=== PATIENT | male | born 1945 | race Caucasian/White ===

== ENCOUNTER 2016-08-06 14:37 | Inpatient (IN) | payer MEDICARE, OTHER ==
[2016-08-06 15:09] VITALS: BMI 25.7
--- NOTE | 2016-08-06 16:59 | PDOC ---
History of Present Illness - General History Source: Patient, Old Records Exam Limitations: No Limitations - History of Present Illness Initial Comments: 08/06/16 17:00 The patient is a 70 year old male, with a significant past medical history of CHF, atrial fibrillation, CAD, HTN, HLD, diabetes, small bowel obstruction and liver CA with implanted seeds for radiation, who presents to the emergency department with generalized weakness, loss of appetite and dizziness for the past 2 days. He states that he usually has a very good appetite but has not been eating well lately. He notes that lately his glucose level has been elevated. The patient denies chest pain, shortness of breath and headache. Denies fever, chills, nausea, vomit, diarrhea and constipation. Denies dysuria, frequency, urgency and hematuria. Allergies: None Past surgical history: CABG x3, aortic valve replacement Social history: No alcohol, tobacco or drug use reported PMD - Dr. Lindsay Pastor <Augustus Werner - Last Filed: 08/06/16 20:29> - General History Source: Patient, Old Records Exam Limitations: No Limitations <Yung Clark - Last Filed: 08/06/16 20:44> - General Chief Complaint: Loss of Appetite Stated Complaint: LOSS OF APPETITE, DIZZINESS Time Seen by Provider: 08/06/16 16:19 Past History <Augustus Werner - Last Filed: 08/06/16 20:29> - Past Medical History Anemia: No Asthma: No Cancer: No Cardiac Disorders: Yes (CHF, atrial fibrillation, CAD) CVA: No COPD: No CHF: Yes Dementia: No Diabetes: Yes GI Disorders: No Disorders: No HTN: Yes Hypercholesterolemia: Yes Liver Disease: No Suicide Attempt (Hx): No Seizures: No Thyroid Disease: No - Surgical History Abdominal Surgery: Yes Cardiac Surgery: Yes (CABG x3, aortic valve replacement) - Immunization History Immunization Up to Date: Yes - Psycho/Social/Smoking Cessation Hx Anxiety: No Suicidal Ideation: No Smoking Status: Yes Smoking History: Never smoked Have you smoked in the past 12 months: No Number of Cigarettes Smoked Daily: 0 If you are a former smoker, when did you quit?: 2001 Information on smoking cessation initiated: No Hx Alcohol Use: No Drug/Substance Use Hx: No Substance Use Type: None Hx Substance Use Treatment: No <Yung Clark - Last Filed: 08/06/16 20:44> - Past Medical History Allergies/Adverse Reactions: Allergies Allergy/AdvReac Type Severity Reaction Status Date / Time No Known Drug Allergies Allergy Verified 08/06/16 15:03 Home Medications: Ambulatory Orders Furosemide [Lasix -] 40 mg PO DAILY 08/06/16 Insulin (Levemir) [Levemir Flexpen -] 0 units SQ BID 08/06/16 Losartan Potassium 25 mg PO DAILY 08/06/16 Mirtazapine 15 mg PO DAILY 08/06/16 Pravastatin Sodium 10 mg PO DAILY 08/06/16 Spironolactone 100 mg PO DAILY 08/06/16 Review of Systems - Review of Systems Able to Perform ROS?: Yes Comments:: 08/06/16 17:00 GENERAL/CONSTITUTIONAL: +Generalized weakness, loss of appetite. No fever or chills. HEAD, EYES, EARS, NOSE AND THROAT: No change in vision. No ear pain or discharge. No sore throat. CARDIOVASCULAR: No chest pain or shortness of breath RESPIRATORY: No cough, wheezing, or hemoptysis. GASTROINTESTINAL: No nausea, vomiting, diarrhea or constipation. GENITOURINARY: No dysuria, frequency, or change in urination. MUSCULOSKELETAL: No joint or muscle swelling or pain. No neck or back pain. SKIN: No rash NEUROLOGIC: +Dizziness. No headache, loss of consciousness, or change in strength/sensation. ENDOCRINE: No increased thirst. No abnormal weight change HEMATOLOGIC/LYMPHATIC: No anemia, easy bleeding, or history of blood clots. ALLERGIC/IMMUNOLOGIC: No hives or skin allergy. <Augustus Werner - Last Filed: 08/06/16 20:29> *Physical Exam - Vital Signs Last Vital Signs Temp Pulse Resp BP Pulse Ox 98.2 F 81 20 149/69 99 08/06/16 15:03 08/06/16 15:03 08/06/16 15:03 08/06/16 15:03 08/06/16 15:03 - Physical Exam Comments: 08/06/16 17:01 GENERAL: +Cachectic. Awake, alert, and fully oriented, in no acute distress HEAD: No signs of trauma, normocephalic, atraumatic EYES: PERRLA, EOMI, sclera anicteric, conjunctiva clear ENT: Auricles normal inspection, hearing grossly normal, nares patent, oropharynx clear without exudates. Moist mucosa NECK: Normal ROM, supple, no lymphadenopathy, JVD, or masses LUNGS: No distress, speaks full sentences, clear to auscultation bilaterally HEART: +Systolic murmur. Regular rate and rhythm, normal S1 and S2, no rubs or gallops, peripheral pulses normal and equal bilaterally. ABDOMEN: Soft, nontender, normoactive bowel sounds. No guarding, no rebound. No masses EXTREMITIES: Normal inspection, Normal range of motion, no edema. No clubbing or cyanosis. NEUROLOGICAL: Cranial nerves II through XII grossly intact. Normal speech, normal gait, no focal sensorimotor deficits SKIN: Warm, Dry, normal turgor, no rashes or lesions noted. <Augustus Werner - Last Filed: 08/06/16 20:29> - Vital Signs Last Vital Signs Temp Pulse Resp BP Pulse Ox 98.2 F 81 20 149/69 99 08/06/16 15:03 08/06/16 15:03 08/06/16 15:03 08/06/16 15:03 08/06/16 15:03 <Yung Clark - Last Filed: 08/06/16 20:44> Heart Score/ECG Review #1 ECG reviewed & interpreted by me at: 17:00 08/06/16 17:06 NSR 68 with 1st degree AV block, incomplete LBBB, +LVH, QTC 440 msec, no std/paty <Yung Clark - Last Filed: 08/06/16 20:44> ED Treatment Course - LABORATORY CBC & Chemistry Diagram: 08/06/16 17:20 08/06/16 18:01 <Augustus Werner - Last Filed: 08/06/16 20:29> - LABORATORY CBC & Chemistry Diagram: 08/06/16 17:20 08/06/16 18:01 - RADIOLOGY Radiology Studies Ordered: Category Date Time Status CHEST X-RAY PORTABLE* [RAD] Stat Radiology 08/06/16 16:36 Ordered <Yung Clark - Last Filed: 08/06/16 20:44> Medical Decision Making - Medical Decision Making 08/06/16 20:29 Dr. Pastor was called regarding the patient at 8:00pm and 8:26pm Dr. Pastor was consulted regarding the patient at 8:29pm [phone] <Augustus Werner - Last Filed: 08/06/16 20:29> - Medical Decision Making 08/06/16 16:56 A portion of this note was written by my scribe, under my supervision. Vital Signs Temp Pulse Resp BP Pulse Ox 98.2 F 81 20 149/69 99 08/06/16 15:03 08/06/16 15:03 08/06/16 15:03 08/06/16 15:03 08/06/16 15:03 70 year old male with past medical history of HTN, DM, HLD, CHF, atrial fibrillation, distant liver cancer p/w loss of appetite and weakness. The patient reports in the last two days of feeling generally weak. States that he has lost his appetite but unsure why. Denies recent illnesses, fevers, chills, cough, vomiting, diarrhea. Does report that his sugars lately have been very high, sometimes over 400 despite reportedly adherent to his insulin. Noted polyuria. Denies dysuria. States that he feels like feinting because he feels so weak. The differential is broad and includes DKA, hyperglycemia, occult infection ie. UTI, occult PNA, cardiac, metabolic disarray. Will obtain labs, UA, chest xray, ECG, and reassess. 08/06/16 20:32 CBC, BMP 08/06/16 17:20 08/06/16 18:01 CMP Sodium 134 mmol/L (136-145) L 08/06/16 18:01 Potassium 6.9 mmol/L (3.5-5.1) H* D 08/06/16 18:01 Chloride 104 mmol/L (98-107) 08/06/16 18:01 Carbon Dioxide 19 mmol/L (21-32) L D 08/06/16 18:01 Anion Gap 11 (8-16) 08/06/16 18:01 BUN 72 mg/dL (7-18) H D 08/06/16 18:01 Creatinine 3.8 mg/dL (0.7-1.3) H D 08/06/16 18:01 Creat Clearance w eGFR 15.87 (>60) 08/06/16 18:01 Random Glucose 240 mg/dL (74-106) H D 08/06/16 18:01 Calcium 8.5 mg/dL (8.5-10.1) 08/06/16 18:01 Phosphorus 4.7 mg/dL (2.5-4.9) 08/06/16 18:01 Magnesium 2.1 mg/dL (1.8-2.4) 08/06/16 18:01 Total Bilirubin 1.3 mg/dL (0.2-1.0) H 08/06/16 18:01 AST 19 U/L (15-37) D 08/06/16 18:01 ALT 33 U/L (12-78) D 08/06/16 18:01 Alkaline Phosphatase 141 U/L (45-117) H D 08/06/16 18:01 Creatine Kinase 62 IU/L (39-308) 08/06/16 18:01 Troponin I 0.02 ng/ml (0.00-0.05) 08/06/16 18:01 Total Protein 7.5 g/dl (6.4-8.2) 08/06/16 18:01 Albumin 3.4 g/dl (3.4-5.0) 08/06/16 18:01 Urine Test Results Urine Color Ltyellow 08/06/16 17:50 Urine Appearance Clear 08/06/16 17:50 Urine pH 5.0 (5.0-8.0) 08/06/16 17:50 Ur Specific [place] 1.012 (1.001-1.035) 08/06/16 17:50 Urine Protein 1+ (NEGATIVE) H 08/06/16 17:50 Urine Glucose (UA) Negative (NEGATIVE) 08/06/16 17:50 Urine Ketones Negative (NEGATIVE) 08/06/16 17:50 Urine Blood Negative (NEGATIVE) 08/06/16 17:50 Urine Nitrite Negative (NEGATIVE) 08/06/16 17:50 Urine Bilirubin Negative (NEGATIVE) 08/06/16 17:50 Ur Leukocyte Esterase Negative (NEGATIVE) 08/06/16 17:50 Urine RBC 1 /hpf (0-3) 08/06/16 17:50 Urine WBC <1 /hpf (3-5) 08/06/16 17:50 Ur Epithelial Cells Rare /hpf (FEW) 08/06/16 17:50 Labs reviewed. Patient has acute renal failure with a resultant hyperkalemia. Patient shows no hyperkalemic changes on EKG. Will admit the patient to the hospital. Case discussed with Dr. Pastor who accepts the patient to the hospital. Case discussed in detail with admitting physician including history, physical exam and ancillary studies. Admitting physician has assumed care for the patient, will follow all pending diagnostics and will complete the evaluation and treatment. <Yung Clark - Last Filed: 08/06/16 20:44> *DC/Admit/Observation/Transfer - Attestations Scribe Attestion: 08/06/16 17:01 Documentation prepared by Augustus Werner, acting as medical records field technician for Yung Clark MD <Augustus Werner - Last Filed: 08/06/16 20:29> - Discharge Dispostion Admit: Yes <Yung Clark - Last Filed: 08/06/16 20:44> Diagnosis at time of Disposition: Hyperkalemia Acute renal failure Qualifiers: Acute renal failure type: unspecified Qualified Code(s): N17.9 - Acute kidney failure, unspecified - Discharge Dispostion Condition at time of disposition: Stable - Referrals Referrals: Reyna Love MD [Primary Care Provider] -
[2016-08-06 17:30] LABS: BASOPHIL 0.6 % (0-2.0); EOSINOPHIL 1.5 % (0-4.5); MCH 32.4 pg (25.7-33.7); MCHC 34.3 g/dl (32.0-35.9); MEAN CELL VOLUME 94.6 fl (80-96); NEUTROPHILS 65.6 % (42.8-82.8); RDW 14.5 % (11.9-15.9); WHITE BLOOD COUNT 4.5 K/mm3 (4.0-10.0)
[2016-08-06 18:04] LABS: URINE APPEARANCE CLEAR; URINE BILIRUBIN NEGATIVE (NEGATIVE); URINE BLOOD NEGATIVE (NEGATIVE); URINE COLOR LTYELLOW; URINE GLUCOSE (UA) NEGATIVE (NEGATIVE); URINE KETONE NEGATIVE (NEGATIVE); URINE LEUK ESTERASE NEGATIVE (NEGATIVE); URINE NITRITE NEGATIVE (NEGATIVE); URINE UROBILINOGEN NEGATIVE E.U./dl (0.2-1.0)
[2016-08-06 18:24] LABS: URINE PROTEIN 1+ (NEGATIVE)
[2016-08-06 18:38] LABS: PLATELET COUNT 76 K/MM3 (134-434); PLATELET ESTIMATE DECREASED (NORMAL)
[2016-08-06 18:53] LABS: ALBUMIN 3.4 g/dl (3.4-5.0); BILIRUBIN,TOTAL 1.3 mg/dL (0.2-1.0); CALCIUM 8.5 mg/dL (8.5-10.1); COCKROFT - GAULT 19.3; CREATININE 3.8 mg/dL (0.7-1.3); MAGNESIUM 2.1 mg/dL (1.8-2.4); PHOSPHOROUS 4.7 mg/dL (2.5-4.9); TOT PROT 7.5 g/dl (6.4-8.2)
[2016-08-06 18:56] LABS: TROPONIN I 0.02 ng/ml (0.00-0.05)
[2016-08-06 19:09] LABS: URINE RBC 1 /hpf (0-3); URINE WBC <1 /hpf (3-5)
[2016-08-06 19:22] LABS: INR 1.13 (0.82-1.09); PROTHROMBIN TIME (PATIENT) 12.5 SEC (9.98-11.88)
[2016-08-06 19:25] LABS: ACTIVATED PTT 30.9 SECONDS (26.9-34.4)
[2016-08-06] MEDS ORDERED: SODIUM BICARBONATE 8.4% 50 MEQ/50 ML DISP.SYRIN IVPUSH ONE (19:58)
[2016-08-06] MEDS ORDERED: DEXTROSE 50%-WATER 50 ML VIAL IVPUSH ONE (19:58)
[2016-08-06] MEDS ORDERED: SODIUM POLYSTYRENE SULFONATE 15 GM/60 ML BOTTLE PO ONE (19:58)
[2016-08-06] MEDS ORDERED: INSULIN REGULAR HUMAN 100 UNITS/ML *VIAL IVPUSH ONE (19:58)
[2016-08-06] MEDS ORDERED: ALBUTEROL SO4 0.083% IH SOL 2.5 MG/3 ML VIAL.NEB. NEB ONE ×2 (19:58→20:39)
[2016-08-06] MEDS ORDERED: SODIUM BICARBONATE 8.4% - 50 ML ONE (20:40)
[2016-08-06] MEDS ORDERED: SODIUM POLYSTYRENE SULFONATE 15 GM/60 ML BOTTLE ONE (20:40)
[2016-08-06] MEDS ORDERED: DEXTROSE 50%-WATER 50 ML DISP.SYRIN ONE (20:40)
[2016-08-06] MEDS ORDERED: INSULIN REGULAR HUMAN 100 UNITS/ML *VIAL ONE (20:42)
[2016-08-07 06:29] LABS: BASOPHIL 0.8 % (0-2.0); EOSINOPHIL 1.3 % (0-4.5); MCH 33.2 pg (25.7-33.7); MEAN CELL VOLUME 94.9 fl (80-96); MEAN PLT VOLUME 9.5 fl (7.5-11.1); NEUTROPHILS 62.7 % (42.8-82.8); PLATELET COUNT 53 K/MM3 (134-434); RDW 14.8 % (11.9-15.9)
[2016-08-07] MEDS ORDERED: INSULIN DETEMIR 100 UNITS/ML MDV SQ SCH (07:00)
[2016-08-07 07:09] LABS: CHOLESTEROL 109 mg/dL (50-200); LDL CHOLESTEROL (ONLY SJRH) 50 mg/dL (5-100)
[2016-08-07 07:10] LABS: ALBUMIN 3.2 g/dl (3.4-5.0); COCKROFT - GAULT 18.8; CREATININE 3.9 mg/dL (0.7-1.3); TROPONIN I 0.03 ng/ml (0.00-0.05)
[2016-08-07] MEDS ORDERED: INSULIN DETEMIR 100 UNITS/ML MDV SQ ONE ×3 (08:39→14:42)
[2016-08-07] MEDS ORDERED: INSULIN REGULAR HUMAN 100 UNITS/ML *VIAL ONE (09:11)
[2016-08-07] MEDS: INSULIN SLIDING SCALE (NOVOLOG) 1 VIAL SQ SCH ×3 (09:13→17:04)
[2016-08-07] MEDS ORDERED: PATIENT'S OWN MEDICATION (NON-FORMULARY) (Pravastatin Sodium [Pravastatin Sodium] 10 MG) PO SCH (10:00)
[2016-08-07] MEDS ORDERED: MIRTAZAPINE 15 MG TABLET (FP) PO SCH (10:00)
[2016-08-07 10:52] LABS: TROPONIN I 0.03 ng/ml (0.00-0.05)
--- NOTE | 2016-08-07 11:11 | HP ---
Admitting History and Physical - Primary Care Physician PCP: Reyna Love - Admission History of Present Illness: -ER HISTORY History of Present Illness Initial Comments: 08/06/16 17:00 The patient is a 70 year old male, with a significant past medical history of CHF, atrial fibrillation, CAD, HTN, HLD, diabetes, small bowel obstruction and liver CA with implanted seeds for radiation, who presents to the emergency department with generalized weakness, loss of appetite and dizziness for the past 2 days. He states that he usually has a very good appetite but has not been eating well lately. He notes that lately his glucose level has been elevated. The patient denies chest pain, shortness of breath and headache. Denies fever, chills, nausea, vomit, diarrhea and constipation. Denies dysuria, frequency, urgency and hematuria. Allergies: None Past surgical history: CABG x3, aortic valve replacement Social history: No alcohol, tobacco or drug use reported PMD - Dr. Lindsay Pastor Pt examined by me in ER he feels tired , no chest pain or SOB no diarrhea has low appetite History Source: Patient Limitations to Obtaining History: No Limitations - Past Medical History Cardiovascular: Yes: AFIB, Aortic Stenosis, CHF Hepatobiliary: Yes: Cirrhosis Endocrine: Yes: Diabetes Mellitus - Past Surgical History Past Surgical History: Yes: Valve Replacement - Smoking History Smoking history: Never smoked Have you smoked in the past 12 months: No Aproximately how many cigarettes per day: 0 If you are a former smoker, when did you quit?: 2001 - Alcohol/Substance Use Hx Alcohol Use: No Home Medications - Allergies Allergies/Adverse Reactions: Allergies Allergy/AdvReac Type Severity Reaction Status Date / Time No Known Drug Allergies Allergy Verified 08/06/16 15:03 - Home Medications Home Medications: Ambulatory Orders Mirtazapine 15 mg PO DAILY 08/06/16 Pravastatin Sodium 10 mg PO DAILY 08/06/16 Insulin (Levemir) [Levemir Flexpen -] 20 units SQ BID #1 amp 08/11/16 Insulin Sliding Scale [Novolog Vial Sliding Scale -] 1 vial SQ TIDAC #1 amp Review of Systems - Review of Systems Constitutional: reports: Loss of Appetite, Weakness. denies: Chills, Fever Cardiovascular: denies: Chest Pain, Palpitations, Shortness of Breath Respiratory: denies: Cough, SOB Gastrointestinal: denies: Abdominal Pain, Diarrhea Physical Examination Vital Signs: Vital Signs Temperature 98.0 F 08/07/16 06:49 Pulse Rate 76 08/07/16 08:06 Respiratory Rate 18 08/07/16 08:06 Blood Pressure 153/81 08/07/16 08:06 O2 Sat by Pulse Oximetry (%) 100 08/07/16 08:06 Constitutional: Yes: No Distress, Calm Cardiovascular: Yes: Regular Rate and Rhythm Respiratory: Yes: Diminished Gastrointestinal: Yes: Normal Bowel Sounds, Soft, Abdomen, Obese. No: Distention, Tenderness Edema: No Psychiatric: Yes: Alert, Oriented Labs: CBC, BMP 08/07/16 06:12 08/07/16 06:12 Imaging - Results Chest X-ray: Image Reviewed (no congestion , infiltrate) EKG: Image Reviewed Problem List - Problems (1) Atrial fibrillation Assessment/Plan: not on anticoagulation or ASA due to thrombocytopenia, pt has h/o cirrhosis due to previous alcohol use Code(s): I48.91 - UNSPECIFIED ATRIAL FIBRILLATION Qualifiers: Atrial fibrillation type: paroxysmal Qualified Code(s): I48.0 - Paroxysmal atrial fibrillation (2) Thrombocytopenia Assessment/Plan: not evidence of bleeding Code(s): D69.6 - THROMBOCYTOPENIA, UNSPECIFIED (3) Acute renal failure Assessment/Plan: dehydrated dc Lasix for now, spironolactone and Losartan Kayexalate given repeat BMP received iv fluids in ER check renal sono Renal consult Code(s): N17.9 - ACUTE KIDNEY FAILURE, UNSPECIFIED Qualifiers: Acute renal failure type: unspecified Qualified Code(s): N17.9 - Acute kidney failure, unspecified (4) Hyperglycemia Assessment/Plan: check BGM monitor blood sugars Code(s): R73.9 - HYPERGLYCEMIA, UNSPECIFIED (5) Dehydration Assessment/Plan: likely due to meds gentle fluids , pt not in volume overload he is over -diuresed DVT prophylaxis- SCD Code(s): E86.0 - DEHYDRATION
--- NOTE | 2016-08-07 11:19 | EKG ---
Test Reason : Blood Pressure : / mmHG Vent. Rate : 068 BPM Atrial Rate : 068 BPM P-R Int : 242 ms QRS Dur : 110 ms QT Int : 414 ms P-R-T Axes : 062 -01 078 degrees QTc Int : 440 ms SINUS RHYTHM WITH 1ST DEGREE A-V BLOCK INCOMPLETE LEFT BUNDLE BRANCH BLOCK MINIMAL VOLTAGE CRITERIA FOR LVH, MAY BE NORMAL VARIANT BORDERLINE ECG WHEN COMPARED WITH ECG OF 10-AUG-2015 14:01, AL INTERVAL HAS INCREASED INCOMPLETE LEFT BUNDLE BRANCH BLOCK IS NOW PRESENT Confirmed by POLO JOSEPH MD ([id number]) on 08/07/2016 11:19:11 AM Referred By: Confirmed By:POLO JOSEPH MD
--- NOTE | 2016-08-07 11:21 | CON.CARD ---
Cardiology Consult (text) - Consultation Consultation Note: cc: weakness, fatigue hpi: 70 m hx cad s/p cabg x3 2004, bio avr, ascending aorta repair, htn, hld, dm, aflutter, dchf, ex etoh abuse, HCC s/p seeds at [facility] 07/2015, cirrhosis with thrombocytopenia and esoph varices, here with weakness, fatigue. Pt had been feeling well until about 2-3 days ago when he began to have generalized weakness, fatigue, dec appetite. No cp, sob, palps, dizzy, loc, pnd, orthopnea , le edema. In ER found to have DEJUAN. Sees me for cardiology. pmh: per hpi psh: cabg, avr social: ex tob, ex etoh fam: no premature cad or scd ros: per hpi; no nvd, fever, cough, nasal congestion, muscle pains, fritz, vision changes, no hematuria/dysuria, no gib meds: Home Medications Medication Instructions Recorded Furosemide [Lasix -] 40 mg PO DAILY 08/06/16 Insulin (Levemir) [Levemir Flexpen 0 units SQ BID 08/06/16 -] Losartan Potassium 25 mg PO DAILY 08/06/16 Mirtazapine 15 mg PO DAILY 08/06/16 Pravastatin Sodium 10 mg PO DAILY 08/06/16 Spironolactone 100 mg PO DAILY 08/06/16 pe: Vital Signs Period Temp Pulse Resp BP Sys/Sheldon Pulse Ox Last 24 Hr 98.0 F-98.2 F 76-81 16-20 128-153/52-81 99-100 nad no jvd rrr s1s2 no mrg cta bl nl eff aaox3 no le e/c/c abd nt nd pos bs no jaundice diaphoresis pos dp pt no carotid bruit Laboratory Last Values WBC 3.0 K/mm3 (4.0-10.0) L D 08/07/16 06:12 RBC 3.48 M/mm3 (4.00-5.60) L 08/07/16 06:12 Hgb 11.5 GM/dL (11.7-16.9) L 08/07/16 06:12 Hct 33.0 % (35.4-49) L 08/07/16 06:12 MCV 94.9 fl (80-96) 08/07/16 06:12 MCHC 35.0 g/dl (32.0-35.9) 08/07/16 06:12 RDW 14.8 % (11.9-15.9) 08/07/16 06:12 Plt Count 53 K/MM3 (134-434) L D 08/07/16 06:12 MPV 9.5 fl (7.5-11.1) D 08/07/16 06:12 Neutrophils % 62.7 % (42.8-82.8) 08/07/16 06:12 Lymphocytes % 20.4 % (8-40) 08/07/16 06:12 Monocytes % 14.8 % (3.8-10.2) H 08/07/16 06:12 Eosinophils % 1.3 % (0-4.5) 08/07/16 06:12 Basophils % 0.8 % (0-2.0) 08/07/16 06:12 Platelet Estimate Decreased (NORMAL) 08/06/16 17:20 INR 1.13 (0.82-1.09) D 08/06/16 17:20 PTT (Actin FS) 30.9 SECONDS (26.9-34.4) 08/06/16 17:20 Sodium 136 mmol/L (136-145) 08/07/16 06:12 Potassium 4.9 mmol/L (3.5-5.1) D 08/07/16 06:12 Chloride 105 mmol/L (98-107) 08/07/16 06:12 Carbon Dioxide 20 mmol/L (21-32) L 08/07/16 06:12 Anion Gap 11 (8-16) 08/07/16 06:12 BUN 77 mg/dL (7-18) H 08/07/16 06:12 Creatinine 3.9 mg/dL (0.7-1.3) H 08/07/16 06:12 Creat Clearance w eGFR 15.41 (>60) 08/07/16 06:12 Random Glucose 506 mg/dL (74-106) H* D 08/07/16 06:12 Calcium 8.0 mg/dL (8.5-10.1) L 08/07/16 06:12 Phosphorus 4.7 mg/dL (2.5-4.9) 08/06/16 18:01 Magnesium 2.1 mg/dL (1.8-2.4) 08/06/16 18:01 Total Bilirubin 1.0 mg/dL (0.2-1.0) D 08/07/16 06:12 AST 17 U/L (15-37) 08/07/16 06:12 ALT 33 U/L (12-78) 08/07/16 06:12 Alkaline Phosphatase 137 U/L (45-117) H 08/07/16 06:12 Creatine Kinase 68 IU/L (39-308) 08/07/16 10:16 Troponin I 0.03 ng/ml (0.00-0.05) 08/07/16 10:16 Total Protein 7.0 g/dl (6.4-8.2) 08/07/16 06:12 Albumin 3.2 g/dl (3.4-5.0) L 08/07/16 06:12 Triglycerides 85 mg/dL (35-160) D 08/07/16 06:12 Cholesterol 109 mg/dL (50-200) 08/07/16 06:12 Total LDL Cholesterol 50 mg/dL (5-100) 08/07/16 06:12 HDL Cholesterol 47 mg/dL (40-60) 08/07/16 06:12 Urine Color Ltyellow 08/06/16 17:50 Urine Appearance Clear 08/06/16 17:50 Urine pH 5.0 (5.0-8.0) 08/06/16 17:50 Ur Specific [place] 1.012 (1.001-1.035) 08/06/16 17:50 Urine Protein 1+ (NEGATIVE) H 08/06/16 17:50 Urine Glucose (UA) Negative (NEGATIVE) 08/06/16 17:50 Urine Ketones Negative (NEGATIVE) 08/06/16 17:50 Urine Blood Negative (NEGATIVE) 08/06/16 17:50 Urine Nitrite Negative (NEGATIVE) 08/06/16 17:50 Urine Bilirubin Negative (NEGATIVE) 08/06/16 17:50 Urine Urobilinogen Negative E.U./dl (0.2-1.0) 08/06/16 17:50 Ur Leukocyte Esterase Negative (NEGATIVE) 08/06/16 17:50 Urine RBC 1 /hpf (0-3) 08/06/16 17:50 Urine WBC <1 /hpf (3-5) 08/06/16 17:50 Ur Epithelial Cells Rare /hpf (FEW) 08/06/16 17:50 Acetone, Qual Cancelled 08/06/16 17:20 echo 09/2014: nl lv/rv, mild merrill, mild mr/tr, bio avr with nl fcn, mild ar, rvsp 30-40 mibi 06/2013: nl mpi pvr 06/2013: normal cxr: clear lungs ecg 08/06/16: sr, first degree avb, nl qtc, no ischemic changes a/p: 70 m hx cad s/p cabg x3 2004, bio avr, ascending aorta repair, htn, hld, dm, aflutter, dchf, ex etoh abuse, HCC s/p seeds at [facility] 07/2015, cirrhosis with thrombocytopenia and esoph varices, here with weakness, fatigue. dejuan: -unclear etiology -renal consult pending -hold home lasix for now cad, cabg: -stable, no angina, nl lvef -no ischemia on prior mibi -no signs acs, ce's neg x3 -cont home statin, bb -not on asa 2/2 thrombocytopenia bio avr: -stable, nl fcn on prior echo -routine outpt monitoring ascending aorta repair: -stable, cont bb, statin, bp control htn: -cont home bb hld: -cont statin dchf: -no signs vol overload -can hold home lasix 40 qd given dejuan aflutter: -in sr, cont bb -no ac/asa 2/2 thrombocytopenia and esoph varices
[2016-08-07] MEDS ORDERED: Insulin (LOG) Aspart 100 UNITS/ML VIAL SQ ONE (12:20)
--- NOTE | 2016-08-07 15:53 | CONSULT ---
Consult Consult Specialty:: Nephrology Reason for Consultation:: DEJUAN - History of Present Illness Chief Complaint: weakness and fatigue History of Present Illness: Pt is a 70 year old male with pmhx of CHF, a-fib, HTN, CAD, DM, SBO, and liver CA who presents to the ER with weakness and loss of appetite. He was found to be hyperglycemic. He was also found to be in acute renal failure and I was called to evaluate him. He denies dysuria or hematuria. He also denies history of CKD. He does not use NSAIDs. He is now awake and alert. He has appetite and is able to give history. - History Source History Provided By: Patient - Past Medical History Cardio/Vascular: Yes: AFIB, Aortic Stenosis, CHF Hepatobiliary: Yes: Cirrhosis Endocrine: Yes: Diabetes Mellitus - Past Surgical History Past Surgical History: Yes: Valve Replacement - Alcohol/Substance Use Hx Alcohol Use: No - Smoking History Smoking history: Never smoked Have you smoked in the past 12 months: No Aproximately how many cigarettes per day: 0 If you are a former smoker, when did you quit?: 2001 - Social History Usual Living Arrangement: With Spouse Home Medications - Allergies Allergies/Adverse Reactions: Allergies Allergy/AdvReac Type Severity Reaction Status Date / Time No Known Drug Allergies Allergy Verified 08/06/16 15:03 - Home Medications Home Medications: Ambulatory Orders Furosemide [Lasix -] 40 mg PO DAILY 08/06/16 Insulin (Levemir) [Levemir Flexpen -] 40 units SQ HS 08/06/16 Losartan Potassium 25 mg PO DAILY 08/06/16 Mirtazapine 15 mg PO DAILY 08/06/16 Pravastatin Sodium 10 mg PO DAILY 08/06/16 Spironolactone 100 mg PO DAILY 08/06/16 Family Disease History - Family Disease History Family History: Denies Review of Systems - Review of Systems Constitutional: reports: Malaise Eyes: reports: No Symptoms HENT: reports: No Symptoms Neck: reports: No Symptoms Cardiovascular: reports: No Symptoms Respiratory: reports: No Symptoms Gastrointestinal: reports: No Symptoms Genitourinary: reports: No Symptoms Musculoskeletal: reports: No Symptoms Integumentary: reports: No Symptoms Neurological: reports: No Symptoms Endocrine: reports: No Symptoms Hematology/Lymphatic: reports: No Symptoms Psychiatric: reports: No Symptoms Physical Exam Vital Signs: Vital Signs Temperature 98.6 F 08/07/16 13:13 Pulse Rate 94 H 08/07/16 13:13 Respiratory Rate 18 08/07/16 13:13 Blood Pressure 131/62 08/07/16 13:13 O2 Sat by Pulse Oximetry (%) 100 08/07/16 13:13 Constitutional: Yes: Calm Eyes: Yes: Conjunctiva Clear HENT: Yes: Atraumatic Cardiovascular: Yes: S1, S2 Respiratory: Yes: CTA Bilaterally Gastrointestinal: Yes: Soft Renal/: Yes: WNL Musculoskeletal: Yes: WNL Edema: No Integumentary: Yes: Venous Stasis Changes Neurological: Yes: Oriented Psychiatric: Yes: Oriented Labs: CBC, BMP 08/07/16 06:12 08/07/16 06:12 Laboratory Tests 09/24/14 09/25/14 09/30/14 05:40 21:05 06:00 WBC Hgb Plt Count INR PTT (Actin FS) Sodium Potassium Chloride Carbon Dioxide Anion Gap BUN Creatinine 1.2 1.4 H 0.9 Hemoglobin A1c % Urine Color Urine Appearance Urine pH Ur Specific [place] Urine Protein Urine Glucose (UA) Urine Ketones Urine Blood Urine Nitrite Urine Bilirubin Urine Urobilinogen Ur Leukocyte Esterase 05/23/15 08/10/15 08/06/16 09:15 14:29 17:20 WBC 4.5 Hgb 11.9 Plt Count 76 L D INR PTT (Actin FS) Sodium Potassium Chloride Carbon Dioxide Anion Gap BUN Creatinine 1.4 H 1.4 H Hemoglobin A1c % Urine Color Urine Appearance Urine pH Ur Specific [place] Urine Protein Urine Glucose (UA) Urine Ketones Urine Blood Urine Nitrite Urine Bilirubin Urine Urobilinogen Ur Leukocyte Esterase 08/06/16 08/06/16 08/06/16 17:20 17:50 18:01 WBC Hgb Plt Count INR 1.13 D PTT (Actin FS) 30.9 Sodium 134 L Potassium 6.9 H* D Chloride 104 Carbon Dioxide 19 L D Anion Gap 11 BUN 72 H D Creatinine 3.8 H D Hemoglobin A1c % Urine Color Ltyellow Urine Appearance Clear Urine pH 5.0 Ur Specific [place] 1.012 Urine Protein 1+ H Urine Glucose (UA) Negative Urine Ketones Negative Urine Blood Negative Urine Nitrite Negative Urine Bilirubin Negative Urine Urobilinogen Negative Ur Leukocyte Esterase Negative 08/07/16 08/07/16 08/07/16 06:12 06:12 06:12 WBC 3.0 L D Hgb 11.5 L Plt Count 53 L D INR PTT (Actin FS) Sodium 136 Potassium 4.9 D Chloride 105 Carbon Dioxide 20 L Anion Gap 11 BUN 77 H Creatinine 3.9 H Hemoglobin A1c % 11.2 H D Urine Color Urine Appearance Urine pH Ur Specific [place] Urine Protein Urine Glucose (UA) Urine Ketones Urine Blood Urine Nitrite Urine Bilirubin Urine Urobilinogen Ur Leukocyte Esterase Imaging - Results Chest X-ray: Report Reviewed Ultrasound: Report Reviewed (bilateral cysts) Problem List - Problems (1) Acute renal failure Code(s): N17.9 - ACUTE KIDNEY FAILURE, UNSPECIFIED Qualifiers: Acute renal failure type: unspecified Qualified Code(s): N17.9 - Acute kidney failure, unspecified (2) Atrial fibrillation Code(s): I48.91 - UNSPECIFIED ATRIAL FIBRILLATION (3) CHF (congestive heart failure) Code(s): I50.9 - HEART FAILURE, UNSPECIFIED (4) Diabetes 1.5, managed as type 2 Code(s): E13.9 - OTHER SPECIFIED DIABETES MELLITUS WITHOUT COMPLICATIONS (5) Hyperkalemia Code(s): E87.5 - HYPERKALEMIA (6) Hypertension Code(s): I10 - ESSENTIAL (PRIMARY) HYPERTENSION (7) Thrombocytopenia Code(s): D69.6 - THROMBOCYTOPENIA, UNSPECIFIED Assessment/Plan Current Medications Generic Name Dose Route Start Last Admin Trade Name Radha PRN Reason Stop Dose Admin Insulin Aspart 1 vial 08/07/16 07:00 08/07/16 17:04 Novolog Vial Sliding Scale - SQ Not Given TIDAC [facility] Protocol Insulin Detemir 40 units 08/08/16 07:00 Levemir Vial SQ DAILY@0700 [facility] Mirtazapine 15 mg 08/07/16 10:00 08/07/16 10:59 Remeron - PO 15 mg DAILY [facility] Administration Non-Formulary Medication 10 mg 08/07/16 10:00 Pravastatin Sodium [Pravastatin Sodium] PO DAILY [facility] Pneumococcal 13-Valent Conj Vacc 0.5 ml 08/07/16 13:26 Prevnar 13 Syringe - IM 08/07/16 13:27 .ONCE ONE Selected Entries 08/07/16 08/07/16 06:49 13:13 Blood Pressure 131/62 Blood Pressure 128/52 [Left] Impression 1. DEJUAN 2. hyperkalemia 3. DM uncontrolled 4. a-fib 5. HTN 6. liver ca 7. chol 8. CHF 9. hx alcohol abuse Plan - hold diuretics, pt was on lasix and spironolactone - hold losartan for now - repeat labs in am - renal ultrasound reviewed - will give a small volume of fluid - monitor bp - will follow Dr Dee
[2016-08-07] MEDS ORDERED: SODIUM CHLORIDE 1,000 ML IV SCH (17:30)
[2016-08-08] MEDS: INSULIN SLIDING SCALE (NOVOLOG) 1 VIAL SQ SCH ×3 (06:36→17:09)
[2016-08-08] MEDS: INSULIN DETEMIR 100 UNITS/ML MDV SQ SCH (06:36)
[2016-08-08] MEDS ORDERED: INSULIN DETEMIR 100 UNITS/ML MDV SQ SCH (07:00)
[2016-08-08 08:19] LABS: BASOPHIL 0.9 % (0-2.0); EOSINOPHIL 3.6 % (0-4.5); MEAN PLT VOLUME 9.5 fl (7.5-11.1); NEUTROPHILS 58.2 % (42.8-82.8); PLATELET COUNT 51 K/MM3 (134-434); RDW 14.7 % (11.9-15.9); WHITE BLOOD COUNT 4.5 K/mm3 (4.0-10.0)
[2016-08-08 08:48] LABS: ALBUMIN 3.3 g/dl (3.4-5.0); BILIRUBIN,TOTAL 1.1 mg/dL (0.2-1.0); CALCIUM 8.3 mg/dL (8.5-10.1); COCKROFT - GAULT 22.98; CREATININE 3.1 mg/dL (0.7-1.3); TOT PROT 7.1 g/dl (6.4-8.2)
--- NOTE | 2016-08-08 09:03 | PN ---
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 (short form) - Note 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: SUBJECTIVE: Patient seen and examined. Chart reviewed. Feels better. Still weak. Passing urine. Denies pain. OBJECTIVE: Vital Signs 08/08/16 08/08/16 06:00 08:42 Temperature 98.2 F 98.2 F Pulse Rate 86 73 Respiratory 20 18 Rate Blood Pressure 109/59 146/67 Intake & Output 08/07/16 08/08/16 08/08/16 23:59 07:59 15:59 Intake Total 504 Output Total 300 Balance -300 504 Weight 72.257 kg Intake: IV 504 Normal Saline - 1,000 ml 504 @ 42 mls/hr IV ASDIR [facility] Rx#:[id number] Output: Emesis 300 Other: Voiding Method Toilet Weight Measurement Method Built in [facility] Active Medications Insulin Aspart (Novolog Vial Sliding Scale -) 1 vial SQ TIDAC [facility] PRN Reason: Protocol Last Admin: 08/08/16 06:36 Dose: Not Given Insulin Detemir (Levemir Vial) 40 units SQ DAILY@0700 [facility] Last Admin: 08/08/16 06:36 Dose: 40 units Mirtazapine (Remeron -) 15 mg PO DAILY [facility] Last Admin: 08/08/16 09:23 Dose: 15 mg Non-Formulary Medication (Pravastatin Sodium [Pravastatin Sodium]) 10 mg PO DAILY [facility] Pneumococcal 13-Valent Conj Vacc (Prevnar 13 Syringe -) 0.5 ml IM .ONCE ONE Stop: 08/08/16 11:01 CBC, BMP 08/08/16 06:30 08/08/16 06:30 Laboratory Results - last 24 hr 08/07/16 08/07/16 08/07/16 06:12 10:16 12:08 WBC RBC Hgb Hct MCV MCHC RDW Plt Count MPV Neutrophils % Lymphocytes % Monocytes % Eosinophils % Basophils % Sodium Potassium Chloride Carbon Dioxide Anion Gap BUN Creatinine Creat Clearance w eGFR POC Glucometer > 400 Random Glucose Hemoglobin A1c % 11.2 H D Calcium Total Bilirubin AST ALT Alkaline Phosphatase Creatine Kinase 68 Troponin I 0.03 Total Protein Albumin 08/07/16 08/08/16 08/08/16 17:00 06:30 06:30 WBC 4.5 D RBC 3.67 L Hgb 12.1 Hct 34.5 L MCV 94.0 MCHC 35.0 RDW 14.7 Plt Count 51 L MPV 9.5 Neutrophils % 58.2 Lymphocytes % 23.1 Monocytes % 14.2 H Eosinophils % 3.6 D Basophils % 0.9 Sodium 140 Potassium 4.4 Chloride 109 H Carbon Dioxide 20 L Anion Gap 11 BUN 77 H Creatinine 3.1 H D Creat Clearance w eGFR 20.08 POC Glucometer [id number] Random Glucose 122 H D Hemoglobin A1c % Calcium 8.3 L Total Bilirubin 1.1 H AST 25 D ALT 35 Alkaline Phosphatase 140 H Creatine Kinase Troponin I Total Protein 7.1 Albumin 3.3 L 08/08/16 06:34 WBC RBC Hgb Hct MCV MCHC RDW Plt Count MPV Neutrophils % Lymphocytes % Monocytes % Eosinophils % Basophils % Sodium Potassium Chloride Carbon Dioxide Anion Gap BUN Creatinine Creat Clearance w eGFR POC Glucometer 110 Random Glucose Hemoglobin A1c % Calcium Total Bilirubin AST ALT Alkaline Phosphatase Creatine Kinase Troponin I Total Protein Albumin PHYSICAL EXAMINATION: Constitutional: Yes: Calm/ Comfortable. Cardiovascular: Yes: S1, S2 Regular Respiratory: Yes: CTA Bilaterally Gastrointestinal: Yes: Soft/ Non-tender. Edema: No Neurological: Yes: Alert and awake. Problem List - Problems (1) Acute renal failure Code(s): N17.9 - ACUTE KIDNEY FAILURE, UNSPECIFIED Qualifiers: Acute renal failure type: unspecified Qualified Code(s): N17.9 - Acute kidney failure, unspecified (2) Atrial fibrillation Code(s): I48.91 - UNSPECIFIED ATRIAL FIBRILLATION (3) CHF (congestive heart failure) Code(s): I50.9 - HEART FAILURE, UNSPECIFIED (4) Diabetes 1.5, managed as type 2 Code(s): E13.9 - OTHER SPECIFIED DIABETES MELLITUS WITHOUT COMPLICATIONS (5) Hyperkalemia Code(s): E87.5 - HYPERKALEMIA (6) Hypertension Code(s): I10 - ESSENTIAL (PRIMARY) HYPERTENSION (7) Thrombocytopenia Code(s): D69.6 - THROMBOCYTOPENIA, UNSPECIFIED ASSESSMENT & PLAN: - Clinically better. - Monitor blood sugars/electrolytes. - Diuretics on hold. - Will start on mild hydration. - Follow up electrolytes. - Ambulate. - Will follow. Documentation prepared by Emili Hernandez, acting as a medical staffing coordinator for Reyna Love MD.
[2016-08-08] MEDS: MIRTAZAPINE 15 MG TABLET (FP) PO SCH (09:23)
[2016-08-08] MEDS ORDERED: SODIUM CHLORIDE 1,000 ML IV SCH (10:15)
[2016-08-08] MEDS ORDERED: PNEUMOC 13-VAL CONJ-DIP CRM/PF 0.5 ML DISP.SYRIN IM ONE (11:00)
[2016-08-08] MEDS ORDERED: INSULIN (NOVOLOG) ASPART 100 UNITS/ML 10ML VIAL ONE (11:28)
--- NOTE | 2016-08-08 16:26 | PN ---
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, Physician History of Present Illness: Pt seen and examined at bedside. He is awake and alert. He feels well. - Current Medication List Current Medications: Active Medications Sodium Chloride (Normal Saline -) 1,000 mls @ 75 mls/hr IV ASDIR [facility] Last Admin: 08/08/16 10:41 Dose: 75 mls/hr Insulin Aspart (Novolog Vial Sliding Scale -) 1 vial SQ TIDAC [facility] PRN Reason: Protocol Last Admin: 08/08/16 11:32 Dose: 4 units Insulin Detemir (Levemir Vial) 40 units SQ DAILY@0700 [facility] Last Admin: 08/08/16 06:36 Dose: 40 units Mirtazapine (Remeron -) 15 mg PO DAILY [facility] Last Admin: 08/08/16 09:23 Dose: 15 mg Non-Formulary Medication (Pravastatin Sodium [Pravastatin Sodium]) 10 mg PO HS [facility] - Objective Vital Signs: Vital Signs Temperature 98.3 F 08/08/16 14:52 Pulse Rate 80 08/08/16 14:52 Respiratory Rate 18 08/08/16 14:52 Blood Pressure 168/72 08/08/16 14:52 O2 Sat by Pulse Oximetry (%) 97 08/08/16 09:00 Constitutional: Yes: Calm Eyes: Yes: Conjunctiva Clear HENT: Yes: Atraumatic Cardiovascular: Yes: S1, S2 Respiratory: Yes: CTA Bilaterally Gastrointestinal: Yes: Normal Bowel Sounds, Soft Genitourinary: Yes: WNL Extremities: Yes: WNL Edema: No Neurological: Yes: Oriented Psychiatric: Yes: Oriented Labs: CBC, BMP 08/08/16 06:30 08/08/16 06:30 INR, PTT INR 1.13 (0.82-1.09) D 08/06/16 17:20 - ....Imaging Ultrasound: Report Reviewed Problem List - Problems (1) Acute renal failure Code(s): N17.9 - ACUTE KIDNEY FAILURE, UNSPECIFIED Qualifiers: Acute renal failure type: unspecified Qualified Code(s): N17.9 - Acute kidney failure, unspecified (2) Atrial fibrillation Code(s): I48.91 - UNSPECIFIED ATRIAL FIBRILLATION (3) CHF (congestive heart failure) Code(s): I50.9 - HEART FAILURE, UNSPECIFIED (4) Diabetes 1.5, managed as type 2 Code(s): E13.9 - OTHER SPECIFIED DIABETES MELLITUS WITHOUT COMPLICATIONS (5) Hyperkalemia Code(s): E87.5 - HYPERKALEMIA (6) Hypertension Code(s): I10 - ESSENTIAL (PRIMARY) HYPERTENSION (7) Thrombocytopenia Code(s): D69.6 - THROMBOCYTOPENIA, UNSPECIFIED Assessment/Plan Current Medications Generic Name Dose Route Start Last Admin Trade Name Freq PRN Reason Stop Dose Admin Sodium Chloride 1,000 mls @ 75 mls/hr 08/08/16 10:15 08/08/16 10:41 Normal Saline - IV 75 mls/hr ASDIR [facility] Administration Insulin Aspart 1 vial 08/08/16 07:00 08/08/16 11:32 Novolog Vial Sliding Scale - SQ 4 units TIDAC [facility] Administration Protocol Insulin Detemir 40 units 08/08/16 07:00 08/08/16 06:36 Levemir Vial SQ 40 units DAILY@0700 [facility] Administration Mirtazapine 15 mg 08/08/16 10:00 08/08/16 09:23 Remeron - PO 15 mg DAILY [facility] Administration Non-Formulary Medication 10 mg 08/08/16 22:00 Pravastatin Sodium [Pravastatin Sodium] PO HS [facility] Impression 1. DEJUAN 2. hyperkalemia 3. DM uncontrolled 4. a-fib 5. HTN 6. liver ca 7. chol 8. CHF 9. hx alcohol abuse Plan - renal function is improving - will decrease rate of fluid and change to 1/2 - repeat labs in am - will need better glucose control - monitor bp - will follow Dr Dee
[2016-08-08] MEDS ORDERED: SODIUM CHLORIDE 0.45% 1,000 ML IV SCH (16:30)
[2016-08-08] MEDS: PATIENT'S OWN MEDICATION (NON-FORMULARY) (Pravastatin Sodium [Pravastatin Sodium] 10 MG) PO SCH (21:38)
[2016-08-09] MEDS: INSULIN DETEMIR 100 UNITS/ML MDV SQ SCH (07:02)
[2016-08-09] MEDS: INSULIN SLIDING SCALE (NOVOLOG) 1 VIAL SQ SCH ×3 (07:03→17:06)
[2016-08-09 08:06] LABS: CALCIUM 7.7 mg/dL (8.5-10.1)
[2016-08-09 08:07] LABS: COCKROFT - GAULT 26.53; CREATININE 2.7 mg/dL (0.7-1.3)
[2016-08-09] MEDS: MIRTAZAPINE 15 MG TABLET (FP) PO SCH (10:15)
--- NOTE | 2016-08-09 11:49 | PN ---
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 (short form) - Note 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: comfortable no distress afebrile passing urine bun/ cr better Vital Signs Temp 97.7 F 08/09/16 06:00 Pulse 69 08/09/16 06:00 Resp 20 08/09/16 06:00 BP 142/58 08/09/16 06:00 Pulse Ox 97 08/08/16 21:00 Intake & Output 08/08/16 08/08/16 08/09/16 11:59 23:59 11:59 Intake Total 904 900 Output Total 200 Balance 904 700 Weight 159 lb 4.8 oz 160 lb 3.2 oz Intake: IV 504 600 Normal Saline - 1,000 ml 504 @ 42 mls/hr IV ASDIR [facility] Rx#:[id number] Normal Saline - 1,000 ml 600 @ 75 mls/hr IV ASDIR [facility] Rx#:[id number] Oral 400 300 Output: Urine 200 Levine 200 Other: Voiding Method Toilet Toilet # Unmeasured Voids Levine 2 1 1 Bowel Movement Yes Weight Measurement Method Built in [facility] Active Medications Sodium Chloride (1/2 Normal Saline) 1,000 mls @ 42 mls/hr IV ASDIR [facility] Last Admin: 08/08/16 17:08 Dose: 42 mls/hr Insulin Aspart (Novolog Vial Sliding Scale -) 1 vial SQ TIDAC [facility] PRN Reason: Protocol Last Admin: 08/09/16 07:03 Dose: Not Given Insulin Detemir (Levemir Vial) 40 units SQ DAILY@0700 [facility] Last Admin: 08/09/16 07:02 Dose: 40 units Mirtazapine (Remeron -) 15 mg PO DAILY [facility] Last Admin: 08/09/16 10:15 Dose: 15 mg Non-Formulary Medication (Pravastatin Sodium [Pravastatin Sodium]) 10 mg PO HS [facility] Last Admin: 08/08/16 21:38 Dose: 10 mg CBC, BMP 08/08/16 06:30 08/09/16 06:00 PHYSICAL EXAMINATION: Constitutional: Yes: Calm/ Comfortable. Cardiovascular: Yes: S1, S2 Regular Respiratory: Yes: CTA Bilaterally Gastrointestinal: Yes: Soft/ Non-tender. Edema: No Neurological: Yes: Alert and awake. Problem List - Problems (1) Acute renal failure Code(s): N17.9 - ACUTE KIDNEY FAILURE, UNSPECIFIED Qualifiers: Acute renal failure type: unspecified Qualified Code(s): N17.9 - Acute kidney failure, unspecified (2) Atrial fibrillation Code(s): I48.91 - UNSPECIFIED ATRIAL FIBRILLATION (3) CHF (congestive heart failure) Code(s): I50.9 - HEART FAILURE, UNSPECIFIED (4) Diabetes 1.5, managed as type 2 Code(s): E13.9 - OTHER SPECIFIED DIABETES MELLITUS WITHOUT COMPLICATIONS (5) Hyperkalemia Code(s): E87.5 - HYPERKALEMIA (6) Hypertension Code(s): I10 - ESSENTIAL (PRIMARY) HYPERTENSION (7) Thrombocytopenia Code(s): D69.6 - THROMBOCYTOPENIA, UNSPECIFIED ASSESSMENT & PLAN: - Clinically better. - Monitor blood sugars/electrolytes. - Diuretics on hold. - mild hydration. - Follow up electrolytes. - Ambulate. - Will follow.
[2016-08-09] MEDS ORDERED: SODIUM CHLORIDE 0.45% 1,000 ML IV SCH (18:25)
--- NOTE | 2016-08-09 18:25 | PN ---
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, Physician History of Present Illness: Pt seen and examined at bedside. He is awake and alert. He denies shortness of breath or edema. - Current Medication List Current Medications: Active Medications Sodium Chloride (1/2 Normal Saline) 1,000 mls @ 42 mls/hr IV ASDIR [facility] Last Admin: 08/08/16 17:08 Dose: 42 mls/hr Insulin Aspart (Novolog Vial Sliding Scale -) 1 vial SQ TIDAC [facility] PRN Reason: Protocol Last Admin: 08/09/16 17:06 Dose: 2 units Insulin Detemir (Levemir Vial) 40 units SQ DAILY@0700 [facility] Last Admin: 08/09/16 07:02 Dose: 40 units Mirtazapine (Remeron -) 15 mg PO DAILY [facility] Last Admin: 08/09/16 10:15 Dose: 15 mg Non-Formulary Medication (Pravastatin Sodium [Pravastatin Sodium]) 10 mg PO HS [facility] Last Admin: 08/08/16 21:38 Dose: 10 mg - Objective Vital Signs: Vital Signs Temperature 98.4 F 08/09/16 17:25 Pulse Rate 66 08/09/16 17:25 Respiratory Rate 20 08/09/16 17:25 Blood Pressure 135/59 08/09/16 17:25 O2 Sat by Pulse Oximetry (%) 97 08/09/16 09:00 Constitutional: Yes: Calm Eyes: Yes: Conjunctiva Clear HENT: Yes: Atraumatic Neck: Yes: Supple Cardiovascular: Yes: S1, S2 Respiratory: Yes: CTA Bilaterally Genitourinary: Yes: WNL Musculoskeletal: Yes: WNL Neurological: Yes: Oriented Psychiatric: Yes: Oriented Labs: CBC, BMP 08/08/16 06:30 08/09/16 06:00 INR, PTT INR 1.13 (0.82-1.09) D 08/06/16 17:20 Problem List - Problems (1) Acute renal failure Code(s): N17.9 - ACUTE KIDNEY FAILURE, UNSPECIFIED Qualifiers: Acute renal failure type: unspecified Qualified Code(s): N17.9 - Acute kidney failure, unspecified (2) Atrial fibrillation Code(s): I48.91 - UNSPECIFIED ATRIAL FIBRILLATION (3) CHF (congestive heart failure) Code(s): I50.9 - HEART FAILURE, UNSPECIFIED (4) Diabetes 1.5, managed as type 2 Code(s): E13.9 - OTHER SPECIFIED DIABETES MELLITUS WITHOUT COMPLICATIONS (5) Hyperkalemia Code(s): E87.5 - HYPERKALEMIA (6) Hypertension Code(s): I10 - ESSENTIAL (PRIMARY) HYPERTENSION (7) Thrombocytopenia Code(s): D69.6 - THROMBOCYTOPENIA, UNSPECIFIED Assessment/Plan Current Medications Generic Name Dose Route Start Last Admin Trade Name Freq PRN Reason Stop Dose Admin Sodium Chloride 1,000 mls @ 42 mls/hr 08/08/16 16:30 08/08/16 17:08 1/2 Normal Saline IV 42 mls/hr ASDIR [facility] Administration Insulin Aspart 1 vial 08/08/16 07:00 08/09/16 17:06 Novolog Vial Sliding Scale - SQ 2 units TIDAC [facility] Administration Protocol Insulin Detemir 40 units 08/08/16 07:00 08/09/16 07:02 Levemir Vial SQ 40 units DAILY@0700 [facility] Administration Mirtazapine 15 mg 08/08/16 10:00 08/09/16 10:15 Remeron - PO 15 mg DAILY [facility] Administration Non-Formulary Medication 10 mg 08/08/16 22:00 08/08/16 21:38 Pravastatin Sodium [Pravastatin Sodium] PO 10 mg HS [facility] Administration Impression 1. DEJUAN 2. hyperkalemia 3. DM uncontrolled 4. a-fib 5. HTN 6. liver ca 7. chol 8. CHF 9. hx alcohol abuse Plan - renal function continues to improve - cont gentle hydration, will decrease rate - diuretics on hold for now - monitor glucose - plan discussed with pt and his family at length - will follow Dr Dee
[2016-08-09] MEDS: PATIENT'S OWN MEDICATION (NON-FORMULARY) (Pravastatin Sodium [Pravastatin Sodium] 10 MG) PO SCH (21:20)
[2016-08-10] MEDS: INSULIN SLIDING SCALE (NOVOLOG) 1 VIAL SQ SCH ×3 (06:06→16:54)
[2016-08-10] MEDS: INSULIN DETEMIR 100 UNITS/ML MDV SQ SCH (06:23)
[2016-08-10 07:52] LABS: CALCIUM 7.8 mg/dL (8.5-10.1); COCKROFT - GAULT 31.15; CREATININE 2.3 mg/dL (0.7-1.3)
[2016-08-10] MEDS: MIRTAZAPINE 15 MG TABLET (FP) PO SCH (10:19)
--- NOTE | 2016-08-10 12:06 | PN ---
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 (short form) - Note 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: Pt feels better no complains denies pain afebrile Vital Signs Temp 98.4 F 08/09/16 17:25 Pulse 66 08/09/16 17:25 Resp 20 08/09/16 17:25 BP 135/59 08/09/16 17:25 Pulse Ox 97 08/09/16 21:00 Intake & Output 08/09/16 08/10/16 08/10/16 23:59 11:59 23:59 Intake Total 2800 420 Output Total 1100 Balance 1700 420 Intake: IV 600 420 Normal Saline - 1,000 ml 600 @ 75 mls/hr IV ASDIR [facility] Rx#:[id number] 1/2 Normal Saline 1,000 420 ml @ 35 mls/hr IV ASDIR [facility] Rx#:[id number] IVPB 0 Oral 2200 Output: Urine 800 Levine 500 Void 300 Emesis 300 Other: Voiding Method Toilet Toilet # Unmeasured Voids Levine 1 Void 1 Bowel Movement Yes Active Medications Sodium Chloride (1/2 Normal Saline) 1,000 mls @ 35 mls/hr IV ASDIR [facility] Last Admin: 08/09/16 21:24 Dose: 35 mls/hr Insulin Aspart (Novolog Vial Sliding Scale -) 1 vial SQ TIDAC [facility] PRN Reason: Protocol Last Admin: 08/10/16 06:06 Dose: Not Given Insulin Detemir (Levemir Vial) 40 units SQ DAILY@0700 [facility] Last Admin: 08/10/16 06:23 Dose: 40 units Mirtazapine (Remeron -) 15 mg PO DAILY [facility] Last Admin: 08/10/16 10:19 Dose: 15 mg Non-Formulary Medication (Pravastatin Sodium [Pravastatin Sodium]) 10 mg PO HS [facility] Last Admin: 08/09/16 21:20 Dose: 10 mg CBC, BMP 08/08/16 06:30 08/10/16 06:00 PHYSICAL EXAMINATION: Constitutional: Yes: Calm/ Comfortable. Cardiovascular: Yes: S1, S2 Regular Respiratory: Yes: CTA Bilaterally Gastrointestinal: Yes: Soft/ Non-tender. Edema: No Neurological: Yes: Alert and awake. Problem List - Problems (1) Acute renal failure Code(s): N17.9 - ACUTE KIDNEY FAILURE, UNSPECIFIED Qualifiers: Acute renal failure type: unspecified Qualified Code(s): N17.9 - Acute kidney failure, unspecified (2) Atrial fibrillation Code(s): I48.91 - UNSPECIFIED ATRIAL FIBRILLATION (3) CHF (congestive heart failure) Code(s): I50.9 - HEART FAILURE, UNSPECIFIED (4) Diabetes 1.5, managed as type 2 Code(s): E13.9 - OTHER SPECIFIED DIABETES MELLITUS WITHOUT COMPLICATIONS (5) Hyperkalemia Code(s): E87.5 - HYPERKALEMIA (6) Hypertension Code(s): I10 - ESSENTIAL (PRIMARY) HYPERTENSION (7) Thrombocytopenia Code(s): D69.6 - THROMBOCYTOPENIA, UNSPECIFIED ASSESSMENT & PLAN: - Clinically better. - cr better - Monitor blood sugars/electrolytes. - Diuretics on hold. - mild hydration. - Follow up electrolytes. - Ambulate. - Will follow. - Anticipate d/c tomorrow if continue to improve
--- NOTE | 2016-08-10 14:55 | PN ---
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, Physician History of Present Illness: Pt seen and examined at bedside. He is awake and alert. He denies shortness of breath. - Current Medication List Current Medications: Active Medications Sodium Chloride (1/2 Normal Saline) 1,000 mls @ 35 mls/hr IV ASDIR [facility] Last Admin: 08/09/16 21:24 Dose: 35 mls/hr Insulin Aspart (Novolog Vial Sliding Scale -) 1 vial SQ TIDAC [facility] PRN Reason: Protocol Last Admin: 08/10/16 12:01 Dose: 6 units Insulin Detemir (Levemir Vial) 40 units SQ DAILY@0700 [facility] Last Admin: 08/10/16 06:23 Dose: 40 units Mirtazapine (Remeron -) 15 mg PO DAILY [facility] Last Admin: 08/10/16 10:19 Dose: 15 mg Non-Formulary Medication (Pravastatin Sodium [Pravastatin Sodium]) 10 mg PO HS [facility] Last Admin: 08/09/16 21:20 Dose: 10 mg - Objective Vital Signs: Vital Signs Temperature 97.8 F 08/10/16 09:00 Pulse Rate 68 08/10/16 09:00 Respiratory Rate 20 08/10/16 09:00 Blood Pressure 139/70 08/10/16 09:00 O2 Sat by Pulse Oximetry (%) 97 08/10/16 09:00 Constitutional: Yes: Calm Eyes: Yes: Conjunctiva Clear HENT: Yes: Atraumatic Neck: Yes: Supple Cardiovascular: Yes: S1, S2 Respiratory: Yes: CTA Bilaterally Gastrointestinal: Yes: Normal Bowel Sounds, Soft Genitourinary: Yes: WNL Musculoskeletal: Yes: WNL Extremities: Yes: WNL Edema: No Neurological: Yes: Oriented Psychiatric: Yes: Oriented Labs: CBC, BMP 08/08/16 06:30 08/10/16 06:00 INR, PTT INR 1.13 (0.82-1.09) D 08/06/16 17:20 Problem List - Problems (1) Acute renal failure Code(s): N17.9 - ACUTE KIDNEY FAILURE, UNSPECIFIED Qualifiers: Acute renal failure type: unspecified Qualified Code(s): N17.9 - Acute kidney failure, unspecified (2) Atrial fibrillation Code(s): I48.91 - UNSPECIFIED ATRIAL FIBRILLATION (3) CHF (congestive heart failure) Code(s): I50.9 - HEART FAILURE, UNSPECIFIED (4) Diabetes 1.5, managed as type 2 Code(s): E13.9 - OTHER SPECIFIED DIABETES MELLITUS WITHOUT COMPLICATIONS (5) Hyperkalemia Code(s): E87.5 - HYPERKALEMIA (6) Hypertension Code(s): I10 - ESSENTIAL (PRIMARY) HYPERTENSION (7) Thrombocytopenia Code(s): D69.6 - THROMBOCYTOPENIA, UNSPECIFIED Assessment/Plan Current Medications Generic Name Dose Route Start Last Admin Trade Name Radha PRN Reason Stop Dose Admin Sodium Chloride 1,000 mls @ 35 mls/hr 08/09/16 18:25 08/09/16 21:24 1/2 Normal Saline IV 35 mls/hr ASDIR [facility]ETH Administration Insulin Aspart 1 vial 08/08/16 07:00 08/10/16 12:01 Novolog Vial Sliding Scale - SQ 6 units TIDAC [facility] Administration Protocol Insulin Detemir 40 units 08/08/16 07:00 08/10/16 06:23 Levemir Vial SQ 40 units DAILY@0700 [facility] Administration Mirtazapine 15 mg 08/08/16 10:00 08/10/16 10:19 Remeron - PO 15 mg DAILY [facility] Administration Non-Formulary Medication 10 mg 08/08/16 22:00 08/09/16 21:20 Pravastatin Sodium [Pravastatin Sodium] PO 10 mg HS [facility] Administration Impression 1. DEJUAN 2. hyperkalemia 3. DM uncontrolled 4. a-fib 5. HTN 6. liver ca 7. chol 8. CHF 9. hx alcohol abuse Plan - renal function improving - will stop fluids - encourage PO intake - keep diuretics on hold for now - monitor glucose - will follow Dr Dee
--- NOTE | 2016-08-10 18:28 | PN ---
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 (short form) - Note 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: cc: weakness, fatigue S: denies cp, sob, palps, dizziness. ambulating Current Medications Insulin Aspart (Novolog Vial Sliding Scale -) 1 vial SQ TIDAC [facility] PRN Reason: Protocol Last Admin: 08/10/16 16:54 Dose: Not Given Insulin Detemir (Levemir Vial) 40 units SQ DAILY@0700 [facility] Last Admin: 08/10/16 06:23 Dose: 40 units Mirtazapine (Remeron -) 15 mg PO DAILY [facility] Last Admin: 08/10/16 10:19 Dose: 15 mg Non-Formulary Medication (Pravastatin Sodium [Pravastatin Sodium]) 10 mg PO HS [facility] Last Admin: 08/09/16 21:20 Dose: 10 mg Vital Signs - 24 hr 08/09/16 08/10/16 08/10/16 21:00 09:00 15:05 Temperature 97.8 F 97.8 F Pulse Rate 68 72 Respiratory 20 18 Rate Blood Pressure 139/70 O2 Sat by Pulse 97 97 Oximetry (%) 08/10/16 18:00 Temperature 98.5 F Pulse Rate 69 Respiratory 18 Rate Blood Pressure 150/73 O2 Sat by Pulse Oximetry (%) Intake & Output 08/08/16 08/09/16 08/10/16 08/11/16 07:59 07:59 07:59 07:59 Intake Total 504 1300 3220 900 Output Total 625 710 6273 Balance 204 1100 2120 900 Weight 159 lb 4.8 oz 160 lb 3.2 oz nad no jvd rrr s1s2 no mrg cta bl nl eff aaox3 no le e/c/c abd nt nd pos bs no jaundice diaphoresis pos dp pt no carotid bruit CBC, BMP 08/08/16 06:30 08/10/16 06:00 echo 09/2014: nl lv/rv, mild merrill, mild mr/tr, bio avr with nl fcn, mild ar, rvsp 30-40 mibi 06/2013: nl mpi pvr 06/2013: normal cxr: clear lungs ecg 08/06/16: sr, first degree avb, nl qtc, no ischemic changes a/p: 70 m hx cad s/p cabg x3 2004, bio avr, ascending aorta repair, htn, hld, dm, aflutter, dchf, ex etoh abuse, HCC s/p seeds at [facility] 07/2015, cirrhosis with thrombocytopenia and esoph varices, here with weakness, fatigue. cameron: -improving with ivf -renal consult following -hold home lasix for now cad, cabg: -stable, no angina, nl lvef -no ischemia on prior mibi -no signs acs, ce's neg x3 -cont home statin, resume home bb -not on asa 2/2 thrombocytopenia bio avr: -stable, nl fcn on prior echo -routine outpt monitoring ascending aorta repair: -stable, resume home bb, con't statin, bp control htn: -stable off meds. can resume home bb hld: -cont statin dchf: -no signs vol overload -continue to hold home lasix 40 qd given cameron. renal function improving aflutter: -in sr, currently hr controlled off bb. can resume. -no ac/asa 2/2 thrombocytopenia and esoph varices
[2016-08-10] MEDS ORDERED: PT OWN MED DRAWER 7, Y5N ONE (20:09)
[2016-08-10] MEDS: PATIENT'S OWN MEDICATION (NON-FORMULARY) (Pravastatin Sodium [Pravastatin Sodium] 10 MG) PO SCH (21:22)
[2016-08-11] MEDS: INSULIN DETEMIR 100 UNITS/ML MDV SQ SCH (06:16)
[2016-08-11] MEDS: INSULIN SLIDING SCALE (NOVOLOG) 1 VIAL SQ SCH (06:19)
[2016-08-11] MEDS ORDERED: PT OWN MED DRAWER 7, Y5N ONE (06:21)
[2016-08-11 08:10] LABS: CALCIUM 8.6 mg/dL (8.5-10.1); COCKROFT - GAULT 29.85; CREATININE 2.4 mg/dL (0.7-1.3)
--- NOTE | 2016-08-11 08:38 | DS ---
Physical Examination Vital Signs: Vital Signs Temperature 97.7 F 08/11/16 06:40 Pulse Rate 68 08/11/16 06:40 Respiratory Rate 18 08/11/16 06:40 Blood Pressure 145/84 08/11/16 06:40 O2 Sat by Pulse Oximetry (%) 97 08/10/16 21:00 Labs: CBC, BMP 08/08/16 06:30 08/11/16 06:25 <Reyna Love - Last Filed: 08/11/16 08:38> Vital Signs: Vital Signs Temperature 97.7 F 08/11/16 06:40 Pulse Rate 68 08/11/16 06:40 Respiratory Rate 18 08/11/16 06:40 Blood Pressure 145/84 08/11/16 06:40 O2 Sat by Pulse Oximetry (%) 97 08/10/16 21:00 Findings/Remarks: Feels well. No complaints. Wants to go home. Constitutional: Yes: No Distress, Calm Eyes: Yes: Conjunctiva Clear HENT: Yes: WNL Neck: Yes: Supple Cardiovascular: Yes: Regular Rate and Rhythm Respiratory: Yes: CTA Bilaterally Gastrointestinal: Yes: Soft Edema: No Neurological: Yes: Alert Labs: CBC, BMP 08/08/16 06:30 08/11/16 06:25 <Rosalie Green - Last Filed: 08/11/16 10:03> Discharge Summary Reason For Visit: ACUTE RENAL FAILURE,HYPERKALEMIA Current Active Problems Acute renal failure (Acute) Atrial fibrillation (Acute) Bronchitis (Acute) CHF (congestive heart failure) (Acute) Diabetes 1.5, managed as type 2 (Acute) Hyperkalemia (Acute) Hypertension (Acute) Thrombocytopenia (Acute) - Home Medications Comprehensive Discharge Medication List: Ambulatory Orders Mirtazapine 15 mg PO DAILY 08/06/16 Pravastatin Sodium 10 mg PO DAILY 08/06/16 Insulin (Levemir) [Levemir Flexpen -] 20 units SQ BID #1 amp 08/11/16 Insulin Sliding Scale [Novolog Vial Sliding Scale -] 1 vial SQ TIDAC #1 amp <Reyna Love - Last Filed: 08/11/16 08:38> Current Active Problems Acute renal failure (Acute) Atrial fibrillation (Acute) Bronchitis (Acute) CHF (congestive heart failure) (Acute) Diabetes 1.5, managed as type 2 (Acute) Hyperkalemia (Acute) Hypertension (Acute) Thrombocytopenia (Acute) Hospital Course: Patient admitted for generalized weakness. Workup revealed acute on chronic renal insufficiency. Diuretics were held. Given IVF. Renal followed. Creatinine now stabilized to 2.4. Patient eating and drinking well. Will d/c home today. Will hold diuretics. Advised to drink lots of fluids. Follow up in office later this week on . Patient in agreement. Medications reconciled. D/c plan discussed with nursing staff also D/C Time: 35 minutes Documentation prepared by Rosalie Green, acting as a medical attendant for Reyna Love MD. - Home Medications Comprehensive Discharge Medication List: Ambulatory Orders Mirtazapine 15 mg PO DAILY 08/06/16 Pravastatin Sodium 10 mg PO DAILY 08/06/16 Insulin (Levemir) [Levemir Flexpen -] 20 units SQ BID #1 amp 08/11/16 Insulin Sliding Scale [Novolog Vial Sliding Scale -] 1 vial SQ TIDAC #1 amp <Rosalie Green - Last Filed: 08/11/16 10:03> - Instructions Diet, Activity, Other Instructions: follow up with MD as advised Referrals: Landry Dee MD [Staff Physician] - Reyna Love MD [Primary Care Provider] -
[2016-08-11 17:46] VITALS: BP 178/70; PULSE 79; TEMP 97.8
[2016-08-11] MEDS ORDERED: MIRTAZAPINE 15 MG TABLET (FP) PO SCH (22:00)
== END 2016-08-11 10:28 | disposition home or self-care (01) | DRG 683 ==
LOC: JER 14:37 → JERBED 20:43 → J8W 08-07 19:21
PROVIDERS: ADMIT Internal Medicine; ATTEND Internal Medicine
DX: N17.9 Acute kidney failure, unspecified (principal); I48.92 Unspecified atrial flutter; E87.5 Hyperkalemia; I48.91 Unspecified atrial fibrillation; D69.6 Thrombocytopenia, unspecified; I25.119 Atherosclerotic heart disease of native coronary artery with unspecified angina pectoris; Z95.1 Presence of aortocoronary bypass graft; E78.5 Hyperlipidemia, unspecified; E11.65 Type 2 diabetes mellitus with hyperglycemia; I11.0 Hypertensive heart disease with heart failure; I50.9 Heart failure, unspecified
CPT/HCPCS: 36415; 71020-TC; 76775-TC; 80048; 80053; 80061; 81003; 81015; 82550; 83036; 83721; 83735; 84100; 84484; 85025; 85610; 85730; 87086; 90670; 93005; 93010; 99284-25

== ENCOUNTER 2016-12-04 22:10 | Emergency (ER) | payer MEDICARE ==
[2016-12-04 22:23] VITALS: BP 188/76; PULSE 70; TEMP 97.9; BMI 27.9
--- NOTE | 2016-12-04 22:51 | PDOC ---
History of Present Illness - General History Source: Patient Exam Limitations: No Limitations - History of Present Illness Initial Comments: The patient is a 71 yo M with a past medical history of HTN, HLD, CHF who presents with R sided rib pain since 12:30 pm. The patient states he got on the bus while bus was still moving and hit his side against the railing. The patient states he went to sleep and woke back up around 4pm and took percocet 5mg with no relief. The patients reports the pain is non radiating, constant and worse with deep inspiration and lying on either side. The patient endorses mild improvement of his pain when he remains still. He denies nausea, vomiting and diarrhea. He denies chest pain, lightheadedness, or palpitations. <Payton Main - Last Filed: 12/04/16 22:59> - General History Source: Patient <ChinoAugustus coles - Last Filed: 12/05/16 00:39> - General Chief Complaint: Pain Stated Complaint: PAIN, ACUTE Time Seen by Provider: 12/04/16 22:38 Past History <Payton Main - Last Filed: 12/04/16 22:59> - Past Medical History Anemia: No Asthma: No Cancer: No Cardiac Disorders: Yes (CHF, atrial fibrillation, CAD) CVA: No COPD: No CHF: Yes Dementia: No Diabetes: Yes (iddm) GI Disorders: Yes (Liver CA) Disorders: No HTN: Yes Hypercholesterolemia: Yes Liver Disease: No Suicide Attempt (Hx): No Seizures: No Thyroid Disease: No - Surgical History Abdominal Surgery: Yes Cardiac Surgery: Yes (CABG x3, aortic valve replacement) - Immunization History Immunization Up to Date: Yes - Psycho/Social/Smoking Cessation Hx Anxiety: No Suicidal Ideation: No Smoking Status: Yes Smoking History: Former smoker Have you smoked in the past 12 months: No Number of Cigarettes Smoked Daily: 0 If you are a former smoker, when did you quit?: 2004 Information on smoking cessation initiated: No Hx Alcohol Use: No Drug/Substance Use Hx: No Substance Use Type: None Hx Substance Use Treatment: No <Augustus Sun - Last Filed: 12/05/16 00:39> - Past Medical History Allergies/Adverse Reactions: Allergies Allergy/AdvReac Type Severity Reaction Status Date / Time No Known Drug Allergies Allergy Verified 12/04/16 22:19 Home Medications: Ambulatory Orders Mirtazapine 15 mg PO DAILY 08/06/16 Pravastatin Sodium 10 mg PO DAILY 08/06/16 Insulin (Levemir) [Levemir Flexpen -] 20 units SQ BID #1 amp 08/11/16 Insulin Sliding Scale [Novolog Vial Sliding Scale -] 1 vial SQ TIDAC #1 amp Furosemide [Lasix -] 40 mg PO DAILY 10/24/16 Metoprolol Tartrate 25 mg PO BID 10/24/16 Tamsulosin HCl 0.4 mg PO DAILY 10/24/16 Review of Systems - Review of Systems Able to Perform ROS?: Yes Comments:: CONSTITUTIONAL: Absent: fever, chills, diaphoresis, generalized weakness, malaise, loss of appetite HEENT: Absent: rhinorrhea, nasal congestion, throat pain, throat swelling, difficulty swallowing, mouth swelling, ear pain, eye pain, visual Changes CARDIOVASCULAR: Absent: chest pain, syncope, palpitations, irregular heart rate, lightheadedness , peripheral edema RESPIRATORY: Absent: cough, shortness of breath, dyspnea with exertion, orthopnea, wheezing, stridor, hemoptysis GASTROINTESTINAL: Absent: abdominal pain, abdominal distension, nausea, vomiting, diarrhea, constipation, melena, hematochezia GENITOURINARY: Absent: dysuria, frequency, urgency, hesitancy, hematuria, flank pain, genital pain MUSCULOSKELETAL: +R rib pain Absent: joint swelling SKIN: Absent: rash, itching, pallor NEUROLOGIC: Absent: headache, focal weakness or paresthesias, dizziness, unsteady gait, seizure, mental status changes, bladder or bowel incontinence PSYCHIATRIC: Absent: anxiety, depression, suicidal or homicidal ideation, hallucinations. <Payton Main - Last Filed: 12/04/16 22:59> *Physical Exam - Vital Signs Last Vital Signs Temp Pulse Resp BP Pulse Ox 97.9 F 70 20 188/76 98 12/04/16 22:19 12/04/16 22:19 12/04/16 22:19 12/04/16 22:19 12/04/16 22:19 - Physical Exam Comments: GENERAL: Well developed, well nourished. Awake and alert. No acute distress. HEENT: Normocephalic, atraumatic. PERRLA, EOMI. No conjunctival pallor. Sclera are non- icteric. Moist mucous membranes. Oropharynx is clear. NECK: Supple. Full ROM. No JVD. Carotid pulses 2+ and symmetric, without bruits. No thyromegaly. No lymphadenopathy. CARDIOVASCULAR: Regular rate and rhythm. No murmurs, rubs, or gallops. Distal pulses are 2+ and symmetric. PULMONARY: No evidence of respiratory distress. Lungs clear to auscultation bilaterally. No wheezing, rales or rhonchi. ABDOMINAL: Soft. Non-tender. Non-distended. No rebound or guarding. No organomegaly. Normoactive bowel sounds. MUSCULOSKELETAL Normal range of motion at all joints. No bony deformities or tenderness. No CVA tenderness. tender in posterior ribs posterior 9,10,11 with very faint crackles EXTREMITIES: No cyanosis. No clubbing. No edema. No calf tenderness. SKIN: Warm and dry. Normal capillary refill. No rashes. No jaundice. NEUROLOGICAL: No gross focal neurological deficits. PSYCHIATRIC: Cooperative. Good eye contact. Appropriate mood and affect. <Payton Main - Last Filed: 12/04/16 22:59> - Vital Signs Last Vital Signs Temp Pulse Resp BP Pulse Ox 97.9 F 70 20 188/76 98 12/04/16 22:19 12/04/16 22:19 12/04/16 22:19 12/04/16 22:19 12/04/16 22:19 <Augustus Sun - Last Filed: 12/05/16 00:39> Medical Decision Making - Medical Decision Making 12/05/16 00:15 Dr. Sun: The scribe's documentation has been prepared under my direction and personally reviewed by me in its entirery. I confirm that the note above accurately reflects all work, treatment, procedures, and medical decision making performed by me. <Augustus Sun - Last Filed: 12/05/16 00:39> *DC/Admit/Observation/Transfer - Attestations Scribe Attestion: Documentation prepared by Payton Main, acting as medical assisting program director for Augustus Sun MD/. <Payton Main - Last Filed: 12/04/16 22:59> - Discharge Dispostion Admit: No <Augustus Sun - Last Filed: 12/05/16 00:39> Diagnosis at time of Disposition: Rib pain on right side - Discharge Dispostion Disposition: HOME Condition at time of disposition: Stable - Referrals Referrals: Rene Esqueda MD [Staff Physician] - - Patient Instructions Printed Discharge Instructions: DI for Rib Contusion Additional Instructions: take your medication that you have at home as directed. Apply ice for 2 days. heat for the following 3 days.
[2016-12-04] MEDS ORDERED: IBUPROFEN 400 MG TABLET (FP) PO ONE (22:55)
[2016-12-04] MEDS ORDERED: IBUPROFEN 600 MG TABLET (FP) PO ONE (23:10)
== END 2016-12-05 00:40 | disposition home or self-care (01) ==
LOC: JER 22:10
DX: R07.81 Pleurodynia (principal); I10 Essential (primary) hypertension; E78.5 Hyperlipidemia, unspecified; I50.9 Heart failure, unspecified; E11.9 Type 2 diabetes mellitus without complications; Z85.05 Personal history of malignant neoplasm of liver; Z87.891 Personal history of nicotine dependence; Z95.1 Presence of aortocoronary bypass graft; W22.01XA Walked into wall, initial encounter; Y93.89 Activity, other specified; Y92.811 Bus as the place of occurrence of the external cause
CPT/HCPCS: 71250-TC; 99281-25

== ENCOUNTER 2017-01-08 18:53 | Inpatient (IN) | payer MEDICARE, OTHER ==
--- NOTE | 2017-01-08 19:58 | PDOC ---
Attending Attestation - Resident Resident Name: Zulma Antunez - ED Attending Attestation I have performed the following: I have examined & evaluated the patient, The case was reviewed & discussed with the resident, I agree w/resident's findings & plan, Exceptions are as noted - HPI HPI: 01/08/17 19:56 Left Leg Swelling - hx of CHF, orthopnea - Physicial Exam PE: 01/08/17 19:56 Hypertensive, Right sided rales, JVD, Murmurs present-pitting edema to knee - Medical Decision Making 01/08/17 19:[address] Zulma Antunez's assessment and plan <Jeremie Pisano - Last Filed: 01/08/17 19:56> Heart Score/ECG Review - ECG Impressions Comment:: 01/08/17 22:21 Sinus rhythm with 1st degree AV block @70bpm Left ventricular hypertrophy with repolarization abnormality No changes from 10/24/2016 <Ludivina Pickering - Last Filed: 01/08/17 22:23>
[2017-01-08] MEDS ORDERED: ASPIRIN 81 MG CHEWABLE TABLETS PO ONE (20:04)
[2017-01-08] MEDS ORDERED: METOLAZONE 10 MG TABLET PO ONE (20:04)
[2017-01-08] MEDS ORDERED: FUROSEMIDE 40 MG/4 ML INJECTABLE VIAL IVPUSH ONE (20:04)
--- NOTE | 2017-01-08 20:11 | PDOC ---
History of Present Illness - General Chief Complaint: Pain, Acute Stated Complaint: LEG PAIN Time Seen by Provider: 01/08/17 19:29 History Source: Patient Exam Limitations: No Limitations - History of Present Illness Initial Comments: This is a 71 yom with h/o CHF, CAD (CABG in 2004), EtOH cirrhosis, IDDM, and HTN who p/w bilateral leg swelling (R>L) and shortness of breath worsening over the past 3 days. He has cramps in both legs up to 8/10 which are relieved by oxycodone, which he takes for chronic pain. He has been admitted for similar symptoms in the past about two years ago, but at that time he had equal swelling in both legs. He additionally notes awakening at night gasping for air , sleeping on 3 pillows, and coughing with foamy spit but no blood. He recalls occasional episodes of sharp chest pain but this is no different from his baseline. He has gained about 15 lbs so far this year. He denies any recent fever, chills, nausea, or vomiting. He has been taking a water pill and took an extra one today without relief. Past History - Past Medical History Allergies/Adverse Reactions: Allergies Allergy/AdvReac Type Severity Reaction Status Date / Time No Known Drug Allergies Allergy Verified 12/04/16 22:19 Home Medications: Ambulatory Orders Pravastatin Sodium 10 mg PO DAILY 08/06/16 Insulin (Levemir) [Levemir Flexpen -] 20 units SQ BID #1 amp 08/11/16 Insulin Sliding Scale [Novolog Vial Sliding Scale -] 1 vial SQ TIDAC #1 amp Furosemide [Lasix -] 40 mg PO DAILY 10/24/16 Metoprolol Tartrate 25 mg PO BID 10/24/16 Tamsulosin HCl 0.4 mg PO DAILY 10/24/16 Anemia: No Asthma: No Cancer: No Cardiac Disorders: Yes (CHF, atrial fibrillation, CAD) CVA: No COPD: No CHF: Yes Dementia: No Diabetes: Yes (iddm) GI Disorders: Yes (Liver CA) Disorders: No HTN: Yes Hypercholesterolemia: Yes Liver Disease: No Suicide Attempt (Hx): No Seizures: No Thyroid Disease: No - Surgical History Abdominal Surgery: Yes Cardiac Surgery: Yes (CABG x3, aortic valve replacement) - Immunization History Immunization Up to Date: Yes - Psycho/Social/Smoking Cessation Hx Anxiety: No Suicidal Ideation: No Smoking Status: Yes Smoking History: Never smoked Have you smoked in the past 12 months: No Number of Cigarettes Smoked Daily: 0 If you are a former smoker, when did you quit?: 2004 Information on smoking cessation initiated: No Hx Alcohol Use: No Drug/Substance Use Hx: No Substance Use Type: None Hx Substance Use Treatment: No Review of Systems - Review of Systems Able to Perform ROS?: Yes Constitutional: No: Chills, Fever, Unexplained wgt Loss HEENTM: No: Nose Congestion, Throat Pain Respiratory: No: Cough, Shortness of Breath Cardiac (ROS): Yes: Chest Pain, Edema. No: Palpitations ABD/GI: No: Constipated, Diarrhea, Nausea, Vomiting : No: Burning, Dysuria Musculoskeletal: Yes: Other (leg swelling). No: Back Pain, Neck Pain Integumentary: Yes: Other (blisters on leg). No: Bruising, Rash Neurological: No: Headache, Numbness, Tingling, Weakness, Dizziness Endocrine: Yes: Unexplained Weight Gain. No: Unexplained Weight Loss *Physical Exam - Vital Signs Last Vital Signs Temp Pulse Resp BP Pulse Ox 97.9 F 77 16 180/76 95 01/08/17 18:57 01/08/17 18:57 01/08/17 18:57 01/08/17 18:57 01/08/17 18:57 - Physical Exam General Appearance: Yes: Nourished, Appropriately Dressed. No: Apparent Distress HEENT: positive: EOMI, Normal Voice, Hearing Grossly Normal. negative: Scleral Icterus (R), Scleral Icterus (L), Nasal Congestion Neck: positive: Trachea midline, Supple. negative: Tender, Rigid Respiratory/Chest: positive: Lungs Clear, Normal Breath Sounds, Accessory Muscle Use, Rales (right-sided). negative: Respiratory Distress, Rhonchi, Stridor, Wheezing Cardiovascular: positive: Regular Rhythm, Regular Rate, Edema (3+ pitting edema RLE with few unruptured blisters, 2+ pitting edema LLE, no erythema or significant warmth), JVD, Murmur (3/6 systolic murmur with 2/6 early diastolic decrescendo murmur) Gastrointestinal/Abdominal: positive: Normal Bowel Sounds, Soft, Protuberent. negative: Tender, Organomegaly, Pulsatile Mass, Guarding Musculoskeletal: positive: Normal Inspection. negative: Decreased Range of Motion, Vertebral Tenderness Extremity: positive: Normal Capillary Refill, Normal Range of Motion. negative : Tender, Cyanosis Integumentary: positive: Normal Color, Dry, Warm, Swelling (as noted on cardiac exam). negative: Erythema, Rash, Bruising Neurologic: positive: grocery carrier II-XII NML intact (grossly), Fully Oriented, Alert, Normal Mood/Affect, Normal Response, Motor Strength 5/5 Heart Score/ECG Review - History History: Slightly suspicious - Electrocardiogram EKG: Non specific repolarization disturbance - Age Age: >/= 65 - Risk Factors Risk Factors Heart Score: Yes Hx Hypertension, Yes Hx Diabetes Based on the list above the patient has:: 1-2 risk factors - Troponin Troponin: </= normal limit - Score Heart Score - Total: 4 #1 ECG reviewed & interpreted by me at: 21:40 NSR, rate of 70, with LVH and 1st degree AV block similar to prior study. ED Treatment Course - LABORATORY CBC & Chemistry Diagram: 01/08/17 20:48 01/08/17 20:48 - RADIOLOGY Radiology Studies Ordered: CXR with pulmonary vascular congestion, boot-shaped cardiac silhouette, tortuous aorta, per my preliminary interpretation. Medical Decision Making - Medical Decision Making 71 yom with h/o CHF, CAD, CABG, IDDM p/w R>L leg swelling, PND, SOB, couple episodes of CP. On exam R>L pitting edema with blisters, right-sided rales, accessory muscle use. He is placed on NC 2 LPM and head of bed up. DDX: CHF exacerbation, DVT, cellulitis. Ordered is cardiac order set, CXR, Doppler RLE, 01/08/17 22:12 BNP is 2846 (Pt has had >4000 in the past but this is still high for him). CK-MB also elevated >5. BUN/Cr is 30/1.5 which is improved from his prior labs here at [facility]. Mg is 1.7 and he is given 800 mg Mg ox. PCP Lindsay Pastor is contacted and she agrees with plan for admission. Pt is admitted to IP Med/Surg. *DC/Admit/Observation/Transfer Diagnosis at time of Disposition: CHF exacerbation Qualifiers: Congestive heart failure type: unspecified congestive heart failure type Qualified Code(s): I50.9 - Heart failure, unspecified - Discharge Dispostion Condition at time of disposition: Guarded Admit: Yes
[2017-01-08 20:57] LABS: BASOPHIL 0.7 % (0-2.0); EOSINOPHIL 2.8 % (0-4.5); MCH 31.8 pg (25.7-33.7); MCHC 34.3 g/dl (32.0-35.9); MEAN CELL VOLUME 92.8 fl (80-96); MEAN PLT VOLUME 9.6 fl (7.5-11.1); NEUTROPHILS 65.3 % (42.8-82.8); PLATELET COUNT 67 K/MM3 (134-434); RDW 15.3 % (11.9-15.9); WHITE BLOOD COUNT 4.2 K/mm3 (4.0-10.0)
[2017-01-08 21:06] LABS: VENOUS BLOOD GAS HCO3 22.7 meq/L (19-25); VENOUS PH 7.34 (7.32-7.42)
[2017-01-08] MEDS ORDERED: ASPIRIN 81 MG CHEWABLE TABLETS ONE (21:09)
[2017-01-08] MEDS ORDERED: FUROSEMIDE 40 MG/4 ML INJECTABLE VIAL ONE (21:09)
[2017-01-08 21:10] LABS: INR 1.25 (0.82-1.09); PROTHROMBIN TIME (PATIENT) 13.8 SEC (9.98-11.88)
[2017-01-08 21:28] LABS: ALBUMIN 2.7 g/dl (3.4-5.0); ANION GAP 6 (8-16); BILIRUBIN,TOTAL 1.2 mg/dL (0.2-1.0); CALCIUM 8.3 mg/dL (8.5-10.1); CO2 27 mmol/L (21-32); CREATININE 1.5 mg/dL (0.7-1.3); GLUCOSE,RANDOM 232 mg/dL (74-106); MAGNESIUM 1.7 mg/dL (1.8-2.4); SGOT/AST 32 U/L (15-37); SGPT/ALT 26 U/L (12-78); TOT PROT 6.6 g/dl (6.4-8.2)
[2017-01-08 21:30] LABS: ALK PHOS 212 U/L (45-117); CPK 185 IU/L (39-308); TROPONIN I 0.04 ng/ml (0.00-0.05)
[2017-01-08] MEDS ORDERED: MAGNESIUM OXIDE 400 MG TABLET (FP) PO ONE (22:17)
[2017-01-08] MEDS ORDERED: MAGNESIUM OXIDE 400 MG TABLET (FP) ONE (23:09)
[2017-01-09 00:01] LABS: TROPONIN I 0.04 ng/ml (0.00-0.05)
[2017-01-09 02:03] VITALS: BMI 28.9
[2017-01-09] MEDS: INSULIN SLIDING SCALE (NOVOLOG) 1 VIAL SQ SCH ×3 (06:53→17:34)
[2017-01-09 08:05] LABS: BASOPHIL 0.8 % (0-2.0); EOSINOPHIL 3.8 % (0-4.5); MCH 31.4 pg (25.7-33.7); MCHC 34.2 g/dl (32.0-35.9); MEAN PLT VOLUME 8.9 fl (7.5-11.1); NEUTROPHILS 64.8 % (42.8-82.8); PLATELET COUNT 58 K/MM3 (134-434); RDW 15.2 % (11.9-15.9); WHITE BLOOD COUNT 3.7 K/mm3 (4.0-10.0)
[2017-01-09 08:43] LABS: CPK 120 IU/L (39-308); TROPONIN I 0.05 ng/ml (0.00-0.05)
[2017-01-09 09:01] LABS: ALBUMIN 2.5 g/dl (3.4-5.0); ANION GAP 11 (8-16); BILIRUBIN,TOTAL 1.3 mg/dL (0.2-1.0); CALCIUM 8.2 mg/dL (8.5-10.1); CO2 27 mmol/L (21-32); CREATININE 1.3 mg/dL (0.7-1.3); GLUCOSE,RANDOM 82 mg/dL (74-106); SGOT/AST 16 U/L (15-37); SGPT/ALT 24 U/L (12-78); TOT PROT 5.8 g/dl (6.4-8.2)
[2017-01-09 09:03] LABS: ALK PHOS 154 U/L (45-117)
[2017-01-09] MEDS ORDERED: PT OWN MED DRAWER 7, Y5N ONE (09:38)
--- NOTE | 2017-01-09 09:41 | EKG ---
Test Reason : Blood Pressure : / mmHG Vent. Rate : 070 BPM Atrial Rate : 070 BPM P-R Int : 000 ms QRS Dur : 112 ms QT Int : 408 ms P-R-T Axes : 000 -28 154 degrees QTc Int : 440 ms POOR DATA QUALITY, INTERPRETATION MAY BE ADVERSELY AFFECTED SINUS RHYTHM WITH 1ST DEGREE A-V BLOCK LEFT VENTRICULAR HYPERTROPHY WITH REPOLARIZATION ABNORMALITY LATERAL INFARCT , AGE UNDETERMINED ABNORMAL ECG Confirmed by TERESA LOPEZ MD ([id number]) on 01/09/2017 9:40:36 AM Referred By: Confirmed By:TERESA LOPEZ MD
[2017-01-09] MEDS: TAMSULOSIN HCL 0.4 MG CAP.ER.24H (FP) PO SCH (09:48)
[2017-01-09] MEDS: FUROSEMIDE 40 MG/4 ML INJECTABLE VIAL IVPB SCH ×2 (09:48→10:30)
[2017-01-09] MEDS: METOPROLOL TARTRATE 25 MG TABLET (FP) PO SCH ×2 (09:48→21:43)
[2017-01-09] MEDS: INSULIN DETEMIR 100 UNITS/ML MDV SQ SCH ×2 (09:51→17:33)
[2017-01-09] MEDS ORDERED: FUROSEMIDE 40 MG/4 ML INJECTABLE VIAL IVPUSH SCH (10:07)
--- NOTE | 2017-01-09 10:51 | CON.CARD ---
Cardiology Consult (text) - Consultation Consultation Note: cc: sob, le edema hpi: 71 m hx cad s/p cabg x3 2004, bio avr, ascending aorta repair, htn, hld, dm, aflutter, dchf, ex etoh abuse, HCC s/p seeds [place] [facility] 07/2015, cirrhosis with thrombocytopenia and esoph varices, here with sob, le edema. For past weeks has noticed increased le edema and ma. Tried taking lasix 80 qd instead of usual 40 qd past few days but no improvement so came to ER. Sees me for cardiology but not always reliable with f/u. pmh: per hpi psh: cabg, avr social: ex tob, ex etoh fam: no premature cad or scd ros: per hpi; no nvd, fever, cough, nasal congestion, muscle pains, fritz, vision changes, no hematuria/dysuria, no gib meds: Home Medications Medication Instructions Recorded Pravastatin Sodium 10 mg PO DAILY 08/06/16 Insulin (Levemir) [Levemir Flexpen 20 units SQ BID #1 amp 08/11/16 -] Insulin Sliding Scale [Novolog 1 vial SQ TIDAC #1 amp 08/11/16 Vial Sliding Scale -] Furosemide [Lasix -] 40 mg PO DAILY 10/24/16 Metoprolol Tartrate 25 mg PO BID 10/24/16 Tamsulosin HCl 0.4 mg PO DAILY 10/24/16 pe: Vital Signs Period Temp Pulse Resp BP Sys/Sheldon Pulse Ox Last 24 Hr 97.7 F-98 F 66-77 16-18 152-180/63-76 95-97 nad no jvd rrr s1s2 no mrg cta bl nl eff aaox3 2+ le edema bl, no c/c abd nt nd pos bs no jaundice diaphoresis pos dp pt no carotid bruit Laboratory Last Values WBC 3.7 K/mm3 (4.0-10.0) L 01/09/17 07:35 RBC 2.98 M/mm3 (4.00-5.60) L 01/09/17 07:35 Hgb 9.4 GM/dL (11.7-16.9) L 01/09/17 07:35 Hct 27.4 % (35.4-49) L 01/09/17 07:35 MCV 92.0 fl (80-96) 01/09/17 07:35 MCH 31.4 pg (25.7-33.7) 01/09/17 07:35 MCHC 34.2 g/dl (32.0-35.9) 01/09/17 07:35 RDW 15.2 % (11.9-15.9) 01/09/17 07:35 Plt Count 58 K/MM3 (134-434) L 01/09/17 07:35 MPV 8.9 fl (7.5-11.1) 01/09/17 07:35 Neutrophils % 64.8 % (42.8-82.8) 01/09/17 07:35 Lymphocytes % 17.6 % (8-40) 01/09/17 07:35 Monocytes % 13.0 % (3.8-10.2) H 01/09/17 07:35 Eosinophils % 3.8 % (0-4.5) 01/09/17 07:35 Basophils % 0.8 % (0-2.0) 01/09/17 07:35 PT with INR 13.80 SEC (9.98-11.88) H 01/08/17 20:48 INR 1.25 (0.82-1.09) H 01/08/17 20:48 VBG pH 7.34 (7.32-7.42) 01/08/17 21:05 POC VBG pCO2 43.0 mmHg (38-52) 01/08/17 21:05 POC VBG pO2 40.4 mmHg (28-48) 01/08/17 21:05 Mixed VBG HCO3 22.7 meq/L (19-25) 01/08/17 21:05 Sodium 143 mmol/L (136-145) 01/09/17 07:35 Potassium 3.4 mmol/L (3.5-5.1) L 01/09/17 07:35 Chloride 105 mmol/L (98-107) 01/09/17 07:35 Carbon Dioxide 27 mmol/L (21-32) 01/09/17 07:35 Anion Gap 11 (8-16) 01/09/17 07:35 BUN 29 mg/dL (7-18) H 01/09/17 07:35 Creatinine 1.3 mg/dL (0.7-1.3) 01/09/17 07:35 Creat Clearance w eGFR 54.57 (>60) 01/09/17 07:35 POC Glucometer 177 UNITS (()) 01/09/17 09:50 Random Glucose 82 mg/dL (74-106) D 01/09/17 07:35 Calcium 8.2 mg/dL (8.5-10.1) L 01/09/17 07:35 Magnesium 1.7 mg/dL (1.8-2.4) L 01/08/17 20:48 Total Bilirubin 1.3 mg/dL (0.2-1.0) H 01/09/17 07:35 AST 16 U/L (15-37) D 01/09/17 07:35 ALT 24 U/L (12-78) 01/09/17 07:35 Alkaline Phosphatase 154 U/L (45-117) H D 01/09/17 07:35 Creatine Kinase 120 IU/L (39-308) 01/09/17 07:35 Creatine Kinase Index 2.7 % (0.0-5.0) 01/08/17 23:30 CK-MB (CK-2) 5.723 ng/mL (0.5-3.6) H 01/08/17 23:30 Troponin I 0.05 ng/ml (0.00-0.05) 01/09/17 07:35 B-Natriuretic Peptide 2845.88 pg/ml (5-125) H 01/08/17 20:48 Total Protein 5.8 g/dl (6.4-8.2) L 01/09/17 07:35 Albumin 2.5 g/dl (3.4-5.0) L 01/09/17 07:35 echo 09/2014: nl lv/rv, mild merrill, mild mr/tr, bio avr with nl fcn, mild ar, rvsp 30-40 mibi 06/2013: nl mpi pvr 06/2013: normal cxr: clear lungs ecg 01/08/17: sr, first degree avb, nl qtc, no ischemic changes a/p: 71 m hx cad s/p cabg x3 2004, bio avr, ascending aorta repair, htn, hld, dm, aflutter, dchf, ex etoh abuse, HCC s/p seeds at [facility] 07/2015, cirrhosis with thrombocytopenia and esoph varices, here with sob, le edema. acute diastolic chf: -here with vol overload, significant le edema -cont with iv lasix, daily wts, daily chem7 -will check updated echo -was on lasix 40 qd at home, will need higher dose upon dc cad, cabg: -stable, no angina, nl lvef -no ischemia on prior mibi -no signs acs, ce's neg x3 -cont home statin, bb -not on asa 2/2 thrombocytopenia bio avr: -stable, nl fcn on prior echo -routine outpt monitoring ascending aorta repair: -stable, cont bb, statin, bp control htn: -cont home bb hld: -cont statin aflutter: -in sr, cont bb -no ac/asa 2/2 thrombocytopenia and esoph varices
[2017-01-09 11:44] LABS: TROPONIN I 0.04 ng/ml (0.00-0.05)
--- NOTE | 2017-01-09 12:36 | HP ---
Admitting History and Physical - Primary Care Physician PCP: Reyna Love - Admission Chief Complaint: sob History of Present Illness: Pt 71 m with hx of cad s/p cabg x3 2004, bio avr, ascending aorta repair, htn , hld, dm, aflutter, d chf, ex etoh abuse, HCC s/p seeds at [facility] 07/2015, cirrhosis with thrombocytopenia ,esoph varices and left inguinal hernia- came to er and admitted for sob/ chf exac Pt was feeling sob for few days Tried taking lasix 80 qd instead of usual 40 qd past few days but no improvement so came to ER pt admitted given i/v lasix. chart reviewed. pt seen/ examined today. sitting in chair. feels better. History Source: Patient Limitations to Obtaining History: No Limitations - Past Medical History Cardiovascular: Yes: AFIB, Aortic Stenosis, CHF Hepatobiliary: Yes: Cirrhosis Endocrine: Yes: Diabetes Mellitus - Past Surgical History Past Surgical History: Yes: Valve Replacement - Smoking History Smoking history: Never smoked Have you smoked in the past 12 months: No Aproximately how many cigarettes per day: 0 If you are a former smoker, when did you quit?: 2004 - Alcohol/Substance Use Hx Alcohol Use: No Home Medications - Allergies Allergies/Adverse Reactions: Allergies Allergy/AdvReac Type Severity Reaction Status Date / Time No Known Drug Allergies Allergy Verified 12/04/16 22:19 - Home Medications Home Medications: Ambulatory Orders Pravastatin Sodium 10 mg PO DAILY 08/06/16 Insulin (Levemir) [Levemir Flexpen -] 20 units SQ BID #1 amp 08/11/16 Insulin Sliding Scale [Novolog Vial Sliding Scale -] 1 vial SQ TIDAC #1 amp Furosemide [Lasix -] 40 mg PO DAILY 10/24/16 Metoprolol Tartrate 25 mg PO BID 10/24/16 Tamsulosin HCl 0.4 mg PO DAILY 10/24/16 Review of Systems - Review of Systems Constitutional: reports: Weakness Eyes: reports: No Symptoms Neck: reports: No Symptoms Cardiovascular: reports: Chest Pain, Shortness of Breath Respiratory: reports: SOB Gastrointestinal: reports: No Symptoms Genitourinary: reports: No Symptoms Musculoskeletal: reports: No Symptoms Neurological: reports: No Symptoms Endocrine: reports: No Symptoms Hematology/Lymphatic: reports: No Symptoms Psychiatric: reports: No Symptoms Physical Examination Vital Signs: Vital Signs Temperature 98 F 01/09/17 09:58 Pulse Rate 70 01/09/17 09:58 Respiratory Rate 18 01/09/17 09:58 Blood Pressure 152/63 01/09/17 09:58 O2 Sat by Pulse Oximetry (%) 97 01/09/17 01:50 Constitutional: Yes: No Distress, Calm Eyes: Yes: Conjunctiva Clear Neck: Yes: Supple, Trachea Midline Cardiovascular: Yes: Pulse Irregular Respiratory: Yes: Diminished Gastrointestinal: Yes: Soft, Distention Edema: Yes Edema: LLE: 2+, RLE: 2+ Neurological: Yes: Alert Labs: CBC, BMP 01/09/17 07:35 01/09/17 08:20 Imaging - Results Chest X-ray: Report Reviewed Ultrasound: Report Reviewed Problem List - Problems (1) Atrial fibrillation Code(s): I48.91 - UNSPECIFIED ATRIAL FIBRILLATION Qualifiers: Atrial fibrillation type: paroxysmal Qualified Code(s): I48.0 - Paroxysmal atrial fibrillation (2) CHF exacerbation Code(s): I50.9 - HEART FAILURE, UNSPECIFIED Qualifiers: Congestive heart failure type: unspecified congestive heart failure type Qualified Code(s): I50.9 - Heart failure, unspecified (3) Diabetes 1.5, managed as type 2 Code(s): E13.9 - OTHER SPECIFIED DIABETES MELLITUS WITHOUT COMPLICATIONS (4) Thrombocytopenia Code(s): D69.6 - THROMBOCYTOPENIA, UNSPECIFIED Assessment/Plan Clinically stable meds reviewed. continue present care. monitor bgm. cardiology consult noted / appreciated. u/s -ve for dvt. monitor weight ltyes will follow discussed with nursing staff. time spend 40 min in examining/ documenting and coordating care.
[2017-01-09] MEDS ORDERED: INSULIN (NOVOLOG) ASPART 100 UNITS/ML 10ML VIAL ONE (17:30)
[2017-01-09 19:34] LABS: TROPONIN I 0.03 ng/ml (0.00-0.05)
[2017-01-10] MEDS ORDERED: INSULIN (NOVOLOG) ASPART 100 UNITS/ML 10ML VIAL ONE ×2 (06:31→11:11)
[2017-01-10] MEDS: FUROSEMIDE 40 MG/4 ML INJECTABLE VIAL IVPUSH SCH ×2 (06:44→13:47)
[2017-01-10] MEDS: INSULIN SLIDING SCALE (NOVOLOG) 1 VIAL SQ SCH ×3 (06:44→17:01)
--- NOTE | 2017-01-10 08:46 | PN ---
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, Physician Chief Complaint: chf History of Present Illness: activity fatigue/sob only slightly better ditto for leg swelling no cp, palpitations ex-cigs - Current Medication List Current Medications: Active Medications Furosemide (Lasix Injection -) 40 mg IVPUSH BID@0600,1400 [facility] Last Admin: 01/10/17 06:44 Dose: 40 mg Insulin Aspart (Novolog Vial Sliding Scale -) 1 vial SQ TIDAC [facility] PRN Reason: Protocol Last Admin: 01/10/17 06:44 Dose: Not Given Insulin Detemir (Levemir Vial) 20 units SQ BIDI [facility] Last Admin: 01/09/17 17:33 Dose: 20 units Metoprolol Tartrate (Lopressor -) 25 mg PO BID [facility] Last Admin: 01/09/17 21:43 Dose: 25 mg Non-Formulary Medication (Pravastatin Sodium [Pravastatin Sodium]) 10 mg PO DAILY [facility] Tamsulosin HCl (Flomax -) 0.4 mg PO DAILY@0830 [facility] Last Admin: 01/09/17 09:48 Dose: 0.4 mg - Objective Vital Signs: Vital Signs Temperature 97.4 F L 01/10/17 06:00 Pulse Rate 63 01/10/17 06:00 Respiratory Rate 18 01/10/17 06:00 Blood Pressure 140/86 01/10/17 06:00 O2 Sat by Pulse Oximetry (%) 95 01/09/17 21:00 Constitutional: Yes: No Distress, Calm Eyes: No: Sclera Icterus HENT: No: Nasal Congestion Cardiovascular: Yes: Regular Rate and Rhythm, S1, S2, Other (PMI non diplaced). No: Gallop, Murmur Respiratory: Yes: CTA Bilaterally, Diminished (bases). No: Accessory Muscle Use , Rales, Wheezes Gastrointestinal: Yes: Normal Bowel Sounds, Soft. No: Tenderness Musculoskeletal: Yes: Other (No kyphosis) Extremities: No: Cold Edema: Yes (2+ ankles, 1+ pretib) Integumentary: No: Jaundice Neurological: Yes: Alert, Oriented (x3) Psychiatric: No: Agitated Labs: CBC, BMP 01/09/17 07:35 01/09/17 08:20 INR, PTT INR 1.25 (0.82-1.09) H 01/08/17 20:48 Assessment/Plan Echo 01/09/17: nl LVSF, mild LVH. mild-mod RV dilation, borderline RVSF. mod LAE. mod AI, mild-mod TR. RVSP 30-40 MIBI 2013: nl mpi cxr: clear lungs ecg 01/08/17: sr, first degree avb, nl qtc, no ischemic changes a/p: 71 m hx cad s/p cabg x3 2004, bio avr, ascending aorta repair, htn, hld, dm, aflutter, dchf, ex etoh abuse, HCC s/p seeds at [facility] 07/2015, cirrhosis with thrombocytopenia and esoph varices, here with sob, le edema. acute HFpEF, RV cardiomyopathy, ? pulm HTN: -RV dilated with preserved fxn on echo, est'd RVSP 30-40 ? underestimated--? more severe pulm HTN (2/2 portal HTN?) -here with vol overload, significant le edema, BNP 2800 -no baseline target wt/dry wt available--will check office records -01/10: wt down 179 to 172 -cont with lasix 40 iv bid, monitor wt and BMP trend -will check updated echo -was on lasix 40 qd at home, will need higher dose upon dc -serial echo monitoring in office for pulm pressure and RV fxn (pt advised important to f/u and verbalizes understanding) CKD: -? baseline creatinine: was 1.6 here in 10/11, was 3.9-->down to 2.4 in 08/11 -currently stable near 1.6 -observe trend with diuresis here cad, cabg: -stable, no angina, nl lvef -no ischemia on prior mibi -no signs acs, ce's neg x3 -cont home statin, bb -not on asa 2/2 thrombocytopenia s/p bio-avr: -moderate AI on current echo (was mild in 2014) -routine outpt monitoring with serial echoes with dr jeffrey (importance of f/u reinforced with pt) s/p ascending aorta repair: -stable, cont bb, statin, bp control -no root or ascending aorta dilation noted on echo htn: -bp controlled -cont home bb hld: -cont statin per prior outpt treatment plan -close monitoring of hepatic function per pmd/cardio/GI as outpt aflutter: -in sr, cont bb -no ac/asa 2/2 thrombocytopenia and esoph varices--per prior outpt tx plan pancytopenia: -? cirrhosis -per pmd
[2017-01-10] MEDS: METOPROLOL TARTRATE 25 MG TABLET (FP) PO SCH ×2 (09:21→21:18)
[2017-01-10] MEDS: INSULIN DETEMIR 100 UNITS/ML MDV SQ SCH ×2 (09:21→17:01)
[2017-01-10] MEDS: TAMSULOSIN HCL 0.4 MG CAP.ER.24H (FP) PO SCH (09:21)
--- NOTE | 2017-01-10 11:04 | PN ---
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 (short form) - Note 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: pt feels better. decreased sob. denies pain. decreased leg swelling passing urine losing weight. Vital Signs Temp 98.8 F 01/10/17 09:00 Pulse 63 01/10/17 09:00 Resp 18 01/10/17 09:00 BP 142/61 01/10/17 09:00 Pulse Ox 98 01/10/17 09:00 Intake & Output 01/09/17 01/09/17 01/10/17 11:59 23:59 11:59 Intake Total 50 190 240 Output Total 200 1050 850 Balance -150 -860 -610 Weight 179 lb 1 oz 172 lb 1 oz Intake: IV 10 SL #22 RH 01/08 10 Oral 50 180 240 Output: Urine 200 1050 850 Void 200 1050 850 Other: Voiding Method Toilet Urinal Urinal Bowel Movement No: 01/08 Height 5 ft 6 in Body Mass Index (BMI) 28.9 Weight Measurement Method Standing Scale Standing Scale Active Medications Furosemide (Lasix Injection -) 40 mg IVPUSH BID@0600,1400 [facility] Last Admin: 01/10/17 06:44 Dose: 40 mg Insulin Aspart (Novolog Vial Sliding Scale -) 1 vial SQ TIDAC [facility] PRN Reason: Protocol Last Admin: 01/10/17 06:44 Dose: Not Given Insulin Detemir (Levemir Vial) 20 units SQ BIDI [facility] Last Admin: 01/10/17 09:21 Dose: 20 units Metoprolol Tartrate (Lopressor -) 25 mg PO BID [facility] Last Admin: 01/10/17 09:21 Dose: 25 mg Non-Formulary Medication (Pravastatin Sodium [Pravastatin Sodium]) 10 mg PO DAILY [facility] Tamsulosin HCl (Flomax -) 0.4 mg PO DAILY@0830 [facility] Last Admin: 01/10/17 09:21 Dose: 0.4 mg CBC, BMP 01/09/17 07:35 01/09/17 08:20 Physical Examination Constitutional: Yes: No Distress, Calm/ comfortable Eyes: Yes: Conjunctiva Clear Neck: Yes: Supple, Trachea Midline Cardiovascular: Yes: Pulse Irregular Respiratory: Yes: Diminished Gastrointestinal: Yes: Soft, Distention Edema: Yes Edema: decreased Neurological: Yes: Alert Imaging - Results Chest X-ray: Report Reviewed Ultrasound: Report Reviewed Problem List - Problems (1) Atrial fibrillation Code(s): I48.91 - UNSPECIFIED ATRIAL FIBRILLATION Qualifiers: Atrial fibrillation type: paroxysmal Qualified Code(s): I48.0 - Paroxysmal atrial fibrillation (2) CHF exacerbation Code(s): I50.9 - HEART FAILURE, UNSPECIFIED Qualifiers: Congestive heart failure type: unspecified congestive heart failure type Qualified Code(s): I50.9 - Heart failure, unspecified (3) Diabetes 1.5, managed as type 2 Code(s): E13.9 - OTHER SPECIFIED DIABETES MELLITUS WITHOUT COMPLICATIONS (4) Thrombocytopenia Code(s): D69.6 - THROMBOCYTOPENIA, UNSPECIFIED Assessment/Plan Clinically better meds reviewed. continue present care. monitor bgm.-- better discussed with nursing staff. will follow Problem List - Problems (1) Atrial fibrillation Code(s): I48.91 - UNSPECIFIED ATRIAL FIBRILLATION Qualifiers: Atrial fibrillation type: paroxysmal Qualified Code(s): I48.0 - Paroxysmal atrial fibrillation (2) CHF exacerbation Code(s): I50.9 - HEART FAILURE, UNSPECIFIED Qualifiers: Congestive heart failure type: unspecified congestive heart failure type Qualified Code(s): I50.9 - Heart failure, unspecified (3) Diabetes 1.5, managed as type 2 Code(s): E13.9 - OTHER SPECIFIED DIABETES MELLITUS WITHOUT COMPLICATIONS (4) Thrombocytopenia Code(s): D69.6 - THROMBOCYTOPENIA, UNSPECIFIED
[2017-01-10 11:13] LABS: EOSINOPHIL 3.4 % (0-4.5); MCH 31.7 pg (25.7-33.7); MCHC 34.1 g/dl (32.0-35.9); MEAN CELL VOLUME 93.1 fl (80-96); MEAN PLT VOLUME 8.7 fl (7.5-11.1); NEUTROPHILS 67.6 % (42.8-82.8); PLATELET COUNT 67 K/MM3 (134-434); RDW 15.4 % (11.9-15.9); WHITE BLOOD COUNT 3.8 K/mm3 (4.0-10.0)
[2017-01-10 11:50] LABS: ANION GAP 6 (8-16); CALCIUM 8.9 mg/dL (8.5-10.1); CO2 32 mmol/L (21-32); CREATININE 1.6 mg/dL (0.7-1.3); GLUCOSE,RANDOM 179 mg/dL (74-106)
[2017-01-10 12:15] LABS: ALBUMIN 2.8 g/dl (3.4-5.0); BILIRUBIN,TOTAL 1.1 mg/dL (0.2-1.0); SGOT/AST 32 U/L (15-37); TOT PROT 6.7 g/dl (6.4-8.2)
[2017-01-10 12:17] LABS: ALK PHOS 184 U/L (45-117); SGPT/ALT 30 U/L (12-78)
[2017-01-11] MEDS: INSULIN DETEMIR 100 UNITS/ML MDV SQ SCH ×2 (06:02→17:24)
[2017-01-11] MEDS: INSULIN SLIDING SCALE (NOVOLOG) 1 VIAL SQ SCH ×3 (06:02→17:25)
[2017-01-11] MEDS: FUROSEMIDE 40 MG/4 ML INJECTABLE VIAL IVPUSH SCH ×2 (06:02→14:24)
[2017-01-11] MEDS ORDERED: INSULIN (NOVOLOG) ASPART 100 UNITS/ML 10ML VIAL ONE ×2 (06:26→11:43)
[2017-01-11 07:05] LABS: BASOPHIL 0.8 % (0-2.0); EOSINOPHIL 3.7 % (0-4.5); MCH 31.7 pg (25.7-33.7); MCHC 34.1 g/dl (32.0-35.9); MEAN CELL VOLUME 92.9 fl (80-96); MEAN PLT VOLUME 9.5 fl (7.5-11.1); NEUTROPHILS 65.9 % (42.8-82.8); PLATELET COUNT 64 K/MM3 (134-434); RDW 15.4 % (11.9-15.9); WHITE BLOOD COUNT 4.1 K/mm3 (4.0-10.0)
[2017-01-11 07:33] LABS: ALBUMIN 2.7 g/dl (3.4-5.0); BILIRUBIN,TOTAL 1.1 mg/dL (0.2-1.0); SGOT/AST 27 U/L (15-37); SGPT/ALT 27 U/L (12-78); TOT PROT 6.5 g/dl (6.4-8.2)
[2017-01-11 07:34] LABS: ALK PHOS 173 U/L (45-117)
[2017-01-11] MEDS: TAMSULOSIN HCL 0.4 MG CAP.ER.24H (FP) PO SCH (08:22)
[2017-01-11] MEDS: METOPROLOL TARTRATE 25 MG TABLET (FP) PO SCH ×2 (09:12→22:05)
--- NOTE | 2017-01-11 09:50 | PN ---
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, Physician Chief Complaint: chf History of Present Illness: still feels fatigued and mildly breathless when turning over in bed--not his baseline leg swelling improved no cp, palpit - Current Medication List Current Medications: Active Medications Furosemide (Lasix Injection -) 40 mg IVPUSH BID@0600,1400 [facility] Last Admin: 01/11/17 06:02 Dose: 40 mg Insulin Aspart (Novolog Vial Sliding Scale -) 1 vial SQ TIDAC [facility] PRN Reason: Protocol Last Admin: 01/11/17 06:02 Dose: Not Given Insulin Detemir (Levemir Vial) 20 units SQ BIDI [facility] Last Admin: 01/11/17 06:02 Dose: Not Given Metoprolol Tartrate (Lopressor -) 25 mg PO BID [facility] Last Admin: 01/11/17 09:12 Dose: 25 mg Non-Formulary Medication (Pravastatin Sodium [Pravastatin Sodium]) 10 mg PO DAILY [facility] Tamsulosin HCl (Flomax -) 0.4 mg PO DAILY@0830 [facility] Last Admin: 01/11/17 08:22 Dose: 0.4 mg - Objective Vital Signs: Vital Signs Temperature 98.1 F 01/11/17 09:00 Pulse Rate 60 01/11/17 09:00 Respiratory Rate 20 01/11/17 09:00 Blood Pressure 145/66 01/11/17 09:00 O2 Sat by Pulse Oximetry (%) 95 01/10/17 21:00 Constitutional: Yes: Well Nourished, No Distress, Calm Cardiovascular: Yes: Pulse Irregular, JVD (to jaw), Murmur (diast decr murmur c/ w AI RUSB to LLSB), S1, S2. No: Gallop Extremities: No: Cold Edema: Yes (1+ pretib/ankle) Neurological: Yes: Alert, Oriented Psychiatric: No: Agitated Labs: CBC, BMP 01/11/17 06:45 INR, PTT INR 1.25 (0.82-1.09) H 01/08/17 20:48 Assessment/Plan Echo 01/09/17: nl LVSF, mild LVH. mild-mod RV dilation, borderline RVSF. mod LAE. mod AI, mild-mod TR. RVSP 30-40 MIBI 2013: nl mpi cxr: clear lungs ecg 01/08/17: sr, first degree avb, nl qtc, no ischemic changes a/p: 71 m hx cad s/p cabg x3 2004, bio avr, ascending aorta repair, htn, hld, dm, aflutter, dchf, ex etoh abuse, HCC s/p seeds at [facility] 07/2015, cirrhosis with thrombocytopenia and esoph varices, here with sob, le edema. acute HFpEF, RV cardiomyopathy, ? pulm HTN: -RV dilated with preserved fxn on echo, est'd RVSP 30-40 ? underestimated--? more severe pulm HTN (2/2 portal HTN?) -here with vol overload, significant le edema, BNP 2800 -no baseline target wt/dry wt available--will check office records -01/10: wt down 179 to 172 -01/11: wt 168 lbs, remains sob with massive JVD. bun/creat pending--f/u today's labs. cont lasix 40 iv bid (clearly remains volume overloaded) -was on lasix 40 po qd at home, will need higher dose upon dc -serial echo monitoring in office for pulm pressure and RV fxn (pt advised important to f/u and verbalizes understanding) CKD: -? baseline creatinine: was 1.6 here in 10/11, was 3.9-->down to 2.4 in 08/11 -currently stable near 1.6 -observe trend with diuresis here cad, cabg: -stable, no angina, nl lvef -no ischemia on prior mibi -no signs acs, ce's neg x3 -cont home statin, bb -not on asa 2/2 thrombocytopenia s/p bio-avr: -moderate AI on current echo (was mild in 2014) -routine outpt monitoring with serial echoes with dr jeffrey (importance of f/u reinforced with pt) s/p ascending aorta repair: -stable, cont bb, statin, bp control -no root or ascending aorta dilation noted on echo htn: -bp controlled -cont home bb hld: -cont statin per prior outpt treatment plan -close monitoring of hepatic function per pmd/cardio/GI as outpt aflutter: -in sr, cont bb -no ac/asa 2/2 thrombocytopenia and esoph varices--per prior outpt tx plan pancytopenia: -? cirrhosis -per pmd
[2017-01-11 11:36] LABS: GLUCOSE,RANDOM 116 mg/dl (74-106)
[2017-01-11 11:37] LABS: ANION GAP 7 (8-16); CALCIUM 8.4 mg/dl (8.4-10.2); CO2 31 mmol/L (22-28); CREATININE 1.8 mg/dl (0.6-1.3)
--- NOTE | 2017-01-11 12:10 | PN ---
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 (short form) - Note 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: Pt feels much better cardiology follow up noted. denies pain breathing much better. Vital Signs Temp 98.1 F 01/11/17 09:00 Pulse 60 01/11/17 09:00 Resp 20 01/11/17 09:00 BP 145/66 01/11/17 09:00 Pulse Ox 95 01/10/17 21:00 Intake & Output 01/10/17 01/11/17 01/11/17 23:59 11:59 23:59 Intake Total 480 Output Total 500 200 Balance -20 -200 Weight 168 lb Intake: Oral 480 Output: Urine 500 200 Void 500 200 Other: Voiding Method Urinal Toilet Weight Measurement Method Standing Scale Active Medications Furosemide (Lasix Injection -) 40 mg IVPUSH BID@0600,1400 [facility] Last Admin: 01/11/17 06:02 Dose: 40 mg Insulin Aspart (Novolog Vial Sliding Scale -) 1 vial SQ TIDAC [facility] PRN Reason: Protocol Last Admin: 01/11/17 11:56 Dose: 6 units Insulin Detemir (Levemir Vial) 20 units SQ BIDI [facility] Last Admin: 01/11/17 06:02 Dose: Not Given Metoprolol Tartrate (Lopressor -) 25 mg PO BID [facility] Last Admin: 01/11/17 09:12 Dose: 25 mg Non-Formulary Medication (Pravastatin Sodium [Pravastatin Sodium]) 10 mg PO DAILY [facility] Tamsulosin HCl (Flomax -) 0.4 mg PO DAILY@0830 [facility] Last Admin: 01/11/17 08:22 Dose: 0.4 mg CBC, BMP 01/11/17 06:45 01/11/17 06:45 Physical Examination Constitutional: Yes: No Distress, Comfortable. Eyes: Yes: Conjunctiva Clear Neck: Yes: Supple, Trachea Midline Cardiovascular: Yes: Pulse Irregular Respiratory: Yes: Diminished Gastrointestinal: Yes: Soft, Distention Edema: Yes Edema: decreased Neurological: Yes: Alert Imaging - Results Chest X-ray: Report Reviewed Ultrasound: Report Reviewed Assessment/Plan Clinically better meds reviewed. continue present care. continue lasix - at present dose per cardiology recommendation. monitor renal function closely discussed with nursing staff. will follow. Problem List - Problems (1) Atrial fibrillation Code(s): I48.91 - UNSPECIFIED ATRIAL FIBRILLATION Qualifiers: Atrial fibrillation type: paroxysmal Qualified Code(s): I48.0 - Paroxysmal atrial fibrillation (2) CHF exacerbation Code(s): I50.9 - HEART FAILURE, UNSPECIFIED Qualifiers: Congestive heart failure type: unspecified congestive heart failure type Qualified Code(s): I50.9 - Heart failure, unspecified (3) Diabetes 1.5, managed as type 2 Code(s): E13.9 - OTHER SPECIFIED DIABETES MELLITUS WITHOUT COMPLICATIONS (4) Thrombocytopenia Code(s): D69.6 - THROMBOCYTOPENIA, UNSPECIFIED
[2017-01-11] MEDS ORDERED: PT OWN MED DRAWER 7, Y5N ONE (14:42)
[2017-01-12] MEDS: FUROSEMIDE 40 MG/4 ML INJECTABLE VIAL IVPUSH SCH ×2 (06:30→13:30)
[2017-01-12] MEDS: INSULIN SLIDING SCALE (NOVOLOG) 1 VIAL SQ SCH ×3 (06:32→17:00)
[2017-01-12] MEDS: INSULIN DETEMIR 100 UNITS/ML MDV SQ SCH ×2 (06:48→16:59)
[2017-01-12] MEDS: TAMSULOSIN HCL 0.4 MG CAP.ER.24H (FP) PO SCH (08:27)
[2017-01-12 09:11] LABS: ANION GAP 7 (8-16); CALCIUM 8.2 mg/dL (8.5-10.1); CO2 28 mmol/L (21-32); CREATININE 1.6 mg/dL (0.7-1.3); GLUCOSE,RANDOM 121 mg/dL (74-106)
[2017-01-12] MEDS: METOPROLOL TARTRATE 25 MG TABLET (FP) PO SCH ×2 (09:13→21:48)
[2017-01-12] MEDS: PATIENT'S OWN MEDICATION (NON-FORMULARY) (Pravastatin Sodium [Pravastatin Sodium] 10 MG) PO SCH (09:14)
--- NOTE | 2017-01-12 09:31 | PN ---
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 (short form) - Note 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: Pt feels good. no complains denies cp/sob. Vital Signs Temp 98.1 F 01/12/17 08:30 Pulse 65 01/12/17 09:16 Resp 18 01/12/17 09:16 BP 112/88 01/12/17 09:16 Pulse Ox 94 L 01/11/17 21:00 Intake & Output 01/11/17 01/11/17 01/12/17 11:59 23:59 11:59 Intake Total 590 120 Output Total 200 1100 500 Balance -200 -510 -380 Weight 168 lb 165 lb 7 oz Intake: Oral 590 120 Output: Urine 200 1100 500 Void 200 1100 500 Other: Voiding Method Toilet Toilet Toilet # Unmeasured Voids Void 2 Bowel Movement Yes # Bowel Movements 1 Weight Measurement Method Standing Scale Standing Scale CBC, BMP 01/11/17 06:45 01/12/17 07:30 Active Medications Furosemide (Lasix Injection -) 40 mg IVPUSH BID@0600,1400 [facility] Last Admin: 01/12/17 06:30 Dose: 40 mg Insulin Aspart (Novolog Vial Sliding Scale -) 1 vial SQ TIDAC [facility] PRN Reason: Protocol Last Admin: 01/12/17 06:32 Dose: Not Given Insulin Detemir (Levemir Vial) 20 units SQ BIDI [facility] Last Admin: 01/12/17 06:48 Dose: 20 units Metoprolol Tartrate (Lopressor -) 25 mg PO BID [facility] Last Admin: 01/12/17 09:13 Dose: 25 mg Non-Formulary Medication (Pravastatin Sodium [Pravastatin Sodium]) 10 mg PO DAILY [facility] Last Admin: 01/12/17 09:14 Dose: 10 mg Tamsulosin HCl (Flomax -) 0.4 mg PO DAILY@0830 [facility] Last Admin: 01/12/17 08:27 Dose: 0.4 mg Physical Examination Constitutional: Yes: No Distress, Comfortable. Eyes: Yes: Conjunctiva Clear Neck: Yes: Supple, Trachea Midline Cardiovascular: Yes: Pulse Irregular Respiratory: Yes: Diminished at bases Gastrointestinal: Yes: Soft, Distention-- Groin-- Left inguinal hernia. Edema: Yes-- trace Neurological: Yes: Alert Imaging - Results Chest X-ray: Report Reviewed Ultrasound: Report Reviewed Assessment/Plan Clinically much betterbetter meds reviewed. continue present care. continue lasix - decrease to once daily ? cardiology to follow monitor renal function closely discussed with nursing staff. will follow. Problem List - Problems (1) Atrial fibrillation Code(s): I48.91 - UNSPECIFIED ATRIAL FIBRILLATION Qualifiers: Atrial fibrillation type: paroxysmal Qualified Code(s): I48.0 - Paroxysmal atrial fibrillation (2) CHF exacerbation Code(s): I50.9 - HEART FAILURE, UNSPECIFIED Qualifiers: Congestive heart failure type: unspecified congestive heart failure type Qualified Code(s): I50.9 - Heart failure, unspecified (3) Diabetes 1.5, managed as type 2 Code(s): E13.9 - OTHER SPECIFIED DIABETES MELLITUS WITHOUT COMPLICATIONS (4) Thrombocytopenia Code(s): D69.6 - THROMBOCYTOPENIA, UNSPECIFIED
--- NOTE | 2017-01-12 10:01 | PN ---
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, Physician Chief Complaint: sob History of Present Illness: one episode mild sob and fatigue rolling over in bed last night but much improved vs prior. leg swelling nearly resolved no cp, palpitations - Current Medication List Current Medications: Active Medications Furosemide (Lasix Injection -) 40 mg IVPUSH BID@0600,1400 [facility] Last Admin: 01/12/17 06:30 Dose: 40 mg Insulin Aspart (Novolog Vial Sliding Scale -) 1 vial SQ TIDAC [facility] PRN Reason: Protocol Last Admin: 01/12/17 06:32 Dose: Not Given Insulin Detemir (Levemir Vial) 20 units SQ BIDI [facility] Last Admin: 01/12/17 06:48 Dose: 20 units Metoprolol Tartrate (Lopressor -) 25 mg PO BID [facility] Last Admin: 01/12/17 09:13 Dose: 25 mg Non-Formulary Medication (Pravastatin Sodium [Pravastatin Sodium]) 10 mg PO DAILY [facility] Last Admin: 01/12/17 09:14 Dose: 10 mg Tamsulosin HCl (Flomax -) 0.4 mg PO DAILY@0830 [facility] Last Admin: 01/12/17 08:27 Dose: 0.4 mg - Objective Vital Signs: Vital Signs Temperature 98.1 F 01/12/17 08:30 Pulse Rate 65 01/12/17 09:16 Respiratory Rate 18 01/12/17 09:16 Blood Pressure 112/88 01/12/17 09:16 O2 Sat by Pulse Oximetry (%) 94 L 01/11/17 21:00 Constitutional: Yes: Well Nourished, No Distress, Calm Cardiovascular: Yes: Regular Rate and Rhythm, S1, S2. No: JVD (in chair), Gallop, Murmur Respiratory: Yes: Regular, CTA Bilaterally, Diminished (bases). No: Accessory Muscle Use, Rales, Wheezes Extremities: No: Cold Edema: No Neurological: Yes: Alert, Oriented Psychiatric: No: Agitated Labs: CBC, BMP 01/11/17 06:45 01/12/17 07:30 INR, PTT INR 1.25 (0.82-1.09) H 01/08/17 20:48 Assessment/Plan Echo 01/09/17: nl LVSF, mild LVH. mild-mod RV dilation, borderline RVSF. mod LAE. mod AI, mild-mod TR. RVSP 30-40 MIBI 2014: nl mpi cxr: clear lungs ecg 01/08/17: sr, first degree avb, nl qtc, no ischemic changes a/p: 71 m hx cad s/p cabg x3 2004, bio avr, ascending aorta repair, htn, hld, dm, aflutter, dchf, ex etoh abuse, HCC s/p seeds at [facility] 07/2015, cirrhosis with thrombocytopenia and esoph varices, here with sob, le edema. acute HFpEF, RV cardiomyopathy, ? pulm HTN: -RV dilated with preserved fxn on echo, est'd RVSP 30-40 ? underestimated--? more severe pulm HTN (2/2 portal HTN?) -here with vol overload, significant le edema, BNP 2800 -no baseline target wt/dry wt available--will check office records -01/10: wt down 179 to 172 -01/11: wt 168 lbs, remains sob with massive JVD. bun/creat pending--f/u today's labs. cont lasix 40 iv bid (clearly remains volume overloaded) -01/12: wt 165, bun rising slightly, creat stable. same lasix today, reassess in am based on sx's, wt, labs--? transition to po tomorrow or next day -was on lasix 40 po qd at home. given significant right sided failure syndrome here, would consider changing to torsemide po regimen at home. -serial echo monitoring in office for pulm pressure and RV fxn (pt advised important to f/u and verbalizes understanding) CKD: -? baseline creatinine: was 1.6 here in 10/11, was 3.9-->down to 2.4 in 08/11 -currently stable near 1.6 -observe trend with diuresis here cad, cabg: -stable, no angina, nl lvef -no ischemia on prior mibi -no signs acs, ce's neg x3 -cont home statin, bb -not on asa 2/2 thrombocytopenia s/p bio-avr: -moderate AI on current echo (was mild in 2014) -routine outpt monitoring with serial echoes with dr jeffrey (importance of f/u reinforced with pt) s/p ascending aorta repair: -stable, cont bb, statin, bp control -no root or ascending aorta dilation noted on echo htn: -bp controlled -cont home bb hld: -cont statin per prior outpt treatment plan -close monitoring of hepatic function per pmd/cardio/GI as outpt aflutter: -in sr, cont bb -no ac/asa 2/2 thrombocytopenia and esoph varices--per prior outpt tx plan pancytopenia: -? cirrhosis -per pmd
[2017-01-13] MEDS: INSULIN DETEMIR 100 UNITS/ML MDV SQ SCH (06:27)
[2017-01-13] MEDS: FUROSEMIDE 40 MG/4 ML INJECTABLE VIAL IVPUSH SCH ×2 (06:27→13:57)
[2017-01-13] MEDS: INSULIN SLIDING SCALE (NOVOLOG) 1 VIAL SQ SCH ×2 (06:36→11:37)
[2017-01-13] MEDS: TAMSULOSIN HCL 0.4 MG CAP.ER.24H (FP) PO SCH (08:43)
[2017-01-13] MEDS: PATIENT'S OWN MEDICATION (NON-FORMULARY) (Pravastatin Sodium [Pravastatin Sodium] 10 MG) PO SCH (10:48)
--- NOTE | 2017-01-13 10:48 | PN ---
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, Physician Chief Complaint: see dc summary - Current Medication List Current Medications: Active Medications Furosemide (Lasix Injection -) 40 mg IVPUSH BID@0600,1400 [facility] Last Admin: 01/13/17 06:27 Dose: 40 mg Insulin Aspart (Novolog Vial Sliding Scale -) 1 vial SQ TIDAC [facility] PRN Reason: Protocol Last Admin: 01/13/17 06:36 Dose: Not Given Insulin Detemir (Levemir Vial) 20 units SQ BIDI [facility] Last Admin: 01/13/17 06:27 Dose: 20 units Metoprolol Tartrate (Lopressor -) 25 mg PO BID [facility] Last Admin: 01/12/17 21:48 Dose: 25 mg Non-Formulary Medication (Pravastatin Sodium [Pravastatin Sodium]) 10 mg PO DAILY [facility] Last Admin: 01/12/17 09:14 Dose: 10 mg Tamsulosin HCl (Flomax -) 0.4 mg PO DAILY@0830 [facility] Last Admin: 01/13/17 08:43 Dose: 0.4 mg - Objective Vital Signs: Vital Signs Temperature 97.5 F L 01/13/17 08:50 Pulse Rate 60 01/13/17 08:50 Respiratory Rate 18 01/13/17 08:50 Blood Pressure 128/52 01/13/17 08:50 O2 Sat by Pulse Oximetry (%) 99 01/12/17 21:00 Labs: CBC, BMP 01/11/17 06:45 INR, PTT INR 1.25 (0.82-1.09) H 01/08/17 20:48
[2017-01-13 10:58] LABS: ANION GAP 9 (8-16); CALCIUM 8.5 mg/dL (8.5-10.1); CO2 28 mmol/L (21-32); CREATININE 1.6 mg/dL (0.7-1.3); GLUCOSE,RANDOM 109 mg/dL (74-106)
[2017-01-13] MEDS: METOPROLOL TARTRATE 25 MG TABLET (FP) PO SCH (11:05)
--- NOTE | 2017-01-13 11:05 | DS ---
Physical Examination Vital Signs: Vital Signs Temperature 97.5 F L 01/13/17 08:50 Pulse Rate 66 01/13/17 10:57 Respiratory Rate 18 01/13/17 10:57 Blood Pressure 145/61 01/13/17 10:57 O2 Sat by Pulse Oximetry (%) 99 01/12/17 21:00 Constitutional: Yes: No Distress, Calm Cardiovascular: Yes: Regular Rate and Rhythm Respiratory: Yes: CTA Bilaterally Gastrointestinal: Yes: Normal Bowel Sounds, Hemorrhoids. No: Distention, Tenderness Edema: Yes Edema: LLE: Trace, RLE: Trace Labs: CBC, BMP 01/11/17 06:45 01/13/17 08:00 Discharge Summary Reason For Visit: ACUTE ON CHRONIC CONGESTIVE HEART FAILURE Current Active Problems Atrial fibrillation (Acute) Bronchitis (Acute) CHF (congestive heart failure) (Acute) CHF exacerbation (Acute) Diabetes 1.5, managed as type 2 (Acute) Hypertension (Acute) Thrombocytopenia (Acute) Hospital Course: Admitted for decompensated heart failure tried increasing Lasix PO at home without improvement and was admitted here for iv Lasix Seen by Cardiology has lost significant amount of weight pt better able to sleep better now states that his leg edema has improved Pt is stable for dc home Condition: Improved - Instructions Referrals: Phil Osborne MD [Staff Physician] - Disposition: HOME - Home Medications Comprehensive Discharge Medication List: Ambulatory Orders Pravastatin Sodium 10 mg PO DAILY 08/06/16 Insulin (Levemir) [Levemir Flexpen -] 20 units SQ BID #1 amp 08/11/16 Insulin Sliding Scale [Novolog Vial Sliding Scale -] 1 vial SQ TIDAC #1 amp Furosemide [Lasix -] 40 mg PO DAILY 10/24/16 Metoprolol Tartrate 25 mg PO BID 10/24/16 Tamsulosin HCl 0.4 mg PO DAILY 10/24/16
--- NOTE | 2017-01-13 11:19 | PN ---
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 (short form) - Note 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: Chief Complaint: sob History of Present Illness: S: feels back to baseline Current Medications Furosemide (Lasix Injection -) 40 mg IVPUSH BID@0600,1400 [facility] Last Admin: 01/13/17 06:27 Dose: 40 mg Insulin Aspart (Novolog Vial Sliding Scale -) 1 vial SQ TIDAC [facility] PRN Reason: Protocol Last Admin: 01/13/17 06:36 Dose: Not Given Insulin Detemir (Levemir Vial) 20 units SQ BIDI [facility] Last Admin: 01/13/17 06:27 Dose: 20 units Metoprolol Tartrate (Lopressor -) 25 mg PO BID [facility] Last Admin: 01/13/17 11:05 Dose: 25 mg Non-Formulary Medication (Pravastatin Sodium [Pravastatin Sodium]) 10 mg PO DAILY [facility] Last Admin: 01/13/17 10:48 Dose: 10 mg Tamsulosin HCl (Flomax -) 0.4 mg PO DAILY@0830 [facility] Last Admin: 01/13/17 08:43 Dose: 0.4 mg Vital Signs - 24 hr 01/12/17 01/12/17 01/12/17 18:00 21:00 22:00 Temperature 97.8 F 98.7 F Pulse Rate 67 64 Respiratory 18 18 Rate Blood Pressure 161/57 132/58 O2 Sat by Pulse 99 Oximetry (%) 01/13/17 01/13/17 01/13/17 06:00 08:50 10:57 Temperature 97.9 F 97.5 F L Pulse Rate 66 60 66 Respiratory 18 18 18 Rate Blood Pressure 140/60 128/52 145/61 O2 Sat by Pulse Oximetry (%) Intake & Output 01/11/17 01/12/17 01/13/17 01/14/17 07:59 07:59 07:59 07:59 Intake Total 720 710 120 Output Total 1100 1600 Balance -380 -890 120 Weight 168 lb 165 lb 7 oz 165 lb 2 oz Constitutional: Yes: Well Nourished, No Distress, Calm Cardiovascular: Yes: Regular Rate and Rhythm, S1, S2. No: JVD (in chair), Gallop, Murmur Respiratory: Yes: Regular, CTA Bilaterally, Diminished (bases). No: Accessory Muscle Use, Rales, Wheezes Extremities: No: Cold Edema: No Neurological: Yes: Alert, Oriented Psychiatric: No: Agitated Labs: CBC, BMP 01/11/17 06:45 01/13/17 08:00 Assessment/Plan Echo 01/09/17: nl LVSF, mild LVH. mild-mod RV dilation, borderline RVSF. mod LAE. mod AI, mild-mod TR. RVSP 30-40 MIBI 2013: nl mpi cxr: clear lungs ecg 01/08/17: sr, first degree avb, nl qtc, no ischemic changes a/p: 71 m hx cad s/p cabg x3 2004, bio avr, ascending aorta repair, htn, hld, dm, aflutter, dchf, ex etoh abuse, HCC s/p seeds at [facility] 07/2015, cirrhosis with thrombocytopenia and esoph varices, here with sob, le edema. acute HFpEF, RV cardiomyopathy, ? pulm HTN: -RV dilated with preserved fxn on echo, est'd RVSP 30-40 ? underestimated--? more severe pulm HTN (2/2 portal HTN?) -here with vol overload, significant le edema, BNP 2800 -no baseline target wt/dry wt available--will check office records -01/10: wt down 179 to 172 -01/11: wt 168 lbs, remains sob with massive JVD. bun/creat pending--f/u today's labs. cont lasix 40 iv bid (clearly remains volume overloaded) -01/12: wt 165, bun rising slightly, creat stable. same lasix today, reassess in am based on sx's, wt, labs--? transition to po tomorrow or next day -was on lasix 40 po qd at home. given significant right sided failure syndrome here, would consider changing to torsemide po regimen at home. - 01/13: patient has plan for discharge. sob, le edema resolved. Recommend d/c home on torsemide 60 mg daily, but will need close cardiology follow up for adjustment of this regimen (significantly higher than prior outpatient regimen of lasix 40 mg daily). Patient counseled to call cardiology office if he has ongoing weight loss on this regimen. -serial echo monitoring in office for pulm pressure and RV fxn (pt advised important to f/u and verbalizes understanding) CKD: -? baseline creatinine: was 1.6 here in 10/11, was 3.9-->down to 2.4 in 08/11 -currently stable near 1.6 -stable with diuresis here cad, cabg: -stable, no angina, nl lvef -no ischemia on prior mibi -no signs acs, ce's neg x3 -cont home statin, bb -not on asa 2/2 thrombocytopenia s/p bio-avr: -moderate AI on current echo (was mild in 2014) -routine outpt monitoring with serial echoes with dr jeffrey (importance of f/u reinforced with pt) s/p ascending aorta repair: -stable, cont bb, statin, bp control -no root or ascending aorta dilation noted on echo htn: -bp controlled -cont home bb hld: -cont statin per prior outpt treatment plan -close monitoring of hepatic function per pmd/cardio/GI as outpt aflutter: -in sr, cont bb -no ac/asa 2/2 thrombocytopenia and esoph varices--per prior outpt tx plan pancytopenia: -? cirrhosis -per pmd
[2017-01-13] MEDS ORDERED: POTASSIUM CHLORIDE TABS 20 MEQ TABLET.ER (FP) PO ONE (11:20)
[2017-01-13 14:06] VITALS: BP 125/50; PULSE 59; TEMP 98.3
== END 2017-01-13 14:07 | disposition home or self-care (01) | DRG 291 ==
LOC: JER 18:53 → JERBED 23:05 → J5S 01-09 01:17
PROVIDERS: ADMIT Internal Medicine; ATTEND Internal Medicine
DX: I13.0 Hypertensive heart and chronic kidney disease with heart failure and stage 1 through stage 4 chronic kidney disease, or unspecified chronic kidney disease (principal); I50.33 Acute on chronic diastolic (congestive) heart failure; I48.92 Unspecified atrial flutter; D61.818 Other pancytopenia; Z95.1 Presence of aortocoronary bypass graft; K70.30 Alcoholic cirrhosis of liver without ascites; F10.10 Alcohol abuse, uncomplicated; I25.10 Atherosclerotic heart disease of native coronary artery without angina pectoris; Z79.4 Long term (current) use of insulin; G89.29 Other chronic pain; Z95.2 Presence of prosthetic heart valve; E78.5 Hyperlipidemia, unspecified; D69.6 Thrombocytopenia, unspecified; K40.90 Unilateral inguinal hernia, without obstruction or gangrene, not specified as recurrent; I48.0 Paroxysmal atrial fibrillation; I42.9 Cardiomyopathy, unspecified; I27.2 Other secondary pulmonary hypertension; E11.22 Type 2 diabetes mellitus with diabetic chronic kidney disease; N18.9 Chronic kidney disease, unspecified
CPT/HCPCS: 36415; 71020-TC; 80048; 80053; 82553; 82803; 83735; 83880; 84484; 85025; 85610; 93005; 93010; 93306-TC; 93971-TC; 99285-25

== ENCOUNTER 2017-10-19 00:45 | Emergency (ER) | payer MEDICARE ==
[2017-10-19 01:33] VITALS: BP 144/53; PULSE 68; TEMP 98.6; BMI 27.8
[2017-10-19 02:14] LABS: BASO % 1.3 % (0-2.0); EOS % 2.2 % (0-4.5); HEMATOCRIT 30.3 % (35.4-49); HEMOGLOBIN 10.2 GM/dL (11.7-16.9); LYMPH % 11.7 % (8-40); MCH 31.4 pg (25.7-33.7); MCHC 33.8 g/dl (32.0-35.9); MEAN CELL VOLUME 93.1 fl (80-96); MONO % 10.2 % (3.8-10.2); NEUT % 74.6 % (42.8-82.8); RBC 3.26 M/mm3 (4.00-5.60); RDW 14.9 % (11.9-15.9); WHITE BLOOD COUNT 5.8 K/mm3 (4.0-10.0)
[2017-10-19 02:40] LABS: ALBUMIN 2.4 g/dl (3.4-5.0); ANION GAP 9 (8-16); BLOOD UREA NITROGEN 45 mg/dL (7-18); CALCIUM 7.8 mg/dL (8.5-10.1); CHLORIDE 99 mmol/L (98-107); CO2 30 mmol/L (21-32); CREATININE 1.8 mg/dL (0.7-1.3); SGOT/AST 21 U/L (15-37); SGPT/ALT 23 U/L (12-78); SODIUM 138 mmol/L (136-145); TOT PROT 6.9 g/dl (6.4-8.2)
[2017-10-19 02:42] LABS: ALK PHOS 161 U/L (45-117); N-TERMINAL BNP 4930.89 pg/ml (5-125)
[2017-10-19 02:45] LABS: GLUCOSE,RANDOM 306 mg/dL (74-106)
[2017-10-19 02:47] LABS: MEAN PLT VOLUME 9.5 fl (7.5-11.1); PLATELET COUNT 91 K/MM3 (134-434)
--- NOTE | 2017-10-19 03:43 | PDOC ---
History of Present Illness - General Chief Complaint: Edema Stated Complaint: UNABLE TO SLEEP [id number] Time Seen by Provider: 10/19/17 01:19 - History of Present Illness Initial Comments: 10/19/17 03:32 Patient is a 71-year-old male with history of diabetes, hypertension, CAD, CABG here with multiple complaints, 1) insomnia, 2) cough, 3) right leg swelling. Patient is a poor historian every quesstion asked about history he states "its in the computer, they got my records here" States he is unable to sleep because when he lays flat he has coughing productive of yellow seputum. Patient was admitted 08/04/17 for some of the same complaints. [place]anda was treated for pneumonia but he is not taking the meds because it make him go to the bathroom too much. Also, c/o right leg swelling which has been chronic since 1 year after the surgery after the CABG because the veins in that leg was grafted for his CABG States she is on Lasix for the swelling and took Lasix 60mg but without relief. PMD: Dr. Lindsay Wood PMHX: as above PSOCHX: Smoker. 10 years ago 1.5 PPD, negative EtOH negative drugs ALL: NKDA GENERAL/CONSTITUTIONAL: [No fever or chills. No weakness. No weight change.] HEAD, EYES, EARS, NOSE AND THROAT: [No change in vision. No ear pain or discharge. No sore throat.] CARDIOVASCULAR: [No chest pain or shortness of breath.] RESPIRATORY: (+) cough, (-) wheezing, or hemoptysis.] GASTROINTESTINAL: [No nausea, vomiting, diarrhea or constipation. No rectal bleeding.] GENITOURINARY: [No dysuria, frequency, or change in urination.] MUSCULOSKELETAL: [No joint or muscle swelling or pain. No neck or back pain.] SKIN AND BREASTS: [No rash or easy bruising.] NEUROLOGIC: [No headache, vertigo, loss of consciousness, or loss of sensation.] PSYCHIATRIC: [No depression or anxiety.] ENDOCRINE: [No increased thirst. No abnormal weight change.] HEMATOLOGIC/LYMPHATIC: [No anemia, easy bleeding, or history of blood clots.] ALLERGIC/IMMUNOLOGIC: [No hives or skin allergy. No latex allergy.] GENERAL: [The patient is awake, alert, and fully oriented, in no acute distress. ] HEAD: [Normal with no signs of trauma.] EYES: [Pupils equal, round and reactive to light, extraocular movements intact, sclera anicteric, conjunctiva clear.] ENT: [Ears normal, nares patent, oropharynx clear without exudates. Moist mucous membranes.] NECK: [Normal range of motion, supple without lymphadenopathy, JVD, or masses.] LUNGS: [Breath sounds equal, crackles to auscultation bilaterally. No wheezes, ] HEART: [Regular rate and rhythm, normal S1 and S2 with murmur, rub.] ABDOMEN: [Soft, nontender, normoactive bowel sounds. No guarding, no rebound. No masses.] EXTREMITIES: [Normal range of motion, (+) edema b/l lower ext R>L. No clubbing or cyanosis. No cords, erythema, mild tenderness to right lower ext] NEUROLOGICAL: [Cranial nerves II through XII grossly intact. Normal speech, normal gait.] PSYCH: [Normal mood, normal affect.] SKIN: [Warm, Dry, normal turgor, no rashes or lesions noted.] Past History - Past Medical History Allergies/Adverse Reactions: Allergies Allergy/AdvReac Type Severity Reaction Status Date / Time No Known Drug Allergies Allergy Verified 10/19/17 01:33 Home Medications: Ambulatory Orders Pravastatin Sodium 10 mg PO DAILY 08/06/16 Metoprolol Tartrate 25 mg PO BID 10/24/16 Tamsulosin HCl 0.4 mg PO DAILY 10/24/16 Insulin (Levemir) [Levemir Flexpen -] 10 units SQ BID #1 amp 04/02/17 Potassium Chloride [K-Dur -] 20 meq PO DAILY 30 Days #30 tablet.er 04/02/17 Insulin (Novolog) [Novolog -] 0 units SQ AC PRN 08/03/17 Lactulose (Oral Use) [Cephulac -] 20 gm PO Q6HPO #90 udc 08/06/17 Torsemide [Demadex -] 60 mg PO BID #60 tab 08/06/17 oxyCODONE HCL [Roxicodone -] 5 mg PO Q6H PRN #20 tablet MDD 4 08/06/17 Anemia: No Asthma: No Cancer: Yes (LIVER CA) Cardiac Disorders: Yes (CHF, atrial fibrillation, CAD) CVA: No COPD: No CHF: Yes Dementia: No Diabetes: Yes GI Disorders: Yes Disorders: No HTN: Yes Hypercholesterolemia: Yes Liver Disease: Yes (LIVER CANCER, ETOH CIRRHOSIS) Seizures: No Thyroid Disease: No - Surgical History Abdominal Surgery: Yes Appendectomy: No Cardiac Surgery: Yes (CABG x3-2005, aortic valve replacement) Cholecystectomy: No Lung Surgery: No Neurologic Surgery: No Orthopedic Surgery: No - Immunization History Immunization Up to Date: Yes - Suicide/Smoking/Psychosocial Hx Smoking Status: Yes Smoking History: Former smoker Have you smoked in the past 12 months: No Number of Cigarettes Smoked Daily: 0 If you are a former smoker, when did you quit?: 2004 Information on smoking cessation initiated: No Hx Alcohol Use: No Drug/Substance Use Hx: No Substance Use Type: None Hx Substance Use Treatment: No *Physical Exam - Vital Signs Last Vital Signs Temp Pulse Resp BP Pulse Ox 98.6 F 68 18 144/53 95 10/19/17 01:32 10/19/17 01:32 10/19/17 01:32 10/19/17 01:32 10/19/17 01:32 ED Treatment Course - LABORATORY CBC & Chemistry Diagram: 10/19/17 01:55 10/19/17 01:55 - ADDITIONAL ORDERS Additional order review: Laboratory Results 10/19/17 10/19/17 01:55 01:55 Sodium 138 Potassium 4.0 Chloride 99 Carbon Dioxide 30 Anion Gap 9 BUN 45 H Creatinine 1.8 H Creat Clearance w eGFR 37.49 Random Glucose 306 H* D Calcium 7.8 L Total Bilirubin 1.0 AST 21 D ALT 23 Alkaline Phosphatase 161 H Creatine Kinase 100 Troponin I 0.03 D B-Natriuretic Peptide 4930.89 H Total Protein 6.9 Albumin 2.4 L 10/19/17 01:55 RBC 3.26 L MCV 93.1 MCHC 33.8 RDW 14.9 MPV 9.5 Neutrophils % 74.6 Lymphocytes % 11.7 D Monocytes % 10.2 Eosinophils % 2.2 Basophils % 1.3 - RADIOLOGY Radiology Studies Ordered: Category Date Time Status CHEST PA & LAT [RAD] Stat Radiology 10/19/17 01:57 Ordered Medical Decision Making - Medical Decision Making 10/19/17 03:32 Patient is a 71-year-old male with history of diabetes, hypertension, CAD, CABG here with multiple complaints, 1) insomnia, 2) cough, 3) right leg swelling. will get labs include bnp, trop cxr, labs reviewed noted bnp Laboratory Tests 10/19/17 10/19/17 10/19/17 01:55 01:55 01:55 Hgb 10.2 L Hct 30.3 L Plt Count 91 L D Sodium 138 Potassium 4.0 Chloride 99 Carbon Dioxide 30 Anion Gap 9 BUN 45 H Creatinine 1.8 H Random Glucose 306 H* D Alkaline Phosphatase 161 H Troponin I 0.03 D B-Natriuretic Peptide 4930.89 H Patient is refusing to stay for additional workup, chest x-ray and disposition. He wants to sign out AGAINST MEDICAL ADVICE. Patient is alert and oriented 3 and understands the risks of his actions. *DC/Admit/Observation/Transfer Diagnosis at time of Disposition: Edema, Left against medical advice - Discharge Dispostion Disposition: AGAINST MEDICAL ADVICE Condition at time of disposition: Good - Referrals Referrals: Reyna Love MD [Primary Care Provider] - - Patient Instructions Additional Instructions: Your Discharge Instructions: You must call primary care physician within 24 hours to arrange follow-up. Return to the Emergency Department with any new, persistent or worsening symptoms, for fever, chills, SOB, dizziness or any other concerning changes that may occur. - Post Discharge Activity
== END 2017-10-19 04:39 | disposition left against medical advice (07) ==
LOC: JER 00:45
DX: R60.0 Localized edema (principal); I25.810 Atherosclerosis of coronary artery bypass graft(s) without angina pectoris; I11.0 Hypertensive heart disease with heart failure; Z95.1 Presence of aortocoronary bypass graft; Z87.891 Personal history of nicotine dependence; I48.91 Unspecified atrial fibrillation; E11.9 Type 2 diabetes mellitus without complications; Z95.2 Presence of prosthetic heart valve; C22.9 Malignant neoplasm of liver, not specified as primary or secondary; F10.10 Alcohol abuse, uncomplicated; K70.30 Alcoholic cirrhosis of liver without ascites
CPT/HCPCS: 36415; 80053; 82550; 83880; 84484; 85025; 99283-25

== ENCOUNTER 2017-11-18 09:29 | Inpatient (IN) | payer MEDICARE ==
--- NOTE | 2017-11-18 10:10 | PDOC ---
History of Present Illness <Opal Nesbitt - Last Filed: 11/18/17 11:55> - History of Present Illness Initial Comments: 11/18/17 10:32 "The patient is a 71 year old male with significant past medical history of DM, CHF, A fib, CAD, liver cancer, EtOH cirrhosis, hypertension, hypercholesterolemia, who presents to the emergency department today complaining of 4 days of orthopnea and bilateral lower extremity edema. The patient states that he has not had full nights sleep in 4 days because when he lies down he gets a shortness of breath. He denies any SOB sitting upright. Denies JARA. Pt also notes that both legs have gotten more swollen. He typically has a more edematous RLE but states that both have increased in size. He notes that Dr. King told him to double-up on his water pills when he gets these symptoms, so yesterday he took 6 pills. Pt denies CP. Denies F/C. Denies recent travel/immobilization. Allergies: NKDA Surgical history: abdominal surgery, CABGx3 stents (2004), aortic valve replacement Social history: Former tobacco use, quit 2004. PCP: Dr. Wood/Dr. 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 King " <Tomi Vyas - Last Filed: 11/18/17 11:58> - General Chief Complaint: Edema Stated Complaint: SWOLLEN LEGS Time Seen by Provider: 11/18/17 09:38 Past History <Opal Nesbitt - Last Filed: 11/18/17 11:55> - Past Medical History Anemia: No Asthma: No Cancer: Yes (LIVER CA) Cardiac Disorders: Yes (CHF, atrial fibrillation, CAD) CVA: No COPD: No CHF: Yes Dementia: No Diabetes: Yes GI Disorders: Yes Disorders: No HTN: Yes Hypercholesterolemia: Yes Liver Disease: Yes (LIVER CANCER, ETOH CIRRHOSIS) Seizures: No Thyroid Disease: No - Surgical History Abdominal Surgery: Yes Appendectomy: No Cardiac Surgery: Yes (CABG x3-2004, aortic valve replacement) Cholecystectomy: No Lung Surgery: No Neurologic Surgery: No Orthopedic Surgery: No - Immunization History Immunization Up to Date: Yes - Suicide/Smoking/Psychosocial Hx Smoking Status: Yes Smoking History: Former smoker Have you smoked in the past 12 months: No Number of Cigarettes Smoked Daily: 0 If you are a former smoker, when did you quit?: 2004 Information on smoking cessation initiated: No Hx Alcohol Use: No Drug/Substance Use Hx: No Substance Use Type: None Hx Substance Use Treatment: No <Tomi Vyas - Last Filed: 11/18/17 11:58> - Past Medical History Allergies/Adverse Reactions: Allergies Allergy/AdvReac Type Severity Reaction Status Date / Time No Known Drug Allergies Allergy Verified 11/18/17 09:31 Home Medications: Ambulatory Orders Pravastatin Sodium 10 mg PO DAILY 08/06/16 Metoprolol Tartrate 25 mg PO BID 10/24/16 Tamsulosin HCl 0.4 mg PO DAILY 10/24/16 Insulin (Levemir) [Levemir Flexpen -] 10 units SQ BID #1 amp 04/02/17 Potassium Chloride [K-Dur -] 20 meq PO DAILY 30 Days #30 tablet.er 04/02/17 Insulin (Novolog) [Novolog -] 0 units SQ AC PRN 08/03/17 Lactulose (Oral Use) [Cephulac -] 20 gm PO Q6HPO #90 udc 08/06/17 Torsemide [Demadex -] 60 mg PO BID #60 tab 08/06/17 oxyCODONE HCL [Roxicodone -] 5 mg PO Q6H PRN #20 tablet MDD 4 08/06/17 Review of Systems - Review of Systems Comments:: 11/18/17 10:39 "GENERAL/CONSTITUTIONAL: No fever or chills. No weakness. HEAD, EYES, EARS, NOSE AND THROAT: No change in vision. No ear pain or discharge. No sore throat. CARDIOVASCULAR: (+) orthopnea. No chest pain. RESPIRATORY: No cough, wheezing, or hemoptysis. GASTROINTESTINAL: No vomiting, diarrhea or constipation. GENITOURINARY: No dysuria, frequency, or change in urination. MUSCULOSKELETAL: (+)BLE swelling. No other joint or muscle pain. No neck or back pain. SKIN: No rash NEUROLOGIC: No headache, vertigo, loss of consciousness, or change in strength/ sensation. ENDOCRINE: No increased thirst. No abnormal weight change. HEMATOLOGIC/LYMPHATIC: No anemia, easy bleeding, or history of blood clots. ALLERGIC/IMMUNOLOGIC: No hives or skin allergy. " <Tomi Vyas - Last Filed: 11/18/17 11:58> *Physical Exam - Vital Signs Last Vital Signs Temp Pulse Resp BP Pulse Ox 97.8 F 57 L 18 142/69 97 11/18/17 09:31 11/18/17 10:19 11/18/17 09:31 11/18/17 09:31 11/18/17 10:19 <Becky Nesbittyn - Last Filed: 11/18/17 11:55> - Vital Signs Last Vital Signs Temp Pulse Resp BP Pulse Ox 97.8 F 60 18 142/69 100 11/18/17 09:31 11/18/17 09:31 11/18/17 09:31 11/18/17 09:31 11/18/17 09:31 - Physical Exam Comments: 11/18/17 10:39 "GENERAL: Awake, alert, and fully oriented, in no acute distress. HEAD: No signs of trauma EYES: PERRLA, EOMI, sclera anicteric, conjunctiva clear ENT: Auricles normal inspection, hearing grossly normal, nares patent, oropharynx clear without exudates. Moist mucosa NECK: Nontender, no stepoffs, Normal ROM, supple, no lymphadenopathy, JVD, or masses LUNGS: (+) bibasilar rales, No wheezes. HEART: Regular rate and rhythm, normal S1 and S2, no murmurs, rubs or gallops ABDOMEN: Soft, nontender, normoactive bowel sounds. No guarding, no rebound. No masses EXTREMITIES: (+) 2+ PE BLE R>L. Normal range of motion. No clubbing or cyanosis. No cords, erythema, or tenderness NEUROLOGICAL: Cranial nerves II through XII intact. 5/5 strength and sensation in all extremities, Normal speech, normal cerebellar function SKIN: Warm, Dry, normal turgor, no rashes or lesions noted. " <Ou,Tomi - Last Filed: 11/18/17 11:58> Heart Score/ECG Review - ECG Impressions Comment:: 11/18/17 10:10 NSR, no PAULINE/STDs, TWI in I and aVL, axis wnl, DE prolongation <Ou,Tomi - Last Filed: 11/18/17 11:58> ED Treatment Course - LABORATORY CBC & Chemistry Diagram: 11/18/17 10:34 11/18/17 10:34 - RADIOLOGY Radiograph Interpretation: 11/18/17 10:40 Chest X-Ray reviewed by Dr. Vyas and over-read by Radiology. Impression: Cardiomegaly No evidence of active pulmonary disease. No pleural effusion, or pneumothorax is seen. <Opal Nesbitt - Last Filed: 11/18/17 11:55> - LABORATORY CBC & Chemistry Diagram: 11/18/17 10:34 11/18/17 10:34 - RADIOLOGY Radiology Studies Ordered: Category Date Time Status CHEST X-RAY PORTABLE* [RAD] Stat Radiology 11/18/17 10:02 Ordered <Tomi Vyas - Last Filed: 11/18/17 11:58> Medical Decision Making - Medical Decision Making 11/18/17 11:43 Dr. Mace's paged at 11:42 am. 11/18/17 11:55 Discussed patient's admission with Dr. Mace's at 11:54 am. <Opal Nesbitt - Last Filed: 11/18/17 11:55> - Medical Decision Making 11/18/17 10:05 71 M presenting with BLE swelling and orthopnea. Exam notable for BLE edema and rales, concerning for CHF exacerbation. Pt with asymmetric BLE swelling, R>L, but this is chronic. Pt has had previous doppler negative for DVT. - Labs, trop, BNP - CXR - IV lasix 11/18/17 11:57 Labs unremarkable, CXR clear However, pt clinically has signs of volume overload Lasix 40mg IV ordered Pt admitted to Dr. Wood <Tomi Vyas - Kevin Filed: 11/18/17 11:58> *DC/Admit/Observation/Transfer - Attestations Scribe Attestion: 11/18/17 10:41 Documentation prepared by Opal Nesbitt, acting as rn medical inpatient services for Tomi Vyas MD. <Opal Nesbitt - Last Filed: 11/18/17 11:55> - Discharge Dispostion Decision to Admit order: Yes - Attestations Physician Attestion: 11/18/17 11:58 I, Dr. Tomi Vyas MD, attest that this document has been prepared under my direction and personally reviewed by me in its entirety. I further attest, that it accurately reflects all work, treatment, procedures and medical decision -making performed by me. <Ou,Tomi - Last Filed: 11/18/17 11:58> Diagnosis at time of Disposition: CHF exacerbation Qualifiers: Qualified Code(s): I50.9 - Heart failure, unspecified - Referrals Referrals: Lindsay Wood MD [Primary Care Provider] - - Patient Instructions - Post Discharge Activity
[2017-11-18 10:48] LABS: EOS % 2.9 % (0-4.5); HEMATOCRIT 32.2 % (35.4-49); LYMPH % 14.3 % (8-40); MCH 32.2 pg (25.7-33.7); MCHC 34.1 g/dl (32.0-35.9); MEAN CELL VOLUME 94.4 fl (80-96); MEAN PLT VOLUME 9.7 fl (7.5-11.1); MONO % 10.2 % (3.8-10.2); NEUT % 71.6 % (42.8-82.8); PLATELET COUNT 56 K/MM3 (134-434); RBC 3.41 M/mm3 (4.00-5.60); RDW 15.5 % (11.9-15.9); WHITE BLOOD COUNT 3.8 K/mm3 (4.0-10.0)
[2017-11-18 11:07] LABS: ANION GAP 8 (8-16); BILIRUBIN,TOTAL 1.6 mg/dL (0.2-1.0); BLOOD UREA NITROGEN 51 mg/dL (7-18); CALCIUM 8.3 mg/dL (8.5-10.1); CHLORIDE 104 mmol/L (98-107); CO2 28 mmol/L (21-32); GLUCOSE,RANDOM 170 mg/dL (74-106); POTASSIUM 4.5 mmol/L (3.5-5.1); SGOT/AST 28 U/L (15-37); SGPT/ALT 28 U/L (12-78); SODIUM 140 mmol/L (136-145); TOT PROT 7.3 g/dl (6.4-8.2)
[2017-11-18 11:10] LABS: ALK PHOS 153 U/L (45-117); N-TERMINAL BNP 2673.66 pg/ml (5-125)
[2017-11-18] MEDS ORDERED: FUROSEMIDE 40 MG/4 ML INJECTABLE VIAL IVPUSH ONE (11:23)
--- NOTE | 2017-11-18 11:40 | EKG ---
Test Reason : Blood Pressure : / mmHG Vent. Rate : 058 BPM Atrial Rate : 058 BPM P-R Int : 000 ms QRS Dur : 110 ms QT Int : 470 ms P-R-T Axes : 048 -19 101 degrees QTc Int : 461 ms SINUS BRADYCARDIA WITH 1ST DEGREE A-V BLOCK INCOMPLETE LEFT BUNDLE BRANCH BLOCK MINIMAL VOLTAGE CRITERIA FOR LVH, MAY BE NORMAL VARIANT ABNORMAL QRS-T ANGLE, CONSIDER PRIMARY T WAVE ABNORMALITY ABNORMAL ECG WHEN COMPARED WITH ECG OF 02-AUG-2017 05:05, NO SIGNIFICANT CHANGE WAS FOUND Confirmed by BRIA CERVANTES, RAZIA ([id number]) on 11/18/2017 11:39:59 AM Referred By: Confirmed By:RAZIA FRASER MD
[2017-11-18] MEDS ORDERED: oxyCODONE HCL 5 MG TABLET PO PRN (11:55)
[2017-11-18] MEDS ORDERED: FUROSEMIDE 40 MG/4 ML INJECTABLE VIAL ONE (11:55)
--- NOTE | 2017-11-18 11:55 | HP ---
Admitting History and Physical - Primary Care Physician PCP: Reyna Love - Admission Chief Complaint: SOB History of Present Illness: - History of Present Illness Initial Comments: 11/18/17 10:32 "The patient is a 71 year old male with significant past medical history of DM, CHF, A fib, CAD, liver cancer, EtOH cirrhosis, hypertension, hypercholesterolemia, who presents to the emergency department today complaining of 4 days of orthopnea and bilateral lower extremity edema. The patient states that he has not had full nights sleep in 4 days because when he lies down he gets a shortness of breath. He denies any SOB sitting upright. Denies JARA. Pt also notes that both legs have gotten more swollen. He typically has a more edematous RLE but states that both have increased in size. He notes that Dr. King told him to double-up on his water pills when he gets these symptoms, so yesterday he took 6 pills. Pt denies CP. Denies F/C. Denies recent travel/immobilization. Allergies: NKDA Surgical history: abdominal surgery, CABGx3 stents (2004), aortic valve replacement Social history: Former tobacco use, quit 2004. PCP: Dr. Wood/Dr. Love Marketing Recruiter: Dr. King Pt seen by me in ER- States he has been taking Torsemide daily as prescribed by Marketing Recruiter. But has been getting progressively SOB with lower extremities edema. He admits to not taking lactulose as his sugars become high. H e received Lasix in the ER- states he feels slightly better Denies chest pain Has SOB on exertion History Source: Patient Limitations to Obtaining History: No Limitations - Past Medical History Cardiovascular: Yes: AFIB, Aortic Stenosis, CHF Hepatobiliary: Yes: Cirrhosis Endocrine: Yes: Diabetes Mellitus - Past Surgical History Past Surgical History: Yes: Valve Replacement - Smoking History Smoking history: Former smoker Have you smoked in the past 12 months: No Aproximately how many cigarettes per day: 0 If you are a former smoker, when did you quit?: 2004 - Alcohol/Substance Use Hx Alcohol Use: No Home Medications - Allergies Allergies/Adverse Reactions: Allergies Allergy/AdvReac Type Severity Reaction Status Date / Time No Known Drug Allergies Allergy Verified 11/18/17 09:31 - Home Medications Home Medications: Ambulatory Orders Pravastatin Sodium 10 mg PO DAILY 08/06/16 Metoprolol Tartrate 25 mg PO BID 10/24/16 Tamsulosin HCl 0.4 mg PO DAILY 10/24/16 Insulin (Levemir) [Levemir Flexpen -] 10 units SQ BID #1 amp 04/02/17 Potassium Chloride [K-Dur -] 20 meq PO DAILY 30 Days #30 tablet.er 04/02/17 Insulin (Novolog) [Novolog -] 0 units SQ AC PRN 08/03/17 Lactulose (Oral Use) [Cephulac -] 20 gm PO Q6HPO #90 udc 08/06/17 Torsemide [Demadex -] 60 mg PO BID #60 tab 08/06/17 oxyCODONE HCL [Roxicodone -] 5 mg PO Q6H PRN #20 tablet MDD 4 08/06/17 Review of Systems - Review of Systems Constitutional: reports: Weakness. denies: Chills, Fever, Loss of Appetite Cardiovascular: reports: Edema, Shortness of Breath. denies: Chest Pain, Palpitations Respiratory: reports: Exercise Intolerance, SOB on Exertion Physical Examination Vital Signs: Vital Signs Temperature 97.8 F 11/18/17 09:31 Pulse Rate 57 L 11/18/17 10:19 Respiratory Rate 18 11/18/17 09:31 Blood Pressure 142/69 11/18/17 09:31 O2 Sat by Pulse Oximetry (%) 97 11/18/17 10:19 Constitutional: Yes: No Distress Cardiovascular: Yes: Regular Rate and Rhythm Respiratory: Yes: Diminished Gastrointestinal: Yes: Normal Bowel Sounds, Soft, Abdomen, Obese. No: Tenderness Edema: Yes Edema: LLE: 2+, RLE: 2+ Psychiatric: Yes: Alert, Oriented Labs: CBC, BMP 11/18/17 10:34 11/18/17 10:34 Imaging - Results Chest X-ray: Image Reviewed (congestive changes) EKG: Image Reviewed (Incomplete LBBB) Problem List - Problems (1) Pancytopenia Code(s): D61.818 - OTHER PANCYTOPENIA (2) CHF exacerbation Code(s): I50.9 - HEART FAILURE, UNSPECIFIED Qualifiers: Qualified Code(s): I50.9 - Heart failure, unspecified (3) Acute on chronic kidney failure Code(s): N17.9 - ACUTE KIDNEY FAILURE, UNSPECIFIED; N18.9 - CHRONIC KIDNEY DISEASE, UNSPECIFIED (4) Diabetes 1.5, managed as type 2 Code(s): E13.9 - OTHER SPECIFIED DIABETES MELLITUS WITHOUT COMPLICATIONS Assessment/Plan PLAN Lasix daily monitor renal function Cardiology eval check I and O daily weights Lactulose as ordered monitor blood sugars Not on AC due to thrombocytopenia
[2017-11-18] MEDS: LACTULOSE 20 GM/30 ML UDC (FOR ORAL USE ONLY) PO SCH ×3 (12:08→23:39)
--- NOTE | 2017-11-18 15:57 | CON.CARD ---
Cardiology Consult (text) - Consultation Consultation Note: Chief Complaint: cp History of Present Illness: 71 M presented with sob. Past 5 days with sob, ma, orthopnea, le edema. No cp , palps dizzy loc. PMH: afib HFpEF/RV chf CKD cirrhosis CAD bioAVR and prior asc aorta repair - Past Medical History Cardio/Vascular: Yes: AFIB, Aortic Stenosis, CHF Hepatobiliary: Yes: Cirrhosis Endocrine: Yes: Diabetes Mellitus - Past Surgical History Past Surgical History: Yes: Valve Replacement - Alcohol/Substance Use Hx Alcohol Use: No - Smoking History Smoking history: Never smoked Have you smoked in the past 12 months: No Aproximately how many cigarettes per day: 0 If you are a former smoker, when did you quit?: 2004 - Social History Usual Living Arrangement: With Spouse Home Medications - Allergies Allergies/Adverse Reactions: Allergies Allergy/AdvReac Type Severity Reaction Status Date / Time No Known Drug Allergies Allergy Verified 11/18/17 09:31 Home Medications Medication Instructions Recorded Pravastatin Sodium 10 mg PO DAILY 08/06/16 Metoprolol Tartrate 25 mg PO BID 10/24/16 Tamsulosin HCl 0.4 mg PO DAILY 10/24/16 Insulin (Levemir) [Levemir Flexpen 10 units SQ BID #1 amp 04/02/17 -] Potassium Chloride [K-Dur -] 20 meq PO DAILY 30 Days #30 04/02/17 tablet.er Insulin (Novolog) [Novolog -] 0 units SQ AC PRN 08/03/17 Lactulose (Oral Use) [Cephulac -] 20 gm PO Q6HPO #90 udc 08/06/17 Torsemide [Demadex -] 60 mg PO BID #60 tab 08/06/17 oxyCODONE HCL [Roxicodone -] 5 mg PO Q6H PRN #20 tablet MDD 4 08/06/17 Review of Systems - Review of Systems Constitutional: denies: Chills, Fever Eyes: denies: Eye Pain HENT: denies: Nasal Congestion Neck: denies: Stiffness Cardiovascular: denies: Palpitations Gastrointestinal: denies: Diarrhea, Rectal Bleeding Genitourinary: denies: Burning, Hematuria Musculoskeletal: denies: Muscle Pain Integumentary: denies: Rash Neurological: denies: Numbness, Seizure, Syncope Endocrine: denies: Excessive Sweating Hematology/Lymphatic: denies: Excessive Bleeding Vital Signs: Vital Signs Period Temp Pulse Resp BP Sys/Sheldon Pulse Ox Last 24 Hr 97.8 F-97.8 F 56-60 12-18 142-148/52-69 97-100 Constitutional: Yes: Well Nourished, No Distress Eyes: No: Sclera Icterus HENT: No: Nasal Congestion Neck: No: Decreased ROM Respiratory: Yes: CTA Bilaterally. No: Accessory Muscle Use, Rales, Wheezes Gastrointestinal: Yes: Normal Bowel Sounds. No: Distention, Hepatomegaly, Palpable Mass, Tenderness Cardiovascular: Yes: Regular Rate and Rhythm JVD: Yes Carotid Bruit: No PMI: Non-Displaced Heart Sounds: Yes: S1, S2. No: Gallop Murmur: No: Systolic Murmur, Diastolic Murmur Musculoskeletal: Yes: Other (No kyphosis) Extremities: No: Cold, Cyanosis Edema: + le edema bl Peripheral Pulses: 2+ Left Carotid, 2+ Right Carotid, 2+ Left Doralis Pedis, 2+ Right Dorsalis Pedis Integumentary: No: Jaundice Neurological: Yes: Alert, Oriented (x3) Psychiatric: No: Agitated - Other Data Labs, Other Data: Laboratory Last Values WBC 3.8 K/mm3 (4.0-10.0) L 11/18/17 10:34 RBC 3.41 M/mm3 (4.00-5.60) L 11/18/17 10:34 Hgb 11.0 GM/dL (11.7-16.9) L 11/18/17 10:34 Hct 32.2 % (35.4-49) L 11/18/17 10:34 MCV 94.4 fl (80-96) 11/18/17 10:34 MCH 32.2 pg (25.7-33.7) 11/18/17 10:34 MCHC 34.1 g/dl (32.0-35.9) 11/18/17 10:34 RDW 15.5 % (11.9-15.9) 11/18/17 10:34 Plt Count 56 K/MM3 (134-434) L D 11/18/17 10:34 MPV 9.7 fl (7.5-11.1) 11/18/17 10:34 Absolute Neuts (auto) 2.7 # 11/18/17 10:34 Neutrophils % 71.6 % (42.8-82.8) 11/18/17 10:34 Lymphocytes % 14.3 % (8-40) D 11/18/17 10:34 Monocytes % 10.2 % (3.8-10.2) 11/18/17 10:34 Eosinophils % 2.9 % (0-4.5) 11/18/17 10:34 Basophils % 1.0 % (0-2.0) 11/18/17 10:34 Nucleated RBC % 0 % (0-0) 11/18/17 10:34 Sodium 140 mmol/L (136-145) 11/18/17 10:34 Potassium 4.5 mmol/L (3.5-5.1) 11/18/17 10:34 Chloride 104 mmol/L (98-107) 11/18/17 10:34 Carbon Dioxide 28 mmol/L (21-32) 11/18/17 10:34 Anion Gap 8 (8-16) 11/18/17 10:34 BUN 51 mg/dL (7-18) H 11/18/17 10:34 Creatinine 2.0 mg/dL (0.7-1.3) H 11/18/17 10:34 Creat Clearance w eGFR 33.20 (>60) 11/18/17 10:34 Random Glucose 170 mg/dL (74-106) H D 11/18/17 10:34 Calcium 8.3 mg/dL (8.5-10.1) L 11/18/17 10:34 Total Bilirubin 1.6 mg/dL (0.2-1.0) H 11/18/17 10:34 AST 28 U/L (15-37) D 11/18/17 10:34 ALT 28 U/L (12-78) D 11/18/17 10:34 Alkaline Phosphatase 153 U/L (45-117) H 11/18/17 10:34 Ammonia 65.2 umol/L (11-32) H 11/18/17 10:34 Creatine Kinase 178 IU/L (39-308) 11/18/17 10:34 Creatine Kinase Index 4.8 % (0.0-5.0) 11/18/17 10:34 CK-MB (CK-2) 8.61 ng/mL (0.5-3.6) H 11/18/17 10:34 Troponin I 0.03 ng/ml (0.00-0.05) 11/18/17 10:34 B-Natriuretic Peptide 2673.66 pg/ml (5-125) H 11/18/17 10:34 Total Protein 7.3 g/dl (6.4-8.2) 11/18/17 10:34 Albumin 3.0 g/dl (3.4-5.0) L 11/18/17 10:34 Echo 01/11: nl LVSF, mild LVH. mild-mod RV dilation, borderline RVSF. mod LAE. mod AI, mild-mod TR. RVSP 30-40 MIBI 2013: nl mpi ECG: SR, nl intervals, LVH with repol abn,--no sig change vs prior CXR: clear lungs Assessment/Plan acute HFpEF, RV cardiomyopathy: -04/12 chf admit: treated with lasix 40 iv bid, wt down 178 to 170 on discharge. sent home on torsemide 60 bid -was 169 lbs at [facility] visit 07/14/17, with no chf or LE edema--torsemide dose continued -presently with chf sxs and vol overload -cont with lasix, will change to 40 iv bid. daily wts, chem7 -no signs acs cad,h/o CABG: -stable, no angina, no signs acs -cont home statin, bb -not on asa 2/2 thrombocytopenia carotid athero: -reported PSV in both carotid systems are not concerning for high-grade plaque -pt asymptomatic -outpt f/u -cv sec prevention meds as doing for CAD history CKD: -baseline creat 1.4-1.8 -renal fxn stable here s/p bio-avr: -moderate AI on recent echo (was mild in 2014) -no diast murmur, no wide pulse pressure--doubt contributing to chf. 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
[2017-11-18 16:27] VITALS: BMI 25.7
[2017-11-18] MEDS: INSULIN (LEVEMIR) 100 UNITS/ML UNITS SQ SCH (16:52)
[2017-11-18] MEDS: INSULIN SLIDING SCALE (NOVOLOG) 1 VIAL SQ SCH (16:53)
[2017-11-18] MEDS: ATORVASTATIN CA 10 MG TABLET (FP) PO SCH (21:01)
[2017-11-18] MEDS: METOPROLOL TARTRATE 25 MG TABLET (FP) PO SCH (21:01)
[2017-11-19] MEDS: FUROSEMIDE 40 MG/4 ML INJECTABLE VIAL IVPUSH SCH ×2 (06:10→13:20)
[2017-11-19] MEDS: LACTULOSE 20 GM/30 ML UDC (FOR ORAL USE ONLY) PO SCH ×3 (06:10→17:16)
[2017-11-19] MEDS: INSULIN SLIDING SCALE (NOVOLOG) 1 VIAL SQ SCH ×3 (06:28→17:16)
[2017-11-19] MEDS: INSULIN (LEVEMIR) 100 UNITS/ML UNITS SQ SCH ×2 (06:36→17:16)
[2017-11-19 07:57] LABS: BASO % 0.8 % (0-2.0); EOS % 4.5 % (0-4.5); HEMATOCRIT 30.3 % (35.4-49); HEMOGLOBIN 10.5 GM/dL (11.7-16.9); LYMPH % 18.3 % (8-40); MCH 32.6 pg (25.7-33.7); MCHC 34.7 g/dl (32.0-35.9); MEAN CELL VOLUME 94.1 fl (80-96); MEAN PLT VOLUME 9.5 fl (7.5-11.1); MONO % 11.8 % (3.8-10.2); NEUT % 64.6 % (42.8-82.8); PLATELET COUNT 48 K/MM3 (134-434); RBC 3.23 M/mm3 (4.00-5.60); RDW 15.5 % (11.9-15.9); WHITE BLOOD COUNT 4.1 K/mm3 (4.0-10.0)
[2017-11-19] MEDS: TAMSULOSIN HCL 0.4 MG CAP.ER.24H (FP) PO SCH (08:05)
[2017-11-19 08:34] LABS: CHLORIDE 109 mmol/L (98-107); SODIUM 144 mmol/L (136-145)
[2017-11-19 08:44] LABS: ALBUMIN 2.5 g/dl (3.4-5.0); ALK PHOS 123 U/L (45-117); ANION GAP 9 (8-16); BILIRUBIN,TOTAL 1.3 mg/dL (0.2-1.0); BLOOD UREA NITROGEN 51 mg/dL (7-18); CALCIUM 8.2 mg/dL (8.5-10.1); CO2 26 mmol/L (21-32); CREATININE 1.7 mg/dL (0.7-1.3); GLUCOSE,RANDOM 121 mg/dL (74-106); SGPT/ALT 23 U/L (12-78); TOT PROT 6.3 g/dl (6.4-8.2)
[2017-11-19 08:49] LABS: POTASSIUM 4.1 mmol/L (3.5-5.1); SGOT/AST 29 U/L (15-37)
[2017-11-19] MEDS ORDERED: FUROSEMIDE 40 MG/4 ML INJECTABLE VIAL IVPUSH SCH (10:00)
[2017-11-19] MEDS: POTASSIUM CHLORIDE TABS 20 MEQ TABLET.ER (FP) PO SCH (10:30)
[2017-11-19] MEDS: METOPROLOL TARTRATE 25 MG TABLET (FP) PO SCH ×2 (10:30→21:35)
[2017-11-19] MEDS ORDERED: INSULIN (NOVOLOG) ASPART 100 UNITS/ML 10ML VIAL ONE (11:41)
--- NOTE | 2017-11-19 11:42 | PN ---
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, Physician Chief Complaint: Feeling better denies SOB no discomfort - Current Medication List Current Medications: Active Medications Atorvastatin Calcium (Lipitor -) 10 mg PO HS [facility] Last Admin: 11/18/17 21:01 Dose: 10 mg Furosemide (Lasix Injection -) 40 mg IVPUSH BID@0600,1400 [facility] Last Admin: 11/19/17 06:10 Dose: 40 mg Insulin Aspart (Novolog Vial Sliding Scale -) 1 vial SQ TIDAC [facility]; Protocol Last Admin: 11/19/17 06:28 Dose: Not Given Insulin Detemir (Levemir Vial) 10 units SQ BIDI [facility] Last Admin: 11/19/17 06:36 Dose: 10 units Lactulose (Cephulac (Oral Use)) 20 gm PO Q6HPO [facility] Last Admin: 11/19/17 06:10 Dose: 20 gm Metoprolol Tartrate (Lopressor -) 25 mg PO BID [facility] Last Admin: 11/19/17 10:30 Dose: 25 mg Oxycodone HCl (Roxicodone -) 5 mg PO Q6H PRN PRN Reason: PAIN LEVEL 6-10 Potassium Chloride (K-Dur -) 20 meq PO DAILY [facility] Last Admin: 11/19/17 10:30 Dose: 20 meq Tamsulosin HCl (Flomax -) 0.4 mg PO DAILY@0830 [facility] Last Admin: 11/19/17 08:05 Dose: 0.4 mg - Objective Vital Signs: Vital Signs Temperature 98.5 F 11/19/17 08:54 Pulse Rate 62 11/19/17 08:54 Respiratory Rate 18 11/19/17 08:54 Blood Pressure 139/59 11/19/17 08:54 O2 Sat by Pulse Oximetry (%) 97 11/18/17 10:19 Constitutional: Yes: No Distress, Calm Cardiovascular: Yes: Regular Rate and Rhythm Respiratory: Yes: Diminished Gastrointestinal: Yes: Normal Bowel Sounds, Soft, Abdomen, Obese. No: Tenderness Edema: Yes Edema: LLE: 2+, RLE: 2+ Labs: CBC, BMP 11/19/17 07:30 11/19/17 07:30 Problem List - Problems (1) Pancytopenia Code(s): D61.818 - OTHER PANCYTOPENIA (2) CHF exacerbation Code(s): I50.9 - HEART FAILURE, UNSPECIFIED Qualifiers: Qualified Code(s): I50.9 - Heart failure, unspecified (3) Acute on chronic kidney failure Code(s): N17.9 - ACUTE KIDNEY FAILURE, UNSPECIFIED; N18.9 - CHRONIC KIDNEY DISEASE, UNSPECIFIED (4) Diabetes 1.5, managed as type 2 Code(s): E13.9 - OTHER SPECIFIED DIABETES MELLITUS WITHOUT COMPLICATIONS Assessment/Plan PLAN Lasix BID Cardiology eval appreciated Renal function better check I and O daily weights Lactulose as ordered monitor blood sugars Not on AC due to thrombocytopenia
--- NOTE | 2017-11-19 13:26 | PN ---
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 (short form) - Note 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: s: No cp, palps dizzy loc. sob is much better, can walk to bathroom without symptoms, and edema improving with lasix Current Medications Generic Name Dose Route Start Last Admin Trade Name Javonq PRN Reason Stop Dose Admin Atorvastatin Calcium 10 mg 11/18/17 22:00 11/18/17 21:01 Lipitor - PO 10 mg HS ELIZABETH Administration Furosemide 40 mg 11/19/17 06:00 11/19/17 13:20 Lasix Injection - IVPUSH 40 mg BID@0600,1400 ELIZABETH Administration Insulin Aspart 1 vial 11/18/17 16:30 11/19/17 11:58 Novolog Vial Sliding Scale - SQ 2 units TIDAC ELIZABETH Administration Protocol Insulin Detemir 10 units 11/18/17 16:30 11/19/17 06:36 Levemir Vial SQ 10 units BIDI ELIZABETH Administration Lactulose 20 gm 11/18/17 12:00 11/19/17 11:58 Cephulac (Oral Use) PO 20 gm Q6HPO ELIZABETH Administration Metoprolol Tartrate 25 mg 11/18/17 22:00 11/19/17 10:30 Lopressor - PO 25 mg BID ELIZABETH Administration Oxycodone HCl 5 mg 11/18/17 11:55 Roxicodone - PO Q6H PRN PAIN LEVEL 6-10 Potassium Chloride 20 meq 11/19/17 10:00 11/19/17 10:30 K-Dur - PO 20 meq DAILY ELIZABETH Administration Tamsulosin HCl 0.4 mg 11/19/17 08:30 11/19/17 08:05 Flomax - PO 0.4 mg DAILY@0830 ELIZABETH Administration Vital Signs Period Temp Pulse Resp BP Sys/Sheldon Pulse Ox Last 24 Hr 97.7 F-98.7 F 52-88 17-20 126-144/59-72 Constitutional: Yes: Well Nourished, No Distress Eyes: No: Sclera Icterus HENT: No: Nasal Congestion Neck: No: Decreased ROM Respiratory: Yes: CTA Bilaterally. No: Accessory Muscle Use, Rales, Wheezes Gastrointestinal: Yes: Normal Bowel Sounds. No: Distention, Hepatomegaly, Palpable Mass, Tenderness Cardiovascular: Yes: Regular Rate and Rhythm JVD: Yes Carotid Bruit: No PMI: Non-Displaced Heart Sounds: Yes: S1, S2. No: Gallop Murmur: No: Systolic Murmur, Diastolic Murmur Musculoskeletal: Yes: Other (No kyphosis) Extremities: No: Cold, Cyanosis Edema: + le edema bl Peripheral Pulses: 2+ Left Carotid, 2+ Right Carotid, 2+ Left Doralis Pedis, 2+ Right Dorsalis Pedis Integumentary: No: Jaundice Neurological: Yes: Alert, Oriented (x3) Psychiatric: No: Agitated Echo 01/11: nl LVSF, mild LVH. mild-mod RV dilation, borderline RVSF. mod LAE. mod AI, mild-mod TR. RVSP 30-40 MIBI 2013: nl mpi ECG: SR, nl intervals, LVH with repol abn,--no sig change vs prior CXR: clear lungs Assessment/Plan acute HFpEF, RV cardiomyopathy: -04/12 chf admit: treated with lasix 40 iv bid, wt down 178 to 170 on discharge. sent home on torsemide 60 bid -was 169 lbs at [facility] visit 07/14/17, with no chf or LE edema--torsemide dose continued -presently with chf sxs and vol overload -cont with lasix, daily wts, chem7 -no signs acs - 11/18 received IV lasix 40 mg x2, Cr improving - 11/19 continue IV lasix 40 mg BID cad,h/o CABG: -stable, no angina, no signs acs -cont home statin, bb -not on asa 2/2 thrombocytopenia carotid athero: -reported PSV in both carotid systems are not concerning for high-grade plaque -pt asymptomatic -outpt f/u -cv sec prevention meds as doing for CAD history CKD: -baseline creat 1.4-1.8 -renal fxn stable here s/p bio-avr: -moderate AI on recent echo (was mild in 2014) -no diast murmur, no wide pulse pressure--doubt contributing to chf. 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
[2017-11-19] MEDS ORDERED: BENZOCAINE 28 GM HEMORRHOIDAL OINTMENT PR PRN (20:16)
[2017-11-19] MEDS ORDERED: WITCH HAZEL 50% (TUCKS) 40 PAD/JAR PAD TP PRN (20:17)
[2017-11-19] MEDS: ATORVASTATIN CA 10 MG TABLET (FP) PO SCH (21:35)
[2017-11-20] MEDS: LACTULOSE 20 GM/30 ML UDC (FOR ORAL USE ONLY) PO SCH ×4 (00:10→17:34)
[2017-11-20] MEDS: FUROSEMIDE 40 MG/4 ML INJECTABLE VIAL IVPUSH SCH ×2 (05:38→14:01)
[2017-11-20] MEDS: INSULIN SLIDING SCALE (NOVOLOG) 1 VIAL SQ SCH ×3 (06:37→16:47)
[2017-11-20] MEDS: INSULIN (LEVEMIR) 100 UNITS/ML UNITS SQ SCH ×2 (06:38→16:48)
[2017-11-20] MEDS: TAMSULOSIN HCL 0.4 MG CAP.ER.24H (FP) PO SCH (08:20)
[2017-11-20] MEDS ORDERED: PT OWN MED DRAWER 7, Y5N ONE (09:17)
[2017-11-20] MEDS: METOPROLOL TARTRATE 25 MG TABLET (FP) PO SCH ×2 (09:23→22:13)
[2017-11-20] MEDS: POTASSIUM CHLORIDE TABS 20 MEQ TABLET.ER (FP) PO SCH (09:23)
--- NOTE | 2017-11-20 09:54 | PN ---
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, Physician Chief Complaint: SOB is less feeling better - Current Medication List Current Medications: Active Medications Atorvastatin Calcium (Lipitor -) 10 mg PO HS [facility] Last Admin: 11/19/17 21:35 Dose: 10 mg Benzocaine (Americaine Ointment -) 1 applic [place] PRN PRN PRN Reason: hemmoroids Last Admin: 11/19/17 22:14 Dose: 1 applic Furosemide (Lasix Injection -) 40 mg IVPUSH BID@0600,1400 [facility] Last Admin: 11/20/17 05:38 Dose: 40 mg Insulin Aspart (Novolog Vial Sliding Scale -) 1 vial SQ TIDAC [facility]; Protocol Last Admin: 11/20/17 06:37 Dose: Not Given Insulin Detemir (Levemir Vial) 10 units SQ BIDI [facility] Last Admin: 11/20/17 06:38 Dose: 10 units Lactulose (Cephulac (Oral Use)) 20 gm PO Q6HPO [facility] Last Admin: 11/20/17 05:38 Dose: 20 gm Metoprolol Tartrate (Lopressor -) 25 mg PO BID [facility] Last Admin: 11/20/17 09:23 Dose: 25 mg Oxycodone HCl (Roxicodone -) 5 mg PO Q6H PRN PRN Reason: PAIN LEVEL 6-10 Potassium Chloride (K-Dur -) 20 meq PO DAILY [facility] Last Admin: 11/20/17 09:23 Dose: 20 meq Tamsulosin HCl (Flomax -) 0.4 mg PO DAILY@0830 [facility] Last Admin: 11/20/17 08:20 Dose: 0.4 mg Witch Leigh Ann/Glycerin (Tucks Pads -) 1 pad TP PRN PRN PRN Reason: hemmroids - Objective Vital Signs: Vital Signs Temperature 98.3 F 11/20/17 06:49 Pulse Rate 60 11/20/17 06:49 Respiratory Rate 19 11/20/17 06:49 Blood Pressure 126/60 11/20/17 06:49 O2 Sat by Pulse Oximetry (%) 97 11/18/17 10:19 Constitutional: Yes: No Distress Cardiovascular: Yes: Regular Rate and Rhythm Respiratory: Yes: Diminished Gastrointestinal: Yes: Normal Bowel Sounds, Soft. No: Tenderness Edema: Yes (decreased) Labs: CBC, BMP 11/19/17 07:30 11/19/17 07:30 Problem List - Problems (1) Pancytopenia Code(s): D61.818 - OTHER PANCYTOPENIA (2) CHF exacerbation Code(s): I50.9 - HEART FAILURE, UNSPECIFIED (3) Acute on chronic kidney failure Code(s): N17.9 - ACUTE KIDNEY FAILURE, UNSPECIFIED; N18.9 - CHRONIC KIDNEY DISEASE, UNSPECIFIED (4) Diabetes 1.5, managed as type 2 Code(s): E13.9 - OTHER SPECIFIED DIABETES MELLITUS WITHOUT COMPLICATIONS Assessment/Plan PLAN Lasix BID Cardiology eval appreciated Renal function better check I and O daily weights Lactulose as ordered monitor blood sugars Not on AC due to thrombocytopenia
--- NOTE | 2017-11-20 10:06 | PN ---
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, Physician Chief Complaint: SOB is less - Current Medication List Current Medications: Active Medications Atorvastatin Calcium (Lipitor -) 10 mg PO HS [facility] Last Admin: 11/19/17 21:35 Dose: 10 mg Benzocaine (Americaine Ointment -) 1 applic [place] PRN PRN PRN Reason: hemmoroids Last Admin: 11/19/17 22:14 Dose: 1 applic Furosemide (Lasix Injection -) 40 mg IVPUSH BID@0600,1400 [facility] Last Admin: 11/20/17 05:38 Dose: 40 mg Insulin Aspart (Novolog Vial Sliding Scale -) 1 vial SQ TIDAC [facility]; Protocol Last Admin: 11/20/17 06:37 Dose: Not Given Insulin Detemir (Levemir Vial) 10 units SQ BIDI [facility] Last Admin: 11/20/17 06:38 Dose: 10 units Lactulose (Cephulac (Oral Use)) 20 gm PO Q6HPO [facility] Last Admin: 11/20/17 05:38 Dose: 20 gm Metoprolol Tartrate (Lopressor -) 25 mg PO BID [facility] Last Admin: 11/20/17 09:23 Dose: 25 mg Oxycodone HCl (Roxicodone -) 5 mg PO Q6H PRN PRN Reason: PAIN LEVEL 6-10 Potassium Chloride (K-Dur -) 20 meq PO DAILY [facility] Last Admin: 11/20/17 09:23 Dose: 20 meq Tamsulosin HCl (Flomax -) 0.4 mg PO DAILY@0830 [facility] Last Admin: 11/20/17 08:20 Dose: 0.4 mg Witch Leigh Ann/Glycerin (Tucks Pads -) 1 pad TP PRN PRN PRN Reason: hemmroids - Objective Vital Signs: Vital Signs Temperature 98.3 F 11/20/17 06:49 Pulse Rate 60 11/20/17 06:49 Respiratory Rate 19 11/20/17 06:49 Blood Pressure 126/60 11/20/17 06:49 O2 Sat by Pulse Oximetry (%) 97 11/18/17 10:19 Constitutional: Yes: No Distress Cardiovascular: Yes: Regular Rate and Rhythm Respiratory: Yes: Diminished Gastrointestinal: Yes: Normal Bowel Sounds, Soft. No: Tenderness Edema: Yes (decreased) Labs: CBC, BMP 11/19/17 07:30 11/19/17 07:30 Problem List - Problems (1) Pancytopenia Code(s): D61.818 - OTHER PANCYTOPENIA (2) CHF exacerbation Code(s): I50.9 - HEART FAILURE, UNSPECIFIED (3) Acute on chronic kidney failure Code(s): N17.9 - ACUTE KIDNEY FAILURE, UNSPECIFIED; N18.9 - CHRONIC KIDNEY DISEASE, UNSPECIFIED (4) Diabetes 1.5, managed as type 2 Code(s): E13.9 - OTHER SPECIFIED DIABETES MELLITUS WITHOUT COMPLICATIONS Assessment/Plan PLAN Lasix BID Cardiology eval appreciated Renal function better check I and O daily weights Lactulose as ordered monitor blood sugars Not on AC due to thrombocytopenia
--- NOTE | 2017-11-20 13:40 | PN ---
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 (short form) - Note 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: s: No cp, palps dizzy loc. sob is much better, can walk to bathroom without symptoms, and edema improving with lasix Current Medications Generic Name Dose Route Start Last Admin Trade Name Freq PRN Reason Stop Dose Admin Atorvastatin Calcium 10 mg 11/18/17 22:00 11/19/17 21:35 Lipitor - PO 10 mg HS ELIZABETH Administration Benzocaine 1 applic 11/19/17 20:16 11/19/17 22:14 Americaine Ointment - [place] 1 applic PRN PRN Administration hemmoroids Furosemide 40 mg 11/19/17 06:00 11/20/17 05:38 Lasix Injection - IVPUSH 40 mg BID@0600,1400 ELIZABETH Administration Insulin Aspart 1 vial 11/18/17 16:30 11/20/17 11:26 Novolog Vial Sliding Scale - SQ 8 units TIDAC ELIZABETH Administration Protocol Insulin Detemir 10 units 11/18/17 16:30 11/20/17 06:38 Levemir Vial SQ 10 units BIDI ELIZABETH Administration Lactulose 20 gm 11/18/17 12:00 11/20/17 11:26 Cephulac (Oral Use) PO 20 gm Q6HPO ELIZABETH Administration Metoprolol Tartrate 25 mg 11/18/17 22:00 11/20/17 09:23 Lopressor - PO 25 mg BID ELIZABETH Administration Oxycodone HCl 5 mg 11/18/17 11:55 Roxicodone - PO Q6H PRN PAIN LEVEL 6-10 Potassium Chloride 20 meq 11/19/17 10:00 11/20/17 09:23 K-Dur - PO 20 meq DAILY ELIZABETH Administration Tamsulosin HCl 0.4 mg 11/19/17 08:30 11/20/17 08:20 Flomax - PO 0.4 mg DAILY@0830 ELIZABETH Administration Witch Leigh Ann/Glycerin 1 pad 11/19/17 20:17 Tucks Pads - TP PRN PRN hemmroids Vital Signs Period Temp Pulse Resp BP Sys/Sheldon Pulse Ox Last 24 Hr 98.2 F-98.7 F 60-63 19-20 126-145/50-60 Constitutional: Yes: Well Nourished, No Distress Eyes: No: Sclera Icterus HENT: No: Nasal Congestion Neck: No: Decreased ROM Respiratory: Yes: CTA Bilaterally. No: Accessory Muscle Use, Rales, Wheezes Gastrointestinal: Yes: Normal Bowel Sounds. No: Distention, Hepatomegaly, Palpable Mass, Tenderness Cardiovascular: Yes: Regular Rate and Rhythm JVD: Yes Carotid Bruit: No PMI: Non-Displaced Heart Sounds: Yes: S1, S2. No: Gallop Murmur: No: Systolic Murmur, Diastolic Murmur Musculoskeletal: Yes: Other (No kyphosis) Extremities: No: Cold, Cyanosis Edema: + le edema bl Peripheral Pulses: 2+ Left Carotid, 2+ Right Carotid, 2+ Left Doralis Pedis, 2+ Right Dorsalis Pedis Integumentary: No: Jaundice Neurological: Yes: Alert, Oriented (x3) Psychiatric: No: Agitated Echo 01/11: nl LVSF, mild LVH. mild-mod RV dilation, borderline RVSF. mod LAE. mod AI, mild-mod TR. RVSP 30-40 MIBI 2013: nl mpi ECG: SR, nl intervals, LVH with repol abn,--no sig change vs prior CXR: clear lungs Assessment/Plan acute HFpEF, RV cardiomyopathy: -04/12 chf admit: treated with lasix 40 iv bid, wt down 178 to 170 on discharge. sent home on torsemide 60 bid -was 169 lbs at [place] [facility] visit 07/14/17, with no chf or LE edema--torsemide dose continued -presently with chf sxs and vol overload -cont with lasix, daily wts, chem7 -no signs acs - 11/18 received IV lasix 40 mg x2, Cr improving - 11/19, continue IV lasix 40 mg BID, Cr ordered for AM labs cad,h/o CABG: -stable, no angina, no signs acs -cont home statin, bb -not on asa 2/2 thrombocytopenia carotid athero: -reported PSV in both carotid systems are not concerning for high-grade plaque -pt asymptomatic -outpt f/u -cv sec prevention meds as doing for CAD history CKD: -baseline creat 1.4-1.8 -renal fxn stable here s/p bio-avr: -moderate AI on recent echo (was mild in 2014) -no diast murmur, no wide pulse pressure--doubt contributing to chf. 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
[2017-11-20] MEDS: ATORVASTATIN CA 10 MG TABLET (FP) PO SCH (22:13)
[2017-11-21] MEDS: LACTULOSE 20 GM/30 ML UDC (FOR ORAL USE ONLY) PO SCH ×4 (01:00→18:01)
[2017-11-21] MEDS: INSULIN SLIDING SCALE (NOVOLOG) 1 VIAL SQ SCH ×3 (06:13→16:25)
[2017-11-21] MEDS: FUROSEMIDE 40 MG/4 ML INJECTABLE VIAL IVPUSH SCH ×2 (06:13→13:08)
[2017-11-21] MEDS: INSULIN (LEVEMIR) 100 UNITS/ML UNITS SQ SCH ×2 (06:15→16:29)
[2017-11-21 07:44] LABS: HEMATOCRIT 29.7 % (35.4-49); HEMOGLOBIN 10.4 GM/dL (11.7-16.9); MCH 32.9 pg (25.7-33.7); MCHC 35.2 g/dl (32.0-35.9); MEAN CELL VOLUME 93.5 fl (80-96); MEAN PLT VOLUME 9.7 fl (7.5-11.1); PLATELET COUNT 48 K/MM3 (134-434); RBC 3.17 M/mm3 (4.00-5.60); RDW 15.3 % (11.9-15.9); WHITE BLOOD COUNT 4.6 K/mm3 (4.0-10.0)
[2017-11-21 08:03] LABS: ANION GAP 7 (8-16); BLOOD UREA NITROGEN 58 mg/dL (7-18); CALCIUM 8.2 mg/dL (8.5-10.1); CHLORIDE 107 mmol/L (98-107); CO2 27 mmol/L (21-32); CREATININE 1.8 mg/dL (0.7-1.3); GLUCOSE,RANDOM 128 mg/dL (74-106); POTASSIUM 4.3 mmol/L (3.5-5.1); SODIUM 141 mmol/L (136-145)
[2017-11-21] MEDS: POTASSIUM CHLORIDE TABS 20 MEQ TABLET.ER (FP) PO SCH (09:02)
[2017-11-21] MEDS: METOPROLOL TARTRATE 25 MG TABLET (FP) PO SCH ×2 (09:02→21:04)
[2017-11-21] MEDS: TAMSULOSIN HCL 0.4 MG CAP.ER.24H (FP) PO SCH (09:02)
--- NOTE | 2017-11-21 09:48 | PN ---
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 (short form) - Note 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: s: No cp, palps dizzy loc. feeling better. edema improving. Current Medications Generic Name Dose Route Start Last Admin Trade Name Freq PRN Reason Stop Dose Admin Atorvastatin Calcium 10 mg 11/18/17 22:00 11/20/17 22:13 Lipitor - PO 10 mg HS ELIZABETH Administration Benzocaine 1 applic 11/19/17 20:16 11/19/17 22:14 Americaine Ointment - NM 1 applic PRN PRN Administration hemmoroids Furosemide 40 mg 11/19/17 06:00 11/21/17 06:13 Lasix Injection - IVPUSH 40 mg BID@0600,1400 ELIZABETH Administration Insulin Aspart 1 vial 11/18/17 16:30 11/21/17 06:13 Novolog Vial Sliding Scale - SQ Not Given TIDAC [facility] Protocol Insulin Detemir 10 units 11/18/17 16:30 11/21/17 06:15 Levemir Vial SQ 10 units BIDI ELIZABETH Administration Lactulose 20 gm 11/18/17 12:00 11/21/17 06:13 Cephulac (Oral Use) PO 20 gm Q6HPO ELIZABETH Administration Metoprolol Tartrate 25 mg 11/18/17 22:00 11/21/17 09:02 Lopressor - PO 25 mg BID ELIZABETH Administration Oxycodone HCl 5 mg 11/18/17 11:55 Roxicodone - PO Q6H PRN PAIN LEVEL 6-10 Potassium Chloride 20 meq 11/19/17 10:00 11/21/17 09:02 K-Dur - PO 20 meq DAILY ELIZABETH Administration Tamsulosin HCl 0.4 mg 11/19/17 08:30 11/21/17 09:02 Flomax - PO 0.4 mg DAILY@0830 ELIZABETH Administration Witch Leigh Ann/Glycerin 1 pad 11/19/17 20:17 Tucks Pads - TP PRN PRN hemmroids Vital Signs Period Temp Pulse Resp BP Sys/Sheldon Pulse Ox Last 24 Hr 98.0 F-98.6 F 56-80 18-20 128-138/50-70 Constitutional: Yes: Well Nourished, No Distress Eyes: No: Sclera Icterus HENT: No: Nasal Congestion Neck: No: Decreased ROM Respiratory: Yes: CTA Bilaterally. No: Accessory Muscle Use, Rales, Wheezes Gastrointestinal: Yes: Normal Bowel Sounds. No: Distention, Hepatomegaly, Palpable Mass, Tenderness Cardiovascular: Yes: Regular Rate and Rhythm JVD: Yes Carotid Bruit: No PMI: Non-Displaced Heart Sounds: Yes: S1, S2. No: Gallop Murmur: No: Systolic Murmur, Diastolic Murmur Musculoskeletal: Yes: Other (No kyphosis) Extremities: No: Cold, Cyanosis Edema: + le edema bl Peripheral Pulses: 2+ Left Carotid, 2+ Right Carotid, 2+ Left Doralis Pedis, 2+ Right Dorsalis Pedis Integumentary: No: Jaundice Neurological: Yes: Alert, Oriented (x3) Psychiatric: No: Agitated Echo 01/11: nl LVSF, mild LVH. mild-mod RV dilation, borderline RVSF. mod LAE. mod AI, mild-mod TR. RVSP 30-40 MIBI 2013: nl mpi ECG: SR, nl intervals, LVH with repol abn,--no sig change vs prior CXR: clear lungs Assessment/Plan acute HFpEF, RV cardiomyopathy: -04/12 chf admit: treated with lasix 40 iv bid, wt down 178 to 170 on discharge. sent home on torsemide 60 bid -was 169 lbs at [facility] visit 07/14/17, with no chf or LE edema--torsemide dose continued -presently with chf sxs and vol overload -cont with lasix, daily wts, chem7 -no signs acs - 11/18 received IV lasix 40 mg x2, Cr improving - 11/19, continue IV lasix 40 mg BID - 11/21 Cr increased 1.8, still with edema, continue IV lasix 40 mg BID reassess in AM cad,h/o CABG: -stable, no angina, no signs acs -cont home statin, bb -not on asa 2/2 thrombocytopenia carotid athero: -reported PSV in both carotid systems are not concerning for high-grade plaque -pt asymptomatic -outpt f/u -cv sec prevention meds as doing for CAD history CKD: -baseline creat 1.4-1.8 -renal fxn stable here s/p bio-avr: -moderate AI on recent echo (was mild in 2014) -no diast murmur, no wide pulse pressure--doubt contributing to chf. 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
--- NOTE | 2017-11-21 11:18 | PN ---
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, Physician Chief Complaint: patient sitting up in bed, he feels well - Current Medication List Current Medications: Active Medications Atorvastatin Calcium (Lipitor -) 10 mg PO HS [facility] Last Admin: 11/20/17 22:13 Dose: 10 mg Benzocaine (Americaine Ointment -) 1 applic [place] PRN PRN PRN Reason: hemmoroids Last Admin: 11/19/17 22:14 Dose: 1 applic Furosemide (Lasix Injection -) 40 mg IVPUSH BID@0600,1400 [facility] Last Admin: 11/21/17 06:13 Dose: 40 mg Insulin Aspart (Novolog Vial Sliding Scale -) 1 vial SQ TIDAC [facility]; Protocol Last Admin: 11/21/17 06:13 Dose: Not Given Insulin Detemir (Levemir Vial) 10 units SQ BIDI [facility] Last Admin: 11/21/17 06:15 Dose: 10 units Lactulose (Cephulac (Oral Use)) 20 gm PO Q6HPO [facility] Last Admin: 11/21/17 06:13 Dose: 20 gm Metoprolol Tartrate (Lopressor -) 25 mg PO BID [facility] Last Admin: 11/21/17 09:02 Dose: 25 mg Oxycodone HCl (Roxicodone -) 5 mg PO Q6H PRN PRN Reason: PAIN LEVEL 6-10 Potassium Chloride (K-Dur -) 20 meq PO DAILY [facility] Last Admin: 11/21/17 09:02 Dose: 20 meq Tamsulosin HCl (Flomax -) 0.4 mg PO DAILY@0830 [facility] Last Admin: 11/21/17 09:02 Dose: 0.4 mg Witch Leigh Ann/Glycerin (Tucks Pads -) 1 pad TP PRN PRN PRN Reason: hemmroids - Objective Vital Signs: Vital Signs Temperature 98.6 F 11/21/17 08:10 Pulse Rate 60 11/21/17 08:10 Respiratory Rate 18 11/21/17 08:10 Blood Pressure 136/53 11/21/17 08:10 O2 Sat by Pulse Oximetry (%) 97 11/18/17 10:19 Constitutional: Yes: No Distress Cardiovascular: Yes: Regular Rate and Rhythm Respiratory: Yes: Diminished Gastrointestinal: Yes: Normal Bowel Sounds, Soft. No: Tenderness Edema: Yes (decreased) Labs: CBC, BMP 11/21/17 06:00 11/21/17 06:00 Problem List - Problems (1) Pancytopenia Code(s): D61.818 - OTHER PANCYTOPENIA (2) CHF exacerbation Code(s): I50.9 - HEART FAILURE, UNSPECIFIED (3) Acute on chronic kidney failure Code(s): N17.9 - ACUTE KIDNEY FAILURE, UNSPECIFIED; N18.9 - CHRONIC KIDNEY DISEASE, UNSPECIFIED (4) Diabetes 1.5, managed as type 2 Code(s): E13.9 - OTHER SPECIFIED DIABETES MELLITUS WITHOUT COMPLICATIONS Assessment/Plan PLAN Lasix BID Cardiology eval appreciated Renal function better patient clinically improving Lactulose as ordered monitor blood sugars Not on AC due to thrombocytopenia
[2017-11-21] MEDS: ATORVASTATIN CA 10 MG TABLET (FP) PO SCH (21:04)
[2017-11-22] MEDS: LACTULOSE 20 GM/30 ML UDC (FOR ORAL USE ONLY) PO SCH ×4 (01:03→17:30)
[2017-11-22] MEDS: FUROSEMIDE 40 MG/4 ML INJECTABLE VIAL IVPUSH SCH ×2 (05:54→13:28)
[2017-11-22] MEDS: INSULIN (LEVEMIR) 100 UNITS/ML UNITS SQ SCH ×2 (06:30→17:12)
[2017-11-22] MEDS: INSULIN SLIDING SCALE (NOVOLOG) 1 VIAL SQ SCH ×3 (06:30→17:01)
[2017-11-22 07:57] LABS: CHLORIDE 107 mmol/L (98-107); POTASSIUM 3.8 mmol/L (3.5-5.1); SODIUM 141 mmol/L (136-145)
[2017-11-22 08:03] LABS: ANION GAP 8 (8-16); BLOOD UREA NITROGEN 54 mg/dL (7-18); CO2 26 mmol/L (21-32); CREATININE 1.7 mg/dL (0.7-1.3); GLUCOSE,RANDOM 99 mg/dL (74-106)
[2017-11-22] MEDS: TAMSULOSIN HCL 0.4 MG CAP.ER.24H (FP) PO SCH (08:30)
[2017-11-22] MEDS: METOPROLOL TARTRATE 25 MG TABLET (FP) PO SCH ×2 (09:16→22:40)
[2017-11-22] MEDS: POTASSIUM CHLORIDE TABS 20 MEQ TABLET.ER (FP) PO SCH (09:16)
--- NOTE | 2017-11-22 10:30 | PN ---
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 (short form) - Note 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: s: No cp, palps dizzy loc. edema continues to improve. no sob Current Medications Generic Name Dose Route Start Last Admin Trade Name Radha PRN Reason Stop Dose Admin Atorvastatin Calcium 10 mg 11/18/17 22:00 11/21/17 21:04 Lipitor - PO 10 mg HS ELIZABETH Administration Benzocaine 1 applic 11/19/17 20:16 11/19/17 22:14 Americaine Ointment - [place] 1 applic PRN PRN Administration hemmoroids Furosemide 40 mg 11/19/17 06:00 11/22/17 05:54 Lasix Injection - IVPUSH 40 mg BID@0600,1400 ELIZABETH Administration Insulin Aspart 1 vial 11/18/17 16:30 11/22/17 06:30 Novolog Vial Sliding Scale - SQ Not Given TIDAC [facility] Protocol Insulin Detemir 10 units 11/18/17 16:30 11/22/17 06:30 Levemir Vial SQ Not Given BIDI ELIZABETH Lactulose 20 gm 11/18/17 12:00 11/22/17 05:54 Cephulac (Oral Use) PO 20 gm Q6HPO ELIZABETH Administration Metoprolol Tartrate 25 mg 11/18/17 22:00 11/22/17 09:16 Lopressor - PO 25 mg BID ELIZABETH Administration Potassium Chloride 20 meq 11/19/17 10:00 11/22/17 09:16 K-Dur - PO 20 meq DAILY ELIZABETH Administration Tamsulosin HCl 0.4 mg 11/19/17 08:30 11/22/17 08:30 Flomax - PO 0.4 mg DAILY@0830 ELIZABETH Administration Witch Leigh Ann/Glycerin 1 pad 11/19/17 20:17 Tucks Pads - TP PRN PRN hemmroids Vital Signs Period Temp Pulse Resp BP Sys/Sheldon Pulse Ox Last 24 Hr 97.7 F-98.5 F 55-58 16-20 131-142/49-53 Constitutional: Yes: Well Nourished, No Distress Eyes: No: Sclera Icterus HENT: No: Nasal Congestion Neck: No: Decreased ROM Respiratory: Yes: CTA Bilaterally. No: Accessory Muscle Use, Rales, Wheezes Gastrointestinal: Yes: Normal Bowel Sounds. No: Distention, Hepatomegaly, Palpable Mass, Tenderness Cardiovascular: Yes: Regular Rate and Rhythm JVD: Yes Carotid Bruit: No PMI: Non-Displaced Heart Sounds: Yes: S1, S2. No: Gallop Murmur: No: Systolic Murmur, Diastolic Murmur Musculoskeletal: Yes: Other (No kyphosis) Extremities: No: Cold, Cyanosis Edema: + le edema bl Peripheral Pulses: 2+ Left Carotid, 2+ Right Carotid, 2+ Left Doralis Pedis, 2+ Right Dorsalis Pedis Integumentary: No: Jaundice Neurological: Yes: Alert, Oriented (x3) Psychiatric: No: Agitated Echo 01/11: nl LVSF, mild LVH. mild-mod RV dilation, borderline RVSF. mod LAE. mod AI, mild-mod TR. RVSP 30-40 MIBI 2013: nl mpi ECG: SR, nl intervals, LVH with repol abn,--no sig change vs prior CXR: clear lungs Assessment/Plan acute HFpEF, RV cardiomyopathy: -04/12 chf admit: treated with lasix 40 iv bid, wt down 178 to 170 on discharge. sent home on torsemide 60 bid -was 169 lbs at [facility] visit 07/14/17, with no chf or LE edema--torsemide dose continued -presently with chf sxs and vol overload -cont with lasix, daily wts, chem7 -no signs acs - 11/18 received IV lasix 40 mg x2, Cr improving - 11/19, continue IV lasix 40 mg BID - 11/21 Cr increased 1.8, still with edema, continued IV Lasix BID - 11/22 Cr stable, edema present, continue IV lasix current dose, may be able to transition to PO torsemide tomorrow cad,h/o CABG: -stable, no angina, no signs acs -cont home statin, bb -not on asa 2/2 thrombocytopenia carotid athero: -reported PSV in both carotid systems are not concerning for high-grade plaque -pt asymptomatic -outpt f/u -cv sec prevention meds as doing for CAD history CKD: -baseline creat 1.4-1.8 -renal fxn stable here s/p bio-avr: -moderate AI on recent echo (was mild in 2014) -no diast murmur, no wide pulse pressure--doubt contributing to chf. 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
--- NOTE | 2017-11-22 10:52 | PN ---
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, Physician Chief Complaint: patient sitting up in bed, he feels well able to ambulate without any difficulty - Current Medication List Current Medications: Active Medications Atorvastatin Calcium (Lipitor -) 10 mg PO HS [facility] Last Admin: 11/21/17 21:04 Dose: 10 mg Benzocaine (Americaine Ointment -) 1 applic NV PRN PRN PRN Reason: hemmoroids Last Admin: 11/19/17 22:14 Dose: 1 applic Furosemide (Lasix Injection -) 40 mg IVPUSH BID@0600,1400 [facility] Last Admin: 11/22/17 05:54 Dose: 40 mg Insulin Aspart (Novolog Vial Sliding Scale -) 1 vial SQ TIDAC [facility]; Protocol Last Admin: 11/22/17 06:30 Dose: Not Given Insulin Detemir (Levemir Vial) 10 units SQ BIDI [facility] Last Admin: 11/22/17 06:30 Dose: Not Given Lactulose (Cephulac (Oral Use)) 20 gm PO Q6HPO [facility] Last Admin: 11/22/17 05:54 Dose: 20 gm Metoprolol Tartrate (Lopressor -) 25 mg PO BID [facility] Last Admin: 11/22/17 09:16 Dose: 25 mg Potassium Chloride (K-Dur -) 20 meq PO DAILY [facility] Last Admin: 11/22/17 09:16 Dose: 20 meq Tamsulosin HCl (Flomax -) 0.4 mg PO DAILY@0830 [facility] Last Admin: 11/22/17 08:30 Dose: 0.4 mg Witch Leigh Ann/Glycerin (Tucks Pads -) 1 pad TP PRN PRN PRN Reason: hemmroids - Objective Vital Signs: Vital Signs Temperature 97.7 F 11/22/17 06:00 Pulse Rate 55 L 11/22/17 06:00 Respiratory Rate 16 11/22/17 09:00 Blood Pressure 142/53 11/22/17 06:00 O2 Sat by Pulse Oximetry (%) 97 11/18/17 10:19 Constitutional: Yes: No Distress, Calm Cardiovascular: Yes: Regular Rate and Rhythm Respiratory: Yes: Diminished Gastrointestinal: Yes: Normal Bowel Sounds, Soft. No: Tenderness Edema: Yes (much decreased) Labs: CBC, BMP 11/21/17 06:00 11/22/17 06:00 Problem List - Problems (1) Pancytopenia Code(s): D61.818 - OTHER PANCYTOPENIA (2) CHF exacerbation Code(s): I50.9 - HEART FAILURE, UNSPECIFIED (3) Acute on chronic kidney failure Code(s): N17.9 - ACUTE KIDNEY FAILURE, UNSPECIFIED; N18.9 - CHRONIC KIDNEY DISEASE, UNSPECIFIED (4) Diabetes 1.5, managed as type 2 Code(s): E13.9 - OTHER SPECIFIED DIABETES MELLITUS WITHOUT COMPLICATIONS Assessment/Plan PLAN Lasix BID Cardiology eval appreciated Renal function better patient clinically improving Lactulose as ordered monitor blood sugars Not on AC due to thrombocytopenia DC planning
[2017-11-22] MEDS: ATORVASTATIN CA 10 MG TABLET (FP) PO SCH (22:40)
[2017-11-23] MEDS: LACTULOSE 20 GM/30 ML UDC (FOR ORAL USE ONLY) PO SCH ×3 (00:02→11:22)
[2017-11-23] MEDS: FUROSEMIDE 40 MG/4 ML INJECTABLE VIAL IVPUSH SCH ×2 (05:29→13:35)
[2017-11-23] MEDS: INSULIN (LEVEMIR) 100 UNITS/ML UNITS SQ SCH (06:32)
[2017-11-23] MEDS: INSULIN SLIDING SCALE (NOVOLOG) 1 VIAL SQ SCH ×2 (06:37→11:21)
[2017-11-23 07:23] VITALS: BP 133/50; PULSE 60; TEMP 97.8
[2017-11-23] MEDS: POTASSIUM CHLORIDE TABS 20 MEQ TABLET.ER (FP) PO SCH (09:07)
[2017-11-23] MEDS: METOPROLOL TARTRATE 25 MG TABLET (FP) PO SCH (09:07)
[2017-11-23] MEDS: TAMSULOSIN HCL 0.4 MG CAP.ER.24H (FP) PO SCH (09:07)
--- NOTE | 2017-11-23 12:11 | DS ---
Physical Examination Vital Signs: Vital Signs Temperature 97.8 F 11/23/17 07:23 Pulse Rate 60 11/23/17 07:23 Respiratory Rate 18 11/23/17 07:23 Blood Pressure 133/50 11/23/17 07:23 O2 Sat by Pulse Oximetry (%) 97 11/18/17 10:19 Findings/Remarks: pt seen/ examined . chart reviewed ambulatory in [address] denies pain. denies sob feels much better wants to go home Constitutional: Yes: No Distress, Calm Eyes: Yes: Conjunctiva Clear Neck: Yes: Supple Cardiovascular: Yes: Regular Rate and Rhythm Respiratory: Yes: Diminished Gastrointestinal: Yes: Soft Edema: LLE: 1+, RLE: 1+ (improved) Neurological: Yes: Alert Labs: CBC, BMP 11/21/17 06:00 11/22/17 06:00 Discharge Summary Reason For Visit: ACUTE ON CHRONIC CHF Current Active Problems CHF exacerbation (Acute) Pancytopenia (Acute) Hospital Course: "The patient is a 71 year old male with significant past medical history of DM, CHF, A fib, CAD, liver cancer, EtOH cirrhosis, hypertension, hypercholesterolemia, who presented to the emergency department complaining of 4 days of orthopnea and bilateral lower extremity edema pt found in [facility]f [facility]. treated with i/v lasix got better cardiology followed now stable for d/c meds reconcilled need close f/u compliance stressed pt in agreement discussed with nursing staff also will discharge today. time spend 35 min in examining/ documenting / coordating care. - Instructions Referrals: Wilver King MD [Staff Physician] - Lindsay Wood MD [Primary Care Provider] - Disposition: HOME - Home Medications Comprehensive Discharge Medication List: Ambulatory Orders Pravastatin Sodium 10 mg PO DAILY 08/06/16 Metoprolol Tartrate 25 mg PO BID 10/24/16 Tamsulosin HCl 0.4 mg PO DAILY 10/24/16 Insulin (Levemir) [Levemir Flexpen -] 10 units SQ BID #1 amp 04/02/17 Potassium Chloride [K-Dur -] 20 meq PO DAILY 30 Days #30 tablet.er 04/02/17 Insulin (Novolog) [Novolog -] 0 units SQ AC PRN 08/03/17 Lactulose (Oral Use) [Cephulac -] 20 gm PO Q6HPO #90 udc 08/06/17 Torsemide [Demadex -] 60 mg PO BID #60 tab 08/06/17 oxyCODONE HCL [Roxicodone -] 5 mg PO Q6H PRN #20 tablet MDD 4 08/06/17 Benzocaine Ointment [Americaine Ointment -] 1 applic OR PRN PRN tube 11/23/17 Insulin Sliding Scale [Novolog Vial Sliding Scale -] 1 vial SQ TIDAC units Witch Leigh Ann 50% (Tucks) [Tucks Pads -] 1 pad TP PRN PRN pad 11/23/17
== END 2017-11-23 14:38 | disposition home or self-care (01) | DRG 291 ==
LOC: JER 09:29 → JERBED 11:58 → J6S 13:10
PROVIDERS: ADMIT Internal Medicine; ATTEND Internal Medicine
DX: I13.0 Hypertensive heart and chronic kidney disease with heart failure and stage 1 through stage 4 chronic kidney disease, or unspecified chronic kidney disease (principal); I50.23 Acute on chronic systolic (congestive) heart failure; D61.818 Other pancytopenia; N17.9 Acute kidney failure, unspecified; I48.92 Unspecified atrial flutter; I42.9 Cardiomyopathy, unspecified; E13.9 Other specified diabetes mellitus without complications; I25.10 Atherosclerotic heart disease of native coronary artery without angina pectoris; Z95.1 Presence of aortocoronary bypass graft; N18.9 Chronic kidney disease, unspecified; Z79.4 Long term (current) use of insulin
CPT/HCPCS: 36415; 71045-TC-FY; 80048; 80053; 82140; 82550; 82553; 82962; 83880; 84484; 85025; 85027; 93005; 93010; 99285-25

== ENCOUNTER 2017-12-16 03:09 | Inpatient (IN) | payer MEDICARE ==
[2017-12-16 03:15] VITALS: BMI 26.6
[2017-12-16 03:32] LABS: EOS % 1.1 % (0-4.5); HEMATOCRIT 31.7 % (35.4-49); LYMPH % 23.4 % (8-40); MCH 32.7 pg (25.7-33.7); MCHC 34.6 g/dl (32.0-35.9); MEAN CELL VOLUME 94.5 fl (80-96); MEAN PLT VOLUME 9.4 fl (7.5-11.1); MONO % 16.1 % (3.8-10.2); NEUT % 58.4 % (42.8-82.8); PLATELET COUNT 80 K/MM3 (134-434); RBC 3.36 M/mm3 (4.00-5.60); RDW 15.7 % (11.9-15.9)
[2017-12-16] MEDS: SODIUM CHLORIDE 1,000 ML IV SCH (03:40)
--- NOTE | 2017-12-16 03:43 | PDOC ---
History of Present Illness - General Chief Complaint: Altered Mental Status Stated Complaint: AMS, WEAKNESS Time Seen by Provider: 12/16/17 03:12 History Source: Patient, EMS Exam Limitations: Clinical Condition - History of Present Illness Initial Comments: 12/16/17 05:17 The patient is a 72M with a PMH of DM, CHF, cardiac surgery (?valve replacement? ) A fib, CAD, liver cancer, EtOH cirrhosis, hypertension, hypercholesterolemia who presents to the ER BIBA for AMS. EMS provides the history as the patient is unable to provide a history. EMS states that someone in his household noticed that around 2200 last night, he began to develop slurred speech with L arm drift. He states he has "some" chest pain but denies SOB. He also admits to nausea. tPA Exclusion Checklist 0-3hr - Time Elapsed Date last known well: 12/15/17 Time last known well: 22:00 Elaspsed time: Day(s) and 7 Hour(s) and 17 Minutes NIH Stroke Scale - Last Known Well Date/Time & Onset Date Last Known Well: 12/15/17 Time Last Known Well: 22:00 - Initial Evaluation Level of consciousness: Not alert, but arousable with minimal stimulation Ask patient the month and their age: Answers both correctly Ask patient to open & close eyes; make fist and let go: Obeys both correctly Best gaze (horizontal eye movement): Normal Visual field testing: No visual field loss Facial paresis (Show teeth/raise eyebrows/close eyes tight): Normal symmetrical movement Motor Function: Left Arm: Drift Motor Function: Right Arm: Normal (extends arm 90 (or 45) degrees for 10 seconds without drift Motor Function: Left Leg: Some effort against gravity Motor Function: Right Leg: Some effort against gravity Limb Ataxia: No ataxia Sensory(Use pinprick test arms,legs,trunk,face/side to side): Normal Best language (Describe picture, name items, read sentences): No Aphasia Dysarthria (read several words): Mild to moderate slurring of words Extinction and Inattention: No abnormality - Total Score NIH Stroke Scale Score: 7 Past History - Past Medical History Allergies/Adverse Reactions: Allergies Allergy/AdvReac Type Severity Reaction Status Date / Time No Known Drug Allergies Allergy Verified 12/16/17 03:20 Home Medications: Ambulatory Orders Pravastatin Sodium 10 mg PO DAILY 08/06/16 Tamsulosin HCl 0.4 mg PO DAILY 10/24/16 Insulin (Levemir) [Levemir Flexpen -] 20 units SQ BID 12/10/17 Aspirin Coated [Ecotrin -] 81 mg PO DAILY tablet.ec 12/14/17 Metoprolol Tartrate 12.5 mg PO BID 30 Days #30 cap.sr 12/14/17 Torsemide [Demadex -] 80 mg PO BID 30 Days #60 tab 12/14/17 Anemia: No Asthma: No Cancer: Yes (LIVER CA) Cardiac Disorders: Yes (CHF, atrial fibrillation, CAD, Valve replacement) CVA: No COPD: No CHF: Yes DVT: No Dementia: No Diabetes: Yes (DMII) GI Disorders: Yes Disorders: No HTN: Yes Hypercholesterolemia: Yes Liver Disease: Yes (LIVER CANCER, ETOH CIRRHOSIS) Seizures: No Thyroid Disease: No - Surgical History Abdominal Surgery: Yes Appendectomy: No Cardiac Surgery: Yes (CABG x3-2005, aortic valve replacement) Cholecystectomy: No Lung Surgery: No Neurologic Surgery: No Orthopedic Surgery: No - Immunization History Immunization Up to Date: Yes - Suicide/Smoking/Psychosocial Hx Smoking Status: Yes Smoking History: Former smoker Have you smoked in the past 12 months: No Number of Cigarettes Smoked Daily: 0 If you are a former smoker, when did you quit?: 2004 Information on smoking cessation initiated: No Hx Alcohol Use: Yes Drug/Substance Use Hx: No Substance Use Type: Alcohol Hx Substance Use Treatment: No Review of Systems - Review of Systems Able to Perform ROS?: No (clinical condition) *Physical Exam - Vital Signs Last Vital Signs Temp Pulse Resp BP Pulse Ox 65 18 123/52 98 12/16/17 03:12 12/16/17 03:12 12/16/17 03:12 12/16/17 03:12 - Physical Exam Comments: 12/16/17 05:25 GENERAL: Well developed, well nourished. Awake, lethargic. HEENT: Normocephalic, atraumatic. Hearing grossly normal. Moist mucous membranes. PERRLA, EOMI. No conjunctival pallor. Sclera are non-icteric. NECK: Supple. Full ROM. No JVD. CARDIOVASCULAR: Regular rate and rhythm. No murmurs, rubs, or gallops. PULMONARY: No evidence of respiratory distress. Lungs clear to auscultation bilaterally. No wheezing, rales or rhonchi. ABDOMINAL: Soft. Non-tender. Non-distended. No rebound or guarding. GENITOURINARY: No CVA tenderness bilaterally. MUSCULOSKELETAL: Normal range of motion at all joints. No bony deformities or tenderness. EXTREMITIES: No cyanosis. No clubbing. 2+ pitting edema in b/l LE. No calf tenderness or swelling. SKIN: Warm and dry. Normal capillary refill. No rashes. No jaundice. NEUROLOGICAL: Arousable to verbal stimulation. Cranial nerves 2-12 intact. No deficits to light touch and temperature in face, upper extremities and lower extremities. L pronator drift. Able to hold L arm against gravity for 2 seconds. Able to follow commands. Cannot lift b/l LE for more than 2 seconds against gravity. Mildly slurred speech. PSYCHIATRIC: Cooperative. Good eye contact. Lethargic. ED Treatment Course - LABORATORY CBC & Chemistry Diagram: 12/16/17 03:21 12/16/17 03:21 - ADDITIONAL ORDERS Additional order review: Laboratory Results 12/16/17 03:12 POC Glucometer [id number] 12/16/17 03:12 POC Glucometer [id number] - RADIOLOGY Radiology Studies Ordered: Category Date Time Status HEAD CT (STROKE) [CT] Stat CT Scan 12/16/17 03:22 Taken CHEST X-RAY PORTABLE* [RAD] Stat Radiology 12/16/17 03:17 Ordered Medical Decision Making - Medical Decision Making 12/16/17 03:15 The patient is a 72M with an extensive PMH who presents as a possible stroke patient. On arrival, pt was difficult to evaluate as he was altered. FS 200. He began to follow directions. Code maria esther was called. EKG unremarkable. Pt stable in CT. 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 TPA will not be given as pt has multiple comorbidities and and is outside of the TPA window. 12/16/17 04:15 I have d/w Dr. Chavis, neurology, who agrees to NO tPA and giving ASA and statin. Will place orders. Hospitalist paged for admission. 12/16/17 05:07 I have endorsed the patient to [facility] for admission under Dr. Monzon. *DC/Admit/Observation/Transfer Diagnosis at time of Disposition: TIA (transient ischemic attack) - Discharge Dispostion Condition at time of disposition: Guarded Decision to Admit order: Yes - Referrals Referrals: Lindsay Wood MD [Primary Care Provider] - - Patient Instructions - Post Discharge Activity
[2017-12-16 03:48] LABS: INR 1.14 (0.83-1.09); PROTHROMBIN TIME (PATIENT) 12.9 SEC (9.7-13.0)
[2017-12-16 03:51] LABS: ACTIVATED PTT 42.5 SECONDS (25.2-36.5)
[2017-12-16 04:02] LABS: ALK PHOS 129 U/L (45-117); ANION GAP 11 MMOL/L (8-16); BILIRUBIN,TOTAL 1.6 mg/dL (0.2-1.0); BLOOD UREA NITROGEN 61 mg/dL (7-18); CALCIUM 8.6 mg/dL (8.5-10.1); CHLORIDE 104 mmol/L (98-107); CO2 24 mmol/L (21-32); CREATININE 2.3 mg/dL (0.7-1.3); GLUCOSE,RANDOM 167 mg/dL (74-106); POTASSIUM 4.1 mmol/L (3.5-5.1); SGOT/AST 35 U/L (15-37); SGPT/ALT 34 U/L (12-78); SODIUM 139 mmol/L (136-145); TOT PROT 7.1 g/dl (6.4-8.2)
[2017-12-16] MEDS ORDERED: ASPIRIN COATED 81 MG TABLET.EC PO ONE (04:14)
[2017-12-16] MEDS ORDERED: ATORVASTATIN CA 40 MG TABLET (FP) PO ONE (04:14)
[2017-12-16] MEDS ORDERED: METOCLOPRAMIDE HCL INJECTION 10 MG/2 ML VIAL IVPB ONE (04:21)
[2017-12-16] MEDS ORDERED: METOCLOPRAMIDE HCL INJECTION 10 MG/2 ML VIAL ONE (04:22)
[2017-12-16] MEDS ORDERED: ATORVASTATIN CA 40 MG TABLET (FP) ONE (04:27)
[2017-12-16] MEDS ORDERED: ASPIRIN 325 MG ENTERIC COATED TABLET (FP) ONE (04:27)
[2017-12-16 04:38] LABS: CHOLESTEROL 118 mg/dL (50-200); HDL CHOLESTEROL 57 mg/dL (40-60); TRIGLYCERIDES 56 mg/dL (35-160)
--- NOTE | 2017-12-16 04:45 | PDOC ---
Attending Attestation - HPI HPI: 12/16/17 05:44 Patient is a 72 year old male with a significant past medical history of DM, CHF , A fib, CAD, liver cancer, EtOH cirrhosis, hypertension, hypercholesterolemia, who was brought by EMS to the ED with complaints of Altered Mental status. As per EMS patient was in his home around 10 pm last night before he began to experience slurred speech with associated left arm drift, nausea and chest pain , prompting him to call 911 to be brought to the ED for further evaluation. Denies coughing, sob. Denies contact with sick individuals, out of state travelling. Denies dysuria, hematuria. Denies diarrhea, constipation. Denies any other symptoms. Allergies: None Social history: No smoking. No alcohol. No illicit drugs. Surgical history: CABG x3-2005, aortic valve replacement, PMD: Dr. Lindsay Wood <José Gunter - Last Filed: 12/16/17 05:44> - Resident Resident Name: Alejandro Byrne - ED Attending Attestation I have performed the following: I have examined & evaluated the patient, The case was reviewed & discussed with the resident, I agree w/resident's findings & plan, Exceptions are as noted - Physicial Exam PE: 12/16/17 19:30 *Physical Exam General Appearance: Yes: Appropriately Dressed. No: Apparent Distress, Intoxicated HEENT: positive: EOMI, DIEGO, Normal ENT Inspection, Normal Voice, TMs Normal, Pharynx Normal. negative: Pale Conjunctivae, Photophobia, Scleral Icterus (R), Scleral Icterus (L) Neck: positive: Trachea midline, Normal Thyroid, Supple. negative: Tender, Rigid, Carotid bruit, Stridor, Lymphadenopathy (R), Lymphadenopathy (L), Thyromegaly Respiratory/Chest: positive: Lungs Clear, Normal Breath Sounds. negative: Chest Tender, Respiratory Distress, Accessory Muscle Use, Labored Respiration, RES, Crackles, Rales, Rhonchi, Stridor, Wheezing, Dullness Cardiovascular: positive: Regular Rhythm, Regular Rate, S1, S2. negative: Edema , JVD, Murmur, Bradycardia, Tachycardia Vascular Pulses: Dorsalis-Pedis (R): 2+, Doralis-Pedis (L): 2+ Gastrointestinal/Abdominal: positive: Normal Bowel Sounds, Flat, Soft. negative : Tender, Organomegaly, Pulsatile Mass, Increased Bowel Sounds, Decreased BS, Distended, Guarding, Rebound, Hernia, Hepatomegaly, Spleenomegaly Lymphatic: negative: Adenopathy, Tenderness Musculoskeletal: positive: Normal Inspection. negative: CVA Tenderness, Decreased Range of Motion Extremity: positive: Normal Capillary Refill, Normal Inspection, Normal Range of Motion, Pelvis Stable. negative: Tender, Pedal Edema, Swelling, Erythema Integumentary: positive: Normal Color, Dry, Warm. negative: Cyanotic, Erythema , Jaundice, Rash Neurologic: positive: space planner II-XII NML intact, Fully Oriented, Alert, Normal Mood/ Affect, Motor Strength 5/5. negative: EOM Palsy, Facial Droop, Sensory Deficit - Medical Decision Making 12/16/17 19:31 Pt was treated and released <Augustus Sun - Last Filed: 12/16/17 19:31>
[2017-12-16] MEDS ORDERED: SODIUM CHLORIDE 0.9% 1000 ML INFUS.BAG IV ONE (05:07)
--- NOTE | 2017-12-16 05:13 | HP ---
Admitting History and Physical - Primary Care Physician PCP: Lindsay Wood - Admission Chief Complaint: slurred speech, weakness History of Present Illness: The patient is a 72M with a PMH of DM, CHF, cardiac surgery (?valve replacement? ) A fib, CAD, liver cancer, ETOH Cirrhosis, Hypertension, Hypercholesterolemia. Who presents to the ED BIBA for AMS. Patient is lethargic but arousbale to verbal and tactie stimulus. Per ED record: EMS provides the history as the patient is unable to provide a history. EMS states that someone in his household noticed that around 2200 last night, he began to develop slurred speech with L arm drift. He states he has "some" chest pain but denies SOB. He also admits to nausea. History Source: Medical Record Limitations to Obtaining History: Clinical Condition - Past Medical History Cardiovascular: Yes: AFIB, Aortic Stenosis, CHF, HTN Hepatobiliary: Yes: Cirrhosis Renal/: Yes: Renal Inusuff Endocrine: Yes: Diabetes Mellitus - Past Surgical History Past Surgical History: Yes: Valve Replacement - Smoking History Smoking history: Former smoker Have you smoked in the past 12 months: No Aproximately how many cigarettes per day: 0 If you are a former smoker, when did you quit?: 2004 - Alcohol/Substance Use Hx Alcohol Use: Yes Home Medications - Allergies Allergies/Adverse Reactions: Allergies Allergy/AdvReac Type Severity Reaction Status Date / Time No Known Drug Allergies Allergy Verified 12/16/17 03:20 - Home Medications Home Medications: Ambulatory Orders Pravastatin Sodium 10 mg PO DAILY 08/06/16 Tamsulosin HCl 0.4 mg PO DAILY 10/24/16 Insulin (Levemir) [Levemir Flexpen -] 20 units SQ BID 12/10/17 Aspirin Coated [Ecotrin -] 81 mg PO DAILY tablet.ec 12/14/17 Metoprolol Tartrate 12.5 mg PO BID 30 Days #30 cap.sr 12/14/17 Torsemide [Demadex -] 80 mg PO BID 30 Days #60 tab 12/14/17 Review of Systems Unable to obtain ROS, reason: Lethargy Physical Examination Vital Signs: Vital Signs Temperature 97.4 F L 12/16/17 03:40 Pulse Rate 63 12/16/17 03:40 Respiratory Rate 18 12/16/17 03:40 Blood Pressure 151/50 12/16/17 03:40 O2 Sat by Pulse Oximetry (%) 98 12/16/17 03:40 Constitutional: Yes: Other (Lethargy) Eyes: Yes: Other (conjunctiva injected) HENT: Yes: WNL, Atraumatic, Normocephalic Neck: Yes: WNL, Supple, Trachea Midline Cardiovascular: Yes: Regular Rate and Rhythm, S1, S2 Respiratory: Yes: WNL, Regular, CTA Bilaterally Gastrointestinal: Yes: Normal Bowel Sounds, Soft, Distention, Other (eccyhmotic bruising to LMQ) Renal/: Yes: Incontinence Breast(s): Yes: WNL Musculoskeletal: Yes: WNL Extremities: Yes: WNL Peripheral Pulses WNL: Yes Neurological: Yes: Lethargy Labs: CBC, BMP 12/16/17 03:21 12/16/17 03:21 Imaging - Results Chest X-ray: Report Reviewed, Image Reviewed Cat Scan: Report Reviewed, Image Reviewed EKG: Image Reviewed (SR with 1st degree AV block, incomplete LBBB) Problem List - Problems (1) TIA (transient ischemic attack) Code(s): G45.9 - TRANSIENT CEREBRAL ISCHEMIC ATTACK, UNSPECIFIED (2) Acute on chronic kidney failure Code(s): N17.9 - ACUTE KIDNEY FAILURE, UNSPECIFIED; N18.9 - CHRONIC KIDNEY DISEASE, UNSPECIFIED (3) Atrial fibrillation Code(s): I48.91 - UNSPECIFIED ATRIAL FIBRILLATION Qualifiers: Atrial fibrillation type: paroxysmal Qualified Code(s): I48.0 - Paroxysmal atrial fibrillation (4) Chronic kidney disease (CKD) Code(s): N18.9 - CHRONIC KIDNEY DISEASE, UNSPECIFIED (5) Diabetes 1.5, managed as type 2 Code(s): E13.9 - OTHER SPECIFIED DIABETES MELLITUS WITHOUT COMPLICATIONS (6) Hepatic encephalopathy Code(s): K72.90 - HEPATIC FAILURE, UNSPECIFIED WITHOUT COMA (7) Hypertension Code(s): I10 - ESSENTIAL (PRIMARY) HYPERTENSION Assessment/Plan 72 y/o man admitted to Telemetry for CVA vs TIA for further evaluation of their emergent condition. Plan: Will admit to Telemetry for CVA vs TIA NIHSS 7 Appreciate Neurology consult Continue cardiology consult Fall precautions Monitor CBC, BMP Lactulose pr for Elevated Ammonia Consider GI consult Will continue home meds when patient is more responsive NPO Swallow eval IVF FEN- D51/2NS @42cc/hr, Replete lytes, monitor Ammonia level DVT ppx- SCDs Visit type - Emergency Visit Emergency Visit: Yes ED Registration Date: 12/16/17 Care time: The patient presented to the Emergency Department on the above date and was hospitalized for further evaluation of their emergent condition. - New Patient This patient is new to me today: Yes Date on this admission: 12/16/17 - Critical Care Critical Care patient: No Hospitalist Screening - Colonoscopy Questionnaire Colonoscopy Questionnaire: Colonoscopy Questionnaire - Patient: 50 - 75 years old and never had a screening colonoscopy: Unknown History of colon or rectal polyps, or CA: Unknown History of IBD, Crohn's disease or UC: Unknown History of abdominal radiation therapy as a child: Unknown - Relative: 1 with colon or rectal CA, or polyps at age 60 or younger: Unknown Colon or rectal CA diagnosed at age 45 or younger: Unknown Multiple relatives with colon or rectal CA: Unknown - Outcome: Screening Result: Negative Screen
[2017-12-16 07:37] LABS: URINE APPEARANCE CLEAR; URINE BILIRUBIN NEGATIVE (<2.0 mg/dL); URINE COLOR YELLOW; URINE GLUCOSE (UA) NEGATIVE (NEGATIVE); URINE KETONE NEGATIVE (NEGATIVE); URINE LEUK ESTERASE NEGATIVE (NEGATIVE); URINE NITRITE NEGATIVE (NEGATIVE); URINE UROBILINOGEN 4.0 E.U/dl mg/dL (0.2-1.0)
[2017-12-16 07:45] LABS: URINE PROTEIN 2+ (NEGATIVE)
[2017-12-16 07:47] LABS: URINE BACTERIA RARE /hpf (NONE SEEN); URINE HYALINE CAST 2 /lpf
--- NOTE | 2017-12-16 08:58 | PN ---
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 (short form) - Note 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: patient seen this am in ER Awake, slow, slurred speech he recognizes me c/o headache prior to coming to hospital moving all extremites , but weak CT head- noted per nursing po aspirin was given with no swallowing issues Vital Signs Temp 98.4 F 12/16/17 08:43 Pulse 59 L 12/16/17 08:43 Resp 16 12/16/17 08:43 BP 118/41 12/16/17 08:43 Pulse Ox 99 12/16/17 08:43 Intake & Output 12/15/17 12/15/17 12/16/17 11:59 23:59 11:59 Weight 165 lb Other: Height 5 ft 6 in Body Mass Index (BMI) 26.6 Active Medications Aspirin (Asa -) 81 mg PO DAILY EILZABETH Sodium Chloride (Normal Saline -) 1,000 mls @ 42 mls/hr IV ASDIR ELIZABETH Last Admin: 12/16/17 03:40 Dose: 42 mls/hr Lactulose (Cephulac (Rectal Use)) 200 gm HI ONCE ONE Stop: 12/16/17 09:01 CBC,CMP WBC 4.0 K/mm3 (4.0-10.0) 12/16/17 03:21 RBC 3.36 M/mm3 (4.00-5.60) L 12/16/17 03:21 Hgb 11.0 GM/dL (11.7-16.9) L 12/16/17 03:21 Hct 31.7 % (35.4-49) L D 12/16/17 03:21 MCV 94.5 fl (80-96) 12/16/17 03:21 MCH 32.7 pg (25.7-33.7) 12/16/17 03:21 MCHC 34.6 g/dl (32.0-35.9) 12/16/17 03:21 RDW 15.7 % (11.9-15.9) 12/16/17 03:21 Plt Count 80 K/MM3 (134-434) L D 12/16/17 03:21 MPV 9.4 fl (7.5-11.1) 12/16/17 03:21 Absolute Neuts (auto) 2.4 K/mm3 (1.5-8.0) 12/16/17 03:21 Neutrophils % 58.4 % (42.8-82.8) 12/16/17 03:21 Lymphocytes % 23.4 % (8-40) 12/16/17 03:21 Monocytes % 16.1 % (3.8-10.2) H 12/16/17 03:21 Eosinophils % 1.1 % (0-4.5) 12/16/17 03:21 Basophils % 1.0 % (0-2.0) 12/16/17 03:21 Nucleated RBC % 0 % (0-0) 12/16/17 03:21 Sodium 139 mmol/L (136-145) 12/16/17 03:21 Potassium 4.1 mmol/L (3.5-5.1) 12/16/17 03:21 Chloride 104 mmol/L (98-107) 12/16/17 03:21 Carbon Dioxide 24 mmol/L (21-32) 12/16/17 03:21 Anion Gap 11 MMOL/L (8-16) 12/16/17 03:21 BUN 61 mg/dL (7-18) H 12/16/17 03:21 Creatinine 2.3 mg/dL (0.7-1.3) H 12/16/17 03:21 Creat Clearance w eGFR 28.17 (>60) 12/16/17 03:21 POC Glucometer [id number] UNITS (80-120) 12/16/17 03:12 Random Glucose 167 mg/dL (74-106) H D 12/16/17 03:21 Lactic Acid 0.7 mmol/L (0.0-2.0) 12/16/17 06:30 Calcium 8.6 mg/dL (8.5-10.1) 12/16/17 03:21 Total Bilirubin 1.6 mg/dL (0.2-1.0) H 12/16/17 03:21 AST 35 U/L (15-37) D 12/16/17 03:21 ALT 34 U/L (12-78) D 12/16/17 03:21 Alkaline Phosphatase 129 U/L (45-117) H D 12/16/17 03:21 Ammonia 66.7 umol/L (11-32) H 12/16/17 03:21 Creatine Kinase 224 IU/L (39-308) 12/16/17 03:24 Creatine Kinase Index 4.2 % (0.0-5.0) 12/16/17 03:24 CK-MB (CK-2) 9.63 ng/mL (0.5-3.6) H 12/16/17 03:24 Troponin I 0.04 ng/ml (0.00-0.05) D 12/16/17 03:24 Total Protein 7.1 g/dl (6.4-8.2) 12/16/17 03:21 Albumin 3.0 g/dl (3.4-5.0) L 12/16/17 03:21 Triglycerides 56 mg/dL (35-160) D 12/16/17 03:23 Cholesterol 118 mg/dL (50-200) D 12/16/17 03:23 Total LDL Cholesterol 58 mg/dL (5-100) D 12/16/17 03:24 HDL Cholesterol 57 mg/dL (40-60) D 12/16/17 03:23 CT head- noted N- alert, oriented, slow, slurred speech, moves all extremities cvs-s1s2, systolic murmur lungs-clear abd-soft,nt LE- edema, with stasis changes A/P ? TIA elevated ammonia level ?HEPATIC encephalopathy CHF Acute on CKD cirrhosis AFIB dm thrombocytopenia -admit tele -NPO Neurology eval GI evaluation cardiac evaluation swallow eval gentle hydration BGM monitoring garces- I/O discussed with dr swartz Problem List - Problems (1) TIA (transient ischemic attack) Code(s): G45.9 - TRANSIENT CEREBRAL ISCHEMIC ATTACK, UNSPECIFIED (2) CHF (congestive heart failure) Code(s): I50.9 - HEART FAILURE, UNSPECIFIED Qualifiers: Heart failure type: unspecified Heart failure chronicity: acute on chronic Qualified Code(s): I50.9 - Heart failure, unspecified
[2017-12-16] MEDS ORDERED: LACTULOSE 20 GM/30 ML UDC (FOR RECTAL USE ONLY) PR ONE (09:00)
--- NOTE | 2017-12-16 11:14 | CON.CARD ---
Consult Consult Specialty:: Cardiology Reason for Consultation:: CHF - History of Present Illness Chief Complaint: alt mental status History of Present Illness: 72M h/o afib, HFpEF/RV chf, CKD, cirrhosis, CAD, s/p bioAVR and prior asc aorta repair p/w alt mental status. He was found to be lethargic, slurred speech, left arm drift on night prior to admission. Initially was lethargic but now more arousable. No cp, palps, dizzy, sob. Does have nausea. Neurology consulted for CVA vs TIA,, noted to also have elevated ammonia for which lactulose was started for hepatic encephalopathy. Also noted to have DEJUAN, Cr 1.8->2.3. He was recently discharged on 12/14 from CHF exacerbation. His torsemide dose was increased to 80 mg BID at that point. Per patient he picked up new rx for torsemide yesterday and started taking. Edema has been stable since discharge, denies shortness of breath. He remembers last night having a bad headache and nausea. Patient says he is feeling better, but feels his speech is still slow. - Past Medical History Cardio/Vascular: Yes: AFIB, Aortic Stenosis, CHF, HTN Hepatobiliary: Yes: Cirrhosis Renal/: Yes: Renal Inusuff Endocrine: Yes: Diabetes Mellitus - Past Surgical History Past Surgical History: Yes: Valve Replacement - Alcohol/Substance Use Hx Alcohol Use: Yes - Smoking History Smoking history: Former smoker Have you smoked in the past 12 months: No Aproximately how many cigarettes per day: 0 If you are a former smoker, when did you quit?: 2004 - Social History Usual Living Arrangement: With Spouse Home Medications - Allergies Allergies/Adverse Reactions: Allergies Allergy/AdvReac Type Severity Reaction Status Date / Time No Known Drug Allergies Allergy Verified 12/16/17 03:20 - Home Medications Home Medications: Ambulatory Orders Pravastatin Sodium 10 mg PO DAILY 08/06/16 Tamsulosin HCl 0.4 mg PO DAILY 10/24/16 Insulin (Levemir) [Levemir Flexpen -] 20 units SQ BID 12/10/17 Aspirin Coated [Ecotrin -] 81 mg PO DAILY tablet.ec 12/14/17 Metoprolol Tartrate 12.5 mg PO BID 30 Days #30 cap.sr 12/14/17 Torsemide [Demadex -] 80 mg PO BID 30 Days #60 tab 12/14/17 Review of Systems - Review of Systems Constitutional: reports: Lethargy, Weakness Eyes: reports: No Symptoms HENT: reports: No Symptoms Neck: reports: No Symptoms Cardiovascular: reports: Edema Respiratory: reports: No Symptoms Gastrointestinal: reports: No Symptoms Genitourinary: reports: No Symptoms Musculoskeletal: reports: No Symptoms Integumentary: reports: No Symptoms Neurological: reports: Headache, Weakness Endocrine: reports: No Symptoms Hematology/Lymphatic: reports: No Symptoms Psychiatric: reports: No Symptoms Vital Signs: Vital Signs Temperature 98.2 F 12/16/17 10:38 Pulse Rate 72 12/16/17 10:38 Respiratory Rate 16 12/16/17 10:38 Blood Pressure 146/65 12/16/17 10:38 O2 Sat by Pulse Oximetry (%) 99 12/16/17 10:38 Constitutional: Yes: No Distress, Calm Eyes: Yes: Conjunctiva Clear, EOM Intact HENT: Yes: Atraumatic, Normocephalic Neck: Yes: Supple Respiratory: Yes: Regular, CTA Bilaterally Gastrointestinal: Yes: Normal Bowel Sounds, Soft Cardiovascular: Yes: Regular Rate and Rhythm JVD: No Heart Sounds: Yes: S1, S2 Edema: Yes (1+ pretibial bilaterally) Edema: LUE: 1+, RUE: 1+ Peripheral Pulses WNL: Yes Neurological: Yes: Alert, Oriented, Other (slurred speech) Psychiatric: Yes: Alert, Oriented - Other Data Labs, Other Data: CBC, BMP 12/16/17 03:21 12/16/17 03:21 INR, PTT INR 1.14 (0.83-1.09) H 12/16/17 03:21 Troponin, BNP 12/16/17 03:24 Troponin I 0.04 D Troponin, BNP 12/16/17 03:24 Troponin I 0.04 D Assessment/Plan Echo 01/11: nl LVSF, mild LVH. mild-mod RV dilation, borderline RVSF. mod LAE. mod AI, mild-mod TR. RVSP 30-40 MIBI 2013: nl mpi CT head: no acute process EKG: sinus, 1st deg AVB, no ischemic changes Alt mental status - may be in setting of hepatic encephalopathy, TIA vs CVA - workup per primary team chronic HFpEF, RV cardiomyopathy: - discharged 12/14 for CHF on 80 mg PO torsemide BID with weight 160 lbs - obtain standing weight, monitor I/O, trend Cr - appears stable compared to discharge, per patient no sob, edema is at baseline - restart torsemide 80 mg BID, metoprolol cad,h/o CABG: -stable, no angina, no signs acs, trop neg x 1 -cont home statin, metoprolol -not on asa 2/2 thrombocytopenia, received in setting of suspected stroke acute on CKD: -baseline creat 1.6-1.8 -Cr 2.3, may be prerenal, received IVF - appears euvolemic s/p bio-avr: -moderate AI on echo 01/11 (was mild in 2014) -no wide pulse pressure--doubt contributing to chf. -routine outpt monitoring with dr jeffrey f/u s/p ascending aorta repair: -cont bb, statin, bp control -no root or ascending aorta dilation noted on echo -outpt f/u HTN: -cont home meds aflutter: -no tachy issues, has been in sinus on recent admits - continue metoprolol 12.5 mg BID -no ac/asa 2/2 cirrhosis with thrombocytopenia and esoph varices--per prior outpt tx plan -similarly, could not safely give 6 wks AC then 6 wks DAPT so not a candidate for Watchman EDGAR closure device cirrhosis, thrombocytopenia: -per pmd
--- NOTE | 2017-12-16 11:20 | CONSULT ---
Admitting History and Physical - Primary Care Physician PCP: Reyna Love - Admission History of Present Illness: Per EMR: The patient is a 72M with a PMH of DM, CHF, cardiac surgery (?valve replacement? ) A fib, CAD, liver cancer, ETOH Cirrhosis, Hypertension, Hypercholesterolemia. Who presents to the ED BIBA for AMS. Patient is lethargic but arousbale to verbal and tactie stimulus. Per ED record: EMS provides the history as the patient is unable to provide a history. EMS states that someone in his household noticed that around 2200 last night, he began to develop slurred speech with L arm drift. He states he has "some" chest pain but denies SOB. He also admits to nausea. ER-A/P ? TIA elevated ammonia level HEPATIC encephalopathy CHF Acute on CKD cirrhosis AFIB thrombocytopenia History Source: Patient Limitations to Obtaining History: No Limitations, Clinical Condition - Past Medical History Cardiovascular: Yes: AFIB, Aortic Stenosis, CHF, HTN Hepatobiliary: Yes: Cirrhosis Renal/: Yes: Renal Inusuff Endocrine: Yes: Diabetes Mellitus - Past Surgical History Past Surgical History: Yes: Valve Replacement - Smoking History Smoking history: Former smoker Have you smoked in the past 12 months: No Aproximately how many cigarettes per day: 0 If you are a former smoker, when did you quit?: 2004 - Alcohol/Substance Use Hx Alcohol Use: Yes History - Admission Reason For Visit: TIA/STROKE FLOOR - Diagnostics X-ray: Report Reviewed CT Scan: Report Reviewed - General Mental Status: Awake and Alert, Able to Follow Commands, Forgetful, Vague Attention: Intact Ability to Follow Directions: Fair - Hearing Hearing: Functional Speech Evaluation - Communication Primary Language: PORTUGUESE Secondary Language: VINCENTIAN (fluent) Oral Expression Ability: Yes: Mild Impairment - Speech Production Able to Make Needs Known: Yes: Mildly Impaired Intelligibility: Yes: Mildly Impaired - Speech Characteristics Voice Pitch: Yes: Normal Voice Phonatory-based Quality: Yes: Normal Nasal Resonance: Normal Articulation: Yes: Imprecise (intermittent, may be related to initial lethargy during assessment. Seen in ER.) - Language/Auditory Comprehension Follows: Yes: 1 Stage Simple Commands Observation: Able to respond to yes/no queries: Yes, Comprehends Conversational Speech: Yes - Language/Verbal Expression Able to Respond to Simple Queries: Yes: WNL Able to Communicate Wants and Needs: Yes: WNL - Swallow Evaluation/Bedside Assessment Current Nutritional Intake: NPO Dentition: Yes: Missing Teeth Facial Symmetry at Rest: Symmetrical Facial Symmetry on Retraction: Symmetrical Against Resistance Opening: Normal Against Resistance Closing: Normal Pucker Lips: Normal Smile: Normal Lingual Movement: Normal, Symmetric Lingual Speed of Movement: Normal Lingual Movement Strgth Against Opposition: Normal Lingual Movement Characteristics: Normal Velopharyngeal Movement: Normal Laryngeal Movement: Able to Palpate Rate of Intake: WFL Bolus Size: WFL Labial Seal: WFL Chewing: WFL (May be limited because of missing dentition.) Oral Prep Time: WFL A-P Transit: WFL Pocketing: None Timing of Swallow: WFL Coughing/Throat Clear: Yes (1 instance,fleeting) Recommendations - Speech Evaluation, Impression/Plan Impression: Initially imprecise but lethartgic. Once more alert, speech seemed more intelligible. Limited assessment in ER. To follow. \\. One brief cough with continuous drinking of thin water from a straw. 3 oz water test repeated without difficulty - Disposition Discharge to: To be Determined - Dysphagia Impressions/Plan Dysphagia Impressions: Minimal Impairment, Risk of Aspiration, Ongoing Evaluation *Silent aspiration: cannot be R/O at bedside Dysphagia Treatment Plan: Small Bites, Chin Tuck/Down, 1/2 tsp. at a time, Elevate HOB during feed Recommendations: Other (if cough, congestion, fever, downgrade to nectar and mbs ) - Recommendations Diet Consistency: Regular (soft, easy to chew,limited dentition) Medication Administration: Whole with water Liquids: Thin Liquids
[2017-12-16 13:11] LABS: CHOLESTEROL 116 mg/dL (50-200); HDL CHOLESTEROL 28 mg/dL (40-60); TRIGLYCERIDES 57 mg/dL (35-160)
[2017-12-16] MEDS: TORSEMIDE 20 MG TABLET (FP) PO SCH (13:47)
[2017-12-16] MEDS: LACTULOSE 20 GM/30 ML UDC (FOR ORAL USE ONLY) PO SCH ×3 (14:24→22:18)
[2017-12-16] MEDS ORDERED: LACTULOSE 20 GM/30 ML UDC (FOR ORAL USE ONLY) ONE (14:25)
[2017-12-16] MEDS: INSULIN SLIDING SCALE (NOVOLOG) 1 VIAL SQ SCH ×2 (16:52→22:17)
--- NOTE | 2017-12-16 18:27 | CON.NEURO ---
Consult - Past Medical History Cardio/Vascular: Yes: AFIB, Aortic Stenosis, CHF, HTN Hepatobiliary: Yes: Cirrhosis Renal/: Yes: Renal Inusuff Endocrine: Yes: Diabetes Mellitus - Past Surgical History Past Surgical History: Yes: Valve Replacement - Alcohol/Substance Use Hx Alcohol Use: Yes - Smoking History Smoking history: Former smoker Have you smoked in the past 12 months: No Aproximately how many cigarettes per day: 0 If you are a former smoker, when did you quit?: 2004 - Social History Usual Living Arrangement: With Spouse Home Medications - Allergies Allergies/Adverse Reactions: Allergies Allergy/AdvReac Type Severity Reaction Status Date / Time No Known Drug Allergies Allergy Verified 12/16/17 03:20 - Home Medications Home Medications: Ambulatory Orders Pravastatin Sodium 10 mg PO DAILY 08/06/16 Tamsulosin HCl 0.4 mg PO DAILY 10/24/16 Insulin (Levemir) [Levemir Flexpen -] 20 units SQ BID 12/10/17 Aspirin Coated [Ecotrin -] 81 mg PO DAILY tablet.ec 12/14/17 Metoprolol Tartrate 12.5 mg PO BID 30 Days #30 cap.sr 12/14/17 Torsemide [Demadex -] 80 mg PO BID 30 Days #60 tab 12/14/17 Physical Exam-Neuro Vital Signs: Vital Signs Temperature 98.3 F 12/16/17 15:53 Pulse Rate 67 12/16/17 15:53 Respiratory Rate 16 12/16/17 16:27 Blood Pressure 141/59 12/16/17 15:53 O2 Sat by Pulse Oximetry (%) 98 12/16/17 16:27 Labs: CBC, BMP 12/16/17 03:21 12/16/17 03:21 INR, PTT INR 1.14 (0.83-1.09) H 12/16/17 03:21 Assessment/Plan cc Slurring of speech and left sided weakness HPI 72 year old male history of DM,HTN,CHF, Valve replacement surgery, Atrial fibrillation, CAD, LIVER cancer, cirrhosis, hld. He was brought to hospital because of lethrginess and found to have left pronator drift. Patient had ct head , there were no acute changes. Patient NIH score was 7 and he has improved since admssion. He has passed swallow eval and recommend to be on soft diet. He also have history of thrombocytopenia and not on apsirin at home PMH as above Home Medications - Allergies Allergies/Adverse Reactions: Allergies Allergy/AdvReac Type Severity Reaction Status Date / Time No Known Drug Allergies Allergy Verified 12/16/17 03:20 - Home Medications Home Medications: Ambulatory Orders Pravastatin Sodium 10 mg PO DAILY 08/06/16 Tamsulosin HCl 0.4 mg PO DAILY 10/24/16 Insulin (Levemir) [Levemir Flexpen -] 20 units SQ BID 12/10/17 Aspirin Coated [Ecotrin -] 81 mg PO DAILY tablet.ec 12/14/17 Metoprolol Tartrate 12.5 mg PO BID 30 Days #30 cap.sr 12/14/17 Torsemide [Demadex -] 80 mg PO BID 30 Days #60 tab 12/14/17 FH,SH,ROS reviewed in chart Neurological Examination Alert, oriented x 2, he is able to tell he is at [facility] and today is november , and his age as well speech is slow , and eomi, pupils reactive no face asymmetry moving all extremity there is no pronator drift was noticed there is flapping tremors noticed sensation is normal ct head no acute findings Assessment- TIA vs Hepatic encephalopathy Plan- Suggest stroke work up including mri of brain, carotid U/S( Report pending ) - continue statin, hold aspirin given history of thrombocytopenia and liver cirrhosis -PT, DVT prophylaxis - speech consult appreciated - would continue to follow with mo Thanking you so much Eduardo Chavis MD
--- NOTE | 2017-12-16 20:13 | EKG ---
Test Reason : Blood Pressure : / mmHG Vent. Rate : 065 BPM Atrial Rate : 065 BPM P-R Int : 252 ms QRS Dur : 110 ms QT Int : 450 ms P-R-T Axes : 104 -22 092 degrees QTc Int : 468 ms SINUS RHYTHM WITH 1ST DEGREE A-V BLOCK INCOMPLETE LEFT BUNDLE BRANCH BLOCK MODERATE VOLTAGE CRITERIA FOR LVH, MAY BE NORMAL VARIANT ABNORMAL QRS-T ANGLE, CONSIDER PRIMARY T WAVE ABNORMALITY ABNORMAL ECG WHEN COMPARED WITH ECG OF 10-DEC-2017 06:11, ABERRANT CONDUCTION IS NO LONGER PRESENT Confirmed by EMANUEL PATTON MD ([id number]) on 12/16/2017 8:13:05 PM Referred By: Confirmed By:EMANUEL PATTON MD
--- NOTE | 2017-12-16 20:57 | ECHO ---
Name: ALEXEY QUEEN Exam:Adult Echocardiogram Study Date: 12/16/2017 11:37 AM Age: 72 yrs Reason For Study: CVA/TIA Height: 66 in Weight: 165 lb BSA: 1.8 m2 MMode/2D Measurements & Calculations IVSd: 1.1 cm Ao root diam: 2.9 cm LVIDd: 4.9 cm LA dimension: 4.3 cm LVIDs: 3.5 cm LVPWd: 1.0 cm EDV(Teich): 114.1 ml TAPSE: 2.8 cm ESV(Teich): 51.3 ml RV S Crystal: 5.9 cm/sec Doppler Measurements & Calculations Ao V2 max: 232.4 cm/sec AI max crystal: 319.1 cm/sec Ao max P.6 mmHg AI max P.7 mmHg Ao V2 mean: 142.0 cm/sec Ao mean P.5 mmHg AI dec slope: 278.1 cm/sec2 Ao V2 VTI: 51.5 cm AI P1/2t: 336.1 msec LV V1 max P.6 mmHg MR max crystal: 507.7 cm/sec LV V1 mean P.5 mmHg MR max P.1 mmHg LV V1 max: 80.6 cm/sec LV V1 mean: 57.8 cm/sec LV V1 VTI: 19.5 cm TR max crystal: 289.2 cm/sec PI end-d crystal: 158.8 cm/sec TR max P.6 mmHg Med Peak E' Crystal: 5.5 cm/sec Lat Peak E' Crystal: 8.5 cm/sec Left Ventricle The left ventricle is normal in size. The left ventricular ejection fraction is normal. Ejection Frac tion = 55%. No regional wall motion abnormalities noted. Right Ventricle The right ventricular systolic function is grossly normal. Atria The left atrium is mildly dilated. The right atrium is mildly dilated. Mitral Valve There is mild mitral valve thickening. There is mild to moderate mitral annular calcification. There is moderate mitral regurgitation. Tricuspid Valve There is moderate tricuspid regurgitation. Right ventricular systolic pressure is elevated at 40-50mm Hg. Aortic Valve There is moderate to severe aortic sclerosis.;. Mild valvular aortic stenosis. Mild to moderate aorti c regurgitation. Great Vessels The aortic root is normal size. Pericardium/Pleura There is no pericardial effusion. Interpretation Summary Ejection Fraction = 55%. No regional wall motion abnormalities noted. The right ventricular systolic function is grossly normal. The left atrium is mildly dilated. There is mild mitral valve thickening. There is mild to moderate mitral annular calcification. There is moderate mitral regurgitation. There is moderate tricuspid regurgitation. Right ventricular systolic pressure is elevated at 40-50mmHg. Mild valvular aortic stenosis. Mild to moderate aortic regurgitation. The aortic root is normal size. There is no pericardial effusion. Nir Macdonald MD 12/16/2017 08:56 PM
[2017-12-16] MEDS: ATORVASTATIN CA 10 MG TABLET (FP) PO SCH (22:18)
[2017-12-16] MEDS: METOPROLOL TARTRATE 25 MG TABLET (FP) PO SCH (22:18)
[2017-12-17] MEDS: SODIUM CHLORIDE 1,000 ML IV SCH (05:15)
[2017-12-17] MEDS: TORSEMIDE 20 MG TABLET (FP) PO SCH ×2 (05:49→15:58)
[2017-12-17] MEDS: INSULIN SLIDING SCALE (NOVOLOG) 1 VIAL SQ SCH ×4 (06:14→21:34)
[2017-12-17 07:16] LABS: BASO % 0.8 % (0-2.0); EOS % 1.4 % (0-4.5); HEMATOCRIT 29.4 % (35.4-49); HEMOGLOBIN 10.1 GM/dL (11.7-16.9); LYMPH % 16.1 % (8-40); MCH 32.4 pg (25.7-33.7); MCHC 34.2 g/dl (32.0-35.9); MEAN CELL VOLUME 94.5 fl (80-96); MEAN PLT VOLUME 9.5 fl (7.5-11.1); MONO % 9.5 % (3.8-10.2); NEUT % 72.2 % (42.8-82.8); PLATELET COUNT 58 K/MM3 (134-434); RBC 3.11 M/mm3 (4.00-5.60); RDW 15.7 % (11.9-15.9); WHITE BLOOD COUNT 4.4 K/mm3 (4.0-10.0)
[2017-12-17 07:42] LABS: ANION GAP 7 MMOL/L (8-16); BLOOD UREA NITROGEN 53 mg/dL (7-18); CALCIUM 7.9 mg/dL (8.5-10.1); CHLORIDE 109 mmol/L (98-107); CO2 27 mmol/L (21-32); GLUCOSE,RANDOM 142 mg/dL (74-106); POTASSIUM 3.7 mmol/L (3.5-5.1); SODIUM 143 mmol/L (136-145)
[2017-12-17 07:43] LABS: CREATININE 1.9 mg/dL (0.7-1.3)
[2017-12-17] MEDS ORDERED: ASPIRIN COATED 81 MG TABLET.EC PO SCH (10:00)
[2017-12-17] MEDS ORDERED: ASPIRIN 81 MG CHEWABLE TABLETS PO SCH (10:00)
[2017-12-17] MEDS: METOPROLOL TARTRATE 25 MG TABLET (FP) PO SCH ×2 (10:37→21:32)
[2017-12-17] MEDS: LACTULOSE 20 GM/30 ML UDC (FOR ORAL USE ONLY) PO SCH ×4 (10:38→21:32)
--- NOTE | 2017-12-17 10:46 | PN ---
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 (short form) - Note 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: Initial presentation with Slurring of speech and left sided weakness 72 year old male history of DM,HTN,CHF, Valve replacement surgery, Atrial fibrillation, CAD, LIVER cancer, cirrhosis, hld. He was brought to hospital because of lethrginess and found to have left pronator drift. Patient had ct head , there were no acute changes. Patient NIH score was 7 and he has improved since admssion. He has passed swallow eval and recommend to be on soft diet. He also have history of thrombocytopenia and not on apsirin at home He seems to be imporving and now more alert and talkative Neurological Examination Alert, oriented x 2 speech is slow , and eomi, pupils reactive There is mild face asymmetry at rest and disappears on smiling moving all extremity there is no pronator drift was noticed there is flapping tremors noticed sensation is normal ct head no acute findings mri of brain is pending carotid ultrasound moderate plaque but no stenosis Assessment- TIA vs Hepatic encephalopathy Plan- Suggest stroke work up including mri of brain, initial he refused and now would try again - continue statin, hold aspirin given history of thrombocytopenia and liver cirrhosis -PT, DVT prophylaxis Thanking you so much Eduardo Chavis MD
--- NOTE | 2017-12-17 12:16 | PN ---
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, Physician Chief Complaint: altered MS History of Present Illness: slightly lethargic, recognizes me denies sob, orthopnea. no cp, palpit, leg swelling ex cigs - Current Medication List Current Medications: Active Medications Atorvastatin Calcium (Lipitor -) 10 mg PO HS [facility] Last Admin: 12/16/17 22:18 Dose: 10 mg Insulin Aspart (Novolog Vial Sliding Scale -) 1 vial SQ ACHS [facility]; Protocol Last Admin: 12/17/17 12:04 Dose: Not Given Lactulose (Cephulac (Oral Use)) 20 gm PO QID [facility] Last Admin: 12/17/17 10:38 Dose: 20 gm Metoprolol Tartrate (Lopressor -) 12.5 mg PO BID [facility] Last Admin: 12/17/17 10:37 Dose: 12.5 mg Torsemide (Demadex -) 80 mg PO BIDLASIX [facility] Last Admin: 12/17/17 05:49 Dose: 80 mg - Objective Vital Signs: Vital Signs Temperature 98.3 F 12/17/17 10:00 Pulse Rate 86 12/17/17 10:00 Respiratory Rate 16 12/17/17 10:00 Blood Pressure 130/58 12/17/17 10:00 O2 Sat by Pulse Oximetry (%) 96 12/17/17 10:00 Constitutional: Yes: No Distress, Calm Eyes: No: Sclera Icterus HENT: No: Nasal Congestion Cardiovascular: Yes: Regular Rate and Rhythm, JVD, S1, S2, Other (PMI non diplaced). No: Gallop, Murmur Respiratory: Yes: CTA Bilaterally. No: Accessory Muscle Use, Rales, Wheezes Gastrointestinal: Yes: Normal Bowel Sounds, Soft. No: Tenderness Musculoskeletal: Yes: Other (No kyphosis) Extremities: No: Cold Edema: Yes (1+ ankles) Integumentary: No: Jaundice Neurological: Yes: Alert, Lethargy Psychiatric: No: Agitated Labs: CBC, BMP 12/17/17 06:42 12/17/17 06:42 INR, PTT INR 1.14 (0.83-1.09) H 12/16/17 03:21 Assessment/Plan Echo 01/11: nl LVSF, mild LVH. mild-mod RV dilation, borderline RVSF. mod LAE. mod AI, mild-mod TR. RVSP 30-40 MIBI 2014: nl mpi CT head: no acute process EKG: sinus, 1st deg AVB, no ischemic changes Alt mental status - hepatic encephalopathy vs TIA/CVA - being followed by neuro, awaiting MRI brain (CT head no acute findings) chronic HFpEF, RV cardiomyopathy: - discharged 12/14 for CHF on 80 mg PO torsemide BID with weight 160 lbs - wt 168 lbs here (lift scale), + JVD. - creat slightly up vs prior baseline (coming down from DOA)--? cardiorenal ( doubt prerenal from brief altered MS). - continue torsemide 80 bid for now--trend weight, if goes up higher would change to iv lasix - f/u repeat echo done today (holodiast reversal of flow in descending thoracic? --doubt severe AI, as below) cad,h/o CABG: -stable, no angina, no signs acs, trop neg x 1 -cont home statin, metoprolol -not on asa 2/2 thrombocytopenia, received in setting of suspected stroke acute on CKD: -baseline creat 1.6-1.8 -Cr 2.3, may be prerenal, received IVF -now back on prior torsemide po regimen--as above s/p bio-avr: -moderate AI on echo 01/11 (was mild in 2014) -no wide pulse pressure--doubt contributing to chf. -routine outpt monitoring with dr jeffrey f/u s/p ascending aorta repair: -cont bb, statin, bp control -no root or ascending aorta dilation noted on echo -outpt f/u HTN: -bp stable -cont home meds aflutter: -no tachy issues, has been in sinus on recent admits -continue metoprolol 12.5 mg BID -no ac/asa 2/2 cirrhosis with thrombocytopenia and esoph varices--per prior outpt tx plan -similarly, could not safely give 6 wks AC then 6 wks DAPT so not a candidate for Watchman EDGAR closure device cirrhosis, thrombocytopenia: -per pmd
--- NOTE | 2017-12-17 12:18 | PN ---
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 (short form) - Note 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: Pt seen/ examined feels better speech better eating ok Vital Signs Temp 98.3 F 12/17/17 10:00 Pulse 86 12/17/17 10:00 Resp 16 12/17/17 10:00 BP 130/58 12/17/17 10:00 Pulse Ox 96 12/17/17 10:00 Intake & Output 12/16/17 12/17/17 12/17/17 23:59 11:59 23:59 Intake Total 210 624 Output Total 1500 1850 Balance -1290 -1226 Weight 165 lb 168 lb Intake: IV 504 Normal Saline - 1,000 ml 504 @ 42 mls/hr IV [facility] Rx#:[id number] Oral 210 120 Output: Urine 1500 1850 Levine 1500 1850 Other: Voiding Method Indwelling Catheter Indwelling Catheter Bowel Movement Yes Yes # Bowel Movements 4 Height 5 ft 6 in Body Mass Index (BMI) 26.6 Weight Measurement Method Stated by Patient Patient Lift Scale Laboratory Last Values WBC 4.4 K/mm3 (4.0-10.0) 12/17/17 06:42 RBC 3.11 M/mm3 (4.00-5.60) L 12/17/17 06:42 Hgb 10.1 GM/dL (11.7-16.9) L 12/17/17 06:42 Hct 29.4 % (35.4-49) L 12/17/17 06:42 MCV 94.5 fl (80-96) 12/17/17 06:42 MCH 32.4 pg (25.7-33.7) 12/17/17 06:42 MCHC 34.2 g/dl (32.0-35.9) 12/17/17 06:42 RDW 15.7 % (11.9-15.9) 12/17/17 06:42 Plt Count 58 K/MM3 (134-434) L D 12/17/17 06:42 MPV 9.5 fl (7.5-11.1) 12/17/17 06:42 Absolute Neuts (auto) 3.2 K/mm3 (1.5-8.0) 12/17/17 06:42 Neutrophils % 72.2 % (42.8-82.8) D 12/17/17 06:42 Lymphocytes % 16.1 % (8-40) D 12/17/17 06:42 Monocytes % 9.5 % (3.8-10.2) 12/17/17 06:42 Eosinophils % 1.4 % (0-4.5) 12/17/17 06:42 Basophils % 0.8 % (0-2.0) 12/17/17 06:42 Nucleated RBC % 0 % (0-0) 12/17/17 06:42 PT with INR 12.90 SEC (9.7-13.0) 12/16/17 03:21 INR 1.14 (0.83-1.09) H 12/16/17 03:21 PTT (Actin FS) 42.5 SECONDS (25.2-36.5) H 12/16/17 03:21 Sodium 143 mmol/L (136-145) 12/17/17 06:42 Potassium 3.7 mmol/L (3.5-5.1) 12/17/17 06:42 Chloride 109 mmol/L (98-107) H 12/17/17 06:42 Carbon Dioxide 27 mmol/L (21-32) 12/17/17 06:42 Anion Gap 7 MMOL/L (8-16) L 12/17/17 06:42 BUN 53 mg/dL (7-18) H 12/17/17 06:42 Creatinine 1.9 mg/dL (0.7-1.3) H 12/17/17 06:42 Creat Clearance w eGFR 35.12 (>60) 12/17/17 06:42 POC Glucometer 180 UNITS (80-120) 12/17/17 11:54 Random Glucose 142 mg/dL (74-106) H 12/17/17 06:42 Lactic Acid 0.7 mmol/L (0.0-2.0) 12/16/17 06:30 Calcium 7.9 mg/dL (8.5-10.1) L 12/17/17 06:42 Total Bilirubin 1.6 mg/dL (0.2-1.0) H 12/16/17 03:21 AST 35 U/L (15-37) D 12/16/17 03:21 ALT 34 U/L (12-78) D 12/16/17 03:21 Alkaline Phosphatase 129 U/L (45-117) H D 12/16/17 03:21 Ammonia 66.7 umol/L (11-32) H 12/16/17 03:21 Creatine Kinase 265 IU/L (39-308) 12/16/17 12:36 Creatine Kinase Index 3.4 % (0.0-5.0) 12/16/17 12:36 CK-MB (CK-2) 9.21 ng/mL (0.5-3.6) H 12/16/17 12:36 Troponin I 0.05 ng/ml (0.00-0.05) 12/16/17 12:36 Total Protein 7.1 g/dl (6.4-8.2) 12/16/17 03:21 Albumin 3.0 g/dl (3.4-5.0) L 12/16/17 03:21 Triglycerides 57 mg/dL (35-160) 12/16/17 09:40 Cholesterol 116 mg/dL (50-200) 12/16/17 09:40 Total LDL Cholesterol 59 mg/dL (5-100) 12/16/17 09:40 HDL Cholesterol 28 mg/dL (40-60) L D 12/16/17 09:40 Urine Color Yellow 12/16/17 03:24 Urine Appearance Clear 12/16/17 03:24 Urine pH 6.0 (5.0-8.0) 12/16/17 03:24 Ur Specific [place] 1.010 (1.001-1.035) 12/16/17 03:24 Urine Protein 2+ (NEGATIVE) H 12/16/17 03:24 Urine Glucose (UA) Negative (NEGATIVE) 12/16/17 03:24 Urine Ketones Negative (NEGATIVE) 12/16/17 03:24 Urine Blood Negative (NEGATIVE) 12/16/17 03:24 Urine Nitrite Negative (NEGATIVE) 12/16/17 03:24 Urine Bilirubin Negative (<2.0 mg/dL) 12/16/17 03:24 Urine Urobilinogen 4.0 e.u/dl mg/dL (0.2-1.0) 12/16/17 03:24 Ur Leukocyte Esterase Negative (NEGATIVE) 12/16/17 03:24 Urine WBC (Auto) <1 /hpf (3-5) 12/16/17 03:24 Urine RBC (Auto) 1 /hpf (0-3) 12/16/17 03:24 Urine Bacteria Rare /hpf (NONE SEEN) 12/16/17 03:24 Hyaline Casts 2 /lpf 12/16/17 03:24 Blood Type O POSITIVE 12/16/17 03:24 Antibody Screen Negative 12/16/17 03:24 Active Medications Aspirin (Ecotrin -) 81 mg PO DAILY [facility] Atorvastatin Calcium (Lipitor -) 10 mg PO HS [facility] Last Admin: 12/16/17 22:18 Dose: 10 mg Insulin Aspart (Novolog Vial Sliding Scale -) 1 vial SQ ACHS [facility]; Protocol Last Admin: 12/17/17 12:04 Dose: Not Given Lactulose (Cephulac (Oral Use)) 20 gm PO QID [facility] Last Admin: 12/17/17 10:38 Dose: 20 gm Metoprolol Tartrate (Lopressor -) 12.5 mg PO BID [facility] Last Admin: 12/17/17 10:37 Dose: 12.5 mg Torsemide (Demadex -) 80 mg PO BIDLASIX [facility] Last Admin: 12/17/17 05:49 Dose: 80 mg Physical - alert, oriented, Better speech, moves all extremities cvs-s1s2, systolic murmur lungs-clear abd-soft,nt LE- edema, with stasis changes A/P ? TIA elevated ammonia level ?HEPATIC encephalopathy CHF Acute on CKD cirrhosis AFIB dm thrombocytopenia Better mri pending start on asa with caution Gi consult pending d/c mili will follow
--- NOTE | 2017-12-17 12:43 | PN ---
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 Pt denies. Family feels speech is WNL. Diadochokinesis is WNL. Overtly tolerating diet. Pending MRI.
[2017-12-17] MEDS: ASPIRIN COATED 81 MG TABLET.EC PO SCH (15:59)
[2017-12-17] MEDS: ATORVASTATIN CA 10 MG TABLET (FP) PO SCH (21:32)
[2017-12-18] MEDS: INSULIN SLIDING SCALE (NOVOLOG) 1 VIAL SQ SCH ×4 (07:06→21:56)
--- NOTE | 2017-12-18 09:33 | PN ---
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 (short form) - Note 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: cc: alt ms s: no cp, palps, edema, dyspnea ex cigs Current Medications Aspirin (Ecotrin -) 81 mg PO DAILY [facility] Last Admin: 12/17/17 15:59 Dose: 81 mg Atorvastatin Calcium (Lipitor -) 10 mg PO HS [facility] Last Admin: 12/17/17 21:32 Dose: 10 mg Insulin Aspart (Novolog Vial Sliding Scale -) 1 vial SQ ACHS [facility]; Protocol Last Admin: 12/17/17 21:34 Dose: 6 unit Lactulose (Cephulac (Oral Use)) 20 gm PO QID [facility] Last Admin: 12/17/17 21:32 Dose: 20 gm Metoprolol Tartrate (Lopressor -) 12.5 mg PO BID [facility] Last Admin: 12/17/17 21:32 Dose: 12.5 mg Torsemide (Demadex -) 80 mg PO BIDLASIX [facility] Last Admin: 12/17/17 15:58 Dose: 80 mg - Objective Vital Signs Period Temp Pulse Resp BP Sys/Sheldon Pulse Ox Last 24 Hr 98.2 F-98.8 F 67-98 16-18 130-156/44-76 96-98 Constitutional: Yes: No Distress, Calm Eyes: No: Sclera Icterus HENT: No: Nasal Congestion Cardiovascular: Yes: Regular Rate and Rhythm, JVD, S1, S2, Other (PMI non diplaced). No: Gallop, Murmur Respiratory: Yes: CTA Bilaterally. No: Accessory Muscle Use, Rales, Wheezes Gastrointestinal: Yes: Normal Bowel Sounds, Soft. No: Tenderness Musculoskeletal: Yes: Other (No kyphosis) Extremities: No: Cold Edema: Yes (1+ ankles) Integumentary: No: Jaundice Neurological: Yes: Alert, Lethargy Psychiatric: No: Agitated Assessment/Plan Echo 01/11: nl LVSF, mild LVH. mild-mod RV dilation, borderline RVSF. mod LAE. mod AI, mild-mod TR. RVSP 30-40 MIBI 2013: nl mpi CT head: no acute process EKG: sinus, 1st deg AVB, no ischemic changes echo 11/2017 nl lv/rv function. mod MR, mod TR, mild , PASP 40-50mmHg, mild- mod AR Alt mental status - hepatic encephalopathy vs TIA/CVA - neuro following, awaiting MRI brain (CT head no acute findings) chronic HFpEF, RV cardiomyopathy: - discharged 12/14 for CHF on 80 mg PO torsemide BID with weight 160 lbs - wt 168 lbs here (lift scale), + JVD, has not been rechecked - continue torsemide 80 bid--trend standing weight, if goes up higher would change to iv lasix - echo nl LV/RV function - appears euvolemic on exam, no dyspnea. cad,h/o CABG: -stable, no angina, no signs acs, trop neg x 1 -cont home statin, metoprolol -not on asa 2/2 thrombocytopenia, received in setting of suspected stroke acute on CKD: -baseline creat 1.6-1.8 -Cr improved, 1.9 -now back on prior torsemide po regimen--as above s/p bio-avr: -mild AI 11/2017 -no wide pulse pressure--doubt contributing to chf. -routine outpt monitoring with dr jeffrey f/u s/p ascending aorta repair: -cont bb, statin, bp control -no root or ascending aorta dilation noted on echo -outpt f/u HTN: -bp stable -cont home meds aflutter: -no tachy issues, has been in sinus on recent admits -continue metoprolol 12.5 mg BID -no ac/asa 2/2 cirrhosis with thrombocytopenia and esoph varices--per prior outpt tx plan -similarly, could not safely give 6 wks AC then 6 wks DAPT so not a candidate for Watchman EDGAR closure device cirrhosis, thrombocytopenia: -per pmd
--- NOTE | 2017-12-18 10:07 | PN ---
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 (short form) - Note 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: Initial presentation with Slurring of speech and left sided weakness 72 year old male history of DM,HTN,CHF, Valve replacement surgery, Atrial fibrillation, CAD, LIVER cancer, cirrhosis, hld. He was brought to hospital because of lethrginess and found to have left pronator drift. Patient had ct head , there were no acute changes. Patient NIH score was 7 and he has improved since admssion. He has passed swallow eval and recommend to be on soft diet. He also have history of thrombocytopenia and not on apsirin at home He is feeling much better and now oriented x 3, denies any headache Neurological Examination Alert, oriented x 3 speech is slow , and eomi, pupils reactive There is mild face asymmetry at rest and disappears on smiling moving all extremity there is no pronator drift was noticed there is flapping tremors noticed sensation is normal ct head no acute findings mri of brain is pending carotid ultrasound moderate plaque but no stenosis Assessment- TIA vs Hepatic encephalopathy Plan- Spoke to nurse to try to do mri of brain - continue statin, and noted that he has been started on apsirin -PT, DVT prophylaxis Thanking you so much Eduardo Chavis MD
[2017-12-18] MEDS: METOPROLOL TARTRATE 25 MG TABLET (FP) PO SCH ×2 (10:08→21:56)
[2017-12-18] MEDS: TORSEMIDE 20 MG TABLET (FP) PO SCH ×2 (10:09→16:49)
[2017-12-18] MEDS: ASPIRIN COATED 81 MG TABLET.EC PO SCH (10:09)
[2017-12-18] MEDS: LACTULOSE 20 GM/30 ML UDC (FOR ORAL USE ONLY) PO SCH ×5 (10:09→21:58)
--- NOTE | 2017-12-18 11:47 | PN ---
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 (short form) - Note 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: Alert/ awake wants to eat regular food no complains speech ok all f/u noted-- especially cardiology-- will hold asa for now Vital Signs Temp 99.3 F 12/18/17 10:00 Pulse 68 12/18/17 10:00 Resp 18 12/18/17 06:53 BP 131/50 12/18/17 10:00 Pulse Ox 98 12/17/17 21:00 Intake & Output 12/17/17 12/17/17 12/18/17 11:59 23:59 11:59 Intake Total 624 350 504 Output Total 1850 1350 Balance -1226 350 -846 Weight 168 lb Intake: IV 504 504 Normal Saline - 1,000 ml 504 504 @ 42 mls/hr IV ASDIR [facility] Rx#:[id number] Oral 120 350 Output: Urine 1850 1350 Levine 1850 1350 Other: Voiding Method Indwelling Catheter Urinal Urinal # Unmeasured Voids Levine 6 Bowel Movement Yes No Yes # Bowel Movements 4 1 Weight Measurement Method Patient Lift Scale Active Medications Atorvastatin Calcium (Lipitor -) 10 mg PO HS [facility] Last Admin: 12/17/17 21:32 Dose: 10 mg Insulin Aspart (Novolog Vial Sliding Scale -) 1 vial SQ ACHS [facility]; Protocol Last Admin: 12/17/17 21:34 Dose: 6 unit Lactulose (Cephulac (Oral Use)) 20 gm PO QID [facility] Last Admin: 12/18/17 10:09 Dose: 20 gm Metoprolol Tartrate (Lopressor -) 12.5 mg PO BID [facility] Last Admin: 12/18/17 10:08 Dose: 12.5 mg Torsemide (Demadex -) 80 mg PO BIDLASIX [facility] Last Admin: 12/18/17 10:09 Dose: 80 mg CBC, BMP 12/17/17 06:42 12/17/17 06:42 x ray- ls - spine noted u/s - pending mri- pending Physical - alert, oriented, Better speech, moves all extremities cvs-s1s2, systolic murmur lungs-clear abd-soft,nt LE- edema, with stasis changes A/P ? TIA elevated ammonia level ?HEPATIC encephalopathy CHF Acute on CKD cirrhosis AFIB dm thrombocytopenia Better mri pending d/c as Gi consult pending will follow Problem List - Problems (1) TIA (transient ischemic attack) Code(s): G45.9 - TRANSIENT CEREBRAL ISCHEMIC ATTACK, UNSPECIFIED (2) Atrial fibrillation Code(s): I48.91 - UNSPECIFIED ATRIAL FIBRILLATION Qualifiers: Atrial fibrillation type: paroxysmal Qualified Code(s): I48.0 - Paroxysmal atrial fibrillation (3) Chronic kidney disease (CKD) Code(s): N18.9 - CHRONIC KIDNEY DISEASE, UNSPECIFIED (4) Hypertension Code(s): I10 - ESSENTIAL (PRIMARY) HYPERTENSION (5) Thrombocytopenia Code(s): D69.6 - THROMBOCYTOPENIA, UNSPECIFIED
--- NOTE | 2017-12-18 14:08 | PN ---
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 - Note 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: Selected Entries 12/16/17 12/16/17 12/16/17 03:40 06:53 07:34 Breakfast Supper Temperature 97.4 F L 98.3 F 98.6 F 12/16/17 12/16/17 12/16/17 08:43 10:38 13:49 Breakfast Supper Temperature 98.4 F 98.2 F 98.6 F 12/16/17 12/16/17 12/16/17 14:26 15:53 18:26 Breakfast Supper 50% Temperature 98.4 F 98.3 F 12/16/17 12/16/17 12/17/17 20:00 21:00 01:30 Breakfast Supper 25% Temperature 97.7 F 98.1 F 98 F 12/17/17 12/17/17 12/17/17 05:39 10:00 10:12 Breakfast 50% Supper Temperature 98 F 98.3 F Laboratory Tests 12/17/17 06:42 WBC 4.4 Selected Entries 12/17/17 12/17/17 12/17/17 10:12 15:00 18:00 Breakfast 50% Lunch 75% Supper 75% Temperature 12/18/17 12/18/17 12/18/17 01:56 06:53 10:00 Breakfast Lunch Supper Temperature 98.4 F 98.7 F 99.3 F 12/18/17 10:25 Breakfast 100% Lunch Supper Temperature Laboratory Tests 12/17/17 06:42 WBC 4.4 Diet upgraded to Regular/thin liquids. Overtly tolerating diet. Pending MRI.
[2017-12-18] MEDS ORDERED: INSULIN (NOVOLOG) ASPART 100 UNITS/ML 10ML VIAL ONE (21:49)
[2017-12-18] MEDS: ATORVASTATIN CA 10 MG TABLET (FP) PO SCH (21:56)
[2017-12-19] MEDS: TORSEMIDE 20 MG TABLET (FP) PO SCH ×2 (05:05→14:37)
[2017-12-19] MEDS: INSULIN SLIDING SCALE (NOVOLOG) 1 VIAL SQ SCH ×2 (06:02→11:51)
--- NOTE | 2017-12-19 08:05 | PN ---
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 (short form) - Note 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: Initial presentation with Slurring of speech and left sided weakness 72 year old male history of DM,HTN,CHF, Valve replacement surgery, Atrial fibrillation, CAD, LIVER cancer, cirrhosis, hld. He was brought to hospital because of confusion and found to have left pronator drift. Patient had ct head , there were no acute changes. Patient NIH score was 7 and he has improved since admssion. He has passed swallow eval and recommend to be on soft diet. He also have history of thrombocytopenia and not on apsirin at home He is feeling much better and now oriented x 3, denies any headache . His mri of brain done last night. Neurological Examination Alert, oriented x 3 speech is slow , and eomi, pupils reactive There is mild face asymmetry at rest and disappears on smiling moving all extremity there is no pronator drift was noticed there is flapping tremors noticed sensation is normal ct head no acute findings mri of brain reviewed - does not appear to be acute stroke, await official report carotid ultrasound moderate plaque but no stenosis Assessment- TIA vs Hepatic encephalopathy, clinically it appears that he may have episode of hepatic encephalopathy and he is improving. He is already on maximum medical treatment for stroke prevention statin and bp medication . He cant get aspirin due to history of thrombocytopenia Plan- follow mri result - From Neurological Point of view, he can be discharged. -PT, DVT prophylaxis Thanking you so much Eduardo Chavis MD
[2017-12-19] MEDS: METOPROLOL TARTRATE 25 MG TABLET (FP) PO SCH (10:21)
[2017-12-19] MEDS: LACTULOSE 20 GM/30 ML UDC (FOR ORAL USE ONLY) PO SCH ×2 (10:21→14:37)
--- NOTE | 2017-12-19 10:34 | PN ---
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 (short form) - Note 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: cc: alt ms s: no cp, palps, edema, dyspnea. has been ambulating without sob tele: sinus, PVCs Current Medications Atorvastatin Calcium (Lipitor -) 10 mg PO HS [facility] Last Admin: 12/18/17 21:56 Dose: 10 mg Insulin Aspart (Novolog Vial Sliding Scale -) 1 vial SQ ACHS [facility]; Protocol Last Admin: 12/19/17 06:02 Dose: Not Given Lactulose (Cephulac (Oral Use)) 20 gm PO QID [facility] Last Admin: 12/19/17 10:21 Dose: 20 gm Metoprolol Tartrate (Lopressor -) 12.5 mg PO BID [facility] Last Admin: 12/19/17 10:21 Dose: 12.5 mg Torsemide (Demadex -) 80 mg PO BIDLASIX [facility] Last Admin: 12/19/17 05:05 Dose: 80 mg - Objective Vital Signs Period Temp Pulse Resp BP Sys/Sheldon Pulse Ox Last 24 Hr 98.5 F-99.3 F 58-95 18-20 129-167/43-61 100 Constitutional: Yes: No Distress, Calm Eyes: No: Sclera Icterus HENT: No: Nasal Congestion Cardiovascular: Yes: Regular Rate and Rhythm, JVD, S1, S2, Other (PMI non diplaced). No: Gallop, Murmur Respiratory: Yes: CTA Bilaterally. No: Accessory Muscle Use, Rales, Wheezes Gastrointestinal: Yes: Normal Bowel Sounds, Soft. No: Tenderness Musculoskeletal: Yes: Other (No kyphosis) Extremities: No: Cold Edema: Yes (1+ ankles) Integumentary: No: Jaundice Neurological: Yes: Alert, Lethargy Psychiatric: No: Agitated Assessment/Plan Echo 01/11: nl LVSF, mild LVH. mild-mod RV dilation, borderline RVSF. mod LAE. mod AI, mild-mod TR. RVSP 30-40 MIBI 2013: nl mpi CT head: no acute process EKG: sinus, 1st deg AVB, no ischemic changes echo 11/2017 nl lv/rv function. mod MR, mod TR, mild , PASP 40-50mmHg, mild- mod AR Alt mental status - hepatic encephalopathy vs TIA/CVA - neuro following chronic HFpEF, RV cardiomyopathy: - discharged 12/14 for CHF on 80 mg PO torsemide BID with weight 160 lbs - weight today 12/19 standing scale 158 lbs, similar to prior discharge - continue torsemide 80 bid - echo nl LV/RV function - appears euvolemic on exam, no dyspnea - stable from cardiac perspective, continue torsemide 80 mg BID on discharge cad,h/o CABG: -stable, no angina, no signs acs, trop neg x 1 -cont home statin, metoprolol -not on asa 2/2 thrombocytopenia, received in setting of suspected stroke acute on CKD: -baseline creat 1.6-1.8 -Cr improved, 1.9 -now back on prior torsemide po regimen--as above s/p bio-avr: -mild AI 11/2017 -no wide pulse pressure--doubt contributing to chf. -routine outpt monitoring with dr jeffrey f/u s/p ascending aorta repair: -cont bb, statin, bp control -no root or ascending aorta dilation noted on echo -outpt f/u HTN: -bp stable -cont home meds aflutter: -no tachy issues, has been in sinus on recent admits -continue metoprolol 12.5 mg BID -no ac/asa 2/2 cirrhosis with thrombocytopenia and esoph varices--per prior outpt tx plan -similarly, could not safely give 6 wks AC then 6 wks DAPT so not a candidate for Watchman EDGAR closure device cirrhosis, thrombocytopenia: -per pmd
--- NOTE | 2017-12-19 14:33 | DS ---
Physical Examination Vital Signs: Vital Signs Temperature 98.7 F 12/19/17 10:25 Pulse Rate 63 12/19/17 10:25 Respiratory Rate 18 12/19/17 10:25 Blood Pressure 149/57 12/19/17 10:25 O2 Sat by Pulse Oximetry (%) 100 12/19/17 09:00 Findings/Remarks: comfortable no complains all f/u noted Constitutional: Yes: No Distress Neck: Yes: Supple Cardiovascular: Yes: Regular Rate and Rhythm Respiratory: Yes: CTA Bilaterally Gastrointestinal: Yes: Soft, Other (left inguinal hernia) Edema: No Neurological: Yes: Alert Psychiatric: Yes: Alert Labs: CBC, BMP 12/17/17 06:42 12/17/17 06:42 Discharge Summary Reason For Visit: TIA/STROKE FLOOR Current Active Problems TIA (transient ischemic attack) (Acute) Hospital Course: admitted for tia work up -ve Could be due to hepatic encephalopathy u/s -- noted - liver mass- pt says has h/o liver mass > 10 yr ago pt to follow with oncology - Dr. Brandon/ GI f/u in office meds reconcilled off asa for now f/u in office in one week. Pt in agreement with all above Condition: Guarded - Instructions Referrals: Lindsay Wood MD [Primary Care Provider] - Disposition: HOME - Home Medications Comprehensive Discharge Medication List: Ambulatory Orders Pravastatin Sodium 10 mg PO DAILY 08/06/16 Tamsulosin HCl 0.4 mg PO DAILY 10/24/16 Insulin (Levemir) [Levemir Flexpen -] 20 units SQ BID 12/10/17 Aspirin Coated [Ecotrin -] 81 mg PO DAILY tablet.ec 12/14/17 Torsemide [Demadex -] 80 mg PO BID 30 Days #60 tab 12/14/17 Lactulose (Oral Use) [Cephulac -] 20 gm PO QID [facility] 12/19/17 Metoprolol Tartrate 12.5 mg PO BID #30 cap.sr 12/19/17 Torsemide [Demadex -] 80 mg PO BIDLASIX tablet 12/19/17
[2017-12-19 15:13] VITALS: BP 137/53; PULSE 59; TEMP 98.4
== END 2017-12-19 16:47 | disposition home or self-care (01) | DRG 442 ==
LOC: JER 03:09 → JERBED 05:08 → UNDOADMIN 05:12 → J4S 15:01
PROVIDERS: ADMIT Internal Medicine; ATTEND Internal Medicine
DX: K72.90 Hepatic failure, unspecified without coma (principal); G45.9 Transient cerebral ischemic attack, unspecified; I48.92 Unspecified atrial flutter; N17.9 Acute kidney failure, unspecified; I42.9 Cardiomyopathy, unspecified; I50.32 Chronic diastolic (congestive) heart failure; I13.0 Hypertensive heart and chronic kidney disease with heart failure and stage 1 through stage 4 chronic kidney disease, or unspecified chronic kidney disease; N18.9 Chronic kidney disease, unspecified; I25.10 Atherosclerotic heart disease of native coronary artery without angina pectoris; Z95.1 Presence of aortocoronary bypass graft; E11.22 Type 2 diabetes mellitus with diabetic chronic kidney disease; I48.0 Paroxysmal atrial fibrillation; R29.707 NIHSS score 7; R41.82 Altered mental status, unspecified; D69.6 Thrombocytopenia, unspecified; I35.0 Nonrheumatic aortic (valve) stenosis
CPT/HCPCS: 36415; 70450-TC; 70551-TC; 71045-TC-FY; 72100-TC-FY; 76705-TC; 80048; 80053; 80061; 80307; 81003; 81015; 82140; 82465; 82550; 82553; 82962; 83605; 83718; 83721; 84478; 84484; 85025; 85610; 85730; 86850; 86900; 86901; 93005; 93010; 93306-TC; 93880-TC; 97116-GP; 97161-GP; 99285-25; J7030

== ENCOUNTER 2017-12-24 14:15 | Inpatient (IN) | payer MEDICARE ==
--- NOTE | 2017-12-24 14:35 | PDOC ---
Rapid Medical Evaluation Chief Complaint: Edema Time Seen by Provider: 12/24/17 14:29 Medical Evaluation: Allergies Allergy/AdvReac Type Severity Reaction Status Date / Time No Known Drug Allergies Allergy Verified 12/16/17 03:20 12/24/17 14:31 The patient complains of: sob and LE edema intermittently x 1month, recent discharge here for the same, hx of chf The patient on brief exam: 2+ pitting edema bilaterally, crackles gayathri l>r, VSS The patient was ordered for: cxr, labs, ua, ekg The patient to proceed to the ED Discharge Disposition - Diagnosis Dyspnea, CHF exacerbation - Referrals - Patient Instructions - Post Discharge Activity
[2017-12-24 15:31] LABS: BASO % 0.8 % (0-2.0); EOS % 2.4 % (0-4.5); HEMATOCRIT 28.2 % (35.4-49); HEMOGLOBIN 9.8 GM/dL (11.7-16.9); LYMPH % 14.7 % (8-40); MCH 32.5 pg (25.7-33.7); MCHC 34.7 g/dl (32.0-35.9); MEAN CELL VOLUME 93.7 fl (80-96); MEAN PLT VOLUME 10.1 fl (7.5-11.1); MONO % 12.8 % (3.8-10.2); NEUT % 69.3 % (42.8-82.8); PLATELET COUNT 73 K/MM3 (134-434); RBC 3.01 M/mm3 (4.00-5.60); RDW 15.1 % (11.9-15.9); WHITE BLOOD COUNT 4.4 K/mm3 (4.0-10.0)
[2017-12-24] MEDS ORDERED: FUROSEMIDE 40 MG/4 ML INJECTABLE VIAL IVPUSH ONE ×2 (15:44→15:48)
--- NOTE | 2017-12-24 15:50 | PDOC ---
History of Present Illness - General Chief Complaint: Edema Stated Complaint: SWOLLEN LEGS Time Seen by Provider: 12/24/17 14:29 History Source: Patient - History of Present Illness Initial Comments: 12/24/17 15:51 The patient is a 72M with a PMH of DM, CHF, cardiac surgery (?valve replacement? ) A fib, CAD, liver cancer, ETOH Cirrhosis, Hypertension, Hypercholesterolemia. Who presents to the ED for increase in swelling in b/l lower limbs. Abby states that he was recently discharged from hospital last week and was getting torsemide 60 bid. He saw his PCP on thursday and they increased his torsemide to 80 bid but his swelling was getting worse. He also saw Dr Joyner yesterday for the same. Patient states that he has gained about 12 pounds in last week and he was eating hotdogs. Denies sob and change in breathing. Denies chest pain, palpitations, lightheadedness, dizziness., nausea, vomiting diarrhoea. Denies fever, chills, color discoloration of legs. Past History - Past Medical History Allergies/Adverse Reactions: Allergies Allergy/AdvReac Type Severity Reaction Status Date / Time No Known Drug Allergies Allergy Verified 12/24/17 14:36 Home Medications: Ambulatory Orders Pravastatin Sodium 10 mg PO DAILY 08/06/16 Tamsulosin HCl 0.4 mg PO DAILY 10/24/16 Insulin (Levemir) [Levemir Flexpen -] 20 units SQ BID 12/10/17 Aspirin Coated [Ecotrin -] 81 mg PO DAILY tablet.ec 12/14/17 Torsemide [Demadex -] 80 mg PO BID 30 Days #60 tab 12/14/17 Lactulose (Oral Use) [Cephulac -] 20 gm PO QID udc 12/19/17 Metoprolol Tartrate 12.5 mg PO BID #30 cap.sr 12/19/17 Torsemide [Demadex -] 80 mg PO BIDLASIX tablet 12/19/17 Anemia: No Asthma: No Cancer: Yes (LIVER CA) Cardiac Disorders: Yes (CHF, atrial fibrillation, CAD, Valve replacement) CVA: No COPD: No CHF: Yes DVT: No Dementia: No Diabetes: Yes (DMII) GI Disorders: Yes Disorders: No HTN: Yes Hypercholesterolemia: Yes Liver Disease: Yes (LIVER CANCER, ETOH CIRRHOSIS) Seizures: No Thyroid Disease: No - Surgical History Abdominal Surgery: Yes Appendectomy: No Cardiac Surgery: Yes (CABG x3-2005, aortic valve replacement) Cholecystectomy: No Lung Surgery: No Neurologic Surgery: No Orthopedic Surgery: No - Immunization History Immunization Up to Date: Yes - Suicide/Smoking/Psychosocial Hx Smoking Status: Yes Smoking History: Former smoker Have you smoked in the past 12 months: No Number of Cigarettes Smoked Daily: 0 If you are a former smoker, when did you quit?: 2004 Information on smoking cessation initiated: No 'Breaking Loose' booklet given: 12/16/17 Hx Alcohol Use: No Drug/Substance Use Hx: No Substance Use Type: None Hx Substance Use Treatment: No Review of Systems - Review of Systems Able to Perform ROS?: Yes Constitutional: Yes: Symptoms Reported. No: Fever, Night Sweats, Weakness HEENTM: No: Blurred Vision, Double Vision Respiratory: No: Cough, Shortness of Breath, SOB with Exertion, Wheezing, Productive cough Cardiac (ROS): No: Chest Pain, Lightheadedness, Palpitations ABD/GI: No: Abdominal Distended, Diarrhea, Nausea, Vomiting : No: Burning, Dysuria, Frequency, Flank Pain, Hematuria Neurological: No: Headache, Dizziness *Physical Exam - Vital Signs Last Vital Signs Temp Pulse Resp BP Pulse Ox 98.6 F 59 L 22 114/41 100 12/24/17 14:29 12/24/17 14:29 12/24/17 14:29 12/24/17 14:29 12/24/17 14:29 - Physical Exam General Appearance: Yes: Appropriately Dressed HEENT: positive: EOMI Neck: positive: Supple, Other (jvp elevated ). negative: Tender Respiratory/Chest: positive: Decreased Breath Sounds (on left side ), Crackles ( L>R ). negative: Respiratory Distress, Accessory Muscle Use, Wheezing Cardiovascular: positive: Regular Rate, S1, S2. negative: Murmur Gastrointestinal/Abdominal: positive: Normal Bowel Sounds, Flat, Soft. negative : Tender, Distended, Guarding, Rebound, Tenderness Extremity: positive: Normal Range of Motion, Pedal Edema (3+), Swelling, Erythema (chronic ). negative: Calf Tenderness Neurologic: positive: Alert, Normal Mood/Affect, Normal Response ED Treatment Course - LABORATORY CBC & Chemistry Diagram: 12/24/17 14:55 12/24/17 14:55 Medical Decision Making - Medical Decision Making 12/24/17 15:59 The patient is a 72M with a PMH of DM, CHF, cardiac surgery (?valve replacement? ) A fib, CAD, liver cancer, ETOH Cirrhosis, Hypertension, Hypercholesterolemia. Who presents to the ED for increase in swelling in b/l lower limbs. Abby states that he was recently discharged from hospital last week and was getting torsemide 60 bid. He saw his PCP on thursday and they increased his torsemide to 80 bid but his swelling was getting worse. He also saw Dr Joyner yesterday for the same. Patient states that he has gained about 12 pounds in last week and he was eating hotdogs. Denies sob and change in breathing. Denies chest pain, palpitations, lightheadedness, dizziness., nausea, vomiting diarrhoea. Denies fever, chills, color discoloration of legs. We will get cbc, cmp, Bnp, cxr. ECHO done on 12/16 reviewed. Case discussed with Dr. King. We will give him IV lasxi 80 push and from tomorrow he can get IV 40 BID. Daily weight. low salt diet. intake output monitoring. Labs shows increase in creatinine 12/24/17 16:[address] Kiran we will admit a patient in tele. For acute on chronic chf exabration and cameron *DC/Admit/Observation/Transfer Diagnosis at time of Disposition: Dyspnea Qualifiers: Dyspnea type: unspecified Qualified Code(s): R06.00 - Dyspnea, unspecified CHF exacerbation Qualifiers: Heart failure type: diastolic Qualified Code(s): I50.33 - Acute on chronic diastolic (congestive) heart failure Acute on chronic kidney failure Qualifiers: Acute renal failure type: unspecified Chronic kidney disease stage: unspecified stage Qualified Code(s): N17.9 - Acute kidney failure, unspecified; N18.9 - Chronic kidney disease, unspecified - Discharge Dispostion Decision to Admit order: Yes Decision to Admit order Date/Time: 12/24/17 16:22 we will admit him fro chf exabration and cameron - Referrals - Patient Instructions - Post Discharge Activity
[2017-12-24 16:01] LABS: ALBUMIN 2.6 g/dl (3.4-5.0); ANION GAP 11 MMOL/L (8-16); BLOOD UREA NITROGEN 77 mg/dL (7-18); CALCIUM 8.2 mg/dL (8.5-10.1); CHLORIDE 98 mmol/L (98-107); CO2 24 mmol/L (21-32); GLUCOSE,RANDOM 193 mg/dL (74-106); SODIUM 133 mmol/L (136-145)
--- NOTE | 2017-12-24 16:05 | PDOC ---
Attending Attestation - Resident Resident Name: John Gonzalez - ED Attending Attestation I have performed the following: I have examined & evaluated the patient, The case was reviewed & discussed with the resident, I agree w/resident's findings & plan - HPI HPI: 12/24/17 16:01 72-year-old male with history of CHF, chronic renal insufficiency, pulmonary hypertension presents with worsening leg edema despite increasing doses of outpatient diuretic. - Physicial Exam PE: 12/24/17 16:02 Vital signs are within normal limits, seated comfortably in stretcher Bibasilar crackles Abdomen benign 3+ pitting edema bilaterally to the knees with otherwise normal perfusion. - Medical Decision Making 12/24/17 16:06 72y/o M with worsening peripheral edema despite increasing doses of outpatient diuretic. labs, ua cxr, ekg discussed with Dr. King, will admit for IV diuresis and dose adjustment Heart Score/ECG Review #1 ECG reviewed & interpreted by me at: 15:01 General ECG Interpretation: Sinus Rhythm, Normal Rate (57), Normal Intervals ( qtc 449, nonspecific intraventricular conduction delay), No acute ischemic changes (TWI I/AVL)
[2017-12-24 16:09] LABS: ALK PHOS 149 U/L (45-117); BILIRUBIN,TOTAL 1.1 mg/dL (0.2-1.0); CREATININE 2.3 mg/dL (0.7-1.3); N-TERMINAL BNP 3650.06 pg/ml (5-125); SGPT/ALT 31 U/L (12-78); TOT PROT 6.6 g/dl (6.4-8.2)
[2017-12-24 16:10] LABS: POTASSIUM 4.6 mmol/L (3.5-5.1)
[2017-12-24 16:11] LABS: SGOT/AST 37 U/L (15-37)
[2017-12-24] MEDS ORDERED: FUROSEMIDE 40 MG/4 ML INJECTABLE VIAL ONE (16:29)
[2017-12-24] MEDS ORDERED: INSULIN (NOVOLOG) ASPART 100 UNITS/ML 10ML VIAL ONE (18:19)
[2017-12-24] MEDS: INSULIN SLIDING SCALE (NOVOLOG) 1 VIAL SQ SCH ×2 (18:20→21:35)
[2017-12-24 20:51] VITALS: BMI 29.5
[2017-12-24] MEDS: LACTULOSE 20 GM/30 ML UDC (FOR ORAL USE ONLY) PO SCH (21:33)
[2017-12-24] MEDS: METOPROLOL TARTRATE 25 MG TABLET (FP) PO SCH (21:34)
[2017-12-24] MEDS: INSULIN (LEVEMIR) 100 UNITS/ML UNITS SQ SCH (21:36)
[2017-12-25] MEDS: FUROSEMIDE 40 MG/4 ML INJECTABLE VIAL IVPUSH SCH ×2 (06:05→14:59)
[2017-12-25] MEDS: INSULIN SLIDING SCALE (NOVOLOG) 1 VIAL SQ SCH ×4 (06:17→21:29)
[2017-12-25] MEDS: INSULIN (LEVEMIR) 100 UNITS/ML UNITS SQ SCH ×2 (06:18→21:28)
[2017-12-25 07:37] LABS: BASO % 0.8 % (0-2.0); EOS % 3.6 % (0-4.5); HEMATOCRIT 26.1 % (35.4-49); HEMOGLOBIN 8.9 GM/dL (11.7-16.9); LYMPH % 16.3 % (8-40); MCHC 34.2 g/dl (32.0-35.9); MEAN CELL VOLUME 93.8 fl (80-96); MEAN PLT VOLUME 10.3 fl (7.5-11.1); MONO % 12.7 % (3.8-10.2); NEUT % 66.6 % (42.8-82.8); PLATELET COUNT 67 K/MM3 (134-434); RBC 2.78 M/mm3 (4.00-5.60); RDW 15.3 % (11.9-15.9)
[2017-12-25 08:29] LABS: ALBUMIN 2.4 g/dl (3.4-5.0); ANION GAP 10 MMOL/L (8-16); BLOOD UREA NITROGEN 81 mg/dL (7-18); CHLORIDE 102 mmol/L (98-107); CO2 27 mmol/L (21-32); CREATININE 2.3 mg/dL (0.7-1.3); GLUCOSE,RANDOM 80 mg/dL (74-106); POTASSIUM 4.1 mmol/L (3.5-5.1); SGOT/AST 24 U/L (15-37); SGPT/ALT 28 U/L (12-78); SODIUM 139 mmol/L (136-145)
[2017-12-25 08:30] LABS: ALK PHOS 130 U/L (45-117); BILIRUBIN,TOTAL 0.9 mg/dL (0.2-1.0); TOT PROT 6.1 g/dl (6.4-8.2)
[2017-12-25] MEDS ORDERED: PT OWN MED DRAWER 7, Y5N ONE ×2 (09:18→09:29)
[2017-12-25] MEDS ORDERED: ASPIRIN COATED 81 MG TABLET.EC PO SCH (10:00)
--- NOTE | 2017-12-25 10:03 | HP ---
Admitting History and Physical - Primary Care Physician PCP: Reyna Love - Admission Chief Complaint: shortness of breath and leg edema History of Present Illness: patient recently discharged and readmitted with similar symptoms Apparently patient eating hot dogs--not watching diet Also taking lower doses of diuretics Given IV Lasix in the ER yesterday Admitted to telemetry Case was discussed with emergency room physician yesterday I also discussed with band saw marker today--- will follow Patient at present comfortable and denies chest pain Reports shortness of breath is better Chronic in appearance Denies fever or chills Denies headache Denies urinary or bowel trouble History Source: Patient, Medical Record - Past Medical History Cardiovascular: Yes: AFIB, Aortic Stenosis, CHF, HTN Hepatobiliary: Yes: Cirrhosis Renal/: Yes: Renal Inusuff Endocrine: Yes: Diabetes Mellitus - Past Surgical History Past Surgical History: Yes: Valve Replacement - Smoking History Smoking history: Former smoker Have you smoked in the past 12 months: No Aproximately how many cigarettes per day: 0 If you are a former smoker, when did you quit?: 2004 - Alcohol/Substance Use Hx Alcohol Use: No Home Medications - Allergies Allergies/Adverse Reactions: Allergies Allergy/AdvReac Type Severity Reaction Status Date / Time No Known Drug Allergies Allergy Verified 12/24/17 14:36 - Home Medications Home Medications: Ambulatory Orders Pravastatin Sodium 10 mg PO DAILY 08/06/16 Tamsulosin HCl 0.4 mg PO DAILY 10/24/16 Insulin (Levemir) [Levemir Flexpen -] 20 units SQ BID 12/10/17 Aspirin Coated [Ecotrin -] 81 mg PO DAILY tablet.ec 12/14/17 Torsemide [Demadex -] 80 mg PO BID 30 Days #60 tab 12/14/17 Lactulose (Oral Use) [Cephulac -] 20 gm PO QID udc 12/19/17 Metoprolol Tartrate 12.5 mg PO BID #30 cap.sr 12/19/17 Torsemide [Demadex -] 80 mg PO BIDLASIX tablet 12/19/17 Review of Systems Findings/Remarks: see [place] Physical Examination Vital Signs: Vital Signs Temperature 98 F 12/25/17 09:13 Pulse Rate 54 L 12/25/17 09:13 Respiratory Rate 20 12/25/17 09:13 Blood Pressure 124/50 12/25/17 09:13 O2 Sat by Pulse Oximetry (%) 96 12/24/17 19:25 Constitutional: Yes: Calm Eyes: Yes: Conjunctiva Clear Neck: Yes: Supple Cardiovascular: Yes: Regular Rate and Rhythm Respiratory: Yes: Rales (At bases) Gastrointestinal: Yes: Distention, Other (left inguinal hernia) Edema: LLE: 3+, RLE: 3+ Neurological: Yes: Alert Psychiatric: Yes: Alert Labs: CBC, BMP 12/25/17 06:28 12/25/17 06:28 Imaging - Results Chest X-ray: Report Reviewed EKG: Report Reviewed Problem List - Problems (1) CHF exacerbation Code(s): I50.9 - HEART FAILURE, UNSPECIFIED Qualifiers: Heart failure type: diastolic Qualified Code(s): I50.33 - Acute on chronic diastolic (congestive) heart failure (2) Dyspnea Code(s): R06.00 - DYSPNEA, UNSPECIFIED Qualifiers: Dyspnea type: unspecified Qualified Code(s): R06.00 - Dyspnea, unspecified (3) CHF (congestive heart failure) Code(s): I50.9 - HEART FAILURE, UNSPECIFIED Qualifiers: Heart failure type: unspecified Heart failure chronicity: acute on chronic Qualified Code(s): I50.9 - Heart failure, unspecified (4) Chronic kidney disease (CKD) Code(s): N18.9 - CHRONIC KIDNEY DISEASE, UNSPECIFIED (5) Diabetes 1.5, managed as type 2 Code(s): E13.9 - OTHER SPECIFIED DIABETES MELLITUS WITHOUT COMPLICATIONS Assessment/Plan compliance strongly stressed to patient Major issue Continue present care Daily weight----not reliable--- as documented Monitor lites Cardiology to follow Will follow
[2017-12-25] MEDS: LACTULOSE 20 GM/30 ML UDC (FOR ORAL USE ONLY) PO SCH ×5 (10:26→21:29)
[2017-12-25] MEDS: METOPROLOL TARTRATE 25 MG TABLET (FP) PO SCH ×2 (10:26→21:29)
[2017-12-25] MEDS: TAMSULOSIN HCL 0.4 MG CAP.ER.24H (FP) PO SCH (10:27)
--- NOTE | 2017-12-25 10:31 | EKG ---
Test Reason : Blood Pressure : / mmHG Vent. Rate : 057 BPM Atrial Rate : 057 BPM P-R Int : 230 ms QRS Dur : 108 ms QT Int : 462 ms P-R-T Axes : -04 -19 095 degrees QTc Int : 449 ms SINUS BRADYCARDIA WITH 1ST DEGREE A-V BLOCK INCOMPLETE LEFT BUNDLE BRANCH BLOCK MINIMAL VOLTAGE CRITERIA FOR LVH, MAY BE NORMAL VARIANT ABNORMAL QRS-T ANGLE, CONSIDER PRIMARY T WAVE ABNORMALITY ABNORMAL ECG WHEN COMPARED WITH ECG OF 16-DEC-2017 03:18, NO SIGNIFICANT CHANGE WAS FOUND Confirmed by BRIA CERVANTES, RAZIA ([id number]) on 12/25/2017 10:31:24 AM Referred By: Confirmed By:RAZIA FRASER MD
--- NOTE | 2017-12-25 10:54 | CON.CARD ---
Cardiology Consult (text) - Consultation Consultation Note: Chief Complaint: sob, le edema History of Present Illness: 72 M presented with sob, le edema. Recent admit for chf, discharged home on torsemide 80 bid but then only took 60 bid and was eating salty foods and legs got more swollen and got ma. No cp, palps dizzy loc. PMH: afib HFpEF/RV chf CKD cirrhosis CAD bioAVR and prior asc aorta repair - Past Medical History Cardio/Vascular: Yes: AFIB, Aortic Stenosis, CHF Hepatobiliary: Yes: Cirrhosis Endocrine: Yes: Diabetes Mellitus - Past Surgical History Past Surgical History: Yes: Valve Replacement - Alcohol/Substance Use Hx Alcohol Use: No - Smoking History Smoking history: Never smoked Have you smoked in the past 12 months: No Aproximately how many cigarettes per day: 0 If you are a former smoker, when did you quit?: 2004 - Social History Usual Living Arrangement: With Spouse Home Medications - Allergies Allergies/Adverse Reactions: Allergies Allergy/AdvReac Type Severity Reaction Status Date / Time No Known Drug Allergies Allergy Verified 12/24/17 14:36 Home Medications Medication Instructions Recorded Pravastatin Sodium 10 mg PO DAILY 08/06/16 Tamsulosin HCl 0.4 mg PO DAILY 10/24/16 Insulin (Levemir) [Levemir Flexpen 20 units SQ BID 12/10/17 -] Aspirin Coated [Ecotrin -] 81 mg PO DAILY tablet.ec 12/14/17 Torsemide [Demadex -] 80 mg PO BID 30 Days #60 tab 12/14/17 Lactulose (Oral Use) [Cephulac -] 20 gm PO QID udc 12/19/17 Metoprolol Tartrate 12.5 mg PO BID #30 cap.sr 12/19/17 Torsemide [Demadex -] 80 mg PO BIDLASIX tablet 12/19/17 Review of Systems - Review of Systems Constitutional: denies: Chills, Fever Eyes: denies: Eye Pain HENT: denies: Nasal Congestion Neck: denies: Stiffness Cardiovascular: denies: Palpitations Gastrointestinal: denies: Diarrhea, Rectal Bleeding Genitourinary: denies: Burning, Hematuria Musculoskeletal: denies: Muscle Pain Integumentary: denies: Rash Neurological: denies: Numbness, Seizure, Syncope Endocrine: denies: Excessive Sweating Hematology/Lymphatic: denies: Excessive Bleeding Vital Signs: Vital Signs Period Temp Pulse Resp BP Sys/Sheldon Pulse Ox Last 24 Hr 97.3 F-98.6 F 52-59 20-22 113-134/41-84 96-100 Constitutional: Yes: Well Nourished, No Distress Eyes: No: Sclera Icterus HENT: No: Nasal Congestion Neck: No: Decreased ROM Respiratory: Yes: CTA Bilaterally. No: Accessory Muscle Use, Rales, Wheezes Gastrointestinal: Yes: Normal Bowel Sounds. No: Distention, Hepatomegaly, Palpable Mass, Tenderness Cardiovascular: Yes: Regular Rate and Rhythm JVD: Yes Carotid Bruit: No PMI: Non-Displaced Heart Sounds: Yes: S1, S2. No: Gallop Murmur: No: Systolic Murmur, Diastolic Murmur Musculoskeletal: Yes: Other (No kyphosis) Extremities: No: Cold, Cyanosis Edema: 1-2+ le edema bl Peripheral Pulses: 2+ Left Carotid, 2+ Right Carotid, 2+ Left Doralis Pedis, 2+ Right Dorsalis Pedis Integumentary: No: Jaundice Neurological: Yes: Alert, Oriented (x3) Psychiatric: No: Agitated Current Medications Generic Name Dose Route Start Last Admin Trade Name Freq PRN Reason Stop Dose Admin Atorvastatin Calcium 10 mg 12/25/17 22:00 Lipitor - PO HS ELIZABETH Furosemide 40 mg 12/25/17 06:00 12/25/17 06:05 Lasix Injection - IVPUSH 40 mg BIDLASIX ELIZABETH Administration Insulin Aspart 1 vial 12/24/17 16:30 12/25/17 06:17 Novolog Vial Sliding Scale - SQ Not Given ACHS [facility] Protocol Insulin Detemir 20 units 12/24/17 22:00 12/25/17 06:18 Levemir Vial SQ Not Given BID@0700,2200 ELIZABETH Lactulose 20 gm 12/24/17 22:00 12/25/17 10:28 Cephulac (Oral Use) PO Not Given QID [facility] Metoprolol Tartrate 12.5 mg 12/24/17 22:00 12/25/17 10:26 Lopressor - PO 12.5 mg BID ELIZABETH Administration Tamsulosin HCl 0.4 mg 12/25/17 08:30 12/25/17 10:27 Flomax - PO 0.4 mg DAILY@0830 ELIZABETH Administration Laboratory Last Values WBC 4.0 K/mm3 (4.0-10.0) 12/25/17 06:28 RBC 2.78 M/mm3 (4.00-5.60) L 12/25/17 06:28 Hgb 8.9 GM/dL (11.7-16.9) L 12/25/17 06:28 Hct 26.1 % (35.4-49) L 12/25/17 06:28 MCV 93.8 fl (80-96) 12/25/17 06:28 MCH 32.0 pg (25.7-33.7) 12/25/17 06:28 MCHC 34.2 g/dl (32.0-35.9) 12/25/17 06:28 RDW 15.3 % (11.9-15.9) 12/25/17 06:28 Plt Count 67 K/MM3 (134-434) L 12/25/17 06:28 MPV 10.3 fl (7.5-11.1) 12/25/17 06:28 Absolute Neuts (auto) 2.7 K/mm3 (1.5-8.0) 12/25/17 06:28 Neutrophils % 66.6 % (42.8-82.8) 12/25/17 06:28 Lymphocytes % 16.3 % (8-40) 12/25/17 06:28 Monocytes % 12.7 % (3.8-10.2) H 12/25/17 06:28 Eosinophils % 3.6 % (0-4.5) 12/25/17 06:28 Basophils % 0.8 % (0-2.0) 12/25/17 06:28 Nucleated RBC % 0 % (0-0) 12/25/17 06:28 Sodium 139 mmol/L (136-145) 12/25/17 06:28 Potassium 4.1 mmol/L (3.5-5.1) 12/25/17 06:28 Chloride 102 mmol/L (98-107) 12/25/17 06:28 Carbon Dioxide 27 mmol/L (21-32) 12/25/17 06:28 Anion Gap 10 MMOL/L (8-16) 12/25/17 06:28 BUN 81 mg/dL (7-18) H 12/25/17 06:28 Creatinine 2.3 mg/dL (0.7-1.3) H 12/25/17 06:28 Creat Clearance w eGFR 28.17 (>60) 12/25/17 06:28 POC Glucometer 94 UNITS (80-120) 12/25/17 05:51 Random Glucose 80 mg/dL (74-106) D 12/25/17 06:28 Calcium 8.0 mg/dL (8.5-10.1) L 12/25/17 06:28 Total Bilirubin 0.9 mg/dL (0.2-1.0) 12/25/17 06:28 AST 24 U/L (15-37) D 12/25/17 06:28 ALT 28 U/L (12-78) 12/25/17 06:28 Alkaline Phosphatase 130 U/L (45-117) H D 12/25/17 06:28 B-Natriuretic Peptide 3650.06 pg/ml (5-125) H 12/24/17 14:55 Total Protein 6.1 g/dl (6.4-8.2) L 12/25/17 06:28 Albumin 2.4 g/dl (3.4-5.0) L 12/25/17 06:28 Echo 01/11: nl LVSF, mild LVH. mild-mod RV dilation, borderline RVSF. mod LAE. mod AI, mild-mod TR. RVSP 30-40 MIBI 2013: nl mpi ECG: SR, nl intervals, LVH with repol abn,--no sig change vs prior CXR: chf Assessment/Plan acute exacerbation HFpEF, RV cardiomyopathy: - Recent admit for chf, discharged home on torsemide 80 bid but then only took 60 bid and was eating salty foods and legs got more swollen and had ma - cont lasix 40 iv bid - daily chem7, wts, i/o cad,h/o CABG: -stable, no angina, no signs acs -cont home statin, metoprolol -not on asa 2/2 thrombocytopenia acute on CKD: -baseline creat 1.6-1.8 -likely cr up due to chf, monitor with lasix s/p bio-avr: -moderate AI on echo 01/11 (was mild in 2014) -no wide pulse pressure--doubt contributing to chf. -routine outpt monitoring with dr jeffrey f/u s/p ascending aorta repair: -cont bb, statin, bp control -no root or ascending aorta dilation noted on echo -outpt f/u HTN: -bp stable -cont home meds aflutter: -no tachy issues, has been in sinus on recent admits -continue metoprolol 12.5 mg BID -no ac/asa 2/2 cirrhosis with thrombocytopenia and esoph varices--per prior outpt tx plan -similarly, could not safely give 6 wks AC then 6 wks DAPT so not a candidate for Watchman EDGAR closure device cirrhosis, thrombocytopenia: -per pmd
[2017-12-25] MEDS: ATORVASTATIN CA 10 MG TABLET (FP) PO SCH (21:29)
[2017-12-26] MEDS: INSULIN (LEVEMIR) 100 UNITS/ML UNITS SQ SCH ×2 (06:07→22:08)
[2017-12-26] MEDS: INSULIN SLIDING SCALE (NOVOLOG) 1 VIAL SQ SCH ×4 (06:07→22:08)
[2017-12-26] MEDS: FUROSEMIDE 40 MG/4 ML INJECTABLE VIAL IVPUSH SCH ×2 (06:26→14:48)
[2017-12-26 07:24] LABS: BASO % 0.8 % (0-2.0); EOS % 3.4 % (0-4.5); HEMATOCRIT 24.9 % (35.4-49); HEMOGLOBIN 8.6 GM/dL (11.7-16.9); LYMPH % 17.2 % (8-40); MCH 32.3 pg (25.7-33.7); MCHC 34.4 g/dl (32.0-35.9); MEAN CELL VOLUME 93.9 fl (80-96); MEAN PLT VOLUME 9.7 fl (7.5-11.1); MONO % 12.6 % (3.8-10.2); PLATELET COUNT 66 K/MM3 (134-434); RBC 2.65 M/mm3 (4.00-5.60); RDW 15.4 % (11.9-15.9); WHITE BLOOD COUNT 3.4 K/mm3 (4.0-10.0)
[2017-12-26 08:01] LABS: CHLORIDE 105 mmol/L (98-107); POTASSIUM 3.8 mmol/L (3.5-5.1); SODIUM 140 mmol/L (136-145)
[2017-12-26 08:07] LABS: ALBUMIN 2.2 g/dl (3.4-5.0); ALK PHOS 150 U/L (45-117); ANION GAP 7 MMOL/L (8-16); BILIRUBIN,TOTAL 0.7 mg/dL (0.2-1.0); BLOOD UREA NITROGEN 76 mg/dL (7-18); CALCIUM 7.8 mg/dL (8.5-10.1); CO2 28 mmol/L (21-32); CREATININE 2.1 mg/dL (0.7-1.3); GLUCOSE,RANDOM 140 mg/dL (74-106); SGOT/AST 21 U/L (15-37); SGPT/ALT 27 U/L (12-78); TOT PROT 6.1 g/dl (6.4-8.2)
[2017-12-26] MEDS: TAMSULOSIN HCL 0.4 MG CAP.ER.24H (FP) PO SCH (08:33)
[2017-12-26] MEDS: METOPROLOL TARTRATE 25 MG TABLET (FP) PO SCH ×2 (09:48→21:58)
[2017-12-26] MEDS: oxyCODONE HCL 5 MG TABLET PO PRN ×2 (09:49→22:05)
[2017-12-26] MEDS: LACTULOSE 20 GM/30 ML UDC (FOR ORAL USE ONLY) PO SCH ×4 (09:51→21:58)
--- NOTE | 2017-12-26 11:09 | PN ---
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 (short form) - Note 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: s: no cp sob palps dizzy o: Vital Signs Period Temp Pulse Resp BP Sys/Sheldon Pulse Ox Last 24 Hr 97.5 F-98.3 F 48-60 18-20 110-143/40-55 100 Constitutional: Yes: Well Nourished, No Distress Eyes: No: Sclera Icterus Respiratory: Yes: CTA Bilaterally. No: Accessory Muscle Use, Rales, Wheezes Gastrointestinal: Yes: Normal Bowel Sounds. No: Distention, Hepatomegaly, Palpable Mass, Tenderness Cardiovascular: Yes: Regular Rate and Rhythm JVD: Yes Heart Sounds: Yes: S1, S2. No: Gallop Murmur: No: Systolic Murmur, Diastolic Murmur Musculoskeletal: Yes: Other (No kyphosis) Extremities: No: Cold, Cyanosis Edema: 1-2+ le edema bl Integumentary: No: Jaundice Neurological: Yes: Alert, Oriented (x3) Psychiatric: No: Agitated Current Medications Generic Name Dose Route Start Last Admin Trade Name Javonq PRN Reason Stop Dose Admin Atorvastatin Calcium 10 mg 12/25/17 22:00 12/25/17 21:29 Lipitor - PO 10 mg HS ELIZABETH Administration Furosemide 40 mg 12/25/17 06:00 12/26/17 06:26 Lasix Injection - IVPUSH 40 mg BIDLASIX ELIZABETH Administration Insulin Aspart 1 vial 12/24/17 16:30 12/26/17 06:07 Novolog Vial Sliding Scale - SQ 2 unit ACHS ELIZABETH Administration Protocol Insulin Detemir 20 units 12/24/17 22:00 12/26/17 06:07 Levemir Vial SQ 20 units BID@0700,2200 ELIZABETH Administration Lactulose 20 gm 12/24/17 22:00 12/26/17 09:51 Cephulac (Oral Use) PO Not Given QID ELIZABETH Metoprolol Tartrate 12.5 mg 12/24/17 22:00 12/26/17 09:48 Lopressor - PO 12.5 mg BID ELIZABETH Administration Oxycodone HCl 5 mg 12/26/17 09:34 12/26/17 09:49 Roxicodone - PO 5 mg Q12H PRN Administration PRN PAIN Tamsulosin HCl 0.4 mg 12/25/17 08:30 12/26/17 08:33 Flomax - PO 0.4 mg DAILY@0830 ELIZABETH Administration CBC, BMP 12/26/17 06:25 12/26/17 06:25 Echo 01/11: nl LVSF, mild LVH. mild-mod RV dilation, borderline RVSF. mod LAE. mod AI, mild-mod TR. RVSP 30-40 MIBI 2013: nl mpi ECG: SR, nl intervals, LVH with repol abn,--no sig change vs prior CXR: chf Assessment/Plan acute exacerbation HFpEF, RV cardiomyopathy: - Recent admit for chf, discharged home on torsemide 80 bid but then only took 60 bid and was eating salty foods and legs got more swollen and had ma - wt down, cont lasix 40 iv bid - daily chem7, wts, i/o cad,h/o CABG: -stable, no angina, no signs acs -cont home statin, metoprolol -not on asa 2/2 thrombocytopenia acute on CKD: -baseline creat 1.6-1.8 -likely cr up due to chf, monitor with lasix s/p bio-avr: -moderate AI on echo 01/11 (was mild in 2014) -no wide pulse pressure--doubt contributing to chf. -routine outpt monitoring with dr jeffrey f/u s/p ascending aorta repair: -cont bb, statin, bp control -no root or ascending aorta dilation noted on echo -outpt f/u HTN: -bp stable -cont home meds aflutter: -no tachy issues, has been in sinus on recent admits -continue metoprolol 12.5 mg BID -no ac/asa 2/2 cirrhosis with thrombocytopenia and esoph varices--per prior outpt tx plan -similarly, could not safely give 6 wks AC then 6 wks DAPT so not a candidate for Watchman EDGAR closure device cirrhosis, thrombocytopenia: -per pmd
--- NOTE | 2017-12-26 11:20 | PN ---
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 (short form) - Note 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: comfortable better no distress requesting pain meds Vital Signs Temp 98.2 F 12/26/17 09:51 Pulse 55 L 12/26/17 09:51 Resp 18 12/26/17 09:51 BP 124/42 12/26/17 09:51 Pulse Ox 100 12/25/17 21:00 Intake & Output 12/25/17 12/25/17 12/26/17 11:59 23:59 11:59 Intake Total 90 110 Output Total 1200 1300 400 Balance -1110 -1190 -400 Weight 208 lb 170 lb 168 lb 6.4 oz Intake: Oral 90 110 Output: Urine 1200 1300 400 Void 1200 1300 400 Other: Voiding Method Toilet Urinal Weight Measurement Method Standing Scale Standing Scale Standing Scale Active Medications Atorvastatin Calcium (Lipitor -) 10 mg PO HS [facility] Last Admin: 12/25/17 21:29 Dose: 10 mg Furosemide (Lasix Injection -) 40 mg IVPUSH BIDLASIX [facility] Last Admin: 12/26/17 06:26 Dose: 40 mg Insulin Aspart (Novolog Vial Sliding Scale -) 1 vial SQ ACHS [facility]; Protocol Last Admin: 12/26/17 06:07 Dose: 2 unit Insulin Detemir (Levemir Vial) 20 units SQ BID@0700,2200 [facility] Last Admin: 12/26/17 06:07 Dose: 20 units Lactulose (Cephulac (Oral Use)) 20 gm PO QID [facility] Last Admin: 12/26/17 09:51 Dose: Not Given Metoprolol Tartrate (Lopressor -) 12.5 mg PO BID [facility] Last Admin: 12/26/17 09:48 Dose: 12.5 mg Oxycodone HCl (Roxicodone -) 5 mg PO Q12H PRN PRN Reason: PRN PAIN Last Admin: 12/26/17 09:49 Dose: 5 mg Tamsulosin HCl (Flomax -) 0.4 mg PO DAILY@0830 [facility] Last Admin: 12/26/17 08:33 Dose: 0.4 mg CBC, BMP 12/26/17 06:25 12/26/17 06:25 Physical Examination Constitutional: Yes: Calm and comfortable Eyes: Yes: Conjunctiva Clear Neck: Yes: Supple Cardiovascular: Yes: Regular Rate and Rhythm Respiratory: Yes: Rales (At bases) Gastrointestinal: Yes: Distention, Other (left inguinal hernia) Edema: Decreased Neurological: Yes: Alert Psychiatric: Yes: Alert Assessment/Plan compliance strongly stressed to patient again better discussed with cardiology ambulate will follow Problem List - Problems (1) CHF exacerbation Code(s): I50.9 - HEART FAILURE, UNSPECIFIED Qualifiers: Heart failure type: diastolic Qualified Code(s): I50.33 - Acute on chronic diastolic (congestive) heart failure (2) Dyspnea Code(s): R06.00 - DYSPNEA, UNSPECIFIED Qualifiers: Dyspnea type: unspecified Qualified Code(s): R06.00 - Dyspnea, unspecified (3) CHF (congestive heart failure) Code(s): I50.9 - HEART FAILURE, UNSPECIFIED Qualifiers: Heart failure type: unspecified Heart failure chronicity: acute on chronic Qualified Code(s): I50.9 - Heart failure, unspecified (4) Chronic kidney disease (CKD) Code(s): N18.9 - CHRONIC KIDNEY DISEASE, UNSPECIFIED (5) Diabetes 1.5, managed as type 2 Code(s): E13.9 - OTHER SPECIFIED DIABETES MELLITUS WITHOUT COMPLICATIONS
[2017-12-26] MEDS: ATORVASTATIN CA 10 MG TABLET (FP) PO SCH (21:57)
[2017-12-27] MEDS: INSULIN SLIDING SCALE (NOVOLOG) 1 VIAL SQ SCH ×4 (06:46→21:47)
[2017-12-27] MEDS: FUROSEMIDE 40 MG/4 ML INJECTABLE VIAL IVPUSH SCH ×2 (06:58→16:20)
[2017-12-27] MEDS: INSULIN (LEVEMIR) 100 UNITS/ML UNITS SQ SCH ×2 (06:59→21:45)
[2017-12-27] MEDS: TAMSULOSIN HCL 0.4 MG CAP.ER.24H (FP) PO SCH (08:35)
[2017-12-27] MEDS: METOPROLOL TARTRATE 25 MG TABLET (FP) PO SCH ×2 (10:39→21:25)
--- NOTE | 2017-12-27 10:50 | PN ---
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 (short form) - Note 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: s: no cp sob palps dizzy o: Vital Signs Period Temp Pulse Resp BP Sys/Sheldon Pulse Ox Last 24 Hr 97.0 F-98.1 F 48-59 20-20 99-143/46-56 100 Constitutional: Yes: Well Nourished, No Distress Eyes: No: Sclera Icterus Respiratory: Yes: CTA Bilaterally. No: Accessory Muscle Use, Rales, Wheezes Gastrointestinal: Yes: Normal Bowel Sounds. No: Distention, Hepatomegaly, Palpable Mass, Tenderness Cardiovascular: Yes: Regular Rate and Rhythm JVD: Yes Heart Sounds: Yes: S1, S2. No: Gallop Murmur: No: Systolic Murmur, Diastolic Murmur Musculoskeletal: Yes: Other (No kyphosis) Extremities: No: Cold, Cyanosis Edema: 1+ le edema bl Integumentary: No: Jaundice Neurological: Yes: Alert, Oriented (x3) Psychiatric: No: Agitated Current Medications Generic Name Dose Route Start Last Admin Trade Name Freq PRN Reason Stop Dose Admin Atorvastatin Calcium 10 mg 12/25/17 22:00 12/26/17 21:57 Lipitor - PO 10 mg HS [facility] Administration Furosemide 40 mg 12/25/17 06:00 12/27/17 06:58 Lasix Injection - IVPUSH 40 mg BIDLASIX [facility] Administration Insulin Aspart 1 vial 12/24/17 16:30 12/27/17 06:46 Novolog Vial Sliding Scale - SQ Not Given ACHS [facility] Protocol Insulin Detemir 20 units 12/24/17 22:00 12/27/17 06:59 Levemir Vial SQ 20 units BID@0700,2200 [facility] Administration Lactulose 20 gm 12/24/17 22:00 12/26/17 21:58 Cephulac (Oral Use) PO Not Given QID [facility] Metoprolol Tartrate 12.5 mg 12/24/17 22:00 12/26/17 21:58 Lopressor - PO 12.5 mg BID [facility] Administration Oxycodone HCl 5 mg 12/26/17 09:34 12/26/17 22:05 Roxicodone - PO 5 mg Q12H PRN Administration PRN PAIN Tamsulosin HCl 0.4 mg 12/25/17 08:30 12/26/17 08:33 Flomax - PO 0.4 mg DAILY@0830 [facility] Administration CBC, BMP 12/26/17 06:25 12/26/17 06:25 Echo 01/11: nl LVSF, mild LVH. mild-mod RV dilation, borderline RVSF. mod LAE. mod AI, mild-mod TR. RVSP 30-40 MIBI 2013: nl mpi ECG: SR, nl intervals, LVH with repol abn,--no sig change vs prior CXR: chf tele: sr Assessment/Plan acute exacerbation HFpEF, RV cardiomyopathy: - Recent admit for chf, discharged home on torsemide 80 bid but then only took 60 bid and was eating salty foods and legs got more swollen and had ma - wt down, cont lasix 40 iv bid - daily chem7, wts, i/o cad,h/o CABG: -stable, no angina, no signs acs -cont home statin, metoprolol -not on asa 2/2 thrombocytopenia acute on CKD: -baseline creat 1.6-1.8 -likely cr up due to chf, monitor with lasix s/p bio-avr: -moderate AI on echo 01/11 (was mild in 2014) -no wide pulse pressure--doubt contributing to chf. -routine outpt monitoring with dr jeffrey f/u s/p ascending aorta repair: -cont bb, statin, bp control -no root or ascending aorta dilation noted on echo -outpt f/u HTN: -bp stable -cont home meds aflutter: -no tachy issues, has been in sinus on recent admits -continue metoprolol 12.5 mg BID -no ac/asa 2/2 cirrhosis with thrombocytopenia and esoph varices--per prior outpt tx plan -similarly, could not safely give 6 wks AC then 6 wks DAPT so not a candidate for [employer] closure device cirrhosis, thrombocytopenia: -per pmd
[2017-12-27] MEDS: LACTULOSE 20 GM/30 ML UDC (FOR ORAL USE ONLY) PO SCH ×4 (11:36→21:25)
[2017-12-27 12:14] LABS: ANION GAP 9 MMOL/L (8-16); BLOOD UREA NITROGEN 71 mg/dL (7-18); CALCIUM 8.3 mg/dL (8.5-10.1); CHLORIDE 106 mmol/L (98-107); CO2 28 mmol/L (21-32); CREATININE 1.9 mg/dL (0.7-1.3); GLUCOSE,RANDOM 194 mg/dL (74-106); POTASSIUM 4.2 mmol/L (3.5-5.1); SODIUM 143 mmol/L (136-145)
--- NOTE | 2017-12-27 15:31 | PN ---
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 (short form) - Note 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: Better Ambulatory decreased edema Vital Signs Temp 98.1 F 12/27/17 14:00 Pulse 48 L 12/27/17 14:00 Resp 20 12/27/17 05:34 BP 128/47 12/27/17 14:00 Pulse Ox 100 12/26/17 21:00 Intake & Output 12/26/17 12/27/17 12/27/17 23:59 11:59 23:59 Intake Total 350 340 Output Total 700 300 Balance -350 40 Intake: Oral 350 340 Output: Urine 700 300 Void 700 300 Other: Voiding Method Urinal Toilet # Unmeasured Voids Void 1 Active Medications Atorvastatin Calcium (Lipitor -) 10 mg PO HS [facility] Last Admin: 12/26/17 21:57 Dose: 10 mg Furosemide (Lasix Injection -) 40 mg IVPUSH BIDLASIX [facility] Last Admin: 12/27/17 06:58 Dose: 40 mg Insulin Aspart (Novolog Vial Sliding Scale -) 1 vial SQ [facility]; Protocol Last Admin: 12/27/17 12:22 Dose: 4 unit Insulin Detemir (Levemir Vial) 20 units SQ BID@0700,2200 [facility] Last Admin: 12/27/17 06:59 Dose: 20 units Lactulose (Cephulac (Oral Use)) 20 gm PO QID [facility] Last Admin: 12/27/17 11:36 Dose: Not Given Metoprolol Tartrate (Lopressor -) 12.5 mg PO BID [facility] Last Admin: 12/27/17 10:39 Dose: 12.5 mg Oxycodone HCl (Roxicodone -) 5 mg PO Q12H PRN PRN Reason: PRN PAIN Last Admin: 12/26/17 22:05 Dose: 5 mg Tamsulosin HCl (Flomax -) 0.4 mg PO DAILY@0830 [facility] Last Admin: 12/27/17 08:35 Dose: 0.4 mg CBC, BMP 12/26/17 06:25 12/27/17 10:52 Physical Examination Constitutional: Yes: Calm and comfortable Eyes: Yes: Conjunctiva Clear Neck: Yes: Supple Cardiovascular: Yes: Regular Rate and Rhythm Respiratory: Yes: Rales (At bases) Gastrointestinal: Yes: Distention, Other (left inguinal hernia) Edema: Decreased Neurological: Yes: Alert Psychiatric: Yes: Alert Assessment/Plan better continue present care ambulate will follow Problem List - Problems (1) CHF exacerbation Code(s): I50.9 - HEART FAILURE, UNSPECIFIED Qualifiers: Heart failure type: diastolic Qualified Code(s): I50.33 - Acute on chronic diastolic (congestive) heart failure (2) Dyspnea Code(s): R06.00 - DYSPNEA, UNSPECIFIED Qualifiers: Dyspnea type: unspecified Qualified Code(s): R06.00 - Dyspnea, unspecified (3) CHF (congestive heart failure) Code(s): I50.9 - HEART FAILURE, UNSPECIFIED Qualifiers: Heart failure type: unspecified Heart failure chronicity: acute on chronic Qualified Code(s): I50.9 - Heart failure, unspecified (4) Chronic kidney disease (CKD) Code(s): N18.9 - CHRONIC KIDNEY DISEASE, UNSPECIFIED (5) Diabetes 1.5, managed as type 2 Code(s): E13.9 - OTHER SPECIFIED DIABETES MELLITUS WITHOUT COMPLICATIONS
[2017-12-27] MEDS: ATORVASTATIN CA 10 MG TABLET (FP) PO SCH (21:45)
[2017-12-27] MEDS: PHENYLEPH/MINERAL OIL/PETROLAT 28 GM OINTMENT RC SCH (21:46)
[2017-12-28] MEDS: INSULIN SLIDING SCALE (NOVOLOG) 1 VIAL SQ SCH ×4 (06:02→21:50)
[2017-12-28] MEDS: INSULIN (LEVEMIR) 100 UNITS/ML UNITS SQ SCH ×2 (06:07→21:27)
[2017-12-28] MEDS: FUROSEMIDE 40 MG/4 ML INJECTABLE VIAL IVPUSH SCH ×2 (06:07→13:26)
[2017-12-28] MEDS: TAMSULOSIN HCL 0.4 MG CAP.ER.24H (FP) PO SCH (09:40)
[2017-12-28] MEDS: METOPROLOL TARTRATE 25 MG TABLET (FP) PO SCH ×2 (09:40→21:24)
[2017-12-28] MEDS: LACTULOSE 20 GM/30 ML UDC (FOR ORAL USE ONLY) PO SCH ×4 (09:40→21:33)
--- NOTE | 2017-12-28 11:19 | PN ---
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 (short form) - Note 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: s: no cp sob palps dizzy o: Vital Signs Period Temp Pulse Resp BP Sys/Sheldon Pulse Ox Last 24 Hr 97.8 F-98.2 F 48-59 20-20 107-136/34-52 98 2 Constitutional: Yes: Well Nourished, No Distress Eyes: No: Sclera Icterus Respiratory: Yes: CTA Bilaterally. No: Accessory Muscle Use, Rales, Wheezes Gastrointestinal: Yes: Normal Bowel Sounds. No: Distention, Hepatomegaly, Palpable Mass, Tenderness Cardiovascular: Yes: Regular Rate and Rhythm JVD: Yes Heart Sounds: Yes: S1, S2. No: Gallop Murmur: No: Systolic Murmur, Diastolic Murmur Musculoskeletal: Yes: Other (No kyphosis) Extremities: No: Cold, Cyanosis Edema: 1+ le edema bl Integumentary: No: Jaundice Neurological: Yes: Alert, Oriented (x3) Psychiatric: No: Agitated Current Medications Generic Name Dose Route Start Last Admin Trade Name Javonq PRN Reason Stop Dose Admin Atorvastatin Calcium 10 mg 12/25/17 22:00 12/27/17 21:45 Lipitor - PO 10 mg HS [facility] Administration Furosemide 40 mg 12/25/17 06:00 12/28/17 06:07 Lasix Injection - IVPUSH 40 mg BIDLASIX [facility] Administration Insulin Aspart 1 vial 12/24/17 16:30 12/28/17 06:02 Novolog Vial Sliding Scale - SQ Not Given ACHS [facility] Protocol Insulin Detemir 20 units 12/24/17 22:00 12/28/17 06:07 Levemir Vial SQ 20 units BID@0700,2200 [facility] Administration Lactulose 20 gm 12/24/17 22:00 12/28/17 09:40 Cephulac (Oral Use) PO Not Given QID [facility] Metoprolol Tartrate 12.5 mg 12/24/17 22:00 12/28/17 09:40 Lopressor - PO 12.5 mg BID [facility] Administration Oxycodone HCl 5 mg 12/26/17 09:34 12/26/17 22:05 Roxicodone - PO 5 mg Q12H PRN Administration PRN PAIN Tamsulosin HCl 0.4 mg 12/25/17 08:30 12/28/17 09:40 Flomax - PO 0.4 mg DAILY@0830 [facility] Administration CBC, BMP 12/26/17 06:25 12/27/17 10:52 Echo 01/11: nl LVSF, mild LVH. mild-mod RV dilation, borderline RVSF. mod LAE. mod AI, mild-mod TR. RVSP 30-40 MIBI 2013: nl mpi ECG: SR, nl intervals, LVH with repol abn,--no sig change vs prior CXR: chf tele: sr Assessment/Plan acute exacerbation HFpEF, RV cardiomyopathy: - Recent admit for chf, discharged home on torsemide 80 bid but then only took 60 bid and was eating salty foods and legs got more swollen and had ma - wt continues to decrease, cr stable, cont lasix 40 iv bid - daily chem7, wts, i/o cad,h/o CABG: -stable, no angina, no signs acs -cont home statin, metoprolol -not on asa 2/2 thrombocytopenia acute on CKD: -baseline creat 1.6-1.8 -likely cr up due to chf, monitor with lasix s/p bio-avr: -moderate AI on echo 01/11 (was mild in 2014) -no wide pulse pressure--doubt contributing to chf. -routine outpt monitoring with dr jeffrey f/u s/p ascending aorta repair: -cont bb, statin, bp control -no root or ascending aorta dilation noted on echo -outpt f/u HTN: -bp stable -cont home meds aflutter: -no tachy issues, has been in sinus on recent admits -continue metoprolol 12.5 mg BID -no ac/asa 2/2 cirrhosis with thrombocytopenia and esoph varices--per prior outpt tx plan -similarly, could not safely give 6 wks AC then 6 wks DAPT so not a candidate for Watchman [employer] closure device cirrhosis, thrombocytopenia: -per pmd dc tele
--- NOTE | 2017-12-28 12:28 | PN ---
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 (short form) - Note 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: Continue to improve. better Vital Signs Temp 98 F 12/28/17 11:00 Pulse 58 L 12/28/17 11:00 Resp 18 12/28/17 11:00 BP 126/70 12/28/17 11:00 Pulse Ox 97 12/28/17 09:00 Intake & Output 12/27/17 12/28/17 12/28/17 23:59 11:59 23:59 Intake Total 370 100 Output Total 800 200 Balance -430 -100 Weight 165 lb 12.8 oz Intake: IV 20 saline lock 20 Oral 350 100 Output: Urine 800 200 Void 800 200 Other: Voiding Method Urinal Toilet Weight Measurement Method Standing Scale Active Medications Atorvastatin Calcium (Lipitor -) 10 mg PO HS [facility] Last Admin: 12/27/17 21:45 Dose: 10 mg Furosemide (Lasix Injection -) 40 mg IVPUSH BIDLASIX [facility] Last Admin: 12/28/17 06:07 Dose: 40 mg Insulin Aspart (Novolog Vial Sliding Scale -) 1 vial SQ [facility]; Protocol Last Admin: 12/28/17 12:08 Dose: 4 unit Insulin Detemir (Levemir Vial) 20 units SQ BID@0700,2200 [facility] Last Admin: 12/28/17 06:07 Dose: 20 units Lactulose (Cephulac (Oral Use)) 20 gm PO QID [facility] Last Admin: 12/28/17 09:40 Dose: Not Given Metoprolol Tartrate (Lopressor -) 12.5 mg PO BID [facility] Last Admin: 12/28/17 09:40 Dose: 12.5 mg Oxycodone HCl (Roxicodone -) 5 mg PO Q12H PRN PRN Reason: PRN PAIN Last Admin: 12/26/17 22:05 Dose: 5 mg Tamsulosin HCl (Flomax -) 0.4 mg PO DAILY@0830 [facility] Last Admin: 12/28/17 09:40 Dose: 0.4 mg CBC, BMP 12/26/17 06:25 12/27/17 10:52 Physical Examination Constitutional: Yes: Calm and comfortable Eyes: Yes: Conjunctiva Clear Neck: Yes: Supple Cardiovascular: Yes: Regular Rate and Rhythm Respiratory: Yes: Rales (At bases) Gastrointestinal: Yes: Distention, Other (left inguinal hernia) Edema: Decreased Neurological: Yes: Alert Psychiatric: Yes: Alert Assessment/Plan compliance strongly stressed to patient again better discussed with cardiology ambulate Anticipate d/c in 1-2 days will follow Problem List - Problems (1) CHF exacerbation Code(s): I50.9 - HEART FAILURE, UNSPECIFIED Qualifiers: Heart failure type: diastolic Qualified Code(s): I50.33 - Acute on chronic diastolic (congestive) heart failure (2) Dyspnea Code(s): R06.00 - DYSPNEA, UNSPECIFIED Qualifiers: Dyspnea type: unspecified Qualified Code(s): R06.00 - Dyspnea, unspecified (3) CHF (congestive heart failure) Code(s): I50.9 - HEART FAILURE, UNSPECIFIED Qualifiers: Heart failure type: unspecified Heart failure chronicity: acute on chronic Qualified Code(s): I50.9 - Heart failure, unspecified (4) Chronic kidney disease (CKD) Code(s): N18.9 - CHRONIC KIDNEY DISEASE, UNSPECIFIED (5) Diabetes 1.5, managed as type 2 Code(s): E13.9 - OTHER SPECIFIED DIABETES MELLITUS WITHOUT COMPLICATIONS
[2017-12-28] MEDS: oxyCODONE HCL 5 MG TABLET PO PRN (21:25)
[2017-12-28] MEDS: ATORVASTATIN CA 10 MG TABLET (FP) PO SCH (21:26)
[2017-12-28] MEDS: PHENYLEPH/MINERAL OIL/PETROLAT 28 GM OINTMENT RC SCH (21:49)
[2017-12-29] MEDS ORDERED: INSULIN (NOVOLOG) ASPART 100 UNITS/ML 10ML VIAL ONE ×2 (05:46→12:16)
[2017-12-29] MEDS: FUROSEMIDE 40 MG/4 ML INJECTABLE VIAL IVPUSH SCH (06:52)
[2017-12-29] MEDS: INSULIN (LEVEMIR) 100 UNITS/ML UNITS SQ SCH (06:52)
[2017-12-29] MEDS: INSULIN SLIDING SCALE (NOVOLOG) 1 VIAL SQ SCH ×2 (06:52→12:37)
[2017-12-29] MEDS ORDERED: INSULIN (LEVEMIR) 100 UNITS/ML UNITS SQ ONE (07:06)
[2017-12-29 08:37] LABS: ANION GAP 11 MMOL/L (8-16); BLOOD UREA NITROGEN 62 mg/dL (7-18); CALCIUM 8.1 mg/dL (8.5-10.1); CHLORIDE 108 mmol/L (98-107); CO2 26 mmol/L (21-32); CREATININE 1.8 mg/dL (0.7-1.3); GLUCOSE,RANDOM 83 mg/dL (74-106); SODIUM 145 mmol/L (136-145)
[2017-12-29] MEDS: TAMSULOSIN HCL 0.4 MG CAP.ER.24H (FP) PO SCH (10:11)
[2017-12-29] MEDS: LACTULOSE 20 GM/30 ML UDC (FOR ORAL USE ONLY) PO SCH ×3 (10:11→13:52)
[2017-12-29] MEDS: METOPROLOL TARTRATE 25 MG TABLET (FP) PO SCH (10:11)
--- NOTE | 2017-12-29 10:48 | DS ---
Physical Examination Vital Signs: Vital Signs Temperature 97.5 F L 12/29/17 05:00 Pulse Rate 60 12/29/17 05:00 Respiratory Rate 18 12/29/17 05:00 Blood Pressure 102/43 12/29/17 05:00 O2 Sat by Pulse Oximetry (%) 97 12/28/17 21:00 Constitutional: Yes: No Distress, Calm Cardiovascular: Yes: Regular Rate and Rhythm, Murmur Respiratory: Yes: Diminished. No: Rales, Rhonchi Gastrointestinal: Yes: Normal Bowel Sounds, Soft, Abdomen, Obese. No: Ascites, Distention, Tenderness Edema: Yes (decreased) Labs: CBC, BMP 12/26/17 06:25 12/29/17 07:00 Discharge Summary Reason For Visit: ACUTE ON CHRONIC CONGESTIVE HEART FAILURE Current Active Problems Acute on chronic kidney failure (Acute) CHF exacerbation (Acute) Dyspnea (Acute) Hospital Course: Admitted for acute CHF- systolic and acute renal failure Pt was seen by Cardiology and placed on IV Lasix He was on PO torsemide at home- but did not take the recommended dose Pt better now after diuretics renal function omproved stable for dc on PO Torsemide 80 mg BID Condition: Improved - Instructions Disposition: HOME - Home Medications Comprehensive Discharge Medication List: Ambulatory Orders Pravastatin Sodium 10 mg PO DAILY 08/06/16 Tamsulosin HCl 0.4 mg PO DAILY 10/24/16 Insulin (Levemir) [Levemir Flexpen -] 20 units SQ BID 12/10/17 Aspirin Coated [Ecotrin -] 81 mg PO DAILY tablet.ec 12/14/17 Torsemide [Demadex -] 80 mg PO BID 30 Days #60 tab 12/14/17 Lactulose (Oral Use) [Cephulac -] 20 gm PO QID [facility] 12/19/17 Metoprolol Tartrate 12.5 mg PO BID #30 cap.sr 12/19/17 Torsemide [Demadex -] 80 mg PO BIDLASIX tablet 12/19/17
[2017-12-29 12:34] VITALS: BP 124/60; PULSE 59; TEMP 98
--- NOTE | 2017-12-29 13:19 | PN ---
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 (short form) - Note 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: s: no cp sob palps dizzy o: Vital Signs Period Temp Pulse Resp BP Sys/Sheldon Pulse Ox Last 24 Hr 97.5 F-98.1 F 54-60 17-20 102-137/43-60 97-98 Constitutional: Yes: Well Nourished, No Distress Eyes: No: Sclera Icterus Respiratory: Yes: CTA Bilaterally. No: Accessory Muscle Use, Rales, Wheezes Gastrointestinal: Yes: Normal Bowel Sounds. No: Distention, Hepatomegaly, Palpable Mass, Tenderness Cardiovascular: Yes: Regular Rate and Rhythm JVD: No Heart Sounds: Yes: S1, S2. No: Gallop Murmur: No: Systolic Murmur, Diastolic Murmur Musculoskeletal: Yes: Other (No kyphosis) Extremities: No: Cold, Cyanosis Edema: 1+ le edema bl Integumentary: No: Jaundice Neurological: Yes: Alert, Oriented (x3) Psychiatric: No: Agitated Current Medications Atorvastatin Calcium (Lipitor -) 10 mg PO [facility] Last Admin: 12/28/17 21:26 Dose: 10 mg Furosemide (Lasix -) 40 mg PO BID@0600,1400 [facility] Insulin Aspart (Novolog Vial Sliding Scale -) 1 vial SQ [facility]; Protocol Last Admin: 12/29/17 12:37 Dose: Not Given Insulin Detemir (Levemir Vial) 20 units SQ BID@0700,2200 [facility] Last Admin: 12/29/17 06:52 Dose: 20 units Lactulose (Cephulac (Oral Use)) 20 gm PO QID [facility] Last Admin: 12/29/17 10:14 Dose: Not Given Metoprolol Tartrate (Lopressor -) 12.5 mg PO BID [facility] Last Admin: 12/29/17 10:11 Dose: 12.5 mg Tamsulosin HCl (Flomax -) 0.4 mg PO DAILY@0830 [facility] Last Admin: 12/29/17 10:11 Dose: 0.4 mg Echo 01/11: nl LVSF, mild LVH. mild-mod RV dilation, borderline RVSF. mod LAE. mod AI, mild-mod TR. RVSP 30-40 MIBI 2013: nl mpi ECG: SR, nl intervals, LVH with repol abn,--no sig change vs prior CXR: chf tele: sr Assessment/Plan acute exacerbation HFpEF, RV cardiomyopathy: - Recent admit for chf, discharged home on torsemide 80 bid but then only took 60 bid and was eating salty foods and legs got more swollen and had ma - wt continues to decrease, cr stable feels back to baseline after IV diuresis - plan for discharge today with torsemide 80 mg BID, discussed dosage with patient and he will follow up with Dr. King in clinic cad,h/o CABG: -stable, no angina, no signs acs -cont home statin, metoprolol -not on asa 2/2 thrombocytopenia acute on CKD: -baseline creat 1.6-1.8 -likely cr up due to chf, monitor with lasix s/p bio-avr: -moderate AI on echo 01/11 (was mild in 2014) -no wide pulse pressure--doubt contributing to chf. -routine outpt monitoring with dr king f/u s/p ascending aorta repair: -cont bb, statin, bp control -no root or ascending aorta dilation noted on echo -outpt f/u HTN: -bp stable -cont home meds aflutter: -no tachy issues, has been in sinus on recent admits -continue metoprolol 12.5 mg BID -no ac/asa 2/2 cirrhosis with thrombocytopenia and esoph varices--per prior outpt tx plan -similarly, could not safely give 6 wks AC then 6 wks DAPT so not a candidate for Watchman EDG[employer] closure device cirrhosis, thrombocytopenia: -per pmd
[2017-12-29] MEDS ORDERED: FUROSEMIDE 40 MG TABLET (FP) PO SCH (14:00)
== END 2017-12-29 14:15 | disposition home or self-care (01) | DRG 291 ==
LOC: JER 14:15 → JERBED 16:32 → J4W 19:18 → J8W 12-28 15:20
PROVIDERS: ADMIT Internal Medicine; ATTEND Internal Medicine
DX: I13.0 Hypertensive heart and chronic kidney disease with heart failure and stage 1 through stage 4 chronic kidney disease, or unspecified chronic kidney disease (principal); I50.33 Acute on chronic diastolic (congestive) heart failure; N17.9 Acute kidney failure, unspecified; I48.92 Unspecified atrial flutter; I42.8 Other cardiomyopathies; I25.10 Atherosclerotic heart disease of native coronary artery without angina pectoris; K70.30 Alcoholic cirrhosis of liver without ascites; I48.91 Unspecified atrial fibrillation; E78.00 Pure hypercholesterolemia, unspecified; Z79.4 Long term (current) use of insulin; Z87.891 Personal history of nicotine dependence; I27.20 Pulmonary hypertension, unspecified; E11.22 Type 2 diabetes mellitus with diabetic chronic kidney disease; N18.9 Chronic kidney disease, unspecified; Z95.2 Presence of prosthetic heart valve
CPT/HCPCS: 36415; 71045-TC-FY; 80048; 80053; 82962; 83880; 85025; 93005; 93010; 99282-25

== ENCOUNTER 2018-02-16 14:47 | Inpatient (IN) | payer MEDICARE ==
--- NOTE | 2018-02-16 15:09 | PDOC ---
Rapid Medical Evaluation Chief Complaint: Blood Sugar Problem Medical Evaluation: Allergies Allergy/AdvReac Type Severity Reaction Status Date / Time No Known Drug Allergies Allergy Verified 02/16/18 14:50 Vital Signs Temp Pulse Resp BP Pulse Ox 97.8 F 67 22 H 136/44 L 100 02/16/18 14:50 02/16/18 14:50 02/16/18 14:50 02/16/18 14:50 02/16/18 14:50 02/16/18 15:06 I have performed a brief in-person evaluation of this patient. The patient presents with a chief complaint of: sent by PCP for evaluation of volume overload due to b/l peripheral lower edema Pertinent physical exam findings: mild b/l peripheral lower edema I have ordered the following: CBC. CMP, LFT, BNP The patient will proceed to the ED for further evaluation. Discharge Disposition - Diagnosis Mild peripheral edema - Referrals - Patient Instructions - Post Discharge Activity
[2018-02-16 15:41] LABS: BASO % 0.9 % (0-2.0); EOS % 3.3 % (0-4.5); HEMATOCRIT 27.4 % (35.4-49); LYMPH % 15.2 % (8-40); MCH 30.8 pg (25.7-33.7); MCHC 32.9 g/dl (32.0-35.9); MEAN CELL VOLUME 93.7 fl (80-96); MEAN PLT VOLUME 9.9 fl (7.5-11.1); MONO % 12.6 % (3.8-10.2); PLATELET COUNT 71 K/MM3 (134-434); RBC 2.92 M/mm3 (4.00-5.60); RDW 15.4 % (11.9-15.9); URINE APPEARANCE CLEAR; URINE BILIRUBIN NEGATIVE (<2.0 mg/dL); URINE GLUCOSE (UA) NEGATIVE (NEGATIVE); URINE KETONE NEGATIVE (NEGATIVE); URINE LEUK ESTERASE NEGATIVE (NEGATIVE); URINE NITRITE NEGATIVE (NEGATIVE); URINE PROTEIN 2+ (NEGATIVE); WHITE BLOOD COUNT 3.7 K/mm3 (4.0-10.0)
[2018-02-16 15:46] LABS: URINE COLOR YELLOW
[2018-02-16 15:52] LABS: INR 1.2 (0.83-1.09); PROTHROMBIN TIME (PATIENT) 14.2 SEC (9.7-13.0)
[2018-02-16 16:16] LABS: ALBUMIN 2.6 g/dl (3.4-5.0); ALK PHOS 160 U/L (45-117); ANION GAP 7 MMOL/L (8-16); BILIRUBIN,DIRECT 0.5 mg/dL (0.0-0.2); BILIRUBIN,TOTAL 1.2 mg/dL (0.2-1); BLOOD UREA NITROGEN 49 mg/dL (7-18); CALCIUM 8.4 mg/dL (8.5-10.1); CHLORIDE 102 mmol/L (98-107); CO2 30 mmol/L (21-32); CREATININE 1.8 mg/dL (0.55-1.3); GLUCOSE,RANDOM 174 mg/dL (74-106); N-TERMINAL BNP 5978.3 pg/ml (5-125); POTASSIUM 4.2 mmol/L (3.5-5.1); SGOT/AST 19 U/L (15-37); SGPT/ALT 20 U/L (13-61); SODIUM 138 mmol/L (136-145); TOT PROT 6.8 g/dl (6.4-8.2)
--- NOTE | 2018-02-16 16:22 | PDOC ---
History of Present Illness - General Chief Complaint: Blood Sugar Problem Stated Complaint: EDEMA Time Seen by Provider: 02/16/18 15:18 History Source: Patient Exam Limitations: No Limitations - History of Present Illness Initial Comments: 02/16/18 16:16 Patient is a 72M with history of DM, CHF, cardiac surgery (likely valve replacement), afib, CAD, liver cancer, ETOH Cirrhosis, HTN, HLD here today complaining of increased swelling in his legs for the past eight days. He states that he has pain in both legs and that they also itch. He was seen by his PMD, who states that he is fluid overloaded. Patient endorses shortness of breath with exertion and increased dyspnea with laying flat. Patient states that he has been compliant with his medications. Denies chest pain, fevers, chills, nausea, vomiting. Denies prior blood clots. Past History - Past Medical History Allergies/Adverse Reactions: Allergies Allergy/AdvReac Type Severity Reaction Status Date / Time No Known Drug Allergies Allergy Verified 02/16/18 14:50 Home Medications: Ambulatory Orders Pravastatin Sodium 10 mg PO DAILY 08/06/16 Tamsulosin HCl 0.4 mg PO DAILY 10/24/16 Insulin (Levemir) [Levemir Flexpen -] 20 units SQ BID 12/10/17 Aspirin Coated [Ecotrin -] 81 mg PO DAILY tablet.ec 12/14/17 Torsemide [Demadex -] 80 mg PO BID 30 Days #60 tab 12/14/17 Lactulose (Oral Use) [Cephulac -] 20 gm PO QID udc 12/19/17 Metoprolol Tartrate 12.5 mg PO BID #30 cap.sr 12/19/17 Anemia: No Cancer: Yes (LIVER CA) Cardiac Disorders: Yes (CHF, atrial fibrillation, CAD, Valve replacement) COPD: No CHF: Yes DVT: No Diabetes: Yes (DMII) GI Disorders: Yes HTN: Yes Hypercholesterolemia: Yes Liver Disease: Yes (LIVER CANCER, ETOH CIRRHOSIS) - Surgical History Abdominal Surgery: Yes Cardiac Surgery: Yes (CABG x3-2005, aortic valve replacement) - Immunization History Immunization Up to Date: Yes - Suicide/Smoking/Psychosocial Hx Smoking Status: Yes Smoking History: Former smoker Have you smoked in the past 12 months: No Number of Cigarettes Smoked Daily: 0 If you are a former smoker, when did you quit?: 2013 Information on smoking cessation initiated: No 'Breaking Loose' booklet given: 12/16/17 Hx Alcohol Use: No Drug/Substance Use Hx: No Substance Use Type: None Hx Substance Use Treatment: No Review of Systems - Review of Systems Comments:: 02/16/18 16:21 GENERAL/CONSTITUTIONAL: No fever or chills. No weakness. HEAD, EYES, EARS, NOSE AND THROAT: No change in vision. No sore throat. CARDIOVASCULAR: No chest pain +shortness of breath RESPIRATORY: No cough, wheezing, or hemoptysis. GASTROINTESTINAL: No nausea, vomiting, diarrhea or constipation. GENITOURINARY: No dysuria, frequency, or change in urination. MUSCULOSKELETAL: No joint or muscle swelling or pain. No neck or back pain. SKIN: No rash NEUROLOGIC: No headache, vertigo, loss of consciousness, or change in strength/ sensation. ENDOCRINE: No increased thirst. No abnormal weight change HEMATOLOGIC/LYMPHATIC: No anemia, easy bleeding, or history of blood clots. ALLERGIC/IMMUNOLOGIC: No hives or skin allergy. *Physical Exam - Vital Signs Last Vital Signs Temp Pulse Resp BP Pulse Ox 97.8 F 67 22 H 136/44 L 100 02/16/18 14:50 02/16/18 14:50 02/16/18 14:50 02/16/18 14:50 02/16/18 14:50 - Physical Exam Comments: 02/16/18 16:22 GENERAL: Awake, alert, and fully oriented, in no acute distress HEAD: No signs of trauma, normocephalic, atraumatic EYES: PERRLA, EOMI, sclera anicteric, conjunctiva clear ENT: Auricles normal inspection, hearing grossly normal, nares patent, oropharynx clear without exudates. Moist mucosa NECK: Normal ROM, supple, no lymphadenopathy, JVD, or masses LUNGS: No distress, speaks full sentences, clear to auscultation bilaterally HEART: Regular rate and rhythm, normal S1 and S2, +3/6 blowing murmur, peripheral pulses normal and equal bilaterally. ABDOMEN: Soft, nontender, normoactive bowel sounds. No guarding, no rebound. No masses EXTREMITIES: Normal inspection, Normal range of motion, 2+ edema bilaterally with erythema, on bullous fluid collection in anterior leg, not warm to touch. No clubbing or cyanosis. NEUROLOGICAL: Cranial nerves II through XII grossly intact. Normal speech, no focal sensorimotor deficits SKIN: Warm, Dry, normal turgor, no rashes or lesions noted. ED Treatment Course - LABORATORY CBC & Chemistry Diagram: 02/16/18 15:30 02/16/18 15:30 - ADDITIONAL ORDERS Additional order review: Laboratory Results 02/16/18 02/16/18 02/16/18 15:30 15:30 15:30 PT with INR 14.20 H INR 1.20 H Sodium 138 Potassium 4.2 Chloride 102 Carbon Dioxide 30 Anion Gap 7 L BUN 49 H Creatinine 1.8 H Creat Clearance w eGFR 37.38 POC Glucometer Random Glucose 174 H Calcium 8.4 L Total Bilirubin 1.2 H Direct Bilirubin 0.5 H AST 19 ALT 20 Alkaline Phosphatase 160 H Creatine Kinase 85 Troponin I 0.04 B-Natriuretic Peptide 5978.3 H Total Protein 6.8 Albumin 2.6 L Urine Color Yellow Urine Appearance Clear Urine pH 6.0 Ur Specific [place] 1.010 Urine Protein 2+ H Urine Glucose (UA) Negative Urine Ketones Negative Urine Blood Negative Urine Nitrite Negative Urine Bilirubin Negative Urine Urobilinogen 2.0 Ur Leukocyte Esterase Negative Urine WBC (Auto) <1 Urine RBC (Auto) 1 02/16/18 15:16 PT with INR INR Sodium Potassium Chloride Carbon Dioxide Anion Gap BUN Creatinine Creat Clearance w eGFR POC Glucometer 206.60500 Random Glucose Calcium Total Bilirubin Direct Bilirubin AST ALT Alkaline Phosphatase Creatine Kinase Troponin I B-Natriuretic Peptide Total Protein Albumin Urine Color Urine Appearance Urine pH Ur Specific [place] Urine Protein Urine Glucose (UA) Urine Ketones Urine Blood Urine Nitrite Urine Bilirubin Urine Urobilinogen Ur Leukocyte Esterase Urine WBC (Auto) Urine RBC (Auto) 02/16/18 02/16/18 15:30 15:16 RBC 2.92 L MCV 93.7 MCHC 32.9 RDW 15.4 MPV 9.9 Neutrophils % 68.0 Lymphocytes % 15.2 Monocytes % 12.6 H Eosinophils % 3.3 Basophils % 0.9 POC Glucometer [phone] - RADIOLOGY Radiology Studies Ordered: Category Date Time Status CXRPORT [CHEST X-RAY PORTABLE*] [RAD] Stat Radiology 02/16/18 15:33 Taken Medical Decision Making - Medical Decision Making 02/16/18 16:27 Patient is a 72M with history of DM, CHF, cardiac surgery (likely valve replacement), afib, CAD, liver cancer, ETOH Cirrhosis, HTN, HLD here today with signs of fluid overload. DDx includes, but is not limited to: chf exacerbation, acs, pneumonia. Will workup with cardiac labs, cxr, ekg. 02/16/18 17:54 Laboratory Tests 02/16/18 02/16/18 02/16/18 15:30 15:30 15:30 WBC 3.7 L Hgb 9.0 L Plt Count 71 L INR 1.20 H BUN 49 H Creatinine 1.8 H Troponin I 0.04 B-Natriuretic Peptide 5978.3 H Urine Nitrite Ur Leukocyte Esterase Urine WBC (Auto) Urine RBC (Auto) 02/16/18 15:30 WBC Hgb Plt Count INR BUN Creatinine Troponin I B-Natriuretic Peptide Urine Nitrite Negative Ur Leukocyte Esterase Negative Urine WBC (Auto) <1 Urine RBC (Auto) 1 CBC shows anemia, at baseline. CKD at baseline. Trop 0.04, UA clear. BNP elevated. CXR shows evidence of CHF. EKG shows sinus rhythm with 1st degree av block with t wave inversionsin I, II. No st elevations/depressions. Normal axis normal intervals. Admitted to m/s. *DC/Admit/Observation/Transfer Diagnosis at time of Disposition: CHF exacerbation - Discharge Dispostion Condition at time of disposition: Stable Decision to Admit order: Yes - Referrals Referrals: Lindsay Wood MD [Primary Care Provider] - - Patient Instructions - Post Discharge Activity
[2018-02-16] MEDS ORDERED: FUROSEMIDE 40 MG/4 ML INJECTABLE VIAL IVPUSH ONE (16:42)
--- NOTE | 2018-02-16 16:42 | PDOC ---
Attending Attestation - Resident Resident Name: Steven Cronin - ED Attending Attestation I have performed the following: I have examined & evaluated the patient, The case was reviewed & discussed with the resident, I agree w/resident's findings & plan - HPI HPI: 02/16/18 20:04 72M with history of DM, CHF, cardiac surgery (likely valve replacement), afib, CAD, liver cancer, ETOH Cirrhosis, HTN, HLD here today complaining of increased swelling in his legs x [address] Devora Love 02/16/18 20:04 - Physicial Exam PE: 02/16/18 20:04 NAD, well appearing, MMM, nl conjunctiva, anicteric; neck supple. lungs clear, + diastolic murmur. abdomen soft non tender. EDGAR x4, no focal neuro deficits. bilateral venous stasis changes over shins, +blister on right lower extrem. +peripheral edema. normal color for ethnicity, WWP. - Medical Decision Making 02/16/18 20:05 72 YOM with leg swelling. vitals with mild hypertension, normal sats and no respiratory distress labs and lytes_baseline Cr elevation, bnp elevated likely secondary to CKD. trop neg, EKG nonischemic. lytes normal. baseline anemia and low Wbc ct. no fevers, doubt infection CXR with cardiomegaly, pulmonary edema. given laxis 40mg x1 for fluid overload treat as chf and fluid overload admit to Dr. Love. 02/16/18 20:07
[2018-02-16] MEDS ORDERED: FUROSEMIDE 40 MG/4 ML INJECTABLE VIAL ONE (17:48)
[2018-02-16] MEDS ORDERED: ACETAMINOPHEN 325 MG TABLET (FP) PO PRN (18:33)
[2018-02-16] MEDS ORDERED: METOPROLOL TARTRATE 25 MG TABLET (FP) ONE (20:46)
[2018-02-16] MEDS ORDERED: HEPARIN NA (PORCINE) 5,000 UNITS/ML 1ML VIAL ONE (20:46)
[2018-02-16] MEDS ORDERED: ATORVASTATIN CA 10 MG TABLET (FP) ONE (20:46)
--- NOTE | 2018-02-16 21:50 | HP ---
CHIEF COMPLAINT: SOB/leg swelling PCP: Dr. Lindsay Pastor HISTORY OF PRESENT ILLNESS: 72 year old man with a PMH of CHF, A-fib, HTN, HLD, CAD, DM, Liver cancer, ETOH cirrhosis presented to the ED c/o leg swelling an SOB. Patient reports his legs gradually became more swollen over the past week. He has never seen his legs this swollen before with itchy skin and a raised, fluid-filled lesion. He reports he is only able to walk one block before becoming exhausted and short of breath. He sleeps with 3 pillows at night. He feels tired all the time. He reports he is diligent about taking his diuretic torsemide. Denies fever, dizziness, chest pain, hemoptisis, N/V/D, or recent diet change. Upon arrival to the ED, he was given Lasix 40 mg IM x 1 to good effect. Labs were notable BMP of 5,978.3 which is slightly higher than his baseline. Troponin #1 0.04. CXR significant for mild pulmonary congestion. Recent Travel: No PAST MEDICAL HISTORY: CHF A-fib HTN HLD CAD DM Liver cancer ETOh cirrhosis PAST SURGICAL HISTORY: CABG x 3 2004 Aortic valve replacement Social History: Smoking: Former, quit 13 years ago Alcohol: Former abuse, quit 13 years ago Drugs: Denies Family History: Mother: Cirrhosis, age 60 Allergies No Known Drug Allergies Allergy (Verified 02/16/18 14:50) HOME MEDICATIONS: Home Medications Medication Instructions Recorded Pravastatin Sodium 10 mg PO DAILY 08/06/16 Tamsulosin HCl 0.4 mg PO DAILY 10/24/16 Insulin (Levemir) [Levemir Flexpen 20 units SQ BID 12/10/17 -] Aspirin Coated [Ecotrin -] 81 mg PO DAILY tablet.ec 12/14/17 Torsemide [Demadex -] 80 mg PO BID 30 Days #60 tab 12/14/17 Lactulose (Oral Use) [Cephulac -] 20 gm PO QID udc 12/19/17 Metoprolol Tartrate 12.5 mg PO BID #30 cap.sr 12/19/17 REVIEW OF SYSTEMS CONSTITUTIONAL: (+) chills Absent: fever, diaphoresis, generalized weakness, malaise, loss of appetite, weight change HEENT: Absent: rhinorrhea, nasal congestion, throat pain, throat swelling, difficulty swallowing, mouth swelling, ear pain, eye pain, visual changes CARDIOVASCULAR: (+) peripheral edema Absent: chest pain, syncope, palpitations, irregular heart rate, lightheadedness , RESPIRATORY: (+) shortness of breath, dyspnea with exertion, orthopnea Absent: cough,wheezing, stridor, hemoptysis GASTROINTESTINAL: Absent: abdominal pain, abdominal distension, nausea, vomiting, diarrhea, constipation, melena, hematochezia GENITOURINARY: Absent: dysuria, frequency, urgency, hesitancy, hematuria, flank pain, genital pain MUSCULOSKELETAL: Absent: myalgia, arthralgia, joint swelling, back pain, neck pain SKIN: (+) itching to legs Absent: rash, pallor HEMATOLOGIC/IMMUNOLOGIC: Absent: easy bleeding, easy bruising, lymphadenopathy, frequent infections ENDOCRINE: Absent: unexplained weight gain, unexplained weight loss, heat intolerance, cold intolerance NEUROLOGIC: Absent: headache, focal weakness or paresthesias, dizziness, unsteady gait, seizure, mental status changes, bladder or bowel incontinence PSYCHIATRIC: Absent: anxiety, depression, suicidal or homicidal ideation, hallucinations. PHYSICAL EXAMINATION Vital Signs - 24 hr 02/16/18 02/16/18 14:50 17:40 Temperature 97.8 F 97.8 F Pulse Rate 67 Pulse Rate [ 65 Left Apical] Respiratory 22 H 16 Rate Blood Pressure 136/44 L Blood Pressure 133/56 L [Left Arm] O2 Sat by Pulse 100 97 Oximetry (%) GENERAL: Awake, alert, and fully oriented, in no acute distress. HEAD: Normal with no signs of trauma. EYES: Pupils equal, round and reactive to light, extraocular movements intact, sclera anicteric, conjunctiva clear. No lid lag. EARS, NOSE, THROAT: Nares patent, oropharynx clear without exudates. Moist mucous membranes. NECK: Normal range of motion, supple without lymphadenopathy, JVD, or masses. LUNGS: Breath sounds equal, clear to auscultation bilaterally. No wheezes, and no crackles. No accessory muscle use. HEART: Regular rate and rhythm, normal S1 and S2 without murmur, rub or gallop. ABDOMEN: Soft, nontender, not distended, normoactive bowel sounds, no guarding, no rebound, no masses. No hepatomegaly or splenomegaly. MUSCULOSKELETAL: Normal range of motion at all joints. No bony deformities or tenderness. No CVA tenderness. UPPER EXTREMITIES: 2+ pulses, warm, well-perfused. No cyanosis. No clubbing. No peripheral edema. LOWER EXTREMITIES: +2 pitting edema with [id number] raised, rere fluid filled vesicle to right calf. NEUROLOGICAL: No facial droop, tongue midline, normal speech. gait not observed. PSYCHIATRIC: Cooperative. Good eye contact. Appropriate mood and affect. SKIN: Warm, dry, normal turgor, no rashes or lesions noted, normal capillary refill. Laboratory Results - last 24 hr 02/16/18 02/16/18 02/16/18 15:16 15:30 15:30 WBC 3.7 L RBC 2.92 L Hgb 9.0 L Hct 27.4 L MCV 93.7 MCH 30.8 MCHC 32.9 RDW 15.4 Plt Count 71 L MPV 9.9 Absolute Neuts (auto) 2.5 Neutrophils % 68.0 Lymphocytes % 15.2 Monocytes % 12.6 H Eosinophils % 3.3 Basophils % 0.9 Nucleated RBC % 0 PT with INR INR Sodium 138 Potassium 4.2 Chloride 102 Carbon Dioxide 30 Anion Gap 7 L BUN 49 H Creatinine 1.8 H Creat Clearance w eGFR 37.38 POC Glucometer 206.52584 Random Glucose 174 H Calcium 8.4 L Total Bilirubin 1.2 H Direct Bilirubin 0.5 H AST 19 ALT 20 Alkaline Phosphatase 160 H Creatine Kinase 85 Troponin I 0.04 B-Natriuretic Peptide 5978.3 H Total Protein 6.8 Albumin 2.6 L Urine Color Urine Appearance Urine pH Ur Specific [place] Urine Protein Urine Glucose (UA) Urine Ketones Urine Blood Urine Nitrite Urine Bilirubin Urine Urobilinogen Ur Leukocyte Esterase Urine WBC (Auto) Urine RBC (Auto) 02/16/18 02/16/18 15:30 15:30 WBC RBC Hgb Hct MCV MCH MCHC RDW Plt Count MPV Absolute Neuts (auto) Neutrophils % Lymphocytes % Monocytes % Eosinophils % Basophils % Nucleated RBC % PT with INR 14.20 H INR 1.20 H Sodium Potassium Chloride Carbon Dioxide Anion Gap BUN Creatinine Creat Clearance w eGFR POC Glucometer Random Glucose Calcium Total Bilirubin Direct Bilirubin AST ALT Alkaline Phosphatase Creatine Kinase Troponin I B-Natriuretic Peptide Total Protein Albumin Urine Color Yellow Urine Appearance Clear Urine pH 6.0 Ur Specific [place] 1.010 Urine Protein 2+ H Urine Glucose (UA) Negative Urine Ketones Negative Urine Blood Negative Urine Nitrite Negative Urine Bilirubin Negative Urine Urobilinogen 2.0 Ur Leukocyte Esterase Negative Urine WBC (Auto) <1 Urine RBC (Auto) 1 CXR Cardiomegaly with possible mild pulmonary venous congestion. ASSESSMENT/PLAN: 72 year old man with a PMH significant for CHF, A-fib, HTN, HLD, CAD, DM, Liver cancer, ETOH cirrhosis presented to the ED c/o leg swelling an SOB. He was admitted or CHF exacerbation. CHF Exacerbation --No respiratory distress --Given Lasix 40 mg IM in the ED --Lasix 80 mg IV qAM at 6:00 AM --Hold home Lasix of 40 mg BID --Daily weights --Cardiac consult ordered A-fib -Metoprolol 12.5mg BID for rate control -no ac/asa 2/2 cirrhosis with thrombocytopenia and esoph varices -Started on prophylactic heparin SQ HTN -On metoprolol and lasix -Monitor BP HLD -Continue Atorvastatin 10 mg QHS DM -Continue Levemir 20 U SQ BID -SS with Novolog -Monitor glucose -Diabetic diet FEN --PO intake adequate --Electrolytes replete as indicated --Diabetic diet DVT Prophylaxis --OOB, ambulation, heparin relative contraindication d/t platelet count and hx of esophageal varices Dispo: pt currently requires further inpatient care. FULL CODE Visit type - Emergency Visit Emergency Visit: Yes ED Registration Date: 02/16/18 Care time: The patient presented to the Emergency Department on the above date and was hospitalized for further evaluation of their emergent condition. - New Patient This patient is new to me today: No - Critical Care Critical Care patient: No
[2018-02-16] MEDS ORDERED: PATIENT'S OWN MEDICATION (NON-FORMULARY) (Insulin (Levemir) [Levemir Flexpen -] 20 UNITS) SQ SCH (22:00)
[2018-02-16] MEDS ORDERED: HEPARIN NA (PORCINE) 5,000 UNITS/ML 1ML VIAL SQ SCH (22:00)
[2018-02-16] MEDS ORDERED: PATIENT'S OWN MEDICATION (NON-FORMULARY) (Pravastatin Sodium [Pravastatin Sodium] 10 MG) PO SCH (22:00)
[2018-02-16] MEDS ORDERED: TORSEMIDE 20 MG TABLET (FP) PO SCH ×2 (22:00)
[2018-02-16] MEDS ORDERED: HEMOQUE TEST 1 EACH EACH ONE (22:12)
[2018-02-16] MEDS: INSULIN (LEVEMIR) 100 UNITS/ML UNITS SQ SCH (22:29)
[2018-02-16] MEDS: INSULIN SLIDING SCALE (NOVOLOG) 1 VIAL SQ SCH (22:30)
[2018-02-16] MEDS: ATORVASTATIN CA 10 MG TABLET (FP) PO SCH (22:30)
[2018-02-16] MEDS: METOPROLOL TARTRATE 25 MG TABLET (FP) PO SCH (22:30)
[2018-02-16] MEDS ORDERED: INSULIN (NOVOLOG) ASPART 100 UNITS/ML 10ML VIAL ONE (22:38)
[2018-02-16] MEDS ORDERED: INSULIN (NOVOLOG) ASPART 100 UNITS/ML 10ML VIAL SQ ONE (23:39)
[2018-02-17] MEDS ORDERED: FUROSEMIDE 40 MG/4 ML INJECTABLE VIAL IVPUSH SCH (06:00)
[2018-02-17] MEDS ORDERED: TORSEMIDE 20 MG TABLET (FP) PO SCH (06:00)
[2018-02-17 07:49] LABS: HEMATOCRIT 25.6 % (35.4-49); HEMOGLOBIN 8.4 GM/dL (11.7-16.9); MCH 30.7 pg (25.7-33.7); MCHC 32.7 g/dl (32.0-35.9); MEAN CELL VOLUME 93.9 fl (80-96); PLATELET COUNT 61 K/MM3 (134-434); RBC 2.73 M/mm3 (4.00-5.60); RDW 15.1 % (11.9-15.9)
[2018-02-17 08:44] LABS: ANION GAP 7 MMOL/L (8-16); BLOOD UREA NITROGEN 52 mg/dL (7-18); CALCIUM 8.2 mg/dL (8.5-10.1); CHLORIDE 105 mmol/L (98-107); CO2 30 mmol/L (21-32); CREATININE 1.8 mg/dL (0.55-1.3); GLUCOSE,RANDOM 134 mg/dL (74-106); MAGNESIUM 2.2 mg/dL (1.8-2.4); POTASSIUM 4.5 mmol/L (3.5-5.1); SODIUM 141 mmol/L (136-145)
[2018-02-17] MEDS: INSULIN SLIDING SCALE (NOVOLOG) 1 VIAL SQ SCH ×3 (08:53→17:25)
[2018-02-17] MEDS ORDERED: METOPROLOL TARTRATE 25 MG TABLET (FP) ONE (09:00)
[2018-02-17] MEDS ORDERED: TAMSULOSIN HCL 0.4 MG CAP ONE (09:00)
[2018-02-17] MEDS ORDERED: FUROSEMIDE 40 MG/4 ML INJECTABLE VIAL ONE (09:00)
[2018-02-17] MEDS ORDERED: INSULIN (LEVEMIR) 100 UNITS/ML UNITS SQ ONE ×2 (09:01→23:00)
[2018-02-17] MEDS ORDERED: ASPIRIN 81 MG CHEWABLE TABLETS ONE (09:01)
[2018-02-17] MEDS: ASPIRIN COATED 81 MG TABLET.EC PO SCH (09:04)
[2018-02-17] MEDS: INSULIN (LEVEMIR) 100 UNITS/ML UNITS SQ SCH ×2 (09:04→22:40)
[2018-02-17] MEDS: TAMSULOSIN HCL 0.4 MG CAP PO SCH (09:04)
[2018-02-17] MEDS: METOPROLOL TARTRATE 25 MG TABLET (FP) PO SCH (09:15)
--- NOTE | 2018-02-17 09:53 | PN ---
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 (short form) - Note 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: Pt examined in ED Still SOB but better after lasix Vital Signs - 24 hr 02/16/18 02/16/18 02/16/18 14:50 17:40 22:31 Temperature 97.8 F 97.8 F 99.0 F Pulse Rate 67 Pulse Rate [ 65 71 Left Apical] Respiratory 22 H 16 18 Rate Blood Pressure 136/44 L Blood Pressure 133/56 L 147/59 L [Left Arm] O2 Sat by Pulse 100 97 98 Oximetry (%) 02/17/18 08:23 Temperature 98.4 F Pulse Rate Pulse Rate [ 62 Left Apical] Respiratory 18 Rate Blood Pressure Blood Pressure 153/71 [Left Arm] O2 Sat by Pulse 98 Oximetry (%) S1 S2 RRR Lungs decreased Abd- soft, NT Edema+ PLAN IV lasix Cardiology eval monitor renal function No AC in view of cirrhosis and low platelets Problem List - Problems (1) Atrial flutter Code(s): I48.92 - UNSPECIFIED ATRIAL FLUTTER (2) CHF exacerbation Code(s): I50.9 - HEART FAILURE, UNSPECIFIED (3) CHF (congestive heart failure) Code(s): I50.9 - HEART FAILURE, UNSPECIFIED Qualifiers: Heart failure type: unspecified Heart failure chronicity: acute on chronic Qualified Code(s): I50.9 - Heart failure, unspecified (4) Chronic kidney disease (CKD) Code(s): N18.9 - CHRONIC KIDNEY DISEASE, UNSPECIFIED (5) Diabetes 1.5, managed as type 2 Code(s): E13.9 - OTHER SPECIFIED DIABETES MELLITUS WITHOUT COMPLICATIONS
--- NOTE | 2018-02-17 10:00 | EKG ---
Test Reason : Blood Pressure : / mmHG Vent. Rate : 067 BPM Atrial Rate : 067 BPM P-R Int : 000 ms QRS Dur : 104 ms QT Int : 438 ms P-R-T Axes : 016 -20 108 degrees QTc Int : 462 ms SINUS RHYTHM WITH 1ST DEGREE A-V BLOCK T WAVE ABNORMALITY, CONSIDER LATERAL ISCHEMIA ABNORMAL ECG WHEN COMPARED WITH ECG OF 24-DEC-2017 15:01, NO SIGNIFICANT CHANGE WAS FOUND Confirmed by RAZIA FRASER MD ([id number]) on 02/17/2018 10:00:06 AM Referred By: Confirmed By:RAZIA FRASER MD
--- NOTE | 2018-02-17 10:19 | CON.CARD ---
Cardiology Consult (text) - Consultation Consultation Note: Consultation Note: Chief Complaint: sob, le edema History of Present Illness: 72 M presented with sob, le edema. Recent admit for chf, was discharged early December, discharged home on torsemide 80 bid and endorses compliance. Noticed legs got more swollen and got ma. No cp, palps dizzy loc. Has been eating more czech food. also with blister on his RLE. PMH: afib HFpEF/RV chf CKD cirrhosis CAD bioAVR and prior asc aorta repair - Past Medical History Cardio/Vascular: Yes: AFIB, Aortic Stenosis, CHF Hepatobiliary: Yes: Cirrhosis Endocrine: Yes: Diabetes Mellitus - Past Surgical History Past Surgical History: Yes: Valve Replacement - Alcohol/Substance Use Hx Alcohol Use: No - Smoking History Smoking history: Never smoked Have you smoked in the past 12 months: No Aproximately how many cigarettes per day: 0 If you are a former smoker, when did you quit?: 2004 - Social History Usual Living Arrangement: With Spouse Home Medications - Allergies Allergies/Adverse Reactions: Allergies Allergy/AdvReac Type Severity Reaction Status Date / Time No Known Drug Allergies Allergy Verified 12/24/17 14:36 Home Medications Medication Instructions Recorded Pravastatin Sodium 10 mg PO DAILY 08/06/16 Tamsulosin HCl 0.4 mg PO DAILY 10/24/16 Insulin (Levemir) [Levemir Flexpen 20 units SQ BID 12/10/17 -] Aspirin Coated [Ecotrin -] 81 mg PO DAILY tablet.ec 12/14/17 Torsemide [Demadex -] 80 mg PO BID 30 Days #60 tab 12/14/17 Lactulose (Oral Use) [Cephulac -] 20 gm PO QID udc 12/19/17 Metoprolol Tartrate 12.5 mg PO BID #30 cap.sr 12/19/17 Review of Systems - Review of Systems Constitutional: denies: Chills, Fever Eyes: denies: Eye Pain HENT: denies: Nasal Congestion Neck: denies: Stiffness Cardiovascular: denies: Palpitations Gastrointestinal: denies: Diarrhea, Rectal Bleeding Genitourinary: denies: Burning, Hematuria Musculoskeletal: denies: Muscle Pain Integumentary: denies: Rash Neurological: denies: Numbness, Seizure, Syncope Endocrine: denies: Excessive Sweating Hematology/Lymphatic: denies: Excessive Bleeding Vital Signs: Vital Signs Period Temp Pulse Resp BP Sys/Sheldon Pulse Ox Last 24 Hr 97.8 F-99.0 F 62-71 16-22 133-153/44-71 97-100 Constitutional: Yes: Well Nourished, No Distress Eyes: No: Sclera Icterus HENT: No: Nasal Congestion Neck: No: Decreased ROM Respiratory: Yes: CTA Bilaterally. No: Accessory Muscle Use, Rales, Wheezes Gastrointestinal: Yes: Normal Bowel Sounds. No: Distention, Hepatomegaly, Palpable Mass, Tenderness Cardiovascular: Yes: Regular Rate and Rhythm JVD: Yes Carotid Bruit: No PMI: Non-Displaced Heart Sounds: Yes: S1, S2. No: Gallop Murmur: No: Systolic Murmur, Diastolic Murmur Musculoskeletal: Yes: Other (No kyphosis) Extremities: No: Cold, Cyanosis Edema: 1-2+ le edema bl Peripheral Pulses: 2+ Left Carotid, 2+ Right Carotid, 2+ Left Doralis Pedis, 2+ Right Dorsalis Pedis Integumentary: No: Jaundice Neurological: Yes: Alert, Oriented (x3) Psychiatric: No: Agitated Current Medications Acetaminophen (Tylenol -) 650 mg PO Q4H PRN PRN Reason: PAIN LEVEL 1-5 Aspirin (Ecotrin -) 81 mg PO DAILY [facility] Last Admin: 02/17/18 09:04 Dose: 81 mg Atorvastatin Calcium (Lipitor -) 10 mg PO HS [facility] Last Admin: 02/16/18 22:30 Dose: 10 mg Furosemide (Lasix Injection -) 80 mg IVPUSH DAILY@0600 [facility] Last Admin: 02/17/18 09:04 Dose: 80 mg Insulin Aspart (Novolog Vial Sliding Scale -) 1 vial SQ [facility]; Protocol Last Admin: 02/17/18 08:53 Dose: Not Given Insulin Detemir (Levemir Vial) 20 units SQ BID@0700,2200 [facility] Last Admin: 02/17/18 09:04 Dose: 20 unit Metoprolol Tartrate (Lopressor -) 12.5 mg PO BID [facility] Last Admin: 02/16/18 22:30 Dose: 12.5 mg Tamsulosin HCl (Flomax -) 0.4 mg PO DAILY@0830 [facility] Last Admin: 02/17/18 09:04 Dose: 0.4 mg Laboratory Results - last 24 hr 02/16/18 02/16/18 02/16/18 15:16 15:30 15:30 WBC 3.7 L RBC 2.92 L Hgb 9.0 L Hct 27.4 L MCV 93.7 MCH 30.8 MCHC 32.9 RDW 15.4 Plt Count 71 L MPV 9.9 Absolute Neuts (auto) 2.5 Neutrophils % 68.0 Lymphocytes % 15.2 Monocytes % 12.6 H Eosinophils % 3.3 Basophils % 0.9 Nucleated RBC % 0 PT with INR INR Sodium 138 Potassium 4.2 Chloride 102 Carbon Dioxide 30 Anion Gap 7 L BUN 49 H Creatinine 1.8 H Creat Clearance w eGFR 37.38 POC Glucometer 206.59848 Random Glucose 174 H Calcium 8.4 L Magnesium Total Bilirubin 1.2 H Direct Bilirubin 0.5 H AST 19 ALT 20 Alkaline Phosphatase 160 H Creatine Kinase 85 Troponin I 0.04 B-Natriuretic Peptide 5978.3 H Total Protein 6.8 Albumin 2.6 L Urine Color Urine Appearance Urine pH Ur Specific Bo[place] Urine Protein Urine Glucose (UA) Urine Ketones Urine Blood Urine Nitrite Urine Bilirubin Urine Urobilinogen Ur Leukocyte Esterase Urine WBC (Auto) Urine RBC (Auto) 02/16/18 02/16/18 02/16/18 15:30 15:30 22:15 WBC RBC Hgb Hct MCV MCH MCHC RDW Plt Count MPV Absolute Neuts (auto) Neutrophils % Lymphocytes % Monocytes % Eosinophils % Basophils % Nucleated RBC % PT with INR 14.20 H INR 1.20 H Sodium Potassium Chloride Carbon Dioxide Anion Gap BUN Creatinine Creat Clearance w eGFR POC Glucometer [phone] Random Glucose Calcium Magnesium Total Bilirubin Direct Bilirubin AST ALT Alkaline Phosphatase Creatine Kinase Troponin I B-Natriuretic Peptide Total Protein Albumin Urine Color Yellow Urine Appearance Clear Urine pH 6.0 Ur Specific [place] 1.010 Urine Protein 2+ H Urine Glucose (UA) Negative Urine Ketones Negative Urine Blood Negative Urine Nitrite Negative Urine Bilirubin Negative Urine Urobilinogen 2.0 Ur Leukocyte Esterase Negative Urine WBC (Auto) <1 Urine RBC (Auto) 1 02/17/18 02/17/18 02/17/18 02:18 06:30 06:30 WBC 3.0 L RBC 2.73 L Hgb 8.4 L Hct 25.6 L MCV 93.9 MCH 30.7 MCHC 32.7 RDW 15.1 Plt Count 61 L MPV 10.0 Absolute Neuts (auto) Neutrophils % Lymphocytes % Monocytes % Eosinophils % Basophils % Nucleated RBC % PT with INR INR Sodium 141 Potassium 4.5 Chloride 105 Carbon Dioxide 30 Anion Gap 7 L BUN 52 H Creatinine 1.8 H Creat Clearance w eGFR 37.38 POC Glucometer Random Glucose 134 H Calcium 8.2 L Magnesium 2.2 Total Bilirubin Direct Bilirubin AST ALT Alkaline Phosphatase Creatine Kinase 60 Troponin I 0.04 B-Natriuretic Peptide Total Protein Albumin Urine Color Urine Appearance Urine pH Ur Specific [place] Urine Protein Urine Glucose (UA) Urine Ketones Urine Blood Urine Nitrite Urine Bilirubin Urine Urobilinogen Ur Leukocyte Esterase Urine WBC (Auto) Urine RBC (Auto) 02/17/18 06:30 WBC RBC Hgb Hct MCV MCH MCHC RDW Plt Count MPV Absolute Neuts (auto) Neutrophils % Lymphocytes % Monocytes % Eosinophils % Basophils % Nucleated RBC % PT with INR INR Sodium Potassium Chloride Carbon Dioxide Anion Gap BUN Creatinine Creat Clearance w eGFR POC Glucometer Random Glucose Calcium Magnesium Total Bilirubin Direct Bilirubin AST ALT Alkaline Phosphatase Creatine Kinase 62 Troponin I 0.03 B-Natriuretic Peptide Total Protein Albumin Urine Color Urine Appearance Urine pH Ur Specific [place] Urine Protein Urine Glucose (UA) Urine Ketones Urine Blood Urine Nitrite Urine Bilirubin Urine Urobilinogen Ur Leukocyte Esterase Urine WBC (Auto) Urine RBC (Auto) Echo 01/11: nl LVSF, mild LVH. mild-mod RV dilation, borderline RVSF. mod LAE. mod AI, mild-mod TR. RVSP 30-40 MIBI 2013: nl mpi ECG: SR, nl intervals, LVH with repol abn,--no sig change vs prior CXR: chf Assessment/Plan acute exacerbation HFpEF, RV cardiomyopathy: - Recent admit for chf, discharged home on torsemide 80 bid endorses compliance , but has a history of poor diet - last discharge weight 165 lbs - received lasix 40 mg IV, will increase to 80 mg IV BID and reassess in AM - daily chem7, standing wts, i/o cad,h/o CABG: -stable, no angina, no signs acs -cont home statin, metoprolol -not on asa 2/2 thrombocytopenia CKD: -baseline creat 1.6-1.8 -Cr stable at 1.8, monitor with lasix s/p bio-avr: -moderate AI on echo 01/11 (was mild in 2014) -no wide pulse pressure--doubt contributing to chf. -routine outpt monitoring with dr jeffrey f/u s/p ascending aorta repair: -cont bb, statin, bp control -no root or ascending aorta dilation noted on echo -outpt f/u HTN: -bp stable -cont home meds aflutter: -no tachy issues, has been in sinus on recent admits -continue metoprolol 12.5 mg BID -no ac/asa 2/2 cirrhosis with thrombocytopenia and esoph varices--per prior outpt tx plan -similarly, could not safely give 6 wks AC then 6 wks DAPT so not a candidate for Watchman EDG[employer] closure device cirrhosis, thrombocytopenia: -per pmd
[2018-02-17] MEDS ORDERED: INSULIN (NOVOLOG) ASPART 100 UNITS/ML 10ML VIAL ONE ×2 (12:22→17:26)
[2018-02-17] MEDS: FUROSEMIDE 40 MG/4 ML INJECTABLE VIAL IVPUSH SCH (14:37)
[2018-02-17] MEDS: ATORVASTATIN CA 10 MG TABLET (FP) PO SCH (22:40)
[2018-02-17] MEDS ORDERED: ATORVASTATIN CA 10 MG TABLET (FP) ONE (22:59)
[2018-02-18] MEDS: METOPROLOL TARTRATE 25 MG TABLET (FP) PO SCH ×3 (00:10→21:53)
[2018-02-18] MEDS: INSULIN SLIDING SCALE (NOVOLOG) 1 VIAL SQ SCH ×5 (00:11→21:56)
[2018-02-18] MEDS ORDERED: METOPROLOL TARTRATE 25 MG TABLET (FP) ONE (00:14)
[2018-02-18] MEDS: INSULIN (LEVEMIR) 100 UNITS/ML UNITS SQ SCH ×2 (06:24→21:56)
[2018-02-18] MEDS: FUROSEMIDE 40 MG/4 ML INJECTABLE VIAL IVPUSH SCH ×2 (06:28→13:49)
[2018-02-18] MEDS: TAMSULOSIN HCL 0.4 MG CAP PO SCH (09:18)
[2018-02-18] MEDS: ASPIRIN COATED 81 MG TABLET.EC PO SCH (09:19)
--- NOTE | 2018-02-18 10:45 | PN ---
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 (short form) - Note 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: Pt examined better today after lasix Current Medications Generic Name Dose Route Start Last Admin Trade Name Radha PRN Reason Stop Dose Admin Acetaminophen 650 mg 02/16/18 18:33 Tylenol - PO Q4H PRN PAIN LEVEL 1-5 Aspirin 81 mg 02/17/18 10:00 02/18/18 09:19 Ecotrin - PO 81 mg DAILY ELIZABETH Administration Atorvastatin Calcium 10 mg 02/16/18 22:00 02/17/18 22:40 Lipitor - PO 10 mg HS ELIZABETH Administration Furosemide 80 mg 02/17/18 14:00 02/18/18 06:28 Lasix Injection - IVPUSH 80 mg BID@0600,1400 ELIZABETH Administration Insulin Aspart 1 vial 02/16/18 22:00 02/18/18 06:30 Novolog Vial Sliding Scale - SQ Not Given [facility]S [facility] Protocol Insulin Detemir 20 units 02/16/18 22:00 02/18/18 06:24 Levemir Vial SQ 20 unit BID@0700,2200 ELIZABETH Administration Metoprolol Tartrate 12.5 mg 02/16/18 22:00 02/18/18 09:18 Lopressor - PO 12.5 mg BID ELIZABETH Administration Tamsulosin HCl 0.4 mg 02/17/18 08:30 02/18/18 09:18 Flomax - PO 0.4 mg DAILY@0830 ELIZABETH Administration Selected Entries 02/18/18 09:00 Temperature 97.6 F Pulse Rate 66 Respiratory 17 Rate Blood Pressure 146/64 O2 Sat by Pulse 100 Oximetry (%) Oxygen Delivery Room Air Method Laboratory Tests 02/18/18 11:33 Sodium 143 Potassium 4.1 Chloride 107 Carbon Dioxide 31 Anion Gap 5 L BUN 49 H Creatinine 1.6 H Random Glucose 84 Calcium 8.0 L S1 S2 RRR Lungs decreased Abd- soft, NT Edema+ PLAN IV lasix Cardiology eval noted monitor renal function - better No AC in view of cirrhosis and low platelets Problem List - Problems (1) Atrial flutter Code(s): I48.92 - UNSPECIFIED ATRIAL FLUTTER (2) CHF exacerbation Code(s): I50.9 - HEART FAILURE, UNSPECIFIED (3) CHF (congestive heart failure) Code(s): I50.9 - HEART FAILURE, UNSPECIFIED Qualifiers: Heart failure type: unspecified Heart failure chronicity: acute on chronic Qualified Code(s): I50.9 - Heart failure, unspecified (4) Chronic kidney disease (CKD) Code(s): N18.9 - CHRONIC KIDNEY DISEASE, UNSPECIFIED (5) Diabetes 1.5, managed as type 2 Code(s): E13.9 - OTHER SPECIFIED DIABETES MELLITUS WITHOUT COMPLICATIONS
[2018-02-18 12:43] LABS: ANION GAP 5 MMOL/L (8-16); CHLORIDE 107 mmol/L (98-107); CO2 31 mmol/L (21-32); CREATININE 1.6 mg/dL (0.55-1.3); GLUCOSE,RANDOM 84 mg/dL (74-106); POTASSIUM 4.1 mmol/L (3.5-5.1); SODIUM 143 mmol/L (136-145)
[2018-02-18 12:44] LABS: BLOOD UREA NITROGEN 49 mg/dL (7-18)
--- NOTE | 2018-02-18 16:08 | PN ---
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 (short form) - Note 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: Chief Complaint: sob, le edema s:sob and edema improving. no chest pain, palps, dizzy, lightheadedness Vital Signs: Vital Signs Period Temp Pulse Resp BP Sys/Sheldon Pulse Ox Last 24 Hr 97.2 F-98.3 F 65-70 17-18 124-146/43-64 96-100 Constitutional: Yes: Well Nourished, No Distress Eyes: No: Sclera Icterus HENT: No: Nasal Congestion Neck: No: Decreased ROM Respiratory: Yes: rales at bases bilaterally No: Accessory Muscle Use, Rales, Wheezes Gastrointestinal: Yes: Normal Bowel Sounds. No: Distention, Hepatomegaly, Palpable Mass, Tenderness Cardiovascular: Yes: Regular Rate and Rhythm JVD: Yes Carotid Bruit: No PMI: Non-Displaced Heart Sounds: Yes: S1, S2. No: Gallop Murmur: No: Systolic Murmur, Diastolic Murmur Musculoskeletal: Yes: Other (No kyphosis) Extremities: No: Cold, Cyanosis Edema: 1-2+ le edema bl Peripheral Pulses: 2+ Left Carotid, 2+ Right Carotid, 2+ Left Doralis Pedis, 2+ Right Dorsalis Pedis Integumentary: No: Jaundice Neurological: Yes: Alert, Oriented (x3) Psychiatric: No: Agitated Current Medications Acetaminophen (Tylenol -) 650 mg PO Q4H PRN PRN Reason: PAIN LEVEL 1-5 Aspirin (Ecotrin -) 81 mg PO DAILY [facility] Last Admin: 02/18/18 09:19 Dose: 81 mg Atorvastatin Calcium (Lipitor -) 10 mg PO HS [facility] Last Admin: 02/17/18 22:40 Dose: 10 mg Furosemide (Lasix Injection -) 80 mg IVPUSH BID@0600,1400 [facility] Last Admin: 02/18/18 13:49 Dose: 80 mg Insulin Aspart (Novolog Vial Sliding Scale -) 1 vial SQ [facility]; Protocol Last Admin: 02/18/18 11:38 Dose: Not Given Insulin Detemir (Levemir Vial) 20 units SQ BID@0700,2200 [facility] Last Admin: 02/18/18 06:24 Dose: 20 unit Metoprolol Tartrate (Lopressor -) 12.5 mg PO BID [facility] Last Admin: 02/18/18 09:18 Dose: 12.5 mg Tamsulosin HCl (Flomax -) 0.4 mg PO DAILY@0830 [facility] Last Admin: 02/18/18 09:18 Dose: 0.4 mg Echo 01/11: nl LVSF, mild LVH. mild-mod RV dilation, borderline RVSF. mod LAE. mod AI, mild-mod TR. RVSP 30-40 MIBI 2014: nl mpi ECG: SR, nl intervals, LVH with repol abn,--no sig change vs prior CXR: chf Assessment/Plan acute exacerbation HFpEF, RV cardiomyopathy: - Recent admit for chf, discharged home on torsemide 80 bid endorses compliance , but has a history of poor diet - last discharge weight 165 lbs - Cr 1.8->1.6, no standing weights done - improving symptoms however, has rales/JVD on exam, continue lasix 80 mg IV BID - daily chem7, standing wts, i/o cad,h/o CABG: -stable, no angina, no signs acs -cont home statin, metoprolol -not on asa 2/2 thrombocytopenia CKD: -baseline creat 1.6-1.8 -Cr stable at 1.8, monitor with lasix s/p bio-avr: -moderate AI on echo 01/11 (was mild in 2014) -no wide pulse pressure--doubt contributing to chf. -routine outpt monitoring with dr jeffrey f/u s/p ascending aorta repair: -cont bb, statin, bp control -no root or ascending aorta dilation noted on echo -outpt f/u HTN: -bp stable -cont home meds aflutter: -no tachy issues, has been in sinus on recent admits -continue metoprolol 12.5 mg BID -no ac/asa 2/2 cirrhosis with thrombocytopenia and esoph varices--per prior outpt tx plan -similarly, could not safely give 6 wks AC then 6 wks DAPT so not a candidate for Watchman EDGAR closure device cirrhosis, thrombocytopenia: -per pmd
[2018-02-18] MEDS ORDERED: INSULIN (NOVOLOG) ASPART 100 UNITS/ML 10ML VIAL ONE (16:41)
[2018-02-18] MEDS: ATORVASTATIN CA 10 MG TABLET (FP) PO SCH (21:53)
[2018-02-19] MEDS: FUROSEMIDE 40 MG/4 ML INJECTABLE VIAL IVPUSH SCH ×2 (06:01→13:47)
[2018-02-19] MEDS: INSULIN (LEVEMIR) 100 UNITS/ML UNITS SQ SCH ×2 (06:08→21:11)
[2018-02-19] MEDS: INSULIN SLIDING SCALE (NOVOLOG) 1 VIAL SQ SCH ×4 (07:14→21:10)
[2018-02-19] MEDS: METOPROLOL TARTRATE 25 MG TABLET (FP) PO SCH ×2 (09:48→21:09)
[2018-02-19] MEDS: ASPIRIN COATED 81 MG TABLET.EC PO SCH (09:48)
[2018-02-19] MEDS: TAMSULOSIN HCL 0.4 MG CAP PO SCH (09:48)
--- NOTE | 2018-02-19 11:33 | PN ---
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 (short form) - Note 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: pt seen/ examined chart reviewed. better Still weak chronic ill appearance Ambulating in hallway leg swelling decreased Requesting pain medications--- due to chronic pain issues Vital Signs Temp 97.3 F L 02/19/18 06:00 Pulse 59 L 02/19/18 06:00 Resp 18 02/18/18 22:00 BP 128/57 L 02/19/18 06:00 Pulse Ox 98 02/18/18 21:00 Intake & Output 02/18/18 02/18/18 02/19/18 11:59 23:59 11:59 Intake Total 500 50 Output Total 1600 Balance 500 -1600 50 Weight 173 lb 8 oz 166 lb 9.6 oz Intake: IVPB 100 50 Oral 400 Output: Urine 1600 Void 1600 Other: Voiding Method Toilet Toilet # Unmeasured Voids Void 1 1 Bowel Movement No No No Height 5 ft 6.5 in Body Mass Index (BMI) 27.6 Weight Measurement Method Built in Bedscale Built in Bedscale Active Medications Acetaminophen (Tylenol -) 650 mg PO Q4H PRN PRN Reason: PAIN LEVEL 1-5 Aspirin (Ecotrin -) 81 mg PO DAILY [facility] Last Admin: 02/19/18 09:48 Dose: 81 mg Atorvastatin Calcium (Lipitor -) 10 mg PO HS [facility] Last Admin: 02/18/18 21:53 Dose: 10 mg Furosemide (Lasix Injection -) 80 mg IVPUSH BID@0600,1400 [facility] Last Admin: 02/19/18 06:01 Dose: 80 mg Insulin Aspart (Novolog Vial Sliding Scale -) 1 vial SQ [facility]; Protocol Last Admin: 02/19/18 11:14 Dose: 2 unit Insulin Detemir (Levemir Vial) 20 units SQ BID@0700,2200 [facility] Last Admin: 02/19/18 06:08 Dose: 20 unit Metoprolol Tartrate (Lopressor -) 12.5 mg PO BID [facility] Last Admin: 02/19/18 09:48 Dose: 12.5 mg Tamsulosin HCl (Flomax -) 0.4 mg PO DAILY@0830 [facility] Last Admin: 02/19/18 09:48 Dose: 0.4 mg CBC, BMP 02/17/18 06:30 02/18/18 11:33 Hepatic Panel Total Bilirubin 1.2 mg/dL (0.2-1) H 02/16/18 15:30 Direct Bilirubin 0.5 mg/dL (0.0-0.2) H 02/16/18 15:30 AST 19 U/L (15-37) 02/16/18 15:30 ALT 20 U/L (13-61) 02/16/18 15:30 Alkaline Phosphatase 160 U/L (45-117) H 02/16/18 15:30 Albumin 2.6 g/dl (3.4-5.0) L 02/16/18 15:30 ct abdomen -- ordered Physical Examination Constitutional: Yes: No Distress, comfortable Eyes: Yes: Conjunctiva Clear Neck: Yes: positive JVD Cardiovascular: Yes: Regular Rate and Rhythm Respiratory: Yes: rales at bases Gastrointestinal: Yes: Soft/ distended Edema: yes but decreased Neurological: Yes: Alert Psychiatric: Yes: Alert Assessment/Plan clinically improved Multiple medical issues Continue present care Medications reviewed IV Lasix Monitor weight Monitor lites Oxycodone--for pain Will get CT abdomen--- due to history of cirrhosis Will follow Problem List - Problems (1) CHF exacerbation Code(s): I50.9 - HEART FAILURE, UNSPECIFIED (2) Acute on chronic kidney failure Code(s): N17.9 - ACUTE KIDNEY FAILURE, UNSPECIFIED; N18.9 - CHRONIC KIDNEY DISEASE, UNSPECIFIED Qualifiers: Acute renal failure type: unspecified Chronic kidney disease stage: unspecified stage Qualified Code(s): N17.9 - Acute kidney failure, unspecified ; N18.9 - Chronic kidney disease, unspecified (3) Diabetes 1.5, managed as type 2 Code(s): E13.9 - OTHER SPECIFIED DIABETES MELLITUS WITHOUT COMPLICATIONS
--- NOTE | 2018-02-19 15:11 | PN ---
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 (short form) - Note 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: Chief Complaint: sob, le edema s: complains of orthopnea, sob when walking to bathroom. edema improving. no chest pain, palps, dizzy, lightheadedness Vital Signs: Vital Signs Period Temp Pulse Resp BP Sys/Sheldon Pulse Ox Last 24 Hr 97.3 F-98.7 F 59-71 18-20 122-158/54-76 98 Constitutional: Yes: Well Nourished, No Distress Eyes: No: Sclera Icterus HENT: No: Nasal Congestion Neck: No: Decreased ROM Respiratory: Yes: +rales at bases bilaterally No: Accessory Muscle Use, Rales, Wheezes Gastrointestinal: Yes: Normal Bowel Sounds. No: Distention, Hepatomegaly, Palpable Mass, Tenderness Cardiovascular: Yes: Regular Rate and Rhythm JVD: Yes Carotid Bruit: No PMI: Non-Displaced Heart Sounds: Yes: S1, S2. No: Gallop Murmur: No: Systolic Murmur, Diastolic Murmur Musculoskeletal: Yes: Other (No kyphosis) Extremities: No: Cold, Cyanosis Edema: 1-2+ le edema bl Peripheral Pulses: 2+ Left Carotid, 2+ Right Carotid, 2+ Left Doralis Pedis, 2+ Right Dorsalis Pedis Integumentary: No: Jaundice Neurological: Yes: Alert, Oriented (x3) Psychiatric: No: Agitated Current Medications Acetaminophen (Tylenol -) 650 mg PO Q4H PRN PRN Reason: PAIN LEVEL 1-5 Aspirin (Ecotrin -) 81 mg PO DAILY [facility] Last Admin: 02/19/18 09:48 Dose: 81 mg Atorvastatin Calcium (Lipitor -) 10 mg PO HS [facility] Last Admin: 02/18/18 21:53 Dose: 10 mg Furosemide (Lasix Injection -) 80 mg IVPUSH BID@0600,1400 [facility] Last Admin: 02/19/18 13:47 Dose: 80 mg Insulin Aspart (Novolog Vial Sliding Scale -) 1 vial SQ [facility]; Protocol Last Admin: 02/19/18 11:14 Dose: 2 unit Insulin Detemir (Levemir Vial) 20 units SQ BID@0700,2200 [facility] Last Admin: 02/19/18 06:08 Dose: 20 unit Metoprolol Tartrate (Lopressor -) 12.5 mg PO BID [facility] Last Admin: 02/19/18 09:48 Dose: 12.5 mg Oxycodone HCl (Roxicodone -) 5 mg PO BID PRN PRN Reason: PAIN SCALE 6-10 Tamsulosin HCl (Flomax -) 0.4 mg PO DAILY@0830 [facility] Last Admin: 02/19/18 09:48 Dose: 0.4 mg Echo 01/11: nl LVSF, mild LVH. mild-mod RV dilation, borderline RVSF. mod LAE. mod AI, mild-mod TR. RVSP 30-40 MIBI 2013: nl mpi ECG: SR, nl intervals, LVH with repol abn,--no sig change vs prior CXR: chf Assessment/Plan acute exacerbation HFpEF, RV cardiomyopathy: - Recent admit for chf, discharged home on torsemide 80 bid endorses compliance , but has a history of poor diet - last discharge weight 165 lbs - Cr 1.8->1.6, not checked today no standing weights done, bedscale weight decreasing - continue lasix 80 mg IV BID, still has JVD, rales, orthopnea - daily chem7, standing wts, i/o cad,h/o CABG: -stable, no angina, no signs acs -cont home statin, metoprolol -not on asa 2/2 thrombocytopenia CKD: -baseline creat 1.6-1.8 -Cr stable at 1.8, monitor with lasix s/p bio-avr: -moderate AI on echo 01/11 (was mild in 2014) -no wide pulse pressure--doubt contributing to chf. -routine outpt monitoring with dr jeffrey f/u s/p ascending aorta repair: -cont bb, statin, bp control -no root or ascending aorta dilation noted on echo -outpt f/u HTN: -bp stable -cont home meds aflutter: -no tachy issues, has been in sinus on recent admits -continue metoprolol 12.5 mg BID -no ac/asa 2/2 cirrhosis with thrombocytopenia and esoph varices--per prior outpt tx plan -similarly, could not safely give 6 wks AC then 6 wks DAPT so not a candidate for Watchman EDGAR closure device cirrhosis, thrombocytopenia: -per pmd
[2018-02-19] MEDS: ATORVASTATIN CA 10 MG TABLET (FP) PO SCH (21:09)
[2018-02-19] MEDS: oxyCODONE HCL 5 MG TABLET PO PRN (21:10)
[2018-02-20] MEDS: FUROSEMIDE 40 MG/4 ML INJECTABLE VIAL IVPUSH SCH ×2 (06:21→14:50)
[2018-02-20] MEDS: INSULIN (LEVEMIR) 100 UNITS/ML UNITS SQ SCH ×2 (06:39→21:32)
[2018-02-20] MEDS: INSULIN SLIDING SCALE (NOVOLOG) 1 VIAL SQ SCH ×4 (06:39→21:33)
[2018-02-20] MEDS ORDERED: INSULIN (NOVOLOG) ASPART 100 UNITS/ML 10ML VIAL ONE (06:45)
[2018-02-20 08:34] LABS: BASO % 1.1 % (0-2.0); EOS % 3.8 % (0-4.5); HEMATOCRIT 28.3 % (35.4-49); HEMOGLOBIN 9.5 GM/dL (11.7-16.9); LYMPH % 17.8 % (8-40); MCH 31.7 pg (25.7-33.7); MCHC 33.7 g/dl (32.0-35.9); MEAN CELL VOLUME 93.9 fl (80-96); MONO % 12.6 % (3.8-10.2); NEUT % 64.7 % (42.8-82.8); PLATELET COUNT 81 K/MM3 (134-434); RBC 3.01 M/mm3 (4.00-5.60); RDW 15.6 % (11.9-15.9); WHITE BLOOD COUNT 3.5 K/mm3 (4.0-10.0)
[2018-02-20 09:11] LABS: ALBUMIN 2.7 g/dl (3.4-5.0); ALK PHOS 153 U/L (45-117); ANION GAP 8 MMOL/L (8-16); BILIRUBIN,TOTAL 1.1 mg/dL (0.2-1); BLOOD UREA NITROGEN 48 mg/dL (7-18); CALCIUM 8.3 mg/dL (8.5-10.1); CHLORIDE 106 mmol/L (98-107); CO2 29 mmol/L (21-32); CREATININE 1.7 mg/dL (0.55-1.3); GLUCOSE,RANDOM 76 mg/dL (74-106); POTASSIUM 4.1 mmol/L (3.5-5.1); SGOT/AST 28 U/L (15-37); SGPT/ALT 24 U/L (13-61); SODIUM 143 mmol/L (136-145); TOT PROT 6.9 g/dl (6.4-8.2)
--- NOTE | 2018-02-20 10:05 | PN ---
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, Physician Chief Complaint: sob History of Present Illness: legs a little better sob last night--not today no cp, palpit - Current Medication List Current Medications: Active Medications Acetaminophen (Tylenol -) 650 mg PO Q4H PRN PRN Reason: PAIN LEVEL 1-5 Aspirin (Ecotrin -) 81 mg PO DAILY [facility] Last Admin: 02/19/18 09:48 Dose: 81 mg Atorvastatin Calcium (Lipitor -) 10 mg PO HS [facility] Last Admin: 02/19/18 21:09 Dose: 10 mg Furosemide (Lasix Injection -) 80 mg IVPUSH BID@0600,1400 [facility] Last Admin: 02/20/18 06:21 Dose: 80 mg Insulin Aspart (Novolog Vial Sliding Scale -) 1 vial SQ [facility]; Protocol Last Admin: 02/20/18 06:39 Dose: 4 unit Insulin Detemir (Levemir Vial) 20 units SQ BID@0700,2200 [facility] Last Admin: 02/20/18 06:39 Dose: 20 unit Metoprolol Tartrate (Lopressor -) 12.5 mg PO BID [facility] Last Admin: 02/19/18 21:09 Dose: 12.5 mg Oxycodone HCl (Roxicodone -) 5 mg PO BID PRN PRN Reason: PAIN SCALE 6-10 Last Admin: 02/19/18 21:10 Dose: 5 mg Tamsulosin HCl (Flomax -) 0.4 mg PO DAILY@0830 [facility] Last Admin: 02/19/18 09:48 Dose: 0.4 mg - Objective Vital Signs: Vital Signs Temperature 97.9 F 02/20/18 06:00 Pulse Rate 80 02/20/18 06:00 Respiratory Rate 18 02/20/18 06:00 Blood Pressure 143/58 L 02/20/18 06:00 O2 Sat by Pulse Oximetry (%) 98 02/19/18 20:13 Constitutional: Yes: Well Nourished, No Distress, Calm Cardiovascular: Yes: Regular Rate and Rhythm, JVD (at 90 degrees), Murmur (syst murmur ? TEQUILA along LSB), S1, S2. No: Gallop Extremities: No: Cold Edema: Yes (2+ pretib) Neurological: Yes: Alert, Oriented Psychiatric: No: Agitated Labs: CBC, BMP 02/20/18 07:16 02/20/18 07:16 INR, PTT INR 1.20 (0.83-1.09) H 02/16/18 15:30 Assessment/Plan Echo 01/11: nl LVSF, mild LVH. mild-mod RV dilation, borderline RVSF. mod LAE. mod AI, mild-mod TR. RVSP 30-40 MIBI 2013: nl mpi ECG: SR, nl intervals, LVH with repol abn,--no sig change vs prior CXR: chf Assessment/Plan acute exacerbation HFpEF, RV cardiomyopathy: - mult recurrent admits for chf, including recently when was discharged home on torsemide 80 bid and pt endorses compliance with regimen - however diet non-compliance likely triggers recurrent HF (predominantly right- sided sx's) - grossly overloaded/edematous here - last discharge weight 165 lbs - bedscale weights not accurate--standing scale ordered to start - continue lasix 80 mg IV BID, trend labs/wt cad,h/o CABG: -stable, no angina, no signs acs -cont home statin, metoprolol -not on asa 2/2 thrombocytopenia CKD: -baseline creat 1.6-2.0 -renal fxn stable here, with ongoing diuresis s/p bio-avr: -moderate AI on echo 01/11 (was mild in 2014) -no wide pulse pressure--doubt contributing to chf. -routine outpt monitoring with dr jeffrey f/u s/p ascending aorta repair: -cont bb, statin, bp control -no root or ascending aorta dilation noted on echo -outpt f/u HTN: -bp stable -cont home meds aflutter: -no tachy issues, has been in sinus on recent admits -continue metoprolol 12.5 mg BID -no ac/asa 2/2 cirrhosis with thrombocytopenia and esoph varices--per prior outpt tx plan -similarly, could not safely give 6 wks AC then 6 wks DAPT so not a candidate for Watchman EDG[employer] closure device cirrhosis, thrombocytopenia: -per pmd
[2018-02-20] MEDS: ASPIRIN COATED 81 MG TABLET.EC PO SCH (10:07)
[2018-02-20] MEDS: TAMSULOSIN HCL 0.4 MG CAP PO SCH (10:08)
[2018-02-20] MEDS: METOPROLOL TARTRATE 25 MG TABLET (FP) PO SCH ×2 (10:08→21:32)
--- NOTE | 2018-02-20 12:22 | PN ---
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 (short form) - Note 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: better still sob with lying refused ct abd-- counselled again -- willing to do now ambulatory in [address] Vital Signs Temp 98.0 F 02/20/18 09:30 Pulse 65 02/20/18 09:30 Resp 18 02/20/18 09:30 BP 124/51 L 02/20/18 09:30 Pulse Ox 98 02/19/18 20:13 Intake & Output 02/19/18 02/20/18 02/20/18 23:59 11:59 23:59 Intake Total 1300 460 Output Total 900 700 Balance 400 -240 Weight 173 lb 4 oz Intake: IVPB 50 Oral 1250 460 Output: Urine 900 700 Void 900 700 Other: Voiding Method Urinal Urinal # Unmeasured Voids Void 1 Bowel Movement No No Weight Measurement Method Built in [facility] Active Medications Acetaminophen (Tylenol -) 650 mg PO Q4H PRN PRN Reason: PAIN LEVEL 1-5 Aspirin (Ecotrin -) 81 mg PO DAILY [facility] Last Admin: 02/20/18 10:07 Dose: 81 mg Atorvastatin Calcium (Lipitor -) 10 mg PO HS [facility] Last Admin: 02/19/18 21:09 Dose: 10 mg Furosemide (Lasix Injection -) 80 mg IVPUSH BID@0600,1400 [facility] Last Admin: 02/20/18 06:21 Dose: 80 mg Insulin Aspart (Novolog Vial Sliding Scale -) 1 vial SQ [facility]; Protocol Last Admin: 02/20/18 06:39 Dose: 4 unit Insulin Detemir (Levemir Vial) 20 units SQ BID@0700,2200 [facility] Last Admin: 02/20/18 06:39 Dose: 20 unit Metoprolol Tartrate (Lopressor -) 12.5 mg PO BID [facility] Last Admin: 02/20/18 10:08 Dose: 12.5 mg Oxycodone HCl (Roxicodone -) 5 mg PO BID PRN PRN Reason: PAIN SCALE 6-10 Last Admin: 02/19/18 21:10 Dose: 5 mg Tamsulosin HCl (Flomax -) 0.4 mg PO DAILY@0830 [facility] Last Admin: 02/20/18 10:08 Dose: 0.4 mg CBC, BMP 02/20/18 07:16 02/20/18 07:16 Physical Examination Constitutional: Yes: No Distress, comfortable Eyes: Yes: Conjunctiva Clear Neck: Yes: positive JVD Cardiovascular: Yes: Regular Rate and Rhythm Respiratory: Yes: rales at bases Gastrointestinal: Yes: Soft/ distended Edema: yes but decreased Neurological: Yes: Alert Psychiatric: Yes: Alert Assessment/Plan clinically improving Multiple medical issues Continue present care Medications reviewed IV Lasix Monitor weight Monitor lites Oxycodone--for pain Will follow Problem List - Problems (1) CHF exacerbation Code(s): I50.9 - HEART FAILURE, UNSPECIFIED (2) Acute on chronic kidney failure Code(s): N17.9 - ACUTE KIDNEY FAILURE, UNSPECIFIED; N18.9 - CHRONIC KIDNEY DISEASE, UNSPECIFIED Qualifiers: Acute renal failure type: unspecified Chronic kidney disease stage: unspecified stage Qualified Code(s): N17.9 - Acute kidney failure, unspecified ; N18.9 - Chronic kidney disease, unspecified (3) Diabetes 1.5, managed as type 2 Code(s): E13.9 - OTHER SPECIFIED DIABETES MELLITUS WITHOUT COMPLICATIONS
[2018-02-20] MEDS: ATORVASTATIN CA 10 MG TABLET (FP) PO SCH (21:31)
[2018-02-20] MEDS: oxyCODONE HCL 5 MG TABLET PO PRN (21:36)
[2018-02-21] MEDS ORDERED: MELATONIN 5 MG TABLETS PO ONE (02:09)
[2018-02-21] MEDS: FUROSEMIDE 40 MG/4 ML INJECTABLE VIAL IVPUSH SCH (06:03)
[2018-02-21] MEDS: INSULIN SLIDING SCALE (NOVOLOG) 1 VIAL SQ SCH ×4 (06:33→22:21)
[2018-02-21] MEDS: INSULIN (LEVEMIR) 100 UNITS/ML UNITS SQ SCH ×2 (06:33→22:21)
--- NOTE | 2018-02-21 09:33 | PN ---
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, Physician Chief Complaint: sob History of Present Illness: sob last night again. states he does not have signif UOP after lasix doses. collecting urine--total UOP approx 1L daily legs swelling same no cp, palpit, syncope ex cigs - Current Medication List Current Medications: Active Medications Acetaminophen (Tylenol -) 650 mg PO Q4H PRN PRN Reason: PAIN LEVEL 1-5 Aspirin (Ecotrin -) 81 mg PO DAILY [facility] Last Admin: 02/20/18 10:07 Dose: 81 mg Atorvastatin Calcium (Lipitor -) 10 mg PO HS [facility] Last Admin: 02/20/18 21:31 Dose: 10 mg Furosemide (Lasix Injection -) 80 mg IVPUSH BID@0600,1400 [facility] Last Admin: 02/21/18 06:03 Dose: 80 mg Insulin Aspart (Novolog Vial Sliding Scale -) 1 vial SQ [facility]; Protocol Last Admin: 02/21/18 06:33 Dose: Not Given Insulin Detemir (Levemir Vial) 20 units SQ BID@0700,2200 [facility] Last Admin: 02/21/18 06:33 Dose: Not Given Metoprolol Tartrate (Lopressor -) 12.5 mg PO BID [facility] Last Admin: 02/20/18 21:32 Dose: 12.5 mg Oxycodone HCl (Roxicodone -) 5 mg PO BID PRN PRN Reason: PAIN SCALE 6-10 Last Admin: 02/20/18 21:36 Dose: 5 mg Tamsulosin HCl (Flomax -) 0.4 mg PO DAILY@0830 [facility] Last Admin: 02/20/18 10:08 Dose: 0.4 mg - Objective Vital Signs: Vital Signs Temperature 98.2 F 02/21/18 06:00 Pulse Rate 58 L 02/21/18 06:00 Respiratory Rate 20 02/21/18 06:00 Blood Pressure 115/56 L 02/21/18 06:00 O2 Sat by Pulse Oximetry (%) 98 02/20/18 20:07 Constitutional: Yes: No Distress, Calm Eyes: No: Sclera Icterus HENT: No: Nasal Congestion Cardiovascular: Yes: Regular Rate and Rhythm, JVD (++ EJs (to jaw)), Murmur ( syst murmur along LSB), S1, S2, Other (PMI non diplaced). No: Gallop Respiratory: Yes: CTA Bilaterally. No: Accessory Muscle Use, Rales, Wheezes Gastrointestinal: Yes: Normal Bowel Sounds, Soft. No: Tenderness Musculoskeletal: Yes: Other (No kyphosis) Extremities: No: Cold Edema: Yes (1+ pretib) Integumentary: No: Jaundice Neurological: Yes: Alert, Oriented (x3) Psychiatric: No: Agitated Labs: CBC, BMP 02/20/18 07:16 02/20/18 07:16 INR, PTT INR 1.20 (0.83-1.09) H 02/16/18 15:30 Assessment/Plan Echo 01/11: nl LVSF, mild LVH. mild-mod RV dilation, borderline RVSF. mod LAE. mod AI, mild-mod TR. RVSP 30-40 MIBI 2013: nl mpi ECG: SR, nl intervals, LVH with repol abn,--no sig change vs prior CXR: chf Assessment/Plan acute exacerbation HFpEF, RV cardiomyopathy: - mult recurrent admits for chf, including recently when was discharged home on torsemide 80 bid and pt endorses compliance with regimen - however diet non-compliance likely triggers recurrent HF (predominantly right- sided sx's) - grossly overloaded/edematous here - last discharge weight 165 lbs - bedscale weights trending up, not reliable. standing weights ordered, not being done. - will titrate diuretics to edema, JVD, SOB sx's. - 02/21: massive EJ distension persists, suboptimal UOP response to lasix 80 iv bid, episodes of sob at rest continue. incr lasix to 100 bid and give metolazone 1.25mg x 1 today. reassess exam and renal fxn in am cad,h/o CABG: -stable, no angina, no signs acs -cont home statin, metoprolol -not on asa 2/2 thrombocytopenia CKD: -baseline creat 1.6-2.0 -renal fxn stable here, with ongoing diuresis s/p bio-avr: -moderate AI on echo 01/11 (was mild in 2014) -no wide pulse pressure--doubt contributing to chf. -routine outpt monitoring with dr jeffrey f/u s/p ascending aorta repair: -cont bb, statin, bp control -no root or ascending aorta dilation noted on echo -outpt f/u HTN: -bp stable -cont home meds aflutter: -no tachy issues, has been in sinus on recent admits -continue metoprolol 12.5 mg BID -no ac/asa 2/2 cirrhosis with thrombocytopenia and esoph varices--per prior outpt tx plan -similarly, could not safely give 6 wks AC then 6 wks DAPT so not a candidate for Watchman EDGAR closure device cirrhosis, thrombocytopenia: -per pmd
[2018-02-21] MEDS: TAMSULOSIN HCL 0.4 MG CAP PO SCH (10:05)
[2018-02-21] MEDS: METOPROLOL TARTRATE 25 MG TABLET (FP) PO SCH ×2 (10:05→22:22)
[2018-02-21] MEDS: ASPIRIN COATED 81 MG TABLET.EC PO SCH (10:05)
[2018-02-21] MEDS ORDERED: POTASSIUM CHLORIDE ORAL LIQUID 20 MEQ/15 ML PO ONE (11:15)
--- NOTE | 2018-02-21 11:54 | PN ---
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 (short form) - Note 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: Pt still sob. cardiology f/u noted lasix increased ct abd -- Large Ascitis Will consult gi Will also request U/s guided Paracentesis Vital Signs Temp 97.4 F L 02/21/18 09:00 Pulse 63 02/21/18 09:00 Resp 18 02/21/18 09:00 BP 123/44 L 02/21/18 09:00 Pulse Ox 98 02/20/18 20:07 Intake & Output 02/20/18 02/20/18 02/21/18 11:59 23:59 11:59 Intake Total 460 750 Output Total 803 475 4224 Balance -240 350 -1100 Weight 173 lb 4 oz 176 lb 4 oz Intake: Oral 460 750 Output: Urine 757 592 7040 Void 168 696 1006 Other: Voiding Method Urinal Urinal Urinal # Unmeasured Voids Void 1 2 Bowel Movement No Yes Weight Measurement Method Built in Bedscale Built in Bedscale Active Medications Acetaminophen (Tylenol -) 650 mg PO Q4H PRN PRN Reason: PAIN LEVEL 1-5 Aspirin (Ecotrin -) 81 mg PO DAILY [facility] Last Admin: 02/21/18 10:05 Dose: 81 mg Atorvastatin Calcium (Lipitor -) 10 mg PO HS [facility] Last Admin: 02/20/18 21:31 Dose: 10 mg Furosemide (Lasix Injection -) 100 mg IVPUSH BID@0600,1400 [facility] Insulin Aspart (Novolog Vial Sliding Scale -) 1 vial SQ [facility]; Protocol Last Admin: 02/21/18 11:31 Dose: 2 unit Insulin Detemir (Levemir Vial) 20 units SQ BID@0700,2200 [facility] Last Admin: 02/21/18 06:33 Dose: Not Given Metolazone (Zaroxolyn -) 1.25 mg PO ONCE ONE Stop: 02/21/18 13:31 Metoprolol Tartrate (Lopressor -) 12.5 mg PO BID [facility] Last Admin: 02/21/18 10:05 Dose: 12.5 mg Oxycodone HCl (Roxicodone -) 5 mg PO BID PRN PRN Reason: PAIN SCALE 6-10 Last Admin: 02/20/18 21:36 Dose: 5 mg Tamsulosin HCl (Flomax -) 0.4 mg PO DAILY@0830 [facility] Last Admin: 02/21/18 10:05 Dose: 0.4 mg CBC, BMP 02/20/18 07:16 02/20/18 07:16 ct abdomen--Large Ascites Physical Examination Constitutional: Yes: No Distress, chronic ill appearance Eyes: Yes: Conjunctiva Clear Neck: Yes: positive JVD Cardiovascular: Yes: Regular Rate and Rhythm Respiratory: Yes: rales at bases Gastrointestinal: Yes: Soft/ distended. Edema: yes but decreased Neurological: Yes: Alert Psychiatric: Yes: Alert Assessment/Plan clinically stable Multiple medical issues Continue present care Medications reviewed IV Lasix- increased Monitor weight Monitor lites gi consult / paracentesis Will follow Problem List - Problems (1) CHF exacerbation Code(s): I50.9 - HEART FAILURE, UNSPECIFIED (2) Acute on chronic kidney failure Code(s): N17.9 - ACUTE KIDNEY FAILURE, UNSPECIFIED; N18.9 - CHRONIC KIDNEY DISEASE, UNSPECIFIED Qualifiers: Acute renal failure type: unspecified Chronic kidney disease stage: unspecified stage Qualified Code(s): N17.9 - Acute kidney failure, unspecified ; N18.9 - Chronic kidney disease, unspecified (3) Diabetes 1.5, managed as type 2 Code(s): E13.9 - OTHER SPECIFIED DIABETES MELLITUS WITHOUT COMPLICATIONS
[2018-02-21] MEDS ORDERED: METOLAZONE 2.5 MG TABLET (FP) PO ONE (13:30)
[2018-02-21] MEDS ORDERED: PT OWN MED DRAWER 7, Y5N ONE (13:59)
[2018-02-21] MEDS ORDERED: FUROSEMIDE 40 MG/4 ML INJECTABLE VIAL ONE (14:25)
[2018-02-21] MEDS: FUROSEMIDE 100 MG/10 ML INJECTABLE VIAL IVPUSH SCH (14:44)
--- NOTE | 2018-02-21 21:00 | CON.GI ---
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 Patient is scheduled for paracentesis tomorrow. - Past Medical History Cardio/Vascular: Yes: AFIB, Aortic Stenosis, CHF, HTN Hepatobiliary: Yes: Cirrhosis Renal/: Yes: Renal Inusuff Endocrine: Yes: Diabetes Mellitus - Past Surgical History Past Surgical History: Yes: Valve Replacement - Alcohol/Substance Use Hx Alcohol Use: No - Smoking History Smoking history: Former smoker Have you smoked in the past 12 months: No Aproximately how many cigarettes per day: 0 If you are a former smoker, when did you quit?: 2013 - Social History Usual Living Arrangement: With Spouse Home Medications - Allergies Allergies/Adverse Reactions: Allergies Allergy/AdvReac Type Severity Reaction Status Date / Time No Known Drug Allergies Allergy Verified 02/16/18 14:50 - Home Medications Home Medications: Ambulatory Orders Pravastatin Sodium 10 mg PO DAILY 08/06/16 Tamsulosin HCl 0.4 mg PO DAILY 10/24/16 Insulin (Levemir) [Levemir Flexpen -] 20 units SQ BID 12/10/17 Aspirin Coated [Ecotrin -] 81 mg PO DAILY tablet.ec 12/14/17 Torsemide [Demadex -] 80 mg PO BID 30 Days #60 tab 12/14/17 Lactulose (Oral Use) [Cephulac -] 20 gm PO QID udc 12/19/17 Metoprolol Tartrate 12.5 mg PO BID #30 cap.sr 12/19/17 Physical Exam-GI Vital Signs: Vital Signs Temperature 98.2 F 02/21/18 14:25 Pulse Rate 74 02/21/18 14:25 Respiratory Rate 20 02/21/18 14:25 Blood Pressure 112/78 02/21/18 14:25 O2 Sat by Pulse Oximetry (%) 98 02/20/18 20:07 Labs: CBC, BMP 02/20/18 07:16 02/20/18 07:16 INR, PTT INR 1.20 (0.83-1.09) H 02/16/18 15:30 Hepatic Panel Total Bilirubin 1.1 mg/dL (0.2-1) H 02/20/18 07:16 Direct Bilirubin 0.5 mg/dL (0.0-0.2) H 02/16/18 15:30 AST 28 U/L (15-37) 02/20/18 07:16 ALT 24 U/L (13-61) 02/20/18 07:16 Alkaline Phosphatase 153 U/L (45-117) H 02/20/18 07:16 Albumin 2.7 g/dl (3.4-5.0) L 02/20/18 07:16 Home Medications Medication Instructions Recorded Pravastatin Sodium 10 mg PO DAILY 08/06/16 Tamsulosin HCl 0.4 mg PO DAILY 10/24/16 Insulin (Levemir) [Levemir Flexpen 20 units SQ BID 12/10/17 -] Aspirin Coated [Ecotrin -] 81 mg PO DAILY tablet.ec 12/14/17 Torsemide [Demadex -] 80 mg PO BID 30 Days #60 tab 12/14/17 Lactulose (Oral Use) [Cephulac -] 20 gm PO QID udc 12/19/17 Metoprolol Tartrate 12.5 mg PO BID #30 cap.sr 12/19/17 Problem List - Problems (1) Alcoholic cirrhosis Assessment/Plan: complicated by Hepatoma, HE,ascitis, thrombocytopenia R> check ammonia level maintain on Xifaxan 550mg bid as an outpatient to decrease incidence of readmission if possib;e will need to follow up at [facility] after discharge for further surveillance of Hepatoma --present ct negative albumin infusion during paracentesis maintain on Aldactone 100mg daily and Lasix 40mg every other day to be titrated accordingly Code(s): K70.30 - ALCOHOLIC CIRRHOSIS OF LIVER WITHOUT ASCITES
[2018-02-21] MEDS: ATORVASTATIN CA 10 MG TABLET (FP) PO SCH (22:22)
[2018-02-22] MEDS: FUROSEMIDE 100 MG/10 ML INJECTABLE VIAL IVPUSH SCH ×2 (05:51→14:46)
[2018-02-22] MEDS: INSULIN (LEVEMIR) 100 UNITS/ML UNITS SQ SCH ×2 (05:59→21:40)
[2018-02-22] MEDS: INSULIN SLIDING SCALE (NOVOLOG) 1 VIAL SQ SCH ×4 (06:00→21:42)
[2018-02-22 06:52] LABS: BASO % 1.2 % (0-2.0); EOS % 3.9 % (0-4.5); HEMATOCRIT 26.2 % (35.4-49); HEMOGLOBIN 8.6 GM/dL (11.7-16.9); LYMPH % 22.1 % (8-40); MCH 30.7 pg (25.7-33.7); MCHC 32.8 g/dl (32.0-35.9); MEAN CELL VOLUME 93.8 fl (80-96); MEAN PLT VOLUME 9.4 fl (7.5-11.1); NEUT % 58.8 % (42.8-82.8); PLATELET COUNT 58 K/MM3 (134-434); RDW 15.5 % (11.9-15.9)
[2018-02-22 07:03] LABS: INR 1.32 (0.83-1.09); PROTHROMBIN TIME (PATIENT) 15.6 SEC (9.7-13.0)
[2018-02-22 07:41] LABS: ALBUMIN 2.4 g/dl (3.4-5.0); ALK PHOS 141 U/L (45-117); ANION GAP 10 MMOL/L (8-16); BILIRUBIN,TOTAL 1.1 mg/dL (0.2-1); BLOOD UREA NITROGEN 52 mg/dL (7-18); CALCIUM 7.9 mg/dL (8.5-10.1); CHLORIDE 104 mmol/L (98-107); CO2 27 mmol/L (21-32); CREATININE 1.8 mg/dL (0.55-1.3); GLUCOSE,RANDOM 88 mg/dL (74-106); POTASSIUM 4.4 mmol/L (3.5-5.1); SGOT/AST 23 U/L (15-37); SGPT/ALT 22 U/L (13-61); SODIUM 140 mmol/L (136-145); TOT PROT 6.3 g/dl (6.4-8.2)
[2018-02-22] MEDS: METOPROLOL TARTRATE 25 MG TABLET (FP) PO SCH ×2 (09:06→21:40)
[2018-02-22] MEDS: TAMSULOSIN HCL 0.4 MG CAP PO SCH (09:06)
[2018-02-22] MEDS: ASPIRIN COATED 81 MG TABLET.EC PO SCH (09:06)
--- NOTE | 2018-02-22 11:55 | PN ---
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 (short form) - Note 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: better decreased sob walking better gi consult noted radiology did not do paracentesis -- requesting to give 2 units of platelets to be given tonight ---ordered Vital Signs Temp 97.6 F 02/22/18 06:00 Pulse 58 L 02/22/18 06:00 Resp 20 02/22/18 06:00 BP 129/57 L 02/22/18 06:00 Pulse Ox 98 02/21/18 21:00 Intake & Output 02/21/18 02/21/18 02/22/18 11:59 23:59 11:59 Intake Total 400 100 Output Total 1100 200 300 Balance -1100 200 -200 Weight 176 lb 4 oz 168 lb Intake: IVPB 100 Oral 400 Output: Urine 1100 200 300 Void 1100 200 300 Other: Voiding Method Urinal Urinal # Unmeasured Voids Void 2 Bowel Movement No Weight Measurement Method Built in Bedscale Standing Scale Active Medications Acetaminophen (Tylenol -) 650 mg PO Q4H PRN PRN Reason: PAIN LEVEL 1-5 Albumin Human (Albumin Human 25%) 12.5 gm IVPB Q30M [facility] Stop: 02/22/18 22:01 Atorvastatin Calcium (Lipitor -) 10 mg PO HS [facility] Last Admin: 02/21/18 22:22 Dose: 10 mg Furosemide (Lasix Injection -) 100 mg IVPUSH BID@0600,1400 [facility] Last Admin: 02/22/18 05:51 Dose: 100 mg Insulin Aspart (Novolog Vial Sliding Scale -) 1 vial SQ [facility]; Protocol Last Admin: 02/22/18 11:44 Dose: 2 unit Insulin Detemir (Levemir Vial) 20 units SQ BID@0700,2200 [facility] Last Admin: 02/22/18 05:59 Dose: 20 unit Metoprolol Tartrate (Lopressor -) 12.5 mg PO BID [facility] Last Admin: 02/22/18 09:06 Dose: 12.5 mg Oxycodone HCl (Roxicodone -) 5 mg PO BID PRN PRN Reason: PAIN SCALE 6-10 Last Admin: 02/20/18 21:36 Dose: 5 mg Tamsulosin HCl (Flomax -) 0.4 mg PO DAILY@0830 [facility] Last Admin: 02/22/18 09:06 Dose: 0.4 mg CBC, BMP 02/22/18 06:10 02/22/18 06:10 INR, PTT INR 1.32 (0.83-1.09) H 02/22/18 06:10 Physical Examination Constitutional: Yes: No Distress, chronic ill appearance-- better Eyes: Yes: Conjunctiva Clear Neck: Yes: positive JVD Cardiovascular: Yes: Regular Rate and Rhythm Respiratory: Yes: rales at bases-- better air entry Gastrointestinal: Yes: Soft/ distended. Edema: yes but decreased Neurological: Yes: Alert Psychiatric: Yes: Alert Assessment/Plan clinically stable Multiple medical issues Continue present care Medications reviewed IV Lasix- Monitor weight Monitor lites platelets ordered will follow discussed with nursing staff Problem List - Problems (1) CHF exacerbation Code(s): I50.9 - HEART FAILURE, UNSPECIFIED (2) Acute on chronic kidney failure Code(s): N17.9 - ACUTE KIDNEY FAILURE, UNSPECIFIED; N18.9 - CHRONIC KIDNEY DISEASE, UNSPECIFIED Qualifiers: Acute renal failure type: unspecified Chronic kidney disease stage: unspecified stage Qualified Code(s): N17.9 - Acute kidney failure, unspecified ; N18.9 - Chronic kidney disease, unspecified (3) Diabetes 1.5, managed as type 2 Code(s): E13.9 - OTHER SPECIFIED DIABETES MELLITUS WITHOUT COMPLICATIONS
[2018-02-22] MEDS ORDERED: PT OWN MED DRAWER 7, Y5N ONE ×2 (13:26→15:16)
--- NOTE | 2018-02-22 16:55 | PN ---
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 (short form) - Note 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: Chief Complaint: sob History of Present Illness: sob improving today, was able to walk to bathroom no dyspnea. making more urine with increased lasix dose, metolazone x 1 yesterday - Current Medication List Current Medications Acetaminophen (Tylenol -) 650 mg PO Q4H PRN PRN Reason: PAIN LEVEL 1-5 Albumin Human (Albumin Human 25%) 12.5 gm IVPB Q30M [facility] Stop: 02/22/18 22:01 Atorvastatin Calcium (Lipitor -) 10 mg PO HS [facility] Last Admin: 02/21/18 22:22 Dose: 10 mg Furosemide (Lasix Injection -) 100 mg IVPUSH BID@0600,1400 [facility] Last Admin: 02/22/18 14:46 Dose: 100 mg Insulin Aspart (Novolog Vial Sliding Scale -) 1 vial SQ [facility]; Protocol Last Admin: 02/22/18 11:44 Dose: 2 unit Insulin Detemir (Levemir Vial) 20 units SQ BID@0700,2200 [facility] Last Admin: 02/22/18 05:59 Dose: 20 unit Metoprolol Tartrate (Lopressor -) 12.5 mg PO BID [facility] Last Admin: 02/22/18 09:06 Dose: 12.5 mg Oxycodone HCl (Roxicodone -) 5 mg PO BID PRN PRN Reason: PAIN SCALE 6-10 Last Admin: 02/20/18 21:36 Dose: 5 mg Tamsulosin HCl (Flomax -) 0.4 mg PO DAILY@0830 [facility] Last Admin: 02/22/18 09:06 Dose: 0.4 mg - Objective Vital Signs: Vital Signs Period Temp Pulse Resp BP Sys/Sheldon Pulse Ox Last 24 Hr 97.6 F-98.6 F 58-65 18-20 129-131/46-87 98-98 Constitutional: Yes: No Distress, Calm Eyes: No: Sclera Icterus HENT: No: Nasal Congestion Cardiovascular: Yes: Regular Rate and Rhythm, JVD (+ EJs (to jaw)), Murmur ( syst murmur along LSB), S1, S2, Other (PMI non diplaced). No: Gallop Respiratory: Yes: CTA Bilaterally. No: Accessory Muscle Use, Rales, Wheezes Gastrointestinal: Yes: Normal Bowel Sounds, Soft. No: Tenderness Musculoskeletal: Yes: Other (No kyphosis) Extremities: No: Cold Edema: Yes (1+ bilaterally pretibial) Integumentary: No: Jaundice Neurological: Yes: Alert, Oriented (x3) Psychiatric: No: Agitated Assessment/Plan Echo 01/11: nl LVSF, mild LVH. mild-mod RV dilation, borderline RVSF. mod LAE. mod AI, mild-mod TR. RVSP 30-40 MIBI 2013: nl mpi ECG: SR, nl intervals, LVH with repol abn,--no sig change vs prior CXR: chf Assessment/Plan acute exacerbation HFpEF, RV cardiomyopathy: - mult recurrent admits for chf, including recently when was discharged home on torsemide 80 bid and pt endorses compliance with regimen - however diet non-compliance likely triggers recurrent HF (predominantly right- sided sx's) - grossly overloaded/edematous here - last discharge weight 165 lbs - standing weight 168 lbs - 02/22 symptoms improving on lasix 100 mg IV BID, SOB improving, got metolazone x1 yesterday, Cr stable - still has JVD, mild edema - continue lasix 100 mg IV BID today cad,h/o CABG: -stable, no angina, no signs acs -cont home statin, metoprolol -not on asa 2/2 thrombocytopenia CKD: -baseline creat 1.6-2.0 -renal fxn stable here, with ongoing diuresis s/p bio-avr: -moderate AI on echo 01/11 (was mild in 2014) -no wide pulse pressure--doubt contributing to chf. -routine outpt monitoring with dr jeffrey f/u s/p ascending aorta repair: -cont bb, statin, bp control -no root or ascending aorta dilation noted on echo -outpt f/u HTN: -bp stable -cont home meds aflutter: -no tachy issues, has been in sinus on recent admits -continue metoprolol 12.5 mg BID -no ac/asa 2/2 cirrhosis with thrombocytopenia and esoph varices--per prior outpt tx plan -similarly, could not safely give 6 wks AC then 6 wks DAPT so not a candidate for Watchman EDGAR closure device cirrhosis, thrombocytopenia: -per pmd
[2018-02-22] MEDS ORDERED: INSULIN (NOVOLOG) ASPART 100 UNITS/ML 10ML VIAL ONE (20:59)
[2018-02-22] MEDS: ATORVASTATIN CA 10 MG TABLET (FP) PO SCH (21:40)
[2018-02-22] MEDS: oxyCODONE HCL 5 MG TABLET PO PRN (21:55)
[2018-02-23] MEDS ORDERED: PT OWN MED DRAWER 7, Y5N ONE (05:41)
[2018-02-23] MEDS: FUROSEMIDE 100 MG/10 ML INJECTABLE VIAL IVPUSH SCH ×2 (05:56→14:50)
[2018-02-23] MEDS: INSULIN (LEVEMIR) 100 UNITS/ML UNITS SQ SCH ×2 (06:02→21:30)
[2018-02-23] MEDS: INSULIN SLIDING SCALE (NOVOLOG) 1 VIAL SQ SCH ×4 (06:03→21:29)
[2018-02-23] MEDS ORDERED: INSULIN (LEVEMIR) 100 UNITS/ML UNITS SQ ONE (06:34)
[2018-02-23 07:39] LABS: BASO % 1.1 % (0-2.0); EOS % 3.5 % (0-4.5); HEMOGLOBIN 9.2 GM/dL (11.7-16.9); MCH 30.9 pg (25.7-33.7); MCHC 32.8 g/dl (32.0-35.9); MEAN CELL VOLUME 94.2 fl (80-96); MEAN PLT VOLUME 9.4 fl (7.5-11.1); MONO % 13.8 % (3.8-10.2); NEUT % 60.6 % (42.8-82.8); PLATELET COUNT 66 K/MM3 (134-434); RBC 2.97 M/mm3 (4.00-5.60); RDW 15.9 % (11.9-15.9)
[2018-02-23 07:58] LABS: ANION GAP 9 MMOL/L (8-16); BLOOD UREA NITROGEN 60 mg/dL (7-18); CALCIUM 8.1 mg/dL (8.5-10.1); CHLORIDE 104 mmol/L (98-107); CO2 26 mmol/L (21-32); CREATININE 1.8 mg/dL (0.55-1.3); GLUCOSE,RANDOM 73 mg/dL (74-106); SODIUM 138 mmol/L (136-145)
[2018-02-23] MEDS: TAMSULOSIN HCL 0.4 MG CAP PO SCH (08:34)
[2018-02-23] MEDS: METOPROLOL TARTRATE 25 MG TABLET (FP) PO SCH ×2 (09:57→21:31)
--- NOTE | 2018-02-23 11:51 | PN ---
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 (short form) - Note 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: Pt examined weak has stiffness in legs no SOB Current Medications Generic Name Dose Route Start Last Admin Trade Name Radha PRN Reason Stop Dose Admin Acetaminophen 650 mg 02/16/18 18:33 Tylenol - PO Q4H PRN PAIN LEVEL 1-5 Aspirin 81 mg 02/17/18 10:00 02/18/18 09:19 Ecotrin - PO 81 mg DAILY [facility] Administration Atorvastatin Calcium 10 mg 02/16/18 22:00 02/17/18 22:40 Lipitor - PO 10 mg HS [facility] Administration Furosemide 80 mg 02/17/18 14:00 02/18/18 06:28 Lasix Injection - IVPUSH 80 mg BID@0600,1400 [facility] Administration Insulin Aspart 1 vial 02/16/18 22:00 02/18/18 06:30 Novolog Vial Sliding Scale - SQ Not Given ACHS [facility] Protocol Insulin Detemir 20 units 02/16/18 22:00 02/18/18 06:24 Levemir Vial SQ 20 unit BID@0700,2200 [facility] Administration Metoprolol Tartrate 12.5 mg 02/16/18 22:00 02/18/18 09:18 Lopressor - PO 12.5 mg BID [facility] Administration Tamsulosin HCl 0.4 mg 02/17/18 08:30 02/18/18 09:18 Flomax - PO 0.4 mg DAILY@0830 [facility] Administration Selected Entries 02/18/18 09:00 Temperature 97.6 F Pulse Rate 66 Respiratory 17 Rate Blood Pressure 146/64 O2 Sat by Pulse 100 Oximetry (%) Oxygen Delivery Room Air Method Laboratory Tests 02/18/18 11:33 Sodium 143 Potassium 4.1 Chloride 107 Carbon Dioxide 31 Anion Gap 5 L BUN 49 H Creatinine 1.6 H Random Glucose 84 Calcium 8.0 L JVD+ S1 S2 RRR Lungs decreased Abd- soft, NT Edema+ PLAN IV lasix 100mg BID Cardiology eval follow up monitor renal function - better No AC in view of cirrhosis and low platelets paracentesis was cancelled yesterday by GI as there was less ascites Problem List - Problems (1) Atrial flutter Code(s): I48.92 - UNSPECIFIED ATRIAL FLUTTER (2) CHF exacerbation Code(s): I50.9 - HEART FAILURE, UNSPECIFIED (3) CHF (congestive heart failure) Code(s): I50.9 - HEART FAILURE, UNSPECIFIED Qualifiers: Heart failure type: unspecified Heart failure chronicity: acute on chronic Qualified Code(s): I50.9 - Heart failure, unspecified (4) Chronic kidney disease (CKD) Code(s): N18.9 - CHRONIC KIDNEY DISEASE, UNSPECIFIED (5) Diabetes 1.5, managed as type 2 Code(s): E13.9 - OTHER SPECIFIED DIABETES MELLITUS WITHOUT COMPLICATIONS
[2018-02-23] MEDS ORDERED: FUROSEMIDE 40 MG/4 ML INJECTABLE VIAL ONE (14:34)
[2018-02-23] MEDS ORDERED: INSULIN (NOVOLOG) ASPART 100 UNITS/ML 10ML VIAL ONE (21:24)
[2018-02-23] MEDS: RIFAXIMIN 550 MG TABLET (UD) PO SCH (21:30)
[2018-02-23] MEDS: ATORVASTATIN CA 10 MG TABLET (FP) PO SCH (21:31)
[2018-02-23] MEDS: oxyCODONE HCL 5 MG TABLET PO PRN (21:31)
[2018-02-23] MEDS ORDERED: diphenhydrAMINE HCL 25 MG CAPSULE (FP) PO ONE (23:10)
[2018-02-24] MEDS: ALBUMIN HUMAN 25% 12.5 GM/50 ML VIAL IVPB SCH ×3 (00:47→00:50)
[2018-02-24] MEDS: INSULIN (LEVEMIR) 100 UNITS/ML UNITS SQ SCH ×2 (06:22→22:42)
[2018-02-24] MEDS: INSULIN SLIDING SCALE (NOVOLOG) 1 VIAL SQ SCH ×4 (06:23→22:43)
[2018-02-24] MEDS ORDERED: INSULIN (NOVOLOG) ASPART 100 UNITS/ML 10ML VIAL ONE ×2 (06:57→11:46)
[2018-02-24 08:04] LABS: ANION GAP 11 MMOL/L (8-16); BLOOD UREA NITROGEN 61 mg/dL (7-18); CHLORIDE 98 mmol/L (98-107); CO2 25 mmol/L (21-32); CREATININE 1.9 mg/dL (0.55-1.3); GLUCOSE,RANDOM 79 mg/dL (74-106); POTASSIUM 3.6 mmol/L (3.5-5.1); SODIUM 134 mmol/L (136-145)
[2018-02-24] MEDS: TAMSULOSIN HCL 0.4 MG CAP PO SCH (08:32)
[2018-02-24] MEDS: METOPROLOL TARTRATE 25 MG TABLET (FP) PO SCH ×2 (11:10→22:34)
[2018-02-24] MEDS: SPIRONOLACTONE 25 MG TABLET (FP) PO SCH (11:10)
[2018-02-24] MEDS: RIFAXIMIN 550 MG TABLET (UD) PO SCH ×2 (11:11→22:34)
--- NOTE | 2018-02-24 11:44 | PN ---
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 (short form) - Note 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: Pt examined weak feeling better Vital Signs - 24 hr 02/23/18 02/23/18 02/23/18 14:00 18:18 21:00 Temperature 98.4 F 98.5 F Pulse Rate 58 L 61 Respiratory 18 20 Rate Blood Pressure 139/51 L 117/51 L O2 Sat by Pulse 98 Oximetry (%) 02/23/18 02/24/18 02/24/18 21:35 05:14 09:18 Temperature 97.9 F 97.8 F 97.6 F Pulse Rate 65 60 68 Respiratory 19 18 12 Rate Blood Pressure 136/81 146/60 141/64 O2 Sat by Pulse Oximetry (%) Current Medications Generic Name Dose Route Start Last Admin Trade Name Freq PRN Reason Stop Dose Admin Acetaminophen 650 mg 02/16/18 18:33 Tylenol - PO Q4H PRN PAIN LEVEL 1-5 Atorvastatin Calcium 10 mg 02/16/18 22:00 02/23/18 21:31 Lipitor - PO 10 mg HS [facility] Administration Furosemide 40 mg 02/25/18 10:00 Lasix - PO DAILY [facility] Insulin Aspart 1 vial 02/16/18 22:00 02/24/18 06:23 Novolog Vial Sliding Scale - SQ Not Given ACHS [facility] Protocol Insulin Detemir 20 units 02/16/18 22:00 02/24/18 06:22 Levemir Vial SQ Not Given BID@0700,2200 [facility] Metoprolol Tartrate 12.5 mg 02/16/18 22:00 02/24/18 11:10 Lopressor - PO 12.5 mg BID [facility] Administration Oxycodone HCl 5 mg 02/19/18 22:00 02/23/18 21:31 Roxicodone - PO 5 mg BID PRN Administration PAIN SCALE 6-10 Rifaximin 550 mg 02/23/18 22:00 02/24/18 11:11 Xifaxan - PO 550 mg BID [facility] Administration Spironolactone 100 mg 02/24/18 10:00 02/24/18 11:10 Aldactone - PO 100 mg DAILY [facility] Administration Tamsulosin HCl 0.4 mg 02/17/18 08:30 02/24/18 08:32 Flomax - PO 0.4 mg DAILY@0830 [facility] Administration Laboratory Results - last 24 hr 02/23/18 02/23/18 02/24/18 16:24 21:27 06:16 Sodium Potassium Chloride Carbon Dioxide Anion Gap BUN Creatinine Creat Clearance w eGFR POC Glucometer 230 237 64 Random Glucose Calcium 02/24/18 02/24/18 06:30 11:17 Sodium 134 L Potassium 3.6 Chloride 98 Carbon Dioxide 25 Anion Gap 11 BUN 61 H Creatinine 1.9 H Creat Clearance w eGFR 35.12 POC Glucometer 197 Random Glucose 79 Calcium 8.0 L JVD+ S1 S2 RRR Lungs decreased Abd- soft, NT Edema+ PLAN now on PO lasix monitor renal function- stable No AC in view of cirrhosis and low platelets Problem List - Problems (1) Atrial flutter Code(s): I48.92 - UNSPECIFIED ATRIAL FLUTTER (2) CHF exacerbation Code(s): I50.9 - HEART FAILURE, UNSPECIFIED (3) CHF (congestive heart failure) Code(s): I50.9 - HEART FAILURE, UNSPECIFIED Qualifiers: Heart failure type: unspecified Heart failure chronicity: acute on chronic Qualified Code(s): I50.9 - Heart failure, unspecified (4) Chronic kidney disease (CKD) Code(s): N18.9 - CHRONIC KIDNEY DISEASE, UNSPECIFIED (5) Diabetes 1.5, managed as type 2 Code(s): E13.9 - OTHER SPECIFIED DIABETES MELLITUS WITHOUT COMPLICATIONS
[2018-02-24] MEDS ORDERED: FUROSEMIDE 40 MG TABLET (FP) PO ONE (12:30)
--- NOTE | 2018-02-24 16:28 | PN ---
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 (short form) - Note 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: Chief Complaint: sob History of Present Illness: sob improved, still with a lot of le edema; no cp palps dizzy Current Medications Generic Name Dose Route Start Last Admin Trade Name Radha PRN Reason Stop Dose Admin Acetaminophen 650 mg 02/16/18 18:33 Tylenol - PO Q4H PRN PAIN LEVEL 1-5 Atorvastatin Calcium 10 mg 02/16/18 22:00 02/23/18 21:31 Lipitor - PO 10 mg HS [facility] Administration Furosemide 100 mg 02/25/18 16:24 Lasix Injection - IVPUSH BID@0600,1400 [facility] Insulin Aspart 1 vial 02/16/18 22:00 02/24/18 11:55 Novolog Vial Sliding Scale - SQ 2 unit ACHS [facility] Administration Protocol Insulin Detemir 20 units 02/16/18 22:00 02/24/18 06:22 Levemir Vial SQ Not Given BID@0700,2200 [facility] Metoprolol Tartrate 12.5 mg 02/16/18 22:00 02/24/18 11:10 Lopressor - PO 12.5 mg BID [facility] Administration Oxycodone HCl 5 mg 02/19/18 22:00 02/23/18 21:31 Roxicodone - PO 5 mg BID PRN Administration PAIN SCALE 6-10 Rifaximin 550 mg 02/23/18 22:00 02/24/18 11:11 Xifaxan - PO 550 mg BID [facility] Administration Spironolactone 100 mg 02/24/18 10:00 02/24/18 11:10 Aldactone - PO 100 mg DAILY [facility] Administration Tamsulosin HCl 0.4 mg 02/17/18 08:30 02/24/18 08:32 Flomax - PO 0.4 mg DAILY@0830 [facility] Administration - Objective Vital Signs: Vital Signs Period Temp Pulse Resp BP Sys/Sheldon Pulse Ox Last 24 Hr 97.6 F-98.5 F 60-68 12-20 117-146/51-81 98 Constitutional: Yes: No Distress, Calm Eyes: No: Sclera Icterus HENT: No: Nasal Congestion Cardiovascular: Yes: Regular Rate and Rhythm, JVD (+ EJs (to jaw)), Murmur ( syst murmur along LSB), S1, S2, Other (PMI non diplaced). No: Gallop Respiratory: Yes: CTA Bilaterally. No: Accessory Muscle Use, Rales, Wheezes Gastrointestinal: Yes: Normal Bowel Sounds, Soft. No: Tenderness Musculoskeletal: Yes: Other (No kyphosis) Extremities: No: Cold Edema: Yes (1+ bilaterally pretibial) Integumentary: No: Jaundice Neurological: Yes: Alert, Oriented (x3) Psychiatric: No: Agitated CBC, BMP 02/23/18 07:00 02/24/18 06:30 Echo 01/11: nl LVSF, mild LVH. mild-mod RV dilation, borderline RVSF. mod LAE. mod AI, mild-mod TR. RVSP 30-40 MIBI 2013: nl mpi ECG: SR, nl intervals, LVH with repol abn,--no sig change vs prior CXR: chf Assessment/Plan acute exacerbation HFpEF, RV cardiomyopathy: - mult recurrent admits for chf, including recently when was discharged home on torsemide 80 bid and pt endorses compliance with regimen - however diet non-compliance likely triggers recurrent HF (predominantly right- sided sx's) - grossly overloaded/edematous here - last discharge weight 165 lbs - standing weight 168 lbs - 02/22 symptoms improving on lasix 100 mg IV BID, SOB improving, got metolazone x1 yesterday, Cr stable - 02/24: Lasix IV 100 bid was changed to 40 po qd. Pt remains volume up and 40 po qd would not be a sufficient maintenance dose (he was on torsemide 80 mg po bid at home). Will change back to iv lasix. Monitor daily chem7, wt. cad,h/o CABG: -stable, no angina, no signs acs -cont home statin, metoprolol -not on asa 2/2 thrombocytopenia CKD: -baseline creat 1.6-2.0 -renal fxn stable here, with ongoing diuresis s/p bio-avr: -moderate AI on echo 01/11 (was mild in 2014) -no wide pulse pressure--doubt contributing to chf. -routine outpt monitoring with dr jeffrey f/u s/p ascending aorta repair: -cont bb, statin, bp control -no root or ascending aorta dilation noted on echo -outpt f/u HTN: -bp stable -cont home meds aflutter: -no tachy issues, has been in sinus on recent admits -continue metoprolol 12.5 mg BID -no ac/asa 2/2 cirrhosis with thrombocytopenia and esoph varices--per prior outpt tx plan -similarly, could not safely give 6 wks AC then 6 wks DAPT so not a candidate for Watchman EDGAR closure device cirrhosis, thrombocytopenia: -per pmd
[2018-02-24] MEDS: oxyCODONE HCL 5 MG TABLET PO PRN (17:41)
[2018-02-24] MEDS: ATORVASTATIN CA 10 MG TABLET (FP) PO SCH (22:39)
--- NOTE | 2018-02-25 04:51 | PN ---
GI 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 Subjective: patient still has leg swelling less abdominal distention - Objective Vital Signs: Vital Signs Temperature 97.6 F 02/25/18 02:33 Pulse Rate 61 02/25/18 02:33 Respiratory Rate 20 02/25/18 02:33 Blood Pressure 135/64 02/25/18 02:33 O2 Sat by Pulse Oximetry (%) 99 02/24/18 21:00 Constitutional: No Distress Eyes: Yes: Conjunctiva Clear HENT: Yes: Atraumatic Neck: Yes: Supple Cardiovascular: Yes: Regular Rate and Rhythm Respiratory: Yes: CTA Bilaterally Gastrointestinal Inspection: Yes: Ascites, Distention (mild) ...Palpate: Yes: Soft. No: Firm/Rigid, Guarding, Hepatomegaly, Mass, Pulsatile Mass, Splenomegaly, Tenderness Edema: LLE: 4+, RLE: 4+ Labs: CBC, BMP 02/23/18 07:00 02/24/18 06:30 INR, PTT INR 1.32 (0.83-1.09) H 02/22/18 06:10 Problem List - Problems (1) Alcoholic cirrhosis Code(s): K70.30 - ALCOHOLIC CIRRHOSIS OF LIVER WITHOUT ASCITES (2) Leg edema Assessment/Plan: R> will need IV albumin and Lasix ordered serial BMP ordered Code(s): R60.0 - LOCALIZED EDEMA
[2018-02-25] MEDS ORDERED: ALBUMIN HUMAN 25% 12.5 GM/50 ML VIAL IVPB SCH (06:00)
[2018-02-25] MEDS: FUROSEMIDE 100 MG/10 ML INJECTABLE VIAL IVPB SCH (06:40)
[2018-02-25] MEDS: INSULIN (LEVEMIR) 100 UNITS/ML UNITS SQ SCH ×2 (06:43→21:43)
[2018-02-25] MEDS: INSULIN SLIDING SCALE (NOVOLOG) 1 VIAL SQ SCH ×4 (06:43→21:42)
[2018-02-25] MEDS: oxyCODONE HCL 5 MG TABLET PO PRN ×2 (07:00→21:35)
[2018-02-25] MEDS: ALBUMIN HUMAN 25% 12.5 GM/50 ML VIAL IVPB SCH ×2 (07:02→20:26)
[2018-02-25] MEDS: FUROSEMIDE 40 MG/4 ML INJECTABLE VIAL IVPUSH SCH (08:17)
[2018-02-25 08:45] LABS: ANION GAP 11 MMOL/L (8-16); BLOOD UREA NITROGEN 61 mg/dL (7-18); CALCIUM 7.9 mg/dL (8.5-10.1); CHLORIDE 99 mmol/L (98-107); CO2 25 mmol/L (21-32); CREATININE 1.8 mg/dL (0.55-1.3); GLUCOSE,RANDOM 81 mg/dL (74-106); POTASSIUM 3.9 mmol/L (3.5-5.1); SODIUM 135 mmol/L (136-145)
[2018-02-25] MEDS: METOPROLOL TARTRATE 25 MG TABLET (FP) PO SCH ×2 (09:30→21:34)
[2018-02-25] MEDS: SPIRONOLACTONE 25 MG TABLET (FP) PO SCH (09:31)
[2018-02-25] MEDS: TAMSULOSIN HCL 0.4 MG CAP PO SCH (09:31)
[2018-02-25] MEDS: RIFAXIMIN 550 MG TABLET (UD) PO SCH ×2 (09:31→21:34)
[2018-02-25] MEDS ORDERED: FUROSEMIDE 40 MG TABLET (FP) PO SCH (10:00)
--- NOTE | 2018-02-25 11:23 | PN ---
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 (short form) - Note 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: Chief Complaint: sob History of Present Illness: sob improved, still with le edema; no cp palps dizzy Current Medications Generic Name Dose Route Start Last Admin Trade Name Radha PRN Reason Stop Dose Admin Acetaminophen 650 mg 02/16/18 18:33 Tylenol - PO Q4H PRN PAIN LEVEL 1-5 Albumin Human 12.5 gm 02/25/18 08:00 02/25/18 07:02 Albumin Human 25% IVPB 02/26/18 08:01 12.5 gm Q12H [facility] Administration Atorvastatin Calcium 10 mg 02/16/18 22:00 02/24/18 22:39 Lipitor - PO 10 mg HS [facility] Administration Furosemide 100 mg 02/25/18 06:00 02/25/18 06:40 Lasix Injection - IVPB Not Given BID@0600,1400 [facility] Furosemide 60 mg 02/25/18 08:15 02/25/18 08:17 Lasix Injection - IVPUSH 02/26/18 08:16 60 mg Q12H [facility] Administration Insulin Aspart 1 vial 02/16/18 22:00 02/25/18 06:43 Novolog Vial Sliding Scale - SQ Not Given ACHS [facility] Protocol Insulin Detemir 20 units 02/16/18 22:00 02/25/18 06:43 Levemir Vial SQ 20 unit BID@0700,2200 [facility] Administration Metoprolol Tartrate 12.5 mg 02/16/18 22:00 02/25/18 09:30 Lopressor - PO 12.5 mg BID [facility] Administration Oxycodone HCl 5 mg 02/19/18 22:00 02/25/18 07:00 Roxicodone - PO 5 mg BID PRN Administration PAIN SCALE 6-10 Rifaximin 550 mg 02/23/18 22:00 02/25/18 09:31 Xifaxan - PO 550 mg BID [facility] Administration Spironolactone 100 mg 02/24/18 10:00 02/25/18 09:31 Aldactone - PO 100 mg DAILY [facility] Administration Tamsulosin HCl 0.4 mg 02/17/18 08:30 02/25/18 09:31 Flomax - PO 0.4 mg DAILY@0830 [facility] Administration - Objective Vital Signs: Vital Signs Period Temp Pulse Resp BP Sys/Sheldon Pulse Ox Last 24 Hr 97.6 F-98.4 F 61-66 18-20 119-135/54-64 99 Constitutional: Yes: No Distress, Calm Eyes: No: Sclera Icterus HENT: No: Nasal Congestion Cardiovascular: Yes: Regular Rate and Rhythm, JVD (+ EJs (to jaw)), Murmur ( syst murmur along LSB), S1, S2, Other (PMI non diplaced). No: Gallop Respiratory: Yes: CTA Bilaterally. No: Accessory Muscle Use, Rales, Wheezes Gastrointestinal: Yes: Normal Bowel Sounds, Soft. No: Tenderness Musculoskeletal: Yes: Other (No kyphosis) Extremities: No: Cold Edema: Yes (1+ bilaterally pretibial) Integumentary: No: Jaundice Neurological: Yes: Alert, Oriented (x3) Psychiatric: No: Agitated CBC, BMP 02/23/18 07:00 02/25/18 07:05 Echo 01/11: nl LVSF, mild LVH. mild-mod RV dilation, borderline RVSF. mod LAE. mod AI, mild-mod TR. RVSP 30-40 MIBI 2013: nl mpi ECG: SR, nl intervals, LVH with repol abn,--no sig change vs prior CXR: chf Assessment/Plan acute exacerbation HFpEF, RV cardiomyopathy: - mult recurrent admits for chf, including recently when was discharged home on torsemide 80 bid and pt endorses compliance with regimen - however diet non-compliance likely triggers recurrent HF (predominantly right- sided sx's) - grossly overloaded/edematous here - last discharge weight 165 lbs - standing weight 168 lbs - 02/22 symptoms improving on lasix 100 mg IV BID, SOB improving, got metolazone x1 yesterday, Cr stable - 02/24: Lasix IV 100 bid was changed to 40 po qd. Pt remains volume up and 40 po qd would not be a sufficient maintenance dose (he was on torsemide 80 mg po bid at home). Will change back to iv lasix. Monitor daily chem7, wt. - 02/25: Given his liver dz, pt is now getting albumen with his iv lasix, monitor response. cad,h/o CABG: -stable, no angina, no signs acs -cont home statin, metoprolol -not on asa 2/2 thrombocytopenia CKD: -baseline creat 1.6-2.0 -renal fxn stable here, with ongoing diuresis s/p bio-avr: -moderate AI on echo 01/11 (was mild in 2014) -no wide pulse pressure--doubt contributing to chf. -routine outpt monitoring with dr jeffrey f/u s/p ascending aorta repair: -cont bb, statin, bp control -no root or ascending aorta dilation noted on echo -outpt f/u HTN: -bp stable -cont home meds aflutter: -no tachy issues, has been in sinus on recent admits -continue metoprolol 12.5 mg BID -no ac/asa 2/2 cirrhosis with thrombocytopenia and esoph varices--per prior outpt tx plan -similarly, could not safely give 6 wks AC then 6 wks DAPT so not a candidate for [employer]man [employer] closure device cirrhosis, thrombocytopenia: -per pmd
--- NOTE | 2018-02-25 11:53 | PN ---
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 (short form) - Note 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: Pt examined weak SOB Vital Signs - 24 hr 02/24/18 02/24/18 02/25/18 18:00 21:00 05:50 Temperature 98.4 F 97.6 F Pulse Rate 64 61 Respiratory 19 20 Rate Blood Pressure 127/54 L 135/64 O2 Sat by Pulse 99 Oximetry (%) 02/25/18 02/25/18 11:00 13:17 Temperature 98.1 F 98.3 F Pulse Rate 66 67 Respiratory 20 Rate Blood Pressure 133/68 O2 Sat by Pulse Oximetry (%) Current Medications Generic Name Dose Route Start Last Admin Trade Name Freq PRN Reason Stop Dose Admin Acetaminophen 650 mg 02/16/18 18:33 Tylenol - PO Q4H PRN PAIN LEVEL 1-5 Albumin Human 12.5 gm 02/25/18 08:00 02/25/18 07:02 Albumin Human 25% IVPB 02/26/18 08:01 12.5 gm Q12H [facility] Administration Atorvastatin Calcium 10 mg 02/16/18 22:00 02/24/18 22:39 Lipitor - PO 10 mg HS [facility] Administration Furosemide 100 mg 02/25/18 06:00 02/25/18 06:40 Lasix Injection - IVPB Not Given BID@0600,1400 [facility] Furosemide 60 mg 02/25/18 08:15 02/25/18 08:17 Lasix Injection - IVPUSH 02/26/18 08:16 60 mg Q12H [facility] Administration Insulin Aspart 1 vial 02/16/18 22:00 02/25/18 16:39 Novolog Vial Sliding Scale - SQ Not Given ACHS [facility] Protocol Insulin Detemir 20 units 02/16/18 22:00 02/25/18 06:43 Levemir Vial SQ 20 unit BID@0700,2200 [facility] Administration Metoprolol Tartrate 12.5 mg 02/16/18 22:00 02/25/18 09:30 Lopressor - PO 12.5 mg BID [facility] Administration Oxycodone HCl 5 mg 02/19/18 22:00 02/25/18 07:00 Roxicodone - PO 5 mg BID PRN Administration PAIN SCALE 6-10 Rifaximin 550 mg 02/23/18 22:00 02/25/18 09:31 Xifaxan - PO 550 mg BID [facility] Administration Spironolactone 100 mg 02/24/18 10:00 02/25/18 09:31 Aldactone - PO 100 mg DAILY [facility] Administration Tamsulosin HCl 0.4 mg 02/17/18 08:30 02/25/18 09:31 Flomax - PO 0.4 mg DAILY@0830 [facility] Administration Laboratory Results - last 24 hr 02/24/18 02/24/18 02/25/18 16:59 22:41 06:42 Sodium Potassium Chloride Carbon Dioxide Anion Gap BUN Creatinine Creat Clearance w eGFR POC Glucometer 235 195 115 Random Glucose Calcium 02/25/18 02/25/18 02/25/18 07:05 11:43 16:37 Sodium 135 L Potassium 3.9 Chloride 99 Carbon Dioxide 25 Anion Gap 11 BUN 61 H Creatinine 1.8 H Creat Clearance w eGFR 37.38 POC Glucometer 196 120 Random Glucose 81 Calcium 7.9 L JVD+ S1 S2 RRR Lungs decreased Abd- soft, NT Edema+ PLAN pO Lasix dc as he is not diuresed enough On IV lasix and albumin monitor renal function- stable No AC in view of cirrhosis and low platelets Problem List - Problems (1) Atrial flutter Code(s): I48.92 - UNSPECIFIED ATRIAL FLUTTER (2) CHF exacerbation Code(s): I50.9 - HEART FAILURE, UNSPECIFIED (3) CHF (congestive heart failure) Code(s): I50.9 - HEART FAILURE, UNSPECIFIED Qualifiers: Heart failure type: unspecified Heart failure chronicity: acute on chronic Qualified Code(s): I50.9 - Heart failure, unspecified (4) Chronic kidney disease (CKD) Code(s): N18.9 - CHRONIC KIDNEY DISEASE, UNSPECIFIED (5) Diabetes 1.5, managed as type 2 Code(s): E13.9 - OTHER SPECIFIED DIABETES MELLITUS WITHOUT COMPLICATIONS
[2018-02-25] MEDS ORDERED: PT OWN MED DRAWER 7, Y5N ONE (20:14)
[2018-02-25] MEDS: ATORVASTATIN CA 10 MG TABLET (FP) PO SCH (21:34)
[2018-02-25 22:08] VITALS: BMI 26.5
[2018-02-26] MEDS: FUROSEMIDE 40 MG/4 ML INJECTABLE VIAL IVPUSH SCH ×2 (00:09→07:42)
[2018-02-26] MEDS: INSULIN SLIDING SCALE (NOVOLOG) 1 VIAL SQ SCH ×4 (06:54→22:34)
[2018-02-26] MEDS: INSULIN (LEVEMIR) 100 UNITS/ML UNITS SQ SCH ×2 (06:54→22:27)
[2018-02-26] MEDS: ALBUMIN HUMAN 25% 12.5 GM/50 ML VIAL IVPB SCH (07:01)
[2018-02-26] MEDS: TAMSULOSIN HCL 0.4 MG CAP PO SCH (07:42)
[2018-02-26 08:14] LABS: ALBUMIN 2.8 g/dl (3.4-5.0); ALK PHOS 147 U/L (45-117); ANION GAP 10 MMOL/L (8-16); BILIRUBIN,TOTAL 1.5 mg/dL (0.2-1); BLOOD UREA NITROGEN 61 mg/dL (7-18); CALCIUM 8.5 mg/dL (8.5-10.1); CHLORIDE 101 mmol/L (98-107); CO2 26 mmol/L (21-32); GLUCOSE,RANDOM 55 mg/dL (74-106); POTASSIUM 4.1 mmol/L (3.5-5.1); SGOT/AST 25 U/L (15-37); SGPT/ALT 21 U/L (13-61); SODIUM 137 mmol/L (136-145); TOT PROT 6.9 g/dl (6.4-8.2)
[2018-02-26] MEDS: METOPROLOL TARTRATE 25 MG TABLET (FP) PO SCH ×2 (09:48→22:26)
[2018-02-26] MEDS: RIFAXIMIN 550 MG TABLET (UD) PO SCH ×2 (09:48→22:39)
[2018-02-26] MEDS: SPIRONOLACTONE 25 MG TABLET (FP) PO SCH (09:49)
--- NOTE | 2018-02-26 10:51 | PN ---
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 (short form) - Note 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: patient seen and examined.. Chart reviewed. Lying in bed. Awake. Looks weaker No distress. chronic ill appearance Vital Signs Temp 98.1 F 02/26/18 05:48 Pulse 60 02/26/18 05:48 Resp 20 02/26/18 05:48 BP 116/54 L 02/26/18 05:48 Pulse Ox 95 02/25/18 21:00 Intake & Output 02/25/18 02/25/18 02/26/18 11:59 23:59 11:59 Intake Total 50 1100 Output Total 700 Balance 50 400 Weight 168 lb 8 oz 167 lb 168 lb Intake: IVPB 50 Oral 1100 Output: Urine 700 Void 700 Other: Voiding Method Urinal Toilet Toilet # Unmeasured Voids Void 2 3 Bowel Movement No No # Bowel Movements 0 Height 5 ft 6.5 in Body Mass Index (BMI) 26.5 Weight Measurement Method Standing Scale Standing Scale Active Medications Acetaminophen (Tylenol -) 650 mg PO Q4H PRN PRN Reason: PAIN LEVEL 1-5 Atorvastatin Calcium (Lipitor -) 10 mg PO HS [facility] Last Admin: 02/25/18 21:34 Dose: 10 mg Furosemide (Lasix Injection -) 100 mg IVPB BID@0600,1400 [facility] Last Admin: 02/25/18 06:40 Dose: Not Given Insulin Aspart (Novolog Vial Sliding Scale -) 1 vial SQ [facility]; Protocol Last Admin: 02/26/18 06:54 Dose: Not Given Insulin Detemir (Levemir Vial) 20 units SQ BID@0700,2200 [facility] Last Admin: 02/26/18 06:54 Dose: Not Given Metoprolol Tartrate (Lopressor -) 12.5 mg PO BID [facility] Last Admin: 02/26/18 09:48 Dose: 12.5 mg Oxycodone HCl (Roxicodone -) 5 mg PO BID PRN PRN Reason: PAIN SCALE 6-10 Last Admin: 02/25/18 21:35 Dose: 5 mg Rifaximin (Xifaxan -) 550 mg PO BID [facility] Last Admin: 02/26/18 09:48 Dose: 550 mg Spironolactone (Aldactone -) 100 mg PO DAILY [facility] Last Admin: 02/26/18 09:49 Dose: 100 mg Tamsulosin HCl (Flomax -) 0.4 mg PO DAILY@0830 [facility] Last Admin: 02/26/18 07:42 Dose: 0.4 mg CBC, BMP 02/23/18 07:00 02/26/18 07:00 physical exam awake and comfortable chronic ill appearance No distress JVD+ S1 S2 RRR Lungs decreased Abd- soft, NT. distended Edema+ assessment and plan medications reviewed Continue present care On IV lasix and albumin monitor renal function- / electrolytes No AC in view of cirrhosis and low platelets physical therapy Will follow condition Guarded. Problem List - Problems (1) CHF exacerbation Code(s): I50.9 - HEART FAILURE, UNSPECIFIED (2) Acute on chronic kidney failure Code(s): N17.9 - ACUTE KIDNEY FAILURE, UNSPECIFIED; N18.9 - CHRONIC KIDNEY DISEASE, UNSPECIFIED Qualifiers: Acute renal failure type: unspecified Chronic kidney disease stage: unspecified stage Qualified Code(s): N17.9 - Acute kidney failure, unspecified ; N18.9 - Chronic kidney disease, unspecified (3) Diabetes 1.5, managed as type 2 Code(s): E13.9 - OTHER SPECIFIED DIABETES MELLITUS WITHOUT COMPLICATIONS
--- NOTE | 2018-02-26 15:16 | PN ---
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 (short form) - Note 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: Chief Complaint: sob History of Present Illness: sob improved, still with le edema; no cp palps dizzy Current Medications Acetaminophen (Tylenol -) 650 mg PO Q4H PRN PRN Reason: PAIN LEVEL 1-5 Atorvastatin Calcium (Lipitor -) 10 mg PO HS [facility] Last Admin: 02/25/18 21:34 Dose: 10 mg Furosemide (Lasix Injection -) 100 mg IVPB BID@0600,1400 [facility] Last Admin: 02/25/18 06:40 Dose: Not Given Insulin Aspart (Novolog Vial Sliding Scale -) 1 vial SQ ACHS [facility]; Protocol Last Admin: 02/26/18 11:40 Dose: 3 unit Insulin Detemir (Levemir Vial) 20 units SQ BID@0700,2200 [facility] Last Admin: 02/26/18 06:54 Dose: Not Given Metoprolol Tartrate (Lopressor -) 12.5 mg PO BID [facility] Last Admin: 02/26/18 09:48 Dose: 12.5 mg Rifaximin (Xifaxan -) 550 mg PO BID [facility] Last Admin: 02/26/18 09:48 Dose: 550 mg Spironolactone (Aldactone -) 100 mg PO DAILY [facility] Last Admin: 02/26/18 09:49 Dose: 100 mg Tamsulosin HCl (Flomax -) 0.4 mg PO DAILY@0830 [facility] Last Admin: 02/26/18 07:42 Dose: 0.4 mg - Objective Vital Signs: Vital Signs Period Temp Pulse Resp BP Sys/Sheldon Pulse Ox Last 24 Hr 98.1 F-98.4 F 60-68 20-20 110-135/54-70 95 Constitutional: Yes: No Distress, Calm Eyes: No: Sclera Icterus HENT: No: Nasal Congestion Cardiovascular: Yes: Regular Rate and Rhythm, JVD (+ EJs (to jaw)), Murmur ( syst murmur along LSB), S1, S2, Other (PMI non diplaced). No: Gallop Respiratory: Yes: CTA Bilaterally. No: Accessory Muscle Use, Rales, Wheezes Gastrointestinal: Yes: Normal Bowel Sounds, Soft. No: Tenderness Musculoskeletal: Yes: Other (No kyphosis) Extremities: No: Cold Edema: Yes (1+ bilaterally pretibial) Integumentary: No: Jaundice Neurological: Yes: Alert, Oriented (x3) Psychiatric: No: Agitated Echo 01/11: nl LVSF, mild LVH. mild-mod RV dilation, borderline RVSF. mod LAE. mod AI, mild-mod TR. RVSP 30-40 MIBI 2013: nl mpi ECG: SR, nl intervals, LVH with repol abn,--no sig change vs prior CXR: chf Assessment/Plan acute exacerbation HFpEF, RV cardiomyopathy: - mult recurrent admits for chf, including recently when was discharged home on torsemide 80 bid and pt endorses compliance with regimen - however diet non-compliance likely triggers recurrent HF (predominantly right- sided sx's) - grossly overloaded/edematous here - last discharge weight 165 lbs - standing weight 168 lbs - 02/22 symptoms improving on lasix 100 mg IV BID, SOB improving, got metolazone x1 yesterday, Cr stable - 02/24: Lasix IV 100 bid was changed to 40 po qd. Pt remains volume up and 40 po qd would not be a sufficient maintenance dose (he was on torsemide 80 mg po bid at home). Will change back to iv lasix. Monitor daily chem7, wt. - 02/25: Given his liver dz, pt is now getting albumen with his iv lasix, monitor response - 02/26: received lasix 60 mg IVx3 since yesterday for liver disease, per patient and RN making good uop, some not charted. weight up since yesterday measured this morning - continue lasix 100 mg IV BID tomorrow, per GI getting albumin with lasix ( patient was on torsemide 80 mg BID at home, less likely to have a response to lasix 60 mg IV). still has JVD, some edema although dyspnea is improving. cad,h/o CABG: -stable, no angina, no signs acs -cont home statin, metoprolol -not on asa 2/2 thrombocytopenia CKD: -baseline creat 1.6-2.0 -renal fxn stable here, with ongoing diuresis s/p bio-avr: -moderate AI on echo 01/11 (was mild in 2014) -no wide pulse pressure--doubt contributing to chf. -routine outpt monitoring with dr jeffrey f/u s/p ascending aorta repair: -cont bb, statin, bp control -no root or ascending aorta dilation noted on echo -outpt f/u HTN: -bp stable -cont home meds aflutter: -no tachy issues, has been in sinus on recent admits -continue metoprolol 12.5 mg BID -no ac/asa 2/2 cirrhosis with thrombocytopenia and esoph varices--per prior outpt tx plan -similarly, could not safely give 6 wks AC then 6 wks DAPT so not a candidate for Watchman [employer] closure device cirrhosis, thrombocytopenia: -per pmd
[2018-02-26] MEDS: FUROSEMIDE 100 MG/10 ML INJECTABLE VIAL IVPB SCH (17:34)
[2018-02-26] MEDS ORDERED: PT OWN MED DRAWER 7, Y5N ONE (21:11)
[2018-02-26] MEDS: ATORVASTATIN CA 10 MG TABLET (FP) PO SCH (22:27)
[2018-02-27] MEDS: FUROSEMIDE 100 MG/10 ML INJECTABLE VIAL IVPB SCH ×2 (06:35→13:43)
[2018-02-27] MEDS: INSULIN (LEVEMIR) 100 UNITS/ML UNITS SQ SCH ×2 (06:35→22:31)
[2018-02-27] MEDS: INSULIN SLIDING SCALE (NOVOLOG) 1 VIAL SQ SCH ×4 (06:36→22:32)
[2018-02-27] MEDS: TAMSULOSIN HCL 0.4 MG CAP PO SCH (08:23)
[2018-02-27 08:45] LABS: BASO % 0.7 % (0-2.0); EOS % 2.6 % (0-4.5); HEMATOCRIT 27.8 % (35.4-49); HEMOGLOBIN 9.7 GM/dL (11.7-16.9); LYMPH % 18.8 % (8-40); MCH 32.4 pg (25.7-33.7); MCHC 34.7 g/dl (32.0-35.9); MEAN CELL VOLUME 93.5 fl (80-96); MEAN PLT VOLUME 9.9 fl (7.5-11.1); NEUT % 63.9 % (42.8-82.8); PLATELET COUNT 80 K/MM3 (134-434); RBC 2.98 M/mm3 (4.00-5.60); RDW 16.2 % (11.9-15.9); WHITE BLOOD COUNT 3.9 K/mm3 (4.0-10.0)
[2018-02-27 09:09] LABS: ALBUMIN 3.1 g/dl (3.4-5.0); ALK PHOS 146 U/L (45-117); ANION GAP 11 MMOL/L (8-16); BILIRUBIN,TOTAL 1.6 mg/dL (0.2-1); BLOOD UREA NITROGEN 59 mg/dL (7-18); CALCIUM 8.5 mg/dL (8.5-10.1); CHLORIDE 101 mmol/L (98-107); CO2 25 mmol/L (21-32); CREATININE 1.9 mg/dL (0.55-1.3); GLUCOSE,RANDOM 92 mg/dL (74-106); POTASSIUM 4.3 mmol/L (3.5-5.1); SGOT/AST 24 U/L (15-37); SGPT/ALT 22 U/L (13-61); SODIUM 137 mmol/L (136-145); TOT PROT 7.2 g/dl (6.4-8.2)
[2018-02-27] MEDS: SPIRONOLACTONE 25 MG TABLET (FP) PO SCH (09:52)
[2018-02-27] MEDS: RIFAXIMIN 550 MG TABLET (UD) PO SCH ×2 (09:52→22:33)
[2018-02-27] MEDS: METOPROLOL TARTRATE 25 MG TABLET (FP) PO SCH ×2 (09:52→22:32)
--- NOTE | 2018-02-27 11:33 | PN ---
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 (short form) - Note 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: Chief Complaint: sob History of Present Illness: sob with exertion, still with le edema; no cp palps dizzy. wants to go home Current Medications Acetaminophen (Tylenol -) 650 mg PO Q4H PRN PRN Reason: PAIN LEVEL 1-5 Atorvastatin Calcium (Lipitor -) 10 mg PO HS [facility] Last Admin: 02/26/18 22:27 Dose: 10 mg Furosemide (Lasix Injection -) 100 mg IVPB BID@0600,1400 [facility] Last Admin: 02/27/18 06:35 Dose: 100 mg Insulin Aspart (Novolog Vial Sliding Scale -) 1 vial SQ ACHS [facility]; Protocol Last Admin: 02/27/18 06:36 Dose: Not Given Insulin Detemir (Levemir Vial) 20 units SQ BID@0700,2200 [facility] Last Admin: 02/27/18 06:35 Dose: 20 unit Metoprolol Tartrate (Lopressor -) 12.5 mg PO BID [facility] Last Admin: 02/27/18 09:52 Dose: 12.5 mg Rifaximin (Xifaxan -) 550 mg PO BID [facility] Last Admin: 02/27/18 09:52 Dose: 550 mg Spironolactone (Aldactone -) 100 mg PO DAILY [facility] Last Admin: 02/27/18 09:52 Dose: 100 mg Tamsulosin HCl (Flomax -) 0.4 mg PO DAILY@0830 [facility] Last Admin: 02/27/18 08:23 Dose: 0.4 mg - Objective Vital Signs: Vital Signs Period Temp Pulse Resp BP Sys/Sheldon Pulse Ox Last 24 Hr 97.6 F-98.5 F 58-65 15-20 110-137/49-89 95-98 Constitutional: Yes: No Distress, Calm Eyes: No: Sclera Icterus HENT: No: Nasal Congestion Cardiovascular: Yes: Regular Rate and Rhythm, JVD (+ EJs (to jaw)), Murmur ( syst murmur along LSB), S1, S2, Other (PMI non diplaced). No: Gallop Respiratory: Yes: CTA Bilaterally. No: Accessory Muscle Use, Rales, Wheezes Gastrointestinal: Yes: Normal Bowel Sounds, Soft. No: Tenderness Musculoskeletal: Yes: Other (No kyphosis) Extremities: No: Cold Edema: Yes (1+ bilaterally pretibial) Integumentary: No: Jaundice Neurological: Yes: Alert, Oriented (x3) Psychiatric: No: Agitated Echo 01/11: nl LVSF, mild LVH. mild-mod RV dilation, borderline RVSF. mod LAE. mod AI, mild-mod TR. RVSP 30-40 MIBI 2013: nl mpi ECG: SR, nl intervals, LVH with repol abn,--no sig change vs prior CXR: chf Assessment/Plan acute exacerbation HFpEF, RV cardiomyopathy: - mult recurrent admits for chf, including recently when was discharged home on torsemide 80 bid and pt endorses compliance with regimen - however diet non-compliance likely triggers recurrent HF (predominantly right- sided sx's) - grossly overloaded/edematous here - last discharge weight 165 lbs - standing weight 168 lbs - 02/22 symptoms improving on lasix 100 mg IV BID, SOB improving, got metolazone x1 yesterday, Cr stable - 02/24: Lasix IV 100 bid was changed to 40 po qd. Pt remains volume up and 40 po qd would not be a sufficient maintenance dose (he was on torsemide 80 mg po bid at home). Will change back to iv lasix. Monitor daily chem7, wt. - 02/25: Given his liver dz, pt is now getting albumen with his iv lasix, monitor response - 02/26: received lasix 60 mg IVx3 since yesterday for liver disease, per patient and RN making good uop, some not charted. weight up since yesterday measured this morning - patient was on torsemide 80 mg BID at home, less likely to have a response to lasix 60 mg IV -02/27 weight stable, received lasix 100 mg IV x1 this morning, continued 100 mg IV BID. may add metolazone tomorrow if not adequate UOP cad,h/o CABG: -stable, no angina, no signs acs -cont home statin, metoprolol -not on asa 2/2 thrombocytopenia CKD: -baseline creat 1.6-2.0 -renal fxn stable here, with ongoing diuresis s/p bio-avr: -moderate AI on echo 01/11 (was mild in 2014) -no wide pulse pressure--doubt contributing to chf. -routine outpt monitoring with dr jeffrey f/u s/p ascending aorta repair: -cont bb, statin, bp control -no root or ascending aorta dilation noted on echo -outpt f/u HTN: -bp stable -cont home meds aflutter: -no tachy issues, has been in sinus on recent admits -continue metoprolol 12.5 mg BID -no ac/asa 2/2 cirrhosis with thrombocytopenia and esoph varices--per prior outpt tx plan -similarly, could not safely give 6 wks AC then 6 wks DAPT so not a candidate for Watchman [employer] closure device cirrhosis, thrombocytopenia: -per pmd
--- NOTE | 2018-02-27 12:53 | PN ---
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 (short form) - Note 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: Pt examined weak not much weight loss SOB Vital Signs - 24 hr 02/26/18 02/26/18 02/27/18 21:00 23:20 05:35 Temperature 98.4 F 97.6 F Pulse Rate 65 59 L Respiratory 17 20 Rate Blood Pressure 127/66 131/50 L O2 Sat by Pulse 98 Oximetry (%) 02/27/18 02/27/18 02/27/18 09:00 09:22 09:23 Temperature 98.2 F Pulse Rate 61 Respiratory 15 Rate Blood Pressure 110/89 O2 Sat by Pulse 95 95 Oximetry (%) 02/27/18 02/27/18 14:00 18:07 Temperature 98.0 F 98.4 F Pulse Rate 59 L 64 Respiratory 17 19 Rate Blood Pressure 138/59 L 128/61 O2 Sat by Pulse Oximetry (%) Current Medications Generic Name Dose Route Start Last Admin Trade Name Freq PRN Reason Stop Dose Admin Acetaminophen 650 mg 02/16/18 18:33 Tylenol - PO Q4H PRN PAIN LEVEL 1-5 Atorvastatin Calcium 10 mg 02/16/18 22:00 02/26/18 22:27 Lipitor - PO 10 mg HS [facility] Administration Furosemide 100 mg 02/25/18 06:00 02/27/18 13:43 Lasix Injection - IVPB 100 mg BID@0600,1400 [facility] Administration Insulin Aspart 1 vial 02/16/18 22:00 02/27/18 17:18 Novolog Vial Sliding Scale - SQ 2 unit ACHS [facility] Administration Protocol Insulin Detemir 20 units 02/16/18 22:00 02/27/18 06:35 Levemir Vial SQ 20 unit BID@0700,2200 [facility] Administration Lactulose 20 gm 02/27/18 20:28 Cephulac (Oral Use) PO TID PRN CONSTIPATION Metoprolol Tartrate 12.5 mg 02/16/18 22:00 02/27/18 09:52 Lopressor - PO 12.5 mg BID [facility] Administration Ranitidine HCl 150 mg 02/27/18 22:00 Zantac - PO BID [facility] Rifaximin 550 mg 02/23/18 22:00 02/27/18 09:52 Xifaxan - PO 550 mg BID [facility] Administration Spironolactone 100 mg 02/24/18 10:00 02/27/18 09:52 Aldactone - PO 100 mg DAILY [facility] Administration Tamsulosin HCl 0.4 mg 02/17/18 08:30 02/27/18 08:23 Flomax - PO 0.4 mg DAILY@0830 [facility] Administration Laboratory Results - last 24 hr 02/26/18 02/27/18 02/27/18 22:28 06:25 08:00 WBC RBC Hgb Hct MCV MCH MCHC RDW Plt Count MPV Absolute Neuts (auto) Neutrophils % Lymphocytes % Monocytes % Eosinophils % Basophils % Nucleated RBC % Sodium 137 Potassium 4.3 Chloride 101 Carbon Dioxide 25 Anion Gap 11 BUN 59 H Creatinine 1.9 H Creat Clearance w eGFR 35.12 POC Glucometer 200 118 Random Glucose 92 Calcium 8.5 Total Bilirubin 1.6 H AST 24 ALT 22 Alkaline Phosphatase 146 H Total Protein 7.2 Albumin 3.1 L 02/27/18 02/27/18 02/27/18 08:00 11:29 17:05 WBC 3.9 L RBC 2.98 L Hgb 9.7 L Hct 27.8 L MCV 93.5 MCH 32.4 MCHC 34.7 RDW 16.2 H Plt Count 80 L D MPV 9.9 Absolute Neuts (auto) 2.5 Neutrophils % 63.9 Lymphocytes % 18.8 Monocytes % 14.0 H Eosinophils % 2.6 Basophils % 0.7 Nucleated RBC % 0 Sodium Potassium Chloride Carbon Dioxide Anion Gap BUN Creatinine Creat Clearance w eGFR POC Glucometer 151 188 Random Glucose Calcium Total Bilirubin AST ALT Alkaline Phosphatase Total Protein Albumin JVD+ S1 S2 RRR Lungs decreased,crackles Abd- soft, NT Edema+ PLAN pt examined with Gum Mixer he still has elevated JVD, crackles On IV lasix and aldactone monitor renal function- stable -improvement No AC in view of cirrhosis and low platelets Problem List - Problems (1) Atrial flutter Code(s): I48.92 - UNSPECIFIED ATRIAL FLUTTER (2) CHF exacerbation Code(s): I50.9 - HEART FAILURE, UNSPECIFIED (3) CHF (congestive heart failure) Code(s): I50.9 - HEART FAILURE, UNSPECIFIED Qualifiers: Heart failure type: unspecified Heart failure chronicity: acute on chronic Qualified Code(s): I50.9 - Heart failure, unspecified (4) Chronic kidney disease (CKD) Code(s): N18.9 - CHRONIC KIDNEY DISEASE, UNSPECIFIED (5) Diabetes 1.5, managed as type 2 Code(s): E13.9 - OTHER SPECIFIED DIABETES MELLITUS WITHOUT COMPLICATIONS
[2018-02-27] MEDS ORDERED: PT OWN MED DRAWER 7, Y5N ONE (13:21)
[2018-02-27] MEDS ORDERED: RANITIDINE HCL 150 MG TABLET (FP) PO ONE (15:00)
[2018-02-27] MEDS ORDERED: LACTULOSE 20 GM/30 ML UDC (FOR ORAL USE ONLY) PO PRN (20:28)
[2018-02-27] MEDS: ATORVASTATIN CA 10 MG TABLET (FP) PO SCH (22:32)
[2018-02-27] MEDS: RANITIDINE HCL 150 MG TABLET (FP) PO SCH (22:34)
[2018-02-28] MEDS ORDERED: PT OWN MED DRAWER 7, Y5N ONE (05:17)
[2018-02-28] MEDS: FUROSEMIDE 100 MG/10 ML INJECTABLE VIAL IVPB SCH ×2 (05:39→14:45)
[2018-02-28] MEDS: INSULIN SLIDING SCALE (NOVOLOG) 1 VIAL SQ SCH ×4 (06:27→21:11)
[2018-02-28] MEDS: INSULIN (LEVEMIR) 100 UNITS/ML UNITS SQ SCH ×2 (06:42→21:09)
[2018-02-28 08:02] LABS: ANION GAP 8 MMOL/L (8-16); BLOOD UREA NITROGEN 64 mg/dL (7-18); CALCIUM 8.4 mg/dL (8.5-10.1); CHLORIDE 102 mmol/L (98-107); CO2 27 mmol/L (21-32); CREATININE 2.1 mg/dL (0.55-1.3); GLUCOSE,RANDOM 136 mg/dL (74-106); POTASSIUM 4.4 mmol/L (3.5-5.1); SODIUM 136 mmol/L (136-145)
[2018-02-28] MEDS: TAMSULOSIN HCL 0.4 MG CAP PO SCH (08:10)
[2018-02-28] MEDS: METOPROLOL TARTRATE 25 MG TABLET (FP) PO SCH ×2 (10:32→21:14)
[2018-02-28] MEDS: RANITIDINE HCL 150 MG TABLET (FP) PO SCH ×2 (10:33→21:13)
[2018-02-28] MEDS: SPIRONOLACTONE 25 MG TABLET (FP) PO SCH (10:34)
--- NOTE | 2018-02-28 11:37 | PN ---
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 (short form) - Note 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: Chief Complaint: sob History of Present Illness: feels better today, no chest pain, palps, lightheadedness. improving SOB, edema is stable Current Medications Acetaminophen (Tylenol -) 650 mg PO Q4H PRN PRN Reason: PAIN LEVEL 1-5 Last Admin: 02/27/18 22:52 Dose: 650 mg Atorvastatin Calcium (Lipitor -) 10 mg PO HS [facility] Last Admin: 02/27/18 22:32 Dose: 10 mg Furosemide (Lasix Injection -) 100 mg IVPB BID@0600,1400 [facility] Last Admin: 02/28/18 05:39 Dose: 100 mg Insulin Aspart (Novolog Vial Sliding Scale -) 1 vial SQ ACHS [facility]; Protocol Last Admin: 02/28/18 06:27 Dose: Not Given Insulin Detemir (Levemir Vial) 20 units SQ BID@0700,2200 [facility] Last Admin: 02/28/18 06:42 Dose: 20 unit Lactulose (Cephulac (Oral Use)) 20 gm PO TID PRN PRN Reason: CONSTIPATION Metoprolol Tartrate (Lopressor -) 12.5 mg PO BID [facility] Last Admin: 02/28/18 10:32 Dose: 12.5 mg Ranitidine HCl (Zantac -) 150 mg PO BID [facility] Last Admin: 02/28/18 10:33 Dose: Not Given Rifaximin (Xifaxan -) 550 mg PO BID [facility] Last Admin: 02/27/18 22:33 Dose: 550 mg Spironolactone (Aldactone -) 100 mg PO DAILY [facility] Last Admin: 02/28/18 10:34 Dose: 100 mg Tamsulosin HCl (Flomax -) 0.4 mg PO DAILY@0830 [facility] Last Admin: 02/28/18 08:10 Dose: 0.4 mg - Objective Vital Signs: Vital Signs Period Temp Pulse Resp BP Sys/Sheldon Pulse Ox Last 24 Hr 98.0 F-98.4 F 56-64 17-19 128-138/56-61 95 Constitutional: Yes: No Distress, Calm Eyes: No: Sclera Icterus HENT: No: Nasal Congestion Cardiovascular: Yes: Regular Rate and Rhythm, JVD, Murmur (syst murmur along LSB ), S1, S2, Other (PMI non diplaced). No: Gallop Respiratory: Yes: CTA Bilaterally. No: Accessory Muscle Use, Rales, Wheezes Gastrointestinal: Yes: Normal Bowel Sounds, Soft. No: Tenderness Musculoskeletal: Yes: Other (No kyphosis) Extremities: No: Cold Edema: Yes (1+ bilaterally pretibial) Integumentary: No: Jaundice Neurological: Yes: Alert, Oriented (x3) Psychiatric: No: Agitated Echo 01/11: nl LVSF, mild LVH. mild-mod RV dilation, borderline RVSF. mod LAE. mod AI, mild-mod TR. RVSP 30-40 MIBI 2013: nl mpi ECG: SR, nl intervals, LVH with repol abn,--no sig change vs prior CXR: chf Assessment/Plan acute exacerbation HFpEF, RV cardiomyopathy: - mult recurrent admits for chf, including recently when was discharged home on torsemide 80 bid and pt endorses compliance with regimen - however diet non-compliance likely triggers recurrent HF (predominantly right- sided sx's) - grossly overloaded/edematous here - last discharge weight 165 lbs - standing weight 168 lbs - 02/22 symptoms improving on lasix 100 mg IV BID, SOB improving, got metolazone x1 yesterday, Cr stable - 02/24: Lasix IV 100 bid was changed to 40 po qd. Pt remains volume up and 40 po qd would not be a sufficient maintenance dose (he was on torsemide 80 mg po bid at home). Will change back to iv lasix. Monitor daily chem7, wt. - 02/25: Given his liver dz, pt is now getting albumen with his iv lasix, monitor response - 02/26: received lasix 60 mg IVx3 since yesterday for liver disease, per patient and RN making good uop, some not charted. weight up since yesterday measured this morning - patient was on torsemide 80 mg BID at home, less likely to have a response to lasix 60 mg IV -02/27 weight stable, , continued 100 mg IV BID. may add metolazone tomorrow if not adequate UOP - 02/28 weight decreasing, symptoms improving with Cr trending up on lasix 100 mg IV BID. will give PM dose today and hold, reevaluate in AM pending Cr cad,h/o CABG: -stable, no angina, no signs acs -cont home statin, metoprolol -not on asa 2/2 thrombocytopenia CKD: -baseline creat 1.6-2.0 -renal fxn stable here, with ongoing diuresis s/p bio-avr: -moderate AI on echo 01/11 (was mild in 2014) -no wide pulse pressure--doubt contributing to chf. -routine outpt monitoring with dr jeffrey f/u s/p ascending aorta repair: -cont bb, statin, bp control -no root or ascending aorta dilation noted on echo -outpt f/u HTN: -bp stable -cont home meds aflutter: -no tachy issues, has been in sinus on recent admits -continue metoprolol 12.5 mg BID -no ac/asa 2/2 cirrhosis with thrombocytopenia and esoph varices--per prior outpt tx plan -similarly, could not safely give 6 wks AC then 6 wks DAPT so not a candidate for Watchman EDG[employer] closure device cirrhosis, thrombocytopenia: -per pmd
--- NOTE | 2018-02-28 12:03 | PN ---
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 (short form) - Note 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: Pt examined weak weight loss noted Vital Signs - 24 hr 02/27/18 02/28/18 02/28/18 21:00 05:50 09:00 Temperature 98.0 F 98.5 F Pulse Rate 56 L 61 Respiratory 18 20 Rate Blood Pressure 131/56 L 139/68 O2 Sat by Pulse 95 Oximetry (%) 02/28/18 14:00 Temperature 99.0 F Pulse Rate 62 Respiratory 20 Rate Blood Pressure 141/44 L O2 Sat by Pulse Oximetry (%) Current Medications Generic Name Dose Route Start Last Admin Trade Name Freq PRN Reason Stop Dose Admin Acetaminophen 650 mg 02/16/18 18:33 02/27/18 22:52 Tylenol - PO 650 mg Q4H PRN Administration PAIN LEVEL 1-5 Atorvastatin Calcium 10 mg 02/16/18 22:00 02/27/18 22:32 Lipitor - PO 10 mg HS [facility] Administration Furosemide 100 mg 02/25/18 06:00 02/28/18 14:45 Lasix Injection - IVPB 02/28/18 23:59 100 mg BID@0600,1400 [facility] Administration Insulin Aspart 1 vial 02/16/18 22:00 02/28/18 17:21 Novolog Vial Sliding Scale - SQ 2 unit ACHS [facility] Administration Protocol Insulin Detemir 20 units 02/16/18 22:00 02/28/18 06:42 Levemir Vial SQ 20 unit BID@0700,2200 [facility] Administration Lactulose 20 gm 02/27/18 20:28 Cephulac (Oral Use) PO TID PRN CONSTIPATION Metoprolol Tartrate 12.5 mg 02/16/18 22:00 02/28/18 10:32 Lopressor - PO 12.5 mg BID [facility] Administration Ranitidine HCl 150 mg 02/27/18 22:00 02/28/18 10:33 Zantac - PO Not Given BID [facility] Rifaximin 550 mg 02/23/18 22:00 02/28/18 13:02 Xifaxan - PO 550 mg BID [facility] Administration Spironolactone 100 mg 02/24/18 10:00 02/28/18 10:34 Aldactone - PO 100 mg DAILY [facility] Administration Tamsulosin HCl 0.4 mg 02/17/18 08:30 02/28/18 08:10 Flomax - PO 0.4 mg DAILY@0830 [facility] Administration Laboratory Results - last 24 hr 02/27/18 02/28/18 02/28/18 22:30 05:41 06:05 Sodium 136 Potassium 4.4 Chloride 102 Carbon Dioxide 27 Anion Gap 8 BUN 64 H Creatinine 2.1 H Creat Clearance w eGFR 31.29 POC Glucometer 173 143 Random Glucose 136 H Calcium 8.4 L 02/28/18 02/28/18 11:33 17:10 Sodium Potassium Chloride Carbon Dioxide Anion Gap BUN Creatinine Creat Clearance w eGFR POC Glucometer 149 181 Random Glucose Calcium JVD+ S1 S2 RRR Lungs decreased,crackles Abd- soft, NT Edema+ PLAN pt examined family at bedside- son-in-law he still has elevated JVD, crackles On IV lasix and aldactone- may need to decrease dose of Lasix- will speak with Physical Therapy Technician as his renal function is worsening No AC in view of cirrhosis and low platelets Problem List - Problems (1) Atrial flutter Code(s): I48.92 - UNSPECIFIED ATRIAL FLUTTER (2) CHF exacerbation Code(s): I50.9 - HEART FAILURE, UNSPECIFIED (3) CHF (congestive heart failure) Code(s): I50.9 - HEART FAILURE, UNSPECIFIED Qualifiers: Heart failure type: unspecified Heart failure chronicity: acute on chronic Qualified Code(s): I50.9 - Heart failure, unspecified (4) Chronic kidney disease (CKD) Code(s): N18.9 - CHRONIC KIDNEY DISEASE, UNSPECIFIED (5) Diabetes 1.5, managed as type 2 Code(s): E13.9 - OTHER SPECIFIED DIABETES MELLITUS WITHOUT COMPLICATIONS
[2018-02-28] MEDS: RIFAXIMIN 550 MG TABLET (UD) PO SCH ×2 (13:02→21:14)
[2018-02-28] MEDS ORDERED: INSULIN (NOVOLOG) ASPART 100 UNITS/ML 10ML VIAL ONE (17:20)
[2018-02-28] MEDS ORDERED: traMADol HCL 50 MG TABLET PO ONE (20:52)
[2018-02-28] MEDS: ATORVASTATIN CA 10 MG TABLET (FP) PO SCH (21:13)
[2018-03-01] MEDS: INSULIN SLIDING SCALE (NOVOLOG) 1 VIAL SQ SCH ×2 (06:18→11:49)
[2018-03-01] MEDS: INSULIN (LEVEMIR) 100 UNITS/ML UNITS SQ SCH (06:38)
[2018-03-01 08:26] LABS: ANION GAP 9 MMOL/L (8-16); BLOOD UREA NITROGEN 68 mg/dL (7-18); CALCIUM 8.4 mg/dL (8.5-10.1); CHLORIDE 104 mmol/L (98-107); CO2 25 mmol/L (21-32); GLUCOSE,RANDOM 59 mg/dL (74-106); POTASSIUM 4.5 mmol/L (3.5-5.1); SODIUM 138 mmol/L (136-145)
[2018-03-01] MEDS: TAMSULOSIN HCL 0.4 MG CAP PO SCH (08:45)
[2018-03-01 09:55] VITALS: BP 126/61; PULSE 70; TEMP 98.4
[2018-03-01] MEDS: RANITIDINE HCL 150 MG TABLET (FP) PO SCH (09:55)
[2018-03-01] MEDS: METOPROLOL TARTRATE 25 MG TABLET (FP) PO SCH (09:55)
[2018-03-01] MEDS: SPIRONOLACTONE 25 MG TABLET (FP) PO SCH (09:55)
[2018-03-01] MEDS: RIFAXIMIN 550 MG TABLET (UD) PO SCH (09:55)
[2018-03-01] MEDS ORDERED: INSULIN (NOVOLOG) ASPART 100 UNITS/ML 10ML VIAL ONE (11:48)
--- NOTE | 2018-03-01 12:17 | DS ---
Physical Examination Vital Signs: Vital Signs Temperature 98.4 F 03/01/18 09:54 Pulse Rate 70 03/01/18 09:54 Respiratory Rate 20 03/01/18 09:54 Blood Pressure 126/61 03/01/18 09:54 O2 Sat by Pulse Oximetry (%) 100 02/28/18 21:00 Findings/Remarks: patient seen and examined today Chart reviewed Feels much better Wants to go home Denies chest pain breathing significantly improved Passing urine Constitutional: Yes: No Distress, Calm Eyes: Yes: Conjunctiva Clear Neck: Yes: Supple Cardiovascular: Yes: Regular Rate and Rhythm Respiratory: Yes: Diminished Gastrointestinal: Yes: Soft Edema: RUE: 1+, LLE: 1+ (improved significantly) Neurological: Yes: Alert Labs: CBC, BMP 02/27/18 08:00 03/01/18 07:30 Discharge Summary Reason For Visit: ACUTE ON CHRONIC CHF Current Active Problems Alcoholic cirrhosis (Acute) Atrial flutter (Acute) CHF exacerbation (Acute) Leg edema (Acute) Hospital Course: patient with extensive past medical history as documented admitted due to worsening of CHF/ascites Treated with IV diuretics Cardiology and GI followed slowly improved Stable for discharge home--patient do not want to go for rehabilitation Medications reconciled Sent to pharmacy as needed discussed with patient in detail The close monitoring--- myself in office as well as cardiology and GI Patient in agreement Follow up in office in 1 week. discussed with nursing staff as well as child welfare caseworker Discharge time--approximately 30 minutes--- in examining documenting and coordinating care Condition: Stable - Instructions Referrals: Lindsay Wood MD [Primary Care Provider] - Disposition: HOME - Home Medications Comprehensive Discharge Medication List: Ambulatory Orders Pravastatin Sodium 10 mg PO DAILY 08/06/16 Tamsulosin HCl 0.4 mg PO DAILY 10/24/16 Insulin (Levemir) [Levemir Flexpen -] 20 units SQ BID 12/10/17 Aspirin Coated [Ecotrin -] 81 mg PO DAILY tablet.ec 12/14/17 Torsemide [Demadex -] 80 mg PO BID 30 Days #60 tab 12/14/17 Lactulose (Oral Use) [Cephulac -] 20 gm PO QID [facility] 12/19/17 Metoprolol Tartrate 12.5 mg PO BID #30 cap.sr 12/19/17 Rifaximin [Xifaxan -] 550 mg PO BID 30 Days #60 tablet 03/01/18 Spironolactone [Aldactone -] 100 mg PO DAILY #30 tablet 03/01/18
== END 2018-03-01 13:31 | disposition home or self-care (01) | DRG 291 ==
LOC: JER 14:47 → JERBED 19:54 → J6S 02-18 04:40
PROVIDERS: ADMIT Internal Medicine; ATTEND Internal Medicine
DX: I13.0 Hypertensive heart and chronic kidney disease with heart failure and stage 1 through stage 4 chronic kidney disease, or unspecified chronic kidney disease (principal); I50.33 Acute on chronic diastolic (congestive) heart failure; I48.92 Unspecified atrial flutter; N17.9 Acute kidney failure, unspecified; C22.0 Liver cell carcinoma; I25.10 Atherosclerotic heart disease of native coronary artery without angina pectoris; K70.30 Alcoholic cirrhosis of liver without ascites; F10.10 Alcohol abuse, uncomplicated; E78.5 Hyperlipidemia, unspecified; Z95.2 Presence of prosthetic heart valve; Z95.1 Presence of aortocoronary bypass graft; E11.22 Type 2 diabetes mellitus with diabetic chronic kidney disease; N18.9 Chronic kidney disease, unspecified; Z79.4 Long term (current) use of insulin; I42.9 Cardiomyopathy, unspecified; D69.6 Thrombocytopenia, unspecified
CPT/HCPCS: 36415; 71045-TC-FY; 74150-TC; 80048; 80053; 80076; 81003; 81015; 82140; 82550; 82962; 83036; 83735; 83880; 84484; 85025; 85027; 85610; 93005; 93010; 97116-GP; 97161-GP; 99285-25; J1644; P9047; Q9967

== ENCOUNTER 2018-03-16 09:25 | Emergency (ER) | payer MEDICARE, OTHER ==
[2018-03-16 09:36] VITALS: BMI 28.1
--- NOTE | 2018-03-16 10:29 | PDOC ---
History of Present Illness - General History Source: Family Exam Limitations: Clinical Condition - History of Present Illness Initial Comments: 03/16/18 11:21 The patient is a 72-year-old male, with a past medical history of HTN, HLD, DM, CHF, cardiac surgery, afib, CAD, liver cancer, ETOH Cirrhosis, who presents to the ED with altered mental status today, a/w frequent falls. Patients brother and roommate are at bedside providing history. As per roommate, the patient experienced an unwitnessed fall while at home yesterday and hit his head. He refused to go to the hospital at that time.This morning, the patient experienced another fall and called out to his roommate who found him on his side. It is unknown whether the patient lost consciousness after both falls. The patient was noted to be more confused in the past few days and has been experiencing cough and congestion for the past month. Family states that he has also been experiencing B/L lower extremity weakness, diarrhea, and increased urination. HPI is limited due to patients mental status. Allergies: NKDA PCP: Dr. Lindsay Wood <Dipika Sesay - Last Filed: 03/16/18 12:23> - General History Source: Patient Exam Limitations: No Limitations <Shivani Vizcaino - Last Filed: 03/16/18 13:00> - General Chief Complaint: Injury Stated Complaint: FALL Time Seen by Provider: 03/16/18 09:47 Past History <Dipika Sesay - Last Filed: 03/16/18 12:23> - Past Medical History Anemia: No Asthma: No Cancer: Yes (liver cancer) Cardiac Disorders: Yes (CHF, atrial fibrillation, CAD, Valve replacement) CVA: No COPD: No CHF: Yes DVT: No Dementia: No Diabetes: Yes (DMII) GI Disorders: Yes Disorders: No HTN: Yes Hypercholesterolemia: Yes Liver Disease: Yes (LIVER CANCER, ETOH CIRRHOSIS) Seizures: No Thyroid Disease: No - Surgical History Abdominal Surgery: Yes Appendectomy: No Cardiac Surgery: Yes (CABG x3-2005, aortic valve replacement) Cholecystectomy: No Lung Surgery: No Neurologic Surgery: No Orthopedic Surgery: No - Immunization History Immunization Up to Date: Yes - Suicide/Smoking/Psychosocial Hx Smoking Status: Yes Smoking History: Former smoker Have you smoked in the past 12 months: No Number of Cigarettes Smoked Daily: 0 If you are a former smoker, when did you quit?: 2013 Information on smoking cessation initiated: No 'Breaking Loose' booklet given: 12/16/17 Hx Alcohol Use: No Drug/Substance Use Hx: No Substance Use Type: None Hx Substance Use Treatment: No <Shivani Vizcaino - Last Filed: 03/16/18 13:00> - Past Medical History Allergies/Adverse Reactions: Allergies Allergy/AdvReac Type Severity Reaction Status Date / Time No Known Drug Allergies Allergy Verified 03/16/18 09:36 Home Medications: Ambulatory Orders Pravastatin Sodium 10 mg PO DAILY 08/06/16 Tamsulosin HCl 0.4 mg PO DAILY 10/24/16 Insulin (Levemir) [Levemir Flexpen -] 20 units SQ BID 12/10/17 Aspirin Coated [Ecotrin -] 81 mg PO DAILY tablet.ec 12/14/17 Torsemide [Demadex -] 80 mg PO BID 30 Days #60 tab 12/14/17 Lactulose (Oral Use) [Cephulac -] 20 gm PO QID udc 12/19/17 Metoprolol Tartrate 12.5 mg PO BID #30 cap.sr 12/19/17 Rifaximin [Xifaxan -] 550 mg PO BID 30 Days #60 tablet 03/01/18 Spironolactone [Aldactone -] 100 mg PO DAILY #30 tablet 03/01/18 Review of Systems - Review of Systems Able to Perform ROS?: No Comments:: 03/16/18 11:21 ROS limited secondary to patient's mental status but obtained by family member. <Dipika Sesay - Last Filed: 03/16/18 12:23> *Physical Exam - Vital Signs Last Vital Signs Temp Pulse Resp BP Pulse Ox 98.5 F 68 17 157/53 L 100 03/16/18 09:25 03/16/18 09:25 03/16/18 09:25 03/16/18 09:25 03/16/18 09:25 - Physical Exam Comments: 03/16/18 11:21 General: alert, disoriented (oriented to person and place only), no acute distress, HEENT: (+)LT temporal swelling and discoloration, RT occipital area of swelling. PERRL, EOMI, clear conjunctiva, anicteric, moist mucous membranes, clear oropharynx, no oral lesions. Neck: No midline cervical spine tenderness. neck supple, FROM Resp: (+)Bibasilar crackles. No respiratory distress CVS: (+)holosystolic murmur. 2+ peripheral pulses throughout, no peripheral edema Chest: no chest wall tenderness, no crepitus Abdomen: soft, NTND, no peritoneal signs. Back: nontender, normal inspection and ROM. (+)LT flank and lower back ecchymosis, nontender. MSK: no edema, EDGAR x4, ROM intact. No clubbing or cyanosis. normal bulk and tone. Pelvis stable Extremities: (+)B/L LE venous stasis dermatitis. No calf tenderness Neuro: (+)alert, oriented to person and place only. No focal neuro deficits. Skin: (+)Ecchymosis noted to B/L dorsum of the hands and RUE, ecchymosis to left lower back and right upper arm. Warm and well perfused, cap refill <2 sec, <Dipika Sesay - Last Filed: 03/16/18 12:23> - Vital Signs Last Vital Signs Temp Pulse Resp BP Pulse Ox 98.5 F 68 17 157/53 L 100 03/16/18 09:25 03/16/18 09:25 03/16/18 09:25 03/16/18 09:25 03/16/18 09:25 <Shivani Vizcaino - Last Filed: 03/16/18 13:00> Heart Score/ECG Review - ECG Impressions Normal ECG: No Non-specific ST Elevation: No Comment:: 03/16/18 11:17 EKG normal sinus rhythm, no interval abnormalities, narrow QRS, ST and T wave segments and morphology normal. Nonspecific T wave abnormalities in I, AVL, unchanged from prior <Shivani Vizcaino - Last Filed: 03/16/18 13:00> ED Treatment Course - LABORATORY CBC & Chemistry Diagram: 03/16/18 10:40 03/16/18 10:40 - ADDITIONAL ORDERS Additional order review: 03/16/18 10:40 RBC 2.99 L MCV 93.6 MCHC 35.3 RDW 16.6 H MPV 11.6 H D Neutrophils % 78.2 D Lymphocytes % 9.5 D Monocytes % 9.9 Eosinophils % 1.9 Basophils % 0.5 - RADIOLOGY Radiology Studies Ordered: 03/16/18 12:[address] was reviewed by Dr. Vizcaino and over-read by Radiology. Impression: Right posterior temporal subarachnoid hemorrhage without gross evidence of acute intracranial hemorrhage. Close follow-up is recommended. The calvarium is intact. <Dipika Sesay - Last Filed: 03/16/18 12:23> - LABORATORY CBC & Chemistry Diagram: 03/16/18 10:40 03/16/18 10:40 <Shivani Vizcaino - Last Filed: 03/16/18 13:00> Medical Decision Making - Medical Decision Making 03/16/18 12:21 Dr. Lindsay Wood was paged and notified via phone service. <Dipika Sesay - Last Filed: 03/16/18 12:23> - Medical Decision Making 03/16/18 12:19 72-year-old male, with a past medical history of HTN, HLD, DM, CHF, cardiac surgery, Afib (no AC, on daily ASA), CAD, liver cancer, ETOH Cirrhosis, who presents to the ED with altered mental status, frequent falls. Vital Signs Period Temp Pulse Resp BP Sys/Sheldon Pulse Ox Last 24 Hr 98.5 F 68-82 17-18 124-157/50-53 100-100 DDx. deconditioning, instability, weakness, infection, electrolyte derangements , metabolic derangements, ACS, anemia, aspiration, HOSPITAL ADMISSIONS CLERK lesion/SDH/ICH/SAH, CVA. Intra abdominal and thoracic injuries, rib fx, lumbar/thoracic spinal fx, compression fx. Considered SBP, intra abdominal infection Vital signs reviewed, mildly hypertensive. improved on recheck, normotensive and appropriate in setting of TBI., Prior notes reviewed, including admissions, discharges and consultations. laboratory results and imaging reviewed, basic labs and lytes wnl, . Baseline leukopenia, thrombocytopenia and anemia (liver cirrhosis history), with neg guaiac previously, baseline ckd with Cr ~2. K mildly elevated, but hemolyzed, will recheck. Cardiac panel_neg troponin, but at cutoff 0.05. unlikely cardiac EKG normal sinus rhythm, no interval abnormalities, narrow QRS, ST and T wave segments and morphology normal. Nonspecific T wave abnormalities in I, AVL, unchanged from prior ED course: no acute events, VS remain stable. Pt comfortable. At baseline mental status. CT wells scans to eval for injuries. Results significant for traumatic right parietal SAH, no fx; remainder of wells scans to r/o injuries/bleed pending Keppra 1g given. HD appropriate for now, keeping SBP <160 Spoke with ED Enciso; can come through ED for consultation and trauma eval. Dispo: Transfer to traumatic SAH, frequent falls and medical comorbidities.. Discussed results and management plan with family member at bedside, agree with impression and plan. PMD group ([place]) updated as well. I certify that I have discussed with the patient and/or his claims representative the following risks and benefits of the proposed transfer. consented with patient's friend (Kenny), other family member Valerie Peacock unable to be reached over phone, as pt has alert/disoriented status so cannot consent himself Risks include worsening of patients condition during transport,auto accident, or permanent disability. Benefits include receiving specialized care not available at this facility. I certify that, based on the information available at this time, the medical benefits reasonably expected from the provision of appropriate medical treatment at the receiving facility outweigh the increased risk to the patient and in the case of a woman in labor, to the woman or unborn child from being transferred. I believe the patient/relative/guardian understands what I have explained and answered. 03/16/18 12:58 <Shivani Vizcaino - Last Filed: 03/16/18 13:00> *DC/Admit/Observation/Transfer - Attestations Scribe Attestion: 03/16/18 11:22 Documentation prepared by Dipika Sesay, acting as medical receptionist medical assistant for Shivani Vizcaino MD. <Dipika Sesay - Last Filed: 03/16/18 12:23> - Discharge Dispostion Decision to Admit order: No - Transfer to Acute Care Facility Receiving Facility: [facility]. Accepting Physician:: ED Shankar Transfer comment: 03/16/18 12:54 TO EMERGENCY DEPARTMENT - Attestations Physician Attestion: 03/16/18 12:11 I, Shivani Vizcaino MD, attest that this document has been prepared under my direction and personally reviewed by me in its entirety. I further attest, that it accurately reflects all work, treatment, procedures and medical decision -making performed by me. <Shivani Vizcaino - Last Filed: 03/16/18 13:00> Diagnosis at time of Disposition: SAH (subarachnoid hemorrhage), Fall, Liver cirrhosis - Discharge Dispostion Disposition: TRANSFER ACUTE CARE/OTHER HOSP Condition at time of disposition: Guarded - Referrals Referrals: Lindsay Wood MD [Primary Care Provider] - - Patient Instructions - Post Discharge Activity
[2018-03-16 11:13] LABS: BASO % 0.5 % (0-2.0); EOS % 1.9 % (0-4.5); HEMOGLOBIN 9.9 GM/dL (11.7-16.9); LYMPH % 9.5 % (8-40); MCHC 35.3 g/dl (32.0-35.9); MEAN CELL VOLUME 93.6 fl (80-96); MEAN PLT VOLUME 11.6 fl (7.5-11.1); MONO % 9.9 % (3.8-10.2); NEUT % 78.2 % (42.8-82.8); PLATELET COUNT 85 K/MM3 (134-434); RBC 2.99 M/mm3 (4.00-5.60); RDW 16.6 % (11.9-15.9); WHITE BLOOD COUNT 4.3 K/mm3 (4.0-10.0)
[2018-03-16 11:33] LABS: INR 1.18 (0.83-1.09)
--- NOTE | 2018-03-16 11:35 | EKG ---
Test Reason : Blood Pressure : / mmHG Vent. Rate : 068 BPM Atrial Rate : 068 BPM P-R Int : 278 ms QRS Dur : 110 ms QT Int : 430 ms P-R-T Axes : 043 -27 079 degrees QTc Int : 457 ms SINUS RHYTHM WITH 1ST DEGREE A-V BLOCK INCOMPLETE LEFT BUNDLE BRANCH BLOCK NONSPECIFIC ST AND T WAVE ABNORMALITY ABNORMAL ECG WHEN COMPARED WITH ECG OF 16-FEB-2018 17:07, NO SIGNIFICANT CHANGE WAS FOUND Confirmed by Jaden Cuevas MD ([id number]) on 03/16/2018 11:34:34 AM Referred By: Confirmed By:Jaden Cuevas MD
[2018-03-16 11:52] LABS: ALBUMIN 2.8 g/dl (3.4-5.0); ALK PHOS 219 U/L (45-117); ANION GAP 11 MMOL/L (8-16); BILIRUBIN,TOTAL 1.7 mg/dL (0.2-1); BLOOD UREA NITROGEN 52 mg/dL (7-18); CALCIUM 8.1 mg/dL (8.5-10.1); CHLORIDE 96 mmol/L (98-107); CO2 22 mmol/L (21-32); GLUCOSE,RANDOM 286 mg/dL (74-106); SGOT/AST 41 U/L (15-37); SGPT/ALT 45 U/L (13-61); SODIUM 129 mmol/L (136-145); TOT PROT 6.9 g/dl (6.4-8.2)
[2018-03-16] MEDS ORDERED: levETIRAcetam 500 MG/5 ML INJECTION VIAL IVPB ONE ×2 (11:57→12:28)
[2018-03-16 12:02] LABS: POTASSIUM 6.2 mmol/L (3.5-5.1)
[2018-03-16 12:18] LABS: ACTIVATED PTT 35.3 SECONDS (25.2-36.5)
[2018-03-16 12:56] LABS: BLOOD UREA NITROGEN 54 mg/dL (7-18); CHLORIDE 96 mmol/L (98-107); CO2 23 mmol/L (21-32); SODIUM 127 mmol/L (136-145)
[2018-03-16 12:57] LABS: ANION GAP 8 MMOL/L (8-16); CALCIUM 8.2 mg/dL (8.5-10.1)
[2018-03-16 13:06] LABS: GLUCOSE,RANDOM 320 mg/dL (74-106); POTASSIUM 6.4 mmol/L (3.5-5.1)
[2018-03-16] MEDS ORDERED: INSULIN REGULAR HUMAN 100 UNITS/ML *VIAL IVPUSH ONE (13:06)
[2018-03-16] MEDS ORDERED: CALCIUM GLUCONATE 10% - 1,000 MG/10 ML VIAL IVPB ONE (13:06)
[2018-03-16] MEDS ORDERED: DEXTROSE 50%-WATER - 25 GM/50 ML VIAL IVPUSH ONE (13:07)
[2018-03-16] MEDS ORDERED: FUROSEMIDE 40 MG/4 ML INJECTABLE VIAL IVPUSH ONE (13:07)
[2018-03-16 13:10] VITALS: BP 114/51
[2018-03-16] MEDS ORDERED: ALBUTEROL SO4 2.5/IPRATROPIUM 0.5 INH SOL 3 ML VIAL.NEB. NEB ONE (13:12)
[2018-03-16] MEDS ORDERED: FUROSEMIDE 40 MG/4 ML INJECTABLE VIAL ONE (13:12)
[2018-03-16] MEDS ORDERED: CALCIUM GLUCONATE 10% - 1,000 MG/10 ML VIAL ONE (13:12)
[2018-03-16] MEDS ORDERED: DEXTROSE 50%-WATER 25 GM/50 ML DISP.SYRIN ONE (13:12)
[2018-03-16] MEDS ORDERED: INSULIN REGULAR HUMAN 100 UNITS/ML *VIAL ONE (13:14)
[2018-03-16] MEDS ORDERED: ALBUTEROL SO4 2.5/IPRATROPIUM 0.5 INH SOL 3 ML VIAL.NEB. NEB SCH (13:15)
[2018-03-16 13:34] VITALS: PULSE 82; TEMP 98.6
== END 2018-03-16 13:41 | disposition short-term general hospital (02) ==
LOC: JER 09:25
PROC: 3E0F7GC Introduction of Other Therapeutic Substance into Respiratory Tract, Via Natural or Artificial Opening (ICD-10-PCS; principal; 2018-03-16)
PROC: 3E033VG Introduction of Insulin into Peripheral Vein, Percutaneous Approach (ICD-10-PCS; 2018-03-16)
PROC: 3E033GC Introduction of Other Therapeutic Substance into Peripheral Vein, Percutaneous Approach (ICD-10-PCS; 2018-03-16)
PROC: 3E033GC Introduction of Other Therapeutic Substance into Peripheral Vein, Percutaneous Approach (ICD-10-PCS; 2018-03-16)
PROC: 3E033GC Introduction of Other Therapeutic Substance into Peripheral Vein, Percutaneous Approach (ICD-10-PCS; 2018-03-16)
PROC: 3E033GC Introduction of Other Therapeutic Substance into Peripheral Vein, Percutaneous Approach (ICD-10-PCS; 2018-03-16)
DX: I60.9 Nontraumatic subarachnoid hemorrhage, unspecified (principal); W18.39XA Other fall on same level, initial encounter; Z91.81 History of falling; Y93.89 Activity, other specified; Y92.038 Other place in apartment as the place of occurrence of the external cause; I25.10 Atherosclerotic heart disease of native coronary artery without angina pectoris; I11.0 Hypertensive heart disease with heart failure; Z95.1 Presence of aortocoronary bypass graft; E11.9 Type 2 diabetes mellitus without complications; Z79.4 Long term (current) use of insulin; I48.91 Unspecified atrial fibrillation; Z79.01 Long term (current) use of anticoagulants; E78.5 Hyperlipidemia, unspecified; K70.30 Alcoholic cirrhosis of liver without ascites; Z95.2 Presence of prosthetic heart valve; Z85.05 Personal history of malignant neoplasm of liver; Z87.891 Personal history of nicotine dependence
CPT/HCPCS: 36415; 70450-TC; 71250-TC; 72125-TC; 72128-TC; 72131-TC; 74176-TC; 80048; 80053; 82550; 84484; 85025; 85610; 85730; 86850; 86900; 86901; 93005; 93010; 94640; 96374; 96375; 99285-25